=== PATIENT | female | born 1955 | race Caucasian/White ===

== ENCOUNTER → 2017-03-13 | Outpatient (CLI) | payer OTHER ==
[~2017-03-13] MED LIST: ATEN-156 PO; CRUT1EAC7 MC; GLUC750T PO; LEG1EACH88 MC; MECL25TA56 PO
== END ==
LOC: LAB 14:05
PROVIDERS: ATTEND Registered Nurse
DX: E03.9 Hypothyroidism, unspecified (principal)
CPT/HCPCS: 36415; 84443; 84481

== ENCOUNTER → 2018-07-30 | Outpatient (CLI) | payer OTHER ==
--- NOTE | 2018-07-30 09:19 | Diagnostic Imaging Report ---
PROCEDURE: US Gallbladder. TECHNIQUE: Multiple real-time grayscale images were obtained over the right upper quadrant in various projections. INDICATION: Epigastric pain. FINDINGS: Liver has increased echogenicity. There is a 1.4 cm cyst in the liver near the gallbladder. There are several small stones in the gallbladder. The gallbladder wall is not thickened. There is a negative sonographic Jackman sign. The common duct is not appreciably dilated. Pancreas is obscured by bowel gas. Right kidney measures 9.3 cm in length and appears normal. There is no ascites. IMPRESSION: Hepatic steatosis. Cholecystolithiasis. Dictated by: Dictated on workstation # [id number]
== END ==
LOC: RAD 07:49
PROVIDERS: ATTEND Surgery
DX: K76.0 Fatty (change of) liver, not elsewhere classified (principal); K80.20 Calculus of gallbladder without cholecystitis without obstruction
CPT/HCPCS: 76705

== ENCOUNTER 2018-08-05 13:00 | Outpatient (CLI) | payer OTHER ==
[~2018-08-05] VITALS: Ht 165.1 cm; Wt 90.7 kg
[2018-08-05] MEDS ORDERED: PANT40TA3 PO (13:11)
[2018-08-05] MEDS ORDERED: FLUT9.9S NS (13:11)
[2018-08-05] MEDS ORDERED: ONDA4TAB11 PO (13:11)
[2018-08-05] MEDS ORDERED: ATEN50TA PO (13:11)
[2018-08-05] MEDS ORDERED: LOSA100T8 PO (13:11)
[2018-08-05] MEDS ORDERED: METH10TA2 PO (13:11)
[2018-08-05] MEDS ORDERED: LORA10TA7 PO (13:11)
[2018-08-05] MEDS ORDERED: LEVO112T55 PO (13:11)
== END 2018-08-05 13:26 | disposition home or self-care (01) ==
LOC: PREOP 13:00
PROVIDERS: ATTEND Surgery
DX: Z01.818 Encounter for other preprocedural examination (principal)

== ENCOUNTER 2018-08-11 08:19 | Day surgery (SDC) | payer OTHER ==
[~2018-08-11] VITALS: Ht 165.1 cm; Wt 90.7 kg
[~2018-08-11 08:19] MED LIST changes: +ATEN50TA PO; +FLUT9.9S NS; +LEVO112T55 PO; +LORA10TA7 PO; +LOSA100T57 PO; +METH10TA2 PO; +ONDA4TAB11 PO; +PANT40TA3 PO
--- OUTSIDE RECORDS SUMMARY | 2018-08-11 08:24 | XMS REPORT | CCD ---
Author Author Kristie Carter Organization [facility] Address [address] [place] [address] Phone Care Team Providers Care Setter Off Name Role Phone PP Unavailable CCM Unavailable Summary Purpose Interface Exchange Insurance Providers Payer name Policy type / Coverage type Covered republican ID Effective Begin Date Effective End Date Administrative Concepts [id number] Unknown Family history Brother Diagnosis Age At Onset Cancer Unknown Alcoholism Unknown Mother Diagnosis Age At Onset Osteoporosis Unknown Arthritis Unknown Diabetes mellitus Type 2 Unknown Father Diagnosis Age At Onset Arthritis Unknown Skin cancer Unknown Cancer Unknown Hypertension Unknown Social History Social History Element Codes Description Effective Dates Marital status Unknown Single 05/13/2017 Number of children Unknown 1 Daughter - 35 yo, lives in the area 05/13/2017 Employment Unknown 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 Unknown Has never used illegal drugs 05/13/2017 Allergies, Adverse Reactions, Alerts Substance Reaction Codes Entered Date Inactivated Date Status * OTHER REACTION - SEE ANSWER BOX Antibiotics- cause nausea Unknown 05/13/2017 No Inactive Date Active Lyrica nausea RxNorm: 254266 05/13/2017 No Inactive Date Active Savella nausea RxNorm: 723963 05/13/2017 No Inactive Date Active ibuprofen nausea, RxNorm: 5640 05/13/2017 No Inactive Date Active Past Medical History Illness Codes Condition Status Onset Date Resolved Date Atrophy of thyroid (acquired) ICD-9: 244.8 ICD-10: E03.4 Active 05/13/2017 Unknown Chronic pain syndrome ICD-9: 338.4 ICD-10: G89.4 Active 06/09/2017 Unknown Essential (primary) hypertension ICD-9: 401.1 ICD-10: I10 Active 05/13/2017 Unknown Type 2 diabetes mellitus without complications ICD-9: 250.00 ICD-10: E11.9 Active 05/13/2017 Unknown Nausea ICD-9: 787.02 ICD-10: R11.0 Active 06/09/2017 Unknown Diabetes Unknown Active 05/13/2017 Unknown Encounter for general adult medical examination with abnormal findings ICD-9: V70.0 ICD-10: Z00.01 Active 05/13/2017 Unknown Problems Condition Codes Effective Dates Condition Status Atrophy of thyroid (acquired) ICD-9: 244.8 ICD-10: E03.4 05/13/2017 Active Chronic pain syndrome ICD-9: 338.4 ICD-10: G89.4 06/09/2017 Active Essential (primary) hypertension ICD-9: 401.1 ICD-10: I10 05/13/2017 Active Type 2 diabetes mellitus without complications ICD-9: 250.00 ICD-10: E11.9 05/13/2017 Active Nausea ICD-9: 787.02 ICD-10: R11.0 06/09/2017 Active Diabetes Unknown 05/13/2017 Active Encounter for general adult medical examination with abnormal findings ICD-9: V70.0 ICD-10: Z00.01 05/13/2017 Active Medications Medication Codes Instructions Start Date Stop Date Status Fill Instructions losartan 100 mg tablet RxNorm: 115777 TAKE 1 TABLET BY MOUTH ONCE DAILY 07/15/2018 No Stop Date Active loratadine 10 mg tablet RxNorm: 375195 TAKE 1 TABLET BY MOUTH ONCE DAILY 07/03/2018 No Stop Date Active levothyroxine 112 mcg tablet RxNorm: 244484 TAKE 1 TABLET BY MOUTH ONCE DAILY 07/03/2018 No Stop Date Active methadone 10 mg tablet RxNorm: 906442 1.5 Tablet(s) PO TID 04/201808/27/2018 Active ondansetron 4 mg disintegrating tablet RxNorm: 319539 1 Tablet(s) PO daily as needed 06/25/2018 08/23/2018 Active methadone 10 mg tablet RxNorm: 622769 1.5 Tablet(s) PO TID 06/28/2018 Inactive methadone 10 mg tablet RxNorm: 252718 1.5 Tablet(s) PO TID 06/03/2018 Inactive methadone 10 mg tablet RxNorm: 738414 1.5 Tablet(s) PO TID 05/09/2018 Inactive loratadine 10 mg tablet RxNorm: 111980 TAKE 1 TABLET BY MOUTH ONCE DAILY 04/01/2018 07/02/2018 Inactive pantoprazole 40 mg tablet,delayed release RxNorm: 369562 TAKE ONE TABLET BY MOUTH TWICE DAILY FOR 1 WEEK, THEN ONCE DAILY THEREAFTER. 2017 No Stop Date Active ondansetron 4 mg disintegrating tablet RxNorm: 348935 1 Tablet(s) PO daily as needed 03/30/2018 06/24/2018 Inactive hydrocodone 7.5 mg-acetaminophen 325 mg tablet RxNorm: 329949 1 Tablet(s) PO TID as needed 03/18/2018 04/14/2018 Inactive methadone 10 mg tablet RxNorm: 122338 1 Tablet(s) PO TID 201703/24/2018 Inactive levothyroxine 112 mcg tablet RxNorm: 717113 1 Tablet(s) PO daily 03/06/2018 07/02/2018 Inactive promethazine 25 mg tablet RxNorm: 857443 1 Tablet(s) PO BID as needed nausea 03/05/2018 09/30/2018 Active ondansetron 4 mg disintegrating tablet RxNorm: 126374 1 Tablet(s) PO daily as needed 02/24/2018 03/25/2018 Inactive hydrocodone 7.5 mg-acetaminophen 325 mg tablet RxNorm: 212199 1 Tablet(s) PO TID as needed 02/18/2018 03/17/2018 Inactive methadone 10 mg tablet RxNorm: 714309 1 Tablet(s) PO TID 201703/17/2018 Inactive atenolol 50 mg tablet RxNorm: 703588 TAKE ONE TABLET BY MOUTH ONCE DAILY 02/16/2018 No Stop Date Active levothyroxine 112 mcg tablet RxNorm: 465313 1 Tablet(s) PO daily 02/02/2018 03/03/2018 Inactive levothyroxine 112 mcg tablet RxNorm: 663443 1 Tablet(s) PO daily 02/02/2018 02/01/2018 Inactive loratadine 10 mg tablet RxNorm: 783268 TAKE ONE TABLET BY MOUTH ONCE DAILY 01/29/2018 03/31/2018 Inactive hydrocodone 7.5 mg-acetaminophen 325 mg tablet RxNorm: 396035 1 Tablet(s) PO TID as needed 01/19/2018 02/17/2018 Inactive methadone 10 mg tablet RxNorm: 003406 1 Tablet(s) PO TID 201702/17/2018 Inactive doxazosin 2 mg tablet RxNorm: 071618 1 Tablet(s) PO BID 201701/11/2018 Inactive doxazosin 1 mg tablet RxNorm: 178768 1 Tablet(s) PO BID 201712/30/2017 Inactive ondansetron 4 mg disintegrating tablet RxNorm: 200391 1 Tablet(s) PO daily as needed 12/29/2017 02/23/2018 Inactive mupirocin 2 % topical ointment RxNorm: 439609 1 TOP TID 201712/10/2017 Inactive losartan 100 mg tablet RxNorm: 212918 1 Tablet(s) PO daily 06/28/2018 Inactive doxycycline hyclate 100 mg tablet RxNorm: 487051 1 Tablet(s) PO BID for cellulitis of toe 12/01/2017 12/05/2017 Inactive ondansetron 4 mg disintegrating tablet RxNorm: 307749 1 Tablet(s) PO daily as needed 11/28/2017 12/27/2017 Inactive WelChol 625 mg tablet RxNorm: 780898 3 Tablet(s) PO BID 201711/21/2017 Inactive levothyroxine 100 mcg tablet RxNorm: 028597 1 Tablet(s) PO daily 11/11/2017 03/10/2018 Inactive WelChol 625 mg tablet RxNorm: 482280 3 Tablet(s) PO BID 201711/10/2017 Inactive losartan 50 mg tablet RxNorm: 468902 1 Tablet(s) PO daily 201711/30/2017 Inactive ondansetron 4 mg disintegrating tablet RxNorm: 229114 1 Tablet(s) PO daily as needed 10/27/2017 11/25/2017 Inactive hydrocodone 7.5 mg-acetaminophen 325 mg tablet RxNorm: 489162 1 Tablet(s) PO TID as needed 10/02/2017 10/31/2017 Inactive methadone 10 mg tablet RxNorm: 026094 1 Tablet(s) PO TID 201710/31/2017 Inactive ondansetron 4 mg disintegrating tablet RxNorm: 492403 1 Tablet(s) PO daily as needed 09/03/2017 10/26/2017 Inactive Flonase Allergy Relief 50 mcg/actuation nasal spray, suspension RxNorm: 0640309 2 [place] NASAL daily 08/19/2017 No Stop Date Active Carafate 1 gram tablet RxNorm: 616797 1 Tablet(s) PO BID 2017 No Stop Date Active promethazine 25 mg tablet RxNorm: 516560 1 Tablet(s) PO BID as needed nausea 08/11/2017 03/04/2018 Inactive methadone 10 mg tablet RxNorm: 080616 1 Tablet(s) PO TID 201709/09/2017 Inactive hydrocodone 7.5 mg-acetaminophen 325 mg tablet RxNorm: 248142 1 Tablet(s) PO TID as needed 08/11/2017 09/09/2017 Inactive ondansetron 4 mg disintegrating tablet RxNorm: 154587 1 Tablet(s) PO daily as needed 07/10/2017 08/08/2017 Inactive hydrocodone 7.5 mg-acetaminophen 325 mg tablet RxNorm: 276689 1 Tablet(s) PO TID as needed 07/08/2017 08/06/2017 Inactive hydrocodone 7.5 mg-acetaminophen 325 mg tablet RxNorm: 071254 1 Tablet(s) PO TID as needed 07/08/2017 07/07/2017 Inactive methadone 10 mg tablet RxNorm: 278287 1 Tablet(s) PO TID 201608/06/2017 Inactive hydrocodone 10 mg-acetaminophen 325 mg tablet RxNorm: 235098 1 Tablet(s) PO TID as needed for breakthrough pain 06/16/2017 07/07/2017 Inactive ondansetron 4 mg disintegrating tablet RxNorm: 651718 1 Tablet(s) PO daily as needed 06/09/2017 07/08/2017 Inactive hydrocodone 10 mg-acetaminophen 325 mg tablet RxNorm: 677262 1 Tablet(s) PO TID as needed for breakthrough pain 06/09/2017 06/15/2017 Inactive atenolol 50 mg tablet RxNorm: 296852 1 Tablet(s) PO daily 201602/15/2018 Inactive promethazine 25 mg tablet RxNorm: 678359 1 Tablet(s) PO BID as needed nausea 06/09/2017 08/10/2017 Inactive pantoprazole 40 mg tablet,delayed release RxNorm: 690023 1 Tablet(s) PO daily bid x 1 week then daily thereafter 06/09/2017 12/05/2017 Inactive alprazolam 0.25 mg tablet RxNorm: 234494 1 Tablet(s) PO TID as needed 05/30/2017 11/02/2017 Inactive pantoprazole 40 mg tablet,delayed release RxNorm: 565162 1 Tablet(s) PO daily 05/30/2017 06/08/2017 Inactive ondansetron 4 mg disintegrating tablet RxNorm: 427942 1 Tablet(s) PO daily as needed 05/30/2017 06/08/2017 Inactive levothyroxine 75 mcg tablet RxNorm: 604764 1 Tablet(s) PO daily 05/13/2017 11/30/2017 Inactive loratadine 10 mg tablet RxNorm: 702921 1 Tablet(s) PO daily 12/08/2017 Inactive promethazine 25 mg tablet RxNorm: 634555 Tablet(s) PO as needed nausea No Start Date Active cyclobenzaprine 10 mg tablet RxNorm: 644647 Tablet(s) PO as needed No Start Date Active metformin 500 mg tablet RxNorm: 963461 1 Tablet(s) PO daily No Start Date 08/19/2017 Inactive ondansetron 8 mg disintegrating tablet RxNorm: 663927 Tablet(s) PO as needed nausea No Start Date 05/29/2017 Inactive levothyroxine 100 mcg tablet RxNorm: 555334 Tablet(s) PO No Start Date 11/10/2017 Inactive loratadine 10 mg tablet RxNorm: 321544 1 Tablet(s) PO daily No Start Date 05/12/2017 Inactive atenolol 50 mg tablet RxNorm: 313067 1 Tablet(s) PO daily No Start Date 06/08/2017 Inactive Flonase Allergy Relief 50 mcg/actuation nasal spray, suspension RxNorm: 6026963 [place] NASAL daily No Start Date 2017 Inactive alprazolam 0.25 mg tablet RxNorm: 375864 Tablet(s) PO as needed No Start Date 05/29/2017 Inactive levothyroxine oral RxNorm: 57189 oral No Start Date 05/13/2017 Inactive hydrocodone 10 mg-acetaminophen 325 mg tablet RxNorm: 257776 Tablet(s) PO as needed for breakthrough pain No Start Date 06/08/2017 Inactive methadone 10 mg tablet RxNorm: 889077 1 Tablet(s) PO TID No Start Date 07/07/2017 Inactive pantoprazole 40 mg tablet,delayed release RxNorm: 205165 1 Tablet(s) PO daily No Start Date 05/29/2017 Inactive Medication Administered No Medication Administered data Immunizations No Immunization data Assessments Condition Codes Effective Dates Chronic pain syndrome ICD-10: G89.4 ICD-9: 338.4 06/29/2018 Type 2 diabetes mellitus without complications ICD-10: E11.9 ICD-9: 250.00 06/29/2018 Atrophy of thyroid (acquired) ICD-10: E03.4 ICD-9: 244.8 06/29/2018 Essential (primary) hypertension ICD-10: I10 ICD-9: 401.1 06/29/2018 Nausea ICD-10: R11.0 ICD-9: 787.02 03/25/2018 Encounter for general adult medical examination with abnormal findings ICD-10: Z00.01 ICD-9: V70.0 05/13/2017 Reason For Visit Reason For Visit Effective Dates Notes diabetes mellitus 06/29/2018 diabetes mellitus 05/18/2018 nausea 03/25/2018 hypertension 01/12/2018 hypertension 12/29/2017 hypertension 12/01/2017 hypertension 11/03/2017 hypertension 08/11/2017 hypertension 06/09/2017 hypertension 05/13/2017 Results Observation Observation Code Item Item Code Result Date Free T4 Nkk291 FREE T4 0.81 ng/dL 01/22/2018 Tsh Ord6 TSH (3rd IS) 12.54 uIU/mL 01/22/2018 Comp Metabolic Wyz895 NA 139 mEq/L 11/05/2017 Comp Metabolic Dja292 K 3.9 mEq/L 11/05/2017 Comp Metabolic Bjx453 CL 101 mEq/L 11/05/2017 Comp Metabolic Qdl359 CO2 30.0 mEq/L 11/05/2017 Comp Metabolic Pax926 ANION GAP 12 11/05/2017 Comp Metabolic Bpz032 GLUCOSE 98 mg/dL 11/05/2017 Comp Metabolic Fig592 Creat 0.8 mg/dL 11/05/2017 Comp Metabolic Hwd120 eGFR 74 ml/min/1.73m2 11/05/2017 Comp Metabolic Vgt307 BUN 9 mg/dL 11/05/2017 Comp Metabolic Ojs146 B/C Ratio 10.8 Ratio 11/05/2017 Comp Metabolic Pba671 CALCIUM 9.1 mg/dL 11/05/2017 Comp Metabolic Nag115 ALK PHOS 87 U/L 11/05/2017 Comp Metabolic Kdv033 AST(SGOT) 28 U/L 11/05/2017 Comp Metabolic Ink901 ALT(SGPT) 30 U/L 11/05/2017 Comp Metabolic Jom469 BILI T 0.5 mg/dL 11/05/2017 Comp Metabolic Jya670 ALBUMIN 3.9 g/dL 11/05/2017 Comp Metabolic Jtw040 TPRO 7.2 g/dL 11/05/2017 Comp Metabolic Sdb150 GLOB 3.3 g/dL 11/05/2017 Comp Metabolic Hhp315 A/G Ratio 1.2 Ratio 11/05/2017 Comp Metabolic Irx389 Osmo 276 mOsmo 11/05/2017 Cbc With Differential Ord2 WBC 6.04 K/ul 11/05/2017 Cbc With Differential Ord2 RBC 4.96 M/ul 11/05/2017 Cbc With Differential Ord2 HGB 15.5 g/dl 11/05/2017 Cbc With Differential Ord2 Neut% 45.0 % 11/05/2017 Cbc With Differential Ord2 HCT 45.5 % 11/05/2017 Cbc With Differential Ord2 Lymph% 43.0 % 11/05/2017 Cbc With Differential Ord2 MCV 91.7 fl 11/05/2017 Cbc With Differential Ord2 MCH 31.3 pg 11/05/2017 Cbc With Differential Ord2 Wright% 8.8 % 11/05/2017 Cbc With Differential Ord2 Eos% 2.5 % 11/05/2017 Cbc With Differential Ord2 MCHC 34.1 pg 11/05/2017 Cbc With Differential Ord2 Baso% 0.7 % 11/05/2017 Cbc With Differential Ord2 PLT 221 K/ul 11/05/2017 Cbc With Differential Ord2 RDW 13.3 % 11/05/2017 Cbc With Differential Ord2 Neut ABS# 2.72 K/ul 11/05/2017 Cbc With Differential Ord2 Lymph ABS# 2.60 K/ul 11/05/2017 Cbc With Differential Ord2 Wright ABS# 0.5 K/ul 11/05/2017 Cbc With Differential Ord2 Eos ABS# 0.2 K/ul 11/05/2017 Cbc With Differential Ord2 Baso ABS# 0.0 K/ul 11/05/2017 Microalbumin Rcy376 MicroAlb <0.7 mg/dL 11/05/2017 Tsh Ord6 TSH (3rd IS) 27.62 uIU/mL 11/05/2017 Lipid Ord30 CHOL 218 mg/dL 11/05/2017 Lipid Ord30 HDL 34.0 mg/dl 11/05/2017 Lipid Ord30 TRIG 363 mg/dL 11/05/2017 Lipid Ord30 LDL Unable to calculate Due to elevated triglycerides mg/dL 11/05/2017 Lipid Ord30 C/HDL 6.4 Ratio 11/05/2017 %Hba1C Jor218 % HbA1c 80944-9 6.3 % 11/05/2017 %Hba1C Rqp479 Gluc Ave 134 mg/dL 11/05/2017 Free T4 Ild754 FREE T4 0.69 ng/dL 11/05/2017 Review of Systems System Result Effective Dates Constitutional recent illness 06/29/2018 Constitutional No chills 06/29/2018 Constitutional fatigue 06/29/2018 Constitutional No fever 06/29/2018 Constitutional No insomnia 06/29/2018 Constitutional No malaise 06/29/2018 Eyes No vision change 06/29/2018 Ears/Nose/Throat/Neck No dental pain 04/2018 Ears/Nose/Throat/Neck No dizziness 2017 Ears/Nose/Throat/Neck No dysphagia 2017 Ears/Nose/Throat/Neck No headache 2017 Ears/Nose/Throat/Neck No hearing loss 04/2018 Ears/Nose/Throat/Neck No nasal allergies 06/29/2018 Ears/Nose/Throat/Neck No sore throat 04/2018 Ears/Nose/Throat/Neck No postnasal drip 06/29/2018 Ears/Nose/Throat/Neck No sinus congestion 06/29/2018 Cardiovascular No chest pain/pressure 04/2018 Cardiovascular No dyspnea 06/29/2018 Cardiovascular No edema 06/29/2018 Cardiovascular No exercise intolerance Cardiovascular No fatigue 06/29/2018 Cardiovascular No near-syncope/dizziness 06/29/2018 Respiratory No chest tightness 2017 Respiratory No cough 06/29/2018 Respiratory No dyspnea 06/29/2018 Respiratory No pedal edema 06/29/2018 Gastrointestinal abdominal pain 2017 Gastrointestinal No constipation 2017 Gastrointestinal No diarrhea 06/29/2018 Gastrointestinal gastroesophageal reflux 06/29/2018 Gastrointestinal nausea 06/29/2018 Gastrointestinal No vomiting 06/29/2018 Musculoskeletal stiffness 06/29/2018 Musculoskeletal No swelling 06/29/2018 Musculoskeletal arthralgia(s) 06/29/2018 Musculoskeletal muscle weakness 2017 Musculoskeletal No myalgias 06/29/2018 Dermatologic No rash 06/29/2018 Dermatologic sores 06/29/2018 Neurologic No dizziness 06/29/2018 Neurologic No headache 06/29/2018 Neurologic No neck pain 06/29/2018 Neurologic No syncope 06/29/2018 Psychiatric No anxiety 06/29/2018 Psychiatric No depression 06/29/2018 Endocrine diabetes mellitus type 2 2017 Constitutional recent illness 05/18/2018 Constitutional No chills 05/18/2018 Constitutional fatigue 05/18/2018 Constitutional No fever 05/18/2018 Constitutional No insomnia 05/18/2018 Constitutional No malaise 05/18/2018 Eyes No vision change 05/18/2018 Ears/Nose/Throat/Neck No dental pain Ears/Nose/Throat/Neck No dizziness 2017 Ears/Nose/Throat/Neck No dysphagia 2017 Ears/Nose/Throat/Neck No headache 2017 Ears/Nose/Throat/Neck No hearing loss Ears/Nose/Throat/Neck No nasal allergies 05/18/2018 Ears/Nose/Throat/Neck No sore throat Ears/Nose/Throat/Neck No postnasal drip 05/18/2018 Ears/Nose/Throat/Neck No sinus congestion 05/18/2018 Cardiovascular No chest pain/pressure Cardiovascular No dyspnea 05/18/2018 Cardiovascular No edema 05/18/2018 Cardiovascular No exercise intolerance Cardiovascular No fatigue 05/18/2018 Cardiovascular No near-syncope/dizziness 05/18/2018 Respiratory No chest tightness 2017 Respiratory No cough 05/18/2018 Respiratory No dyspnea 05/18/2018 Respiratory No pedal edema 05/18/2018 Gastrointestinal No abdominal pain 2017 Gastrointestinal No constipation 2017 Gastrointestinal No diarrhea 05/18/2018 Gastrointestinal No gastroesophageal reflux 05/18/2018 Gastrointestinal nausea 05/18/2018 Gastrointestinal No vomiting 05/18/2018 Musculoskeletal stiffness 05/18/2018 Musculoskeletal No swelling 05/18/2018 Musculoskeletal arthralgia(s) 05/18/2018 Musculoskeletal muscle weakness 2017 Musculoskeletal No myalgias 05/18/2018 Dermatologic No rash 05/18/2018 Dermatologic sores 05/18/2018 Neurologic No dizziness 05/18/2018 Neurologic No headache 05/18/2018 Neurologic No neck pain 05/18/2018 Neurologic No syncope 05/18/2018 Psychiatric No anxiety 05/18/2018 Psychiatric No depression 05/18/2018 Endocrine diabetes mellitus type 2 2017 Constitutional recent illness 03/25/2018 Constitutional No chills 03/25/2018 Constitutional fatigue 03/25/2018 Constitutional No fever 03/25/2018 Constitutional No insomnia 03/25/2018 Constitutional No malaise 03/25/2018 Eyes No vision change 03/25/2018 Ears/Nose/Throat/Neck No dental pain 11/2017 Ears/Nose/Throat/Neck No dizziness 2017 Ears/Nose/Throat/Neck No dysphagia 2017 Ears/Nose/Throat/Neck No headache 2017 Ears/Nose/Throat/Neck No hearing loss 11/2017 Ears/Nose/Throat/Neck No nasal allergies 03/25/2018 Ears/Nose/Throat/Neck No sore throat 11/2017 Ears/Nose/Throat/Neck No postnasal drip 03/25/2018 Ears/Nose/Throat/Neck No sinus congestion 03/25/2018 Cardiovascular No chest pain/pressure 11/2017 Cardiovascular No dyspnea 03/25/2018 Cardiovascular No edema 03/25/2018 Cardiovascular No exercise intolerance Cardiovascular No fatigue 03/25/2018 Cardiovascular No near-syncope/dizziness 03/25/2018 Respiratory No chest tightness 2017 Respiratory No cough 03/25/2018 Respiratory No dyspnea 03/25/2018 Respiratory No pedal edema 03/25/2018 Gastrointestinal No abdominal pain 2017 Gastrointestinal No constipation 2017 Gastrointestinal No diarrhea 03/25/2018 Gastrointestinal No gastroesophageal reflux 03/25/2018 Gastrointestinal nausea 03/25/2018 Gastrointestinal No vomiting 03/25/2018 Musculoskeletal stiffness 03/25/2018 Musculoskeletal No swelling 03/25/2018 Musculoskeletal arthralgia(s) 03/25/2018 Musculoskeletal muscle weakness 2017 Musculoskeletal No myalgias 03/25/2018 Dermatologic No rash 03/25/2018 Dermatologic sores 03/25/2018 Neurologic No dizziness 03/25/2018 Neurologic No headache 03/25/2018 Neurologic No neck pain 03/25/2018 Neurologic No syncope 03/25/2018 Psychiatric No anxiety 03/25/2018 Psychiatric No depression 03/25/2018 Endocrine diabetes mellitus type 2 2017 Constitutional No recent illness 2017 Constitutional No chills 01/12/2018 Constitutional fatigue 01/12/2018 Constitutional No fever 01/12/2018 Constitutional No insomnia 01/12/2018 Constitutional No malaise 01/12/2018 Eyes No vision change 01/12/2018 Ears/Nose/Throat/Neck No dental pain Ears/Nose/Throat/Neck No dizziness 2017 Ears/Nose/Throat/Neck No dysphagia 2017 Ears/Nose/Throat/Neck No headache 2017 Ears/Nose/Throat/Neck No hearing loss Ears/Nose/Throat/Neck No nasal allergies 01/12/2018 Ears/Nose/Throat/Neck No sore throat Ears/Nose/Throat/Neck No postnasal drip 01/12/2018 Ears/Nose/Throat/Neck No sinus congestion 01/12/2018 Cardiovascular No chest pain/pressure Cardiovascular No dyspnea 01/12/2018 Cardiovascular No edema 01/12/2018 Cardiovascular No exercise intolerance Cardiovascular No fatigue 01/12/2018 Cardiovascular No near-syncope/dizziness 01/12/2018 Respiratory No chest tightness 2017 Respiratory No cough 01/12/2018 Respiratory No dyspnea 01/12/2018 Respiratory No pedal edema 01/12/2018 Gastrointestinal No abdominal pain 2017 Gastrointestinal No constipation 2017 Gastrointestinal No diarrhea 01/12/2018 Gastrointestinal No gastroesophageal reflux 01/12/2018 Gastrointestinal nausea 01/12/2018 Gastrointestinal No vomiting 01/12/2018 Musculoskeletal stiffness 01/12/2018 Musculoskeletal No swelling 01/12/2018 Musculoskeletal arthralgia(s) 01/12/2018 Musculoskeletal muscle weakness 2017 Musculoskeletal No myalgias 01/12/2018 Dermatologic No rash 01/12/2018 Neurologic No dizziness 01/12/2018 Neurologic No headache 01/12/2018 Neurologic No syncope 01/12/2018 Psychiatric alcohol abuse 01/12/2018 Psychiatric No anxiety 01/12/2018 Psychiatric depression 01/12/2018 Endocrine diabetes mellitus type 2 2017 Constitutional No recent illness 2017 Constitutional No chills 12/29/2017 Constitutional fatigue 12/29/2017 Constitutional No fever 12/29/2017 Constitutional No insomnia 12/29/2017 Constitutional No malaise 12/29/2017 Eyes No vision change 12/29/2017 Ears/Nose/Throat/Neck No dental pain 05/2018 Ears/Nose/Throat/Neck No dizziness 2017 Ears/Nose/Throat/Neck No dysphagia 2017 Ears/Nose/Throat/Neck No headache 2017 Ears/Nose/Throat/Neck No hearing loss 05/2018 Ears/Nose/Throat/Neck No nasal allergies 12/29/2017 Ears/Nose/Throat/Neck No sore throat 05/2018 Ears/Nose/Throat/Neck No postnasal drip 12/29/2017 Ears/Nose/Throat/Neck No sinus congestion 12/29/2017 Cardiovascular No chest pain/pressure 05/2018 Cardiovascular No dyspnea 12/29/2017 Cardiovascular No edema 12/29/2017 Cardiovascular No exercise intolerance Cardiovascular No fatigue 12/29/2017 Cardiovascular No near-syncope/dizziness 12/29/2017 Respiratory No chest tightness 2017 Respiratory No cough 12/29/2017 Respiratory No dyspnea 12/29/2017 Respiratory No pedal edema 12/29/2017 Gastrointestinal No abdominal pain 2017 Gastrointestinal No constipation 2017 Gastrointestinal No diarrhea 12/29/2017 Gastrointestinal No gastroesophageal reflux 12/29/2017 Gastrointestinal nausea 12/29/2017 Gastrointestinal No vomiting 12/29/2017 Musculoskeletal stiffness 12/29/2017 Musculoskeletal No swelling 12/29/2017 Musculoskeletal arthralgia(s) 12/29/2017 Musculoskeletal muscle weakness 2017 Musculoskeletal No myalgias 12/29/2017 Dermatologic No rash 12/29/2017 Neurologic No dizziness 12/29/2017 Neurologic No headache 12/29/2017 Neurologic No syncope 12/29/2017 Psychiatric No anxiety 12/29/2017 Psychiatric depression 12/29/2017 Endocrine diabetes mellitus type 2 2017 Psychiatric alcohol abuse 12/29/2017 Constitutional recent illness 12/01/2017 Constitutional No chills 12/01/2017 Constitutional fatigue 12/01/2017 Constitutional No fever 12/01/2017 Constitutional No insomnia 12/01/2017 Constitutional No malaise 12/01/2017 Eyes No vision change 12/01/2017 Ears/Nose/Throat/Neck No dental pain Ears/Nose/Throat/Neck No dizziness 2017 Ears/Nose/Throat/Neck No dysphagia 2017 Ears/Nose/Throat/Neck No headache 2017 Ears/Nose/Throat/Neck No hearing loss Ears/Nose/Throat/Neck No nasal allergies 12/01/2017 Ears/Nose/Throat/Neck No sore throat Ears/Nose/Throat/Neck No postnasal drip 12/01/2017 Ears/Nose/Throat/Neck No sinus congestion 12/01/2017 Cardiovascular No chest pain/pressure Cardiovascular No dyspnea 12/01/2017 Cardiovascular No edema 12/01/2017 Cardiovascular No exercise intolerance Cardiovascular No fatigue 12/01/2017 Cardiovascular No near-syncope/dizziness 12/01/2017 Respiratory No chest tightness 2017 Respiratory No cough 12/01/2017 Respiratory No dyspnea 12/01/2017 Respiratory No pedal edema 12/01/2017 Gastrointestinal No abdominal pain 2017 Gastrointestinal No constipation 2017 Gastrointestinal No diarrhea 12/01/2017 Gastrointestinal No gastroesophageal reflux 12/01/2017 Gastrointestinal nausea 12/01/2017 Gastrointestinal No vomiting 12/01/2017 Musculoskeletal stiffness 12/01/2017 Musculoskeletal No swelling 12/01/2017 Musculoskeletal arthralgia(s) 12/01/2017 Musculoskeletal muscle weakness 2017 Musculoskeletal No myalgias 12/01/2017 Dermatologic No rash 12/01/2017 Dermatologic sores 12/01/2017 Neurologic No dizziness 12/01/2017 Neurologic No headache 12/01/2017 Neurologic No neck pain 12/01/2017 Neurologic No syncope 12/01/2017 Psychiatric No anxiety 12/01/2017 Psychiatric No depression 12/01/2017 Endocrine diabetes mellitus type 2 2017 Constitutional recent illness 11/03/2017 Constitutional No chills 11/03/2017 Constitutional fatigue 11/03/2017 Constitutional No fever 11/03/2017 Constitutional No insomnia 11/03/2017 Constitutional No malaise 11/03/2017 Eyes No vision change 11/03/2017 Ears/Nose/Throat/Neck No dental pain Ears/Nose/Throat/Neck No dizziness 2017 Ears/Nose/Throat/Neck No dysphagia 2017 Ears/Nose/Throat/Neck No headache 2017 Ears/Nose/Throat/Neck No hearing loss Ears/Nose/Throat/Neck No nasal allergies 11/03/2017 Ears/Nose/Throat/Neck No sore throat Ears/Nose/Throat/Neck No postnasal drip 11/03/2017 Ears/Nose/Throat/Neck No sinus congestion 11/03/2017 Cardiovascular No chest pain/pressure Cardiovascular No dyspnea 11/03/2017 Cardiovascular No edema 11/03/2017 Cardiovascular No exercise intolerance Cardiovascular No fatigue 11/03/2017 Cardiovascular No near-syncope/dizziness 11/03/2017 Respiratory No chest tightness 2017 Respiratory No cough 11/03/2017 Respiratory No dyspnea 11/03/2017 Respiratory No pedal edema 11/03/2017 Gastrointestinal No abdominal pain 2017 Gastrointestinal No constipation 2017 Gastrointestinal No diarrhea 11/03/2017 Gastrointestinal No gastroesophageal reflux 11/03/2017 Gastrointestinal nausea 11/03/2017 Gastrointestinal No vomiting 11/03/2017 Musculoskeletal stiffness 11/03/2017 Musculoskeletal No swelling 11/03/2017 Musculoskeletal arthralgia(s) 11/03/2017 Musculoskeletal muscle weakness 2017 Musculoskeletal No myalgias 11/03/2017 Dermatologic No rash 11/03/2017 Dermatologic No sores 11/03/2017 Neurologic No dizziness 11/03/2017 Neurologic No headache 11/03/2017 Neurologic No neck pain 11/03/2017 Neurologic No syncope 11/03/2017 Psychiatric No anxiety 11/03/2017 Psychiatric No depression 11/03/2017 Endocrine diabetes mellitus type 2 2017 Constitutional recent illness 08/11/2017 Constitutional No chills 08/11/2017 Constitutional fatigue 08/11/2017 Constitutional No fever 08/11/2017 Constitutional No insomnia 08/11/2017 Constitutional No malaise 08/11/2017 Eyes No vision change 08/11/2017 Ears/Nose/Throat/Neck No dental pain Ears/Nose/Throat/Neck No dizziness 2017 Ears/Nose/Throat/Neck No dysphagia 2017 Ears/Nose/Throat/Neck No headache 2017 Ears/Nose/Throat/Neck No hearing loss Ears/Nose/Throat/Neck No nasal allergies 08/11/2017 Ears/Nose/Throat/Neck No sore throat Ears/Nose/Throat/Neck No postnasal drip 08/11/2017 Ears/Nose/Throat/Neck No sinus congestion 08/11/2017 Cardiovascular No chest pain/pressure Cardiovascular No dyspnea 08/11/2017 Cardiovascular No edema 08/11/2017 Cardiovascular No exercise intolerance Cardiovascular No fatigue 08/11/2017 Cardiovascular No near-syncope/dizziness 08/11/2017 Respiratory No chest tightness 2017 Respiratory No cough 08/11/2017 Respiratory No dyspnea 08/11/2017 Respiratory No pedal edema 08/11/2017 Gastrointestinal No abdominal pain 2017 Gastrointestinal No constipation 2017 Gastrointestinal No diarrhea 08/11/2017 Gastrointestinal No gastroesophageal reflux 08/11/2017 Gastrointestinal nausea 08/11/2017 Gastrointestinal No vomiting 08/11/2017 Musculoskeletal stiffness 08/11/2017 Musculoskeletal No swelling 08/11/2017 Musculoskeletal arthralgia(s) 08/11/2017 Musculoskeletal muscle weakness 2017 Musculoskeletal No myalgias 08/11/2017 Dermatologic No rash 08/11/2017 Dermatologic No sores 08/11/2017 Neurologic No dizziness 08/11/2017 Neurologic No headache 08/11/2017 Neurologic No neck pain 08/11/2017 Neurologic No syncope 08/11/2017 Psychiatric No anxiety 08/11/2017 Psychiatric No depression 08/11/2017 Constitutional recent illness 06/09/2017 Constitutional No chills 06/09/2017 Constitutional fatigue 06/09/2017 Constitutional No fever 06/09/2017 Constitutional No insomnia 06/09/2017 Constitutional No malaise 06/09/2017 Eyes No vision change 06/09/2017 Ears/Nose/Throat/Neck No dental pain Ears/Nose/Throat/Neck No dizziness 2016 Ears/Nose/Throat/Neck No dysphagia 2016 Ears/Nose/Throat/Neck No headache 2016 Ears/Nose/Throat/Neck No hearing loss Ears/Nose/Throat/Neck No nasal allergies 06/09/2017 Ears/Nose/Throat/Neck No sore throat Ears/Nose/Throat/Neck No postnasal drip 06/09/2017 Ears/Nose/Throat/Neck No sinus congestion 06/09/2017 Cardiovascular No chest pain/pressure Cardiovascular No dyspnea 06/09/2017 Cardiovascular No edema 06/09/2017 Cardiovascular No exercise intolerance Cardiovascular No fatigue 06/09/2017 Cardiovascular No near-syncope/dizziness 06/09/2017 Respiratory No chest tightness 2016 Respiratory No cough 06/09/2017 Respiratory No dyspnea 06/09/2017 Respiratory No pedal edema 06/09/2017 Gastrointestinal No abdominal pain 2016 Gastrointestinal No constipation 2016 Gastrointestinal No diarrhea 06/09/2017 Gastrointestinal No gastroesophageal reflux 06/09/2017 Gastrointestinal nausea 06/09/2017 Gastrointestinal No vomiting 06/09/2017 Musculoskeletal stiffness 06/09/2017 Musculoskeletal No swelling 06/09/2017 Musculoskeletal arthralgia(s) 06/09/2017 Musculoskeletal muscle weakness 2016 Musculoskeletal No myalgias 06/09/2017 Dermatologic No rash 06/09/2017 Dermatologic No sores 06/09/2017 Neurologic No dizziness 06/09/2017 Neurologic No headache 06/09/2017 Neurologic No neck pain 06/09/2017 Neurologic No syncope 06/09/2017 Psychiatric No anxiety 06/09/2017 Psychiatric No depression 06/09/2017 Constitutional No recent illness 2016 Constitutional No chills 05/13/2017 Constitutional fatigue 05/13/2017 Constitutional No fever 05/13/2017 Constitutional No insomnia 05/13/2017 Constitutional No malaise 05/13/2017 Eyes No vision change 05/13/2017 Ears/Nose/Throat/Neck No dental pain Ears/Nose/Throat/Neck No dizziness 2016 Ears/Nose/Throat/Neck No dysphagia 2016 Ears/Nose/Throat/Neck No headache 2016 Ears/Nose/Throat/Neck No hearing loss Ears/Nose/Throat/Neck No nasal allergies 05/13/2017 Ears/Nose/Throat/Neck No sore throat Ears/Nose/Throat/Neck No postnasal drip 05/13/2017 Ears/Nose/Throat/Neck No sinus congestion 05/13/2017 Cardiovascular No chest pain/pressure Cardiovascular No dyspnea 05/13/2017 Cardiovascular No edema 05/13/2017 Cardiovascular No exercise intolerance Cardiovascular No fatigue 05/13/2017 Cardiovascular No near-syncope/dizziness 05/13/2017 Respiratory No chest tightness 2016 Respiratory No cough 05/13/2017 Respiratory No dyspnea 05/13/2017 Respiratory No pedal edema 05/13/2017 Gastrointestinal No abdominal pain 2016 Gastrointestinal No constipation 2016 Gastrointestinal No diarrhea 05/13/2017 Gastrointestinal No gastroesophageal reflux 05/13/2017 Gastrointestinal No nausea 05/13/2017 Gastrointestinal No vomiting 05/13/2017 Genitourinary/Nephrology No dysuria 05/13 Genitourinary/Nephrology No nocturia Genitourinary/Nephrology No urinary incontinence 05/13/2017 Musculoskeletal stiffness 05/13/2017 Musculoskeletal No swelling 05/13/2017 Musculoskeletal muscle weakness 2016 Musculoskeletal No myalgias 05/13/2017 Dermatologic No rash 05/13/2017 Dermatologic No sores 05/13/2017 Neurologic No dizziness 05/13/2017 Neurologic No headache 05/13/2017 Neurologic No neck pain 05/13/2017 Neurologic No syncope 05/13/2017 Psychiatric No anxiety 05/13/2017 Psychiatric No depression 05/13/2017 Endocrine diabetes mellitus type 2 2016 Musculoskeletal arthralgia(s) 05/13/2017 Physical Exam Exam Name System Name Item Name Status Result Effective Dates Notes Full Exam - General 1994 Constitutional general appearance Development: well developed 06/29/2018 None Full Exam - General 1994 Constitutional general appearance Development: appears stated age 1206/29/2018 None Full Exam - General 1994 Constitutional general appearance Evidence of Distress: mild distress 06/29/2018 due to nausea and pain Full Exam - General 1994 Constitutional general appearance Hygiene/Attention to Grooming: good hygiene 06/29/2018 None Full Exam - General 1994 Eyes conjunctiva /eyelids Overall: conjunctiva clear 06/29/2018 None Full Exam - General 1994 Eyes conjunctiva /eyelids Overall: cornea clear 06/29/2018 None Full Exam - General 1994 Eyes conjunctiva /eyelids Overall: eyelids normal 06/29/2018 None Full Exam - General 1994 Eyes pupils and irises Overall: pupils equal, round, reactive to light and accomodation 06/29/2018 None Full Exam - General 1994 Ears/Nose/Throat otoscopic exam Overall: external auditory canals clear 06/29/2018 None Full Exam - General 1994 Ears/Nose/Throat otoscopic exam Overall: tympanic membranes clear 06/29/2018 None Full Exam - General 1994 Ears/Nose/Throat lips/teeth/gingiva Overall: benign lips 06/29/2018 None Full Exam - General 1994 Ears/Nose/Throat lips/teeth/gingiva Overall: normal dentition 06/29/2018 None Full Exam - General 1994 Ears/Nose/Throat oral cavity/pharynx/larynx Overall: oral mucosa clear 06/29/2018 None Full Exam - General 1994 Ears/Nose/Throat oral cavity/pharynx/larynx Overall: oropharyngeal mucosa clear 06/29/2018 None Full Exam - General 1994 Ears/Nose/Throat oral cavity/pharynx/larynx Overall: hypopharynx benign 06/29/2018 None Full Exam - General 1994 Ears/Nose/Throat oral cavity/pharynx/larynx Overall: no masses 06/29/2018 None Full Exam - General 1994 Respiratory auscultation Overall: breath sounds clear bilaterally 06/29/2018 None Full Exam - General 1994 Respiratory respiratory effort/rhythm Overall: no retractions 06/29/2018 None Full Exam - General 1994 Respiratory respiratory effort/rhythm Overall: normal rate 06/29/2018 None Full Exam - General 1994 Cardiovascular extremities Overall: no clubbing 06/29/2018 None Full Exam - General 1994 Cardiovascular auscultation of heart Overall: regular rate 06/29/2018 None Full Exam - General 1994 Cardiovascular auscultation of heart Overall: normal heart sounds 06/29/2018 None Full Exam - General 1994 Abdomen abdominal exam Overall: no tenderness 06/29/2018 None Full Exam - General 1994 Abdomen abdominal exam Overall: normal bowel sounds 06/29/2018 None Full Exam - General 1994 Musculoskeletal head and neck Overall: cervical spine benign 06/29/2018 None Full Exam - General 1994 Integument inspection of skin Location: right foot 06/29/2018 3rd toe - erythema of toe Full Exam - General 1994 Psychiatric orientation/consciousness Overall: oriented to person, place and time 06/29/2018 None Full Exam - General 1994 Psychiatric mood and affect Overall: normal mood and affect 06/29/2018 None Full Exam - General 1994 Constitutional general appearance Development: well developed 05/18/2018 None Full Exam - General 1994 Constitutional general appearance Development: appears stated age 1005/18/2018 None Full Exam - General 1994 Constitutional general appearance Evidence of Distress: mild distress 05/18/2018 due to nausea Full Exam - General 1994 Constitutional general appearance Hygiene/Attention to Grooming: good hygiene 05/18/2018 None Full Exam - General 1994 Eyes conjunctiva /eyelids Overall: conjunctiva clear 05/18/2018 None Full Exam - General 1994 Eyes conjunctiva /eyelids Overall: cornea clear 05/18/2018 None Full Exam - General 1994 Eyes conjunctiva /eyelids Overall: eyelids normal 05/18/2018 None Full Exam - General 1994 Eyes pupils and irises Overall: pupils equal, round, reactive to light and accomodation 05/18/2018 None Full Exam - General 1994 Ears/Nose/Throat otoscopic exam Overall: external auditory canals clear 05/18/2018 None Full Exam - General 1994 Ears/Nose/Throat otoscopic exam Overall: tympanic membranes clear 05/18/2018 None Full Exam - General 1994 Ears/Nose/Throat lips/teeth/gingiva Overall: benign lips 05/18/2018 None Full Exam - General 1994 Ears/Nose/Throat lips/teeth/gingiva Overall: normal dentition 05/18/2018 None Full Exam - General 1994 Ears/Nose/Throat oral cavity/pharynx/larynx Overall: oral mucosa clear 05/18/2018 None Full Exam - General 1994 Ears/Nose/Throat oral cavity/pharynx/larynx Overall: oropharyngeal mucosa clear 05/18/2018 None Full Exam - General 1994 Ears/Nose/Throat oral cavity/pharynx/larynx Overall: hypopharynx benign 05/18/2018 None Full Exam - General 1994 Ears/Nose/Throat oral cavity/pharynx/larynx Overall: no masses 05/18/2018 None Full Exam - General 1994 Respiratory auscultation Overall: breath sounds clear bilaterally 05/18/2018 None Full Exam - General 1994 Respiratory respiratory effort/rhythm Overall: no retractions 05/18/2018 None Full Exam - General 1994 Respiratory respiratory effort/rhythm Overall: normal rate 05/18/2018 None Full Exam - General 1994 Cardiovascular extremities Overall: no clubbing 05/18/2018 None Full Exam - General 1994 Cardiovascular auscultation of heart Overall: regular rate 05/18/2018 None Full Exam - General 1994 Cardiovascular auscultation of heart Overall: normal heart sounds 05/18/2018 None Full Exam - General 1994 Abdomen abdominal exam Overall: no tenderness 05/18/2018 None Full Exam - General 1994 Abdomen abdominal exam Overall: normal bowel sounds 05/18/2018 None Full Exam - General 1994 Musculoskeletal head and neck Overall: cervical spine benign 05/18/2018 None Full Exam - General 1994 Integument inspection of skin Location: right foot 05/18/2018 3rd toe - erythema of toe Full Exam - General 1994 Psychiatric orientation/consciousness Overall: oriented to person, place and time 05/18/2018 None Full Exam - General 1994 Psychiatric mood and affect Overall: normal mood and affect 05/18/2018 None Full Exam - General 1994 Constitutional general appearance Development: well developed 03/25/2018 None Full Exam - General 1994 Constitutional general appearance Development: appears stated age 0903/25/2018 None Full Exam - General 1994 Constitutional general appearance Evidence of Distress: mild distress 03/25/2018 due to nausea Full Exam - General 1994 Constitutional general appearance Hygiene/Attention to Grooming: good hygiene 03/25/2018 None Full Exam - General 1994 Eyes conjunctiva /eyelids Overall: conjunctiva clear 03/25/2018 None Full Exam - General 1994 Eyes conjunctiva /eyelids Overall: cornea clear 03/25/2018 None Full Exam - General 1994 Eyes conjunctiva /eyelids Overall: eyelids normal 03/25/2018 None Full Exam - General 1994 Eyes pupils and irises Overall: pupils equal, round, reactive to light and accomodation 03/25/2018 None Full Exam - General 1994 Ears/Nose/Throat otoscopic exam Overall: external auditory canals clear 03/25/2018 None Full Exam - General 1994 Ears/Nose/Throat otoscopic exam Overall: tympanic membranes clear 03/25/2018 None Full Exam - General 1994 Ears/Nose/Throat lips/teeth/gingiva Overall: benign lips 03/25/2018 None Full Exam - General 1994 Ears/Nose/Throat lips/teeth/gingiva Overall: normal dentition 03/25/2018 None Full Exam - General 1994 Ears/Nose/Throat oral cavity/pharynx/larynx Overall: oral mucosa clear 03/25/2018 None Full Exam - General 1995 Ears/Nose/Throat oral cavity/pharynx/larynx Overall: oropharyngeal mucosa clear 03/25/2018 None Full Exam - General 1994 Ears/Nose/Throat oral cavity/pharynx/larynx Overall: hypopharynx benign 03/25/2018 None Full Exam - General 1994 Ears/Nose/Throat oral cavity/pharynx/larynx Overall: no masses 03/25/2018 None Full Exam - General 1994 Respiratory auscultation Overall: breath sounds clear bilaterally 03/25/2018 None Full Exam - General 1994 Respiratory respiratory effort/rhythm Overall: no retractions 03/25/2018 None Full Exam - General 1994 Respiratory respiratory effort/rhythm Overall: normal rate 03/25/2018 None Full Exam - General 1994 Cardiovascular extremities Overall: no clubbing 03/25/2018 None Full Exam - General 1994 Cardiovascular auscultation of heart Overall: regular rate 03/25/2018 None Full Exam - General 1994 Cardiovascular auscultation of heart Overall: normal heart sounds 03/25/2018 None Full Exam - General 1994 Abdomen abdominal exam Overall: no tenderness 03/25/2018 None Full Exam - General 1994 Abdomen abdominal exam Overall: normal bowel sounds 03/25/2018 None Full Exam - General 1994 Musculoskeletal head and neck Overall: cervical spine benign 03/25/2018 None Full Exam - General 1994 Integument inspection of skin Location: right foot 03/25/2018 3rd toe - erythema of toe Full Exam - General 1994 Psychiatric orientation/consciousness Overall: oriented to person, place and time 03/25/2018 None Full Exam - General 1994 Psychiatric mood and affect Overall: normal mood and affect 03/25/2018 None Full Exam - General 1994 Constitutional general appearance Development: well developed 01/12/2018 None Full Exam - General 1994 Constitutional general appearance Development: appears stated age 0601/12/2018 None Full Exam - General 1994 Constitutional general appearance Evidence of Distress: mild distress 01/12/2018 due to nausea Full Exam - General 1994 Constitutional general appearance Hygiene/Attention to Grooming: good hygiene 01/12/2018 None Full Exam - General 1994 Eyes conjunctiva /eyelids Overall: conjunctiva clear 01/12/2018 None Full Exam - General 1994 Eyes conjunctiva /eyelids Overall: cornea clear 01/12/2018 None Full Exam - General 1994 Eyes conjunctiva /eyelids Overall: eyelids normal 01/12/2018 None Full Exam - General 1994 Eyes pupils and irises Overall: pupils equal, round, reactive to light and accomodation 01/12/2018 None Full Exam - General 1994 Ears/Nose/Throat otoscopic exam Overall: external auditory canals clear 01/12/2018 None Full Exam - General 1994 Ears/Nose/Throat otoscopic exam Overall: tympanic membranes clear 01/12/2018 None Full Exam - General 1994 Ears/Nose/Throat lips/teeth/gingiva Overall: benign lips 01/12/2018 None Full Exam - General 1994 Ears/Nose/Throat lips/teeth/gingiva Overall: normal dentition 01/12/2018 None Full Exam - General 1994 Ears/Nose/Throat oral cavity/pharynx/larynx Overall: oral mucosa clear 01/12/2018 None Full Exam - General 1994 Ears/Nose/Throat oral cavity/pharynx/larynx Overall: oropharyngeal mucosa clear 01/12/2018 None Full Exam - General 1994 Ears/Nose/Throat oral cavity/pharynx/larynx Overall: hypopharynx benign 01/12/2018 None Full Exam - General 1994 Ears/Nose/Throat oral cavity/pharynx/larynx Overall: no masses 01/12/2018 None Full Exam - General 1994 Respiratory auscultation Overall: breath sounds clear bilaterally 01/12/2018 None Full Exam - General 1994 Respiratory respiratory effort/rhythm Overall: no retractions 01/12/2018 None Full Exam - General 1994 Respiratory respiratory effort/rhythm Overall: normal rate 01/12/2018 None Full Exam - General 1994 Cardiovascular extremities Overall: no clubbing 01/12/2018 None Full Exam - General 1994 Cardiovascular auscultation of heart Overall: regular rate 01/12/2018 None Full Exam - General 1994 Cardiovascular auscultation of heart Overall: normal heart sounds 01/12/2018 None Full Exam - General 1994 Abdomen abdominal exam Overall: no tenderness 01/12/2018 None Full Exam - General 1994 Abdomen abdominal exam Overall: normal bowel sounds 01/12/2018 None Full Exam - General 1994 Musculoskeletal head and neck Overall: cervical spine benign 01/12/2018 None Full Exam - General 1994 Psychiatric orientation/consciousness Overall: oriented to person, place and time 01/12/2018 None Full Exam - General 1994 Psychiatric mood and affect Overall: normal mood and affect 01/12/2018 None Full Exam - General 1994 Constitutional general appearance Development: well developed 12/29/2017 None Full Exam - General 1994 Constitutional general appearance Development: appears stated age 0612/29/2017 None Full Exam - General 1994 Constitutional general appearance Evidence of Distress: mild distress 12/29/2017 due to nausea Full Exam - General 1994 Constitutional general appearance Hygiene/Attention to Grooming: good hygiene 12/29/2017 None Full Exam - General 1994 Eyes conjunctiva /eyelids Overall: conjunctiva clear 12/29/2017 None Full Exam - General 1994 Eyes conjunctiva /eyelids Overall: cornea clear 12/29/2017 None Full Exam - General 1994 Eyes conjunctiva /eyelids Overall: eyelids normal 12/29/2017 None Full Exam - General 1994 Eyes pupils and irises Overall: pupils equal, round, reactive to light and accomodation 12/29/2017 None Full Exam - General 1994 Ears/Nose/Throat otoscopic exam Overall: external auditory canals clear 12/29/2017 None Full Exam - General 1994 Ears/Nose/Throat otoscopic exam Overall: tympanic membranes clear 12/29/2017 None Full Exam - General 1994 Ears/Nose/Throat lips/teeth/gingiva Overall: benign lips 12/29/2017 None Full Exam - General 1994 Ears/Nose/Throat lips/teeth/gingiva Overall: normal dentition 12/29/2017 None Full Exam - General 1994 Ears/Nose/Throat oral cavity/pharynx/larynx Overall: oral mucosa clear 12/29/2017 None Full Exam - General 1994 Ears/Nose/Throat oral cavity/pharynx/larynx Overall: oropharyngeal mucosa clear 12/29/2017 None Full Exam - General 1994 Ears/Nose/Throat oral cavity/pharynx/larynx Overall: hypopharynx benign 12/29/2017 None Full Exam - General 1994 Ears/Nose/Throat oral cavity/pharynx/larynx Overall: no masses 12/29/2017 None Full Exam - General 1994 Respiratory auscultation Overall: breath sounds clear bilaterally 12/29/2017 None Full Exam - General 1994 Respiratory respiratory effort/rhythm Overall: no retractions 12/29/2017 None Full Exam - General 1994 Respiratory respiratory effort/rhythm Overall: normal rate 12/29/2017 None Full Exam - General 1994 Cardiovascular extremities Overall: no clubbing 12/29/2017 None Full Exam - General 1994 Cardiovascular auscultation of heart Overall: regular rate 12/29/2017 None Full Exam - General 1994 Cardiovascular auscultation of heart Overall: normal heart sounds 12/29/2017 None Full Exam - General 1994 Abdomen abdominal exam Overall: no tenderness 12/29/2017 None Full Exam - General 1994 Abdomen abdominal exam Overall: normal bowel sounds 12/29/2017 None Full Exam - General 1994 Musculoskeletal head and neck Overall: cervical spine benign 12/29/2017 None Full Exam - General 1994 Psychiatric orientation/consciousness Overall: oriented to person, place and time 12/29/2017 None Full Exam - General 1994 Psychiatric mood and affect Overall: normal mood and affect 12/29/2017 None Full Exam - General 1994 Constitutional general appearance Development: well developed 12/01/2017 None Full Exam - General 1994 Constitutional general appearance Development: appears stated age 0512/01/2017 None Full Exam - General 1994 Constitutional general appearance Evidence of Distress: mild distress 12/01/2017 due to nausea Full Exam - General 1994 Constitutional general appearance Hygiene/Attention to Grooming: good hygiene 12/01/2017 None Full Exam - General 1994 Eyes conjunctiva /eyelids Overall: conjunctiva clear 12/01/2017 None Full Exam - General 1994 Eyes conjunctiva /eyelids Overall: cornea clear 12/01/2017 None Full Exam - General 1994 Eyes conjunctiva /eyelids Overall: eyelids normal 12/01/2017 None Full Exam - General 1994 Eyes pupils and irises Overall: pupils equal, round, reactive to light and accomodation 12/01/2017 None Full Exam - General 1994 Ears/Nose/Throat otoscopic exam Overall: external auditory canals clear 12/01/2017 None Full Exam - General 1994 Ears/Nose/Throat otoscopic exam Overall: tympanic membranes clear 12/01/2017 None Full Exam - General 1994 Ears/Nose/Throat lips/teeth/gingiva Overall: benign lips 12/01/2017 None Full Exam - General 1994 Ears/Nose/Throat lips/teeth/gingiva Overall: normal dentition 12/01/2017 None Full Exam - General 1994 Ears/Nose/Throat oral cavity/pharynx/larynx Overall: oral mucosa clear 12/01/2017 None Full Exam - General 1994 Ears/Nose/Throat oral cavity/pharynx/larynx Overall: oropharyngeal mucosa clear 12/01/2017 None Full Exam - General 1994 Ears/Nose/Throat oral cavity/pharynx/larynx Overall: hypopharynx benign 12/01/2017 None Full Exam - General 1994 Ears/Nose/Throat oral cavity/pharynx/larynx Overall: no masses 12/01/2017 None Full Exam - General 1994 Respiratory auscultation Overall: breath sounds clear bilaterally 12/01/2017 None Full Exam - General 1994 Respiratory respiratory effort/rhythm Overall: no retractions 12/01/2017 None Full Exam - General 1994 Respiratory respiratory effort/rhythm Overall: normal rate 12/01/2017 None Full Exam - General 1994 Cardiovascular extremities Overall: no clubbing 12/01/2017 None Full Exam - General 1994 Cardiovascular auscultation of heart Overall: regular rate 12/01/2017 None Full Exam - General 1994 Cardiovascular auscultation of heart Overall: normal heart sounds 12/01/2017 None Full Exam - General 1994 Abdomen abdominal exam Overall: no tenderness 12/01/2017 None Full Exam - General 1994 Abdomen abdominal exam Overall: normal bowel sounds 12/01/2017 None Full Exam - General 1994 Musculoskeletal head and neck Overall: cervical spine benign 12/01/2017 None Full Exam - General 1994 Psychiatric orientation/consciousness Overall: oriented to person, place and time 12/01/2017 None Full Exam - General 1994 Psychiatric mood and affect Overall: normal mood and affect 12/01/2017 None Full Exam - General 1994 Integument inspection of skin Location: right foot 12/01/2017 3rd toe - erythema of toe Full Exam - General 1994 Constitutional general appearance Development: well developed 11/03/2017 None Full Exam - General 1994 Constitutional general appearance Development: appears stated age 0411/03/2017 None Full Exam - General 1994 Constitutional general appearance Evidence of Distress: mild distress 11/03/2017 due to nausea Full Exam - General 1994 Constitutional general appearance Hygiene/Attention to Grooming: good hygiene 11/03/2017 None Full Exam - General 1994 Eyes conjunctiva /eyelids Overall: conjunctiva clear 11/03/2017 None Full Exam - General 1994 Eyes conjunctiva /eyelids Overall: cornea clear 11/03/2017 None Full Exam - General 1994 Eyes conjunctiva /eyelids Overall: eyelids normal 11/03/2017 None Full Exam - General 1994 Eyes pupils and irises Overall: pupils equal, round, reactive to light and accomodation 11/03/2017 None Full Exam - General 1994 Ears/Nose/Throat otoscopic exam Overall: external auditory canals clear 11/03/2017 None Full Exam - General 1994 Ears/Nose/Throat otoscopic exam Overall: tympanic membranes clear 11/03/2017 None Full Exam - General 1994 Ears/Nose/Throat lips/teeth/gingiva Overall: benign lips 11/03/2017 None Full Exam - General 1994 Ears/Nose/Throat lips/teeth/gingiva Overall: normal dentition 11/03/2017 None Full Exam - General 1994 Ears/Nose/Throat oral cavity/pharynx/larynx Overall: oral mucosa clear 11/03/2017 None Full Exam - General 1994 Ears/Nose/Throat oral cavity/pharynx/larynx Overall: oropharyngeal mucosa clear 11/03/2017 None Full Exam - General 1994 Ears/Nose/Throat oral cavity/pharynx/larynx Overall: hypopharynx benign 11/03/2017 None Full Exam - General 1994 Ears/Nose/Throat oral cavity/pharynx/larynx Overall: no masses 11/03/2017 None Full Exam - General 1994 Respiratory auscultation Overall: breath sounds clear bilaterally 11/03/2017 None Full Exam - General 1994 Respiratory respiratory effort/rhythm Overall: no retractions 11/03/2017 None Full Exam - General 1994 Respiratory respiratory effort/rhythm Overall: normal rate 11/03/2017 None Full Exam - General 1994 Cardiovascular extremities Overall: no clubbing 11/03/2017 None Full Exam - General 1994 Cardiovascular auscultation of heart Overall: regular rate 11/03/2017 None Full Exam - General 1994 Cardiovascular auscultation of heart Overall: normal heart sounds 11/03/2017 None Full Exam - General 1994 Abdomen abdominal exam Overall: no tenderness 11/03/2017 None Full Exam - General 1994 Abdomen abdominal exam Overall: normal bowel sounds 11/03/2017 None Full Exam - General 1994 Musculoskeletal head and neck Overall: cervical spine benign 11/03/2017 None Full Exam - General 1994 Psychiatric orientation/consciousness Overall: oriented to person, place and time 11/03/2017 None Full Exam - General 1994 Psychiatric mood and affect Overall: normal mood and affect 11/03/2017 None Full Exam - General 1994 Constitutional general appearance Development: well developed 08/11/2017 None Full Exam - General 1994 Constitutional general appearance Development: appears stated age 0108/11/2017 None Full Exam - General 1994 Constitutional general appearance Evidence of Distress: mild distress 08/11/2017 due to nausea Full Exam - General 1994 Constitutional general appearance Hygiene/Attention to Grooming: good hygiene 08/11/2017 None Full Exam - General 1994 Eyes conjunctiva /eyelids Overall: conjunctiva clear 08/11/2017 None Full Exam - General 1994 Eyes conjunctiva /eyelids Overall: cornea clear 08/11/2017 None Full Exam - General 1994 Eyes conjunctiva /eyelids Overall: eyelids normal 08/11/2017 None Full Exam - General 1994 Eyes pupils and irises Overall: pupils equal, round, reactive to light and accomodation 08/11/2017 None Full Exam - General 1994 Ears/Nose/Throat otoscopic exam Overall: external auditory canals clear 08/11/2017 None Full Exam - General 1994 Ears/Nose/Throat otoscopic exam Overall: tympanic membranes clear 08/11/2017 None Full Exam - General 1994 Ears/Nose/Throat lips/teeth/gingiva Overall: benign lips 08/11/2017 None Full Exam - General 1994 Ears/Nose/Throat lips/teeth/gingiva Overall: normal dentition 08/11/2017 None Full Exam - General 1994 Ears/Nose/Throat oral cavity/pharynx/larynx Overall: oral mucosa clear 08/11/2017 None Full Exam - General 1994 Ears/Nose/Throat oral cavity/pharynx/larynx Overall: oropharyngeal mucosa clear 08/11/2017 None Full Exam - General 1994 Ears/Nose/Throat oral cavity/pharynx/larynx Overall: hypopharynx benign 08/11/2017 None Full Exam - General 1994 Ears/Nose/Throat oral cavity/pharynx/larynx Overall: no masses 08/11/2017 None Full Exam - General 1994 Respiratory auscultation Overall: breath sounds clear bilaterally 08/11/2017 None Full Exam - General 1994 Respiratory respiratory effort/rhythm Overall: no retractions 08/11/2017 None Full Exam - General 1994 Respiratory respiratory effort/rhythm Overall: normal rate 08/11/2017 None Full Exam - General 1994 Cardiovascular extremities Overall: no clubbing 08/11/2017 None Full Exam - General 1994 Cardiovascular auscultation of heart Overall: regular rate 08/11/2017 None Full Exam - General 1994 Cardiovascular auscultation of heart Overall: normal heart sounds 08/11/2017 None Full Exam - General 1994 Abdomen abdominal exam Overall: no tenderness 08/11/2017 None Full Exam - General 1994 Abdomen abdominal exam Overall: normal bowel sounds 08/11/2017 None Full Exam - General 1994 Musculoskeletal head and neck Overall: cervical spine benign 08/11/2017 None Full Exam - General 1994 Psychiatric orientation/consciousness Overall: oriented to person, place and time 08/11/2017 None Full Exam - General 1994 Psychiatric mood and affect Overall: normal mood and affect 08/11/2017 None Full Exam - General 1994 Constitutional general appearance Development: well developed 06/09/2017 None Full Exam - General 1994 Constitutional general appearance Development: appears stated age 1106/09/2017 None Full Exam - General 1994 Constitutional general appearance Hygiene/Attention to Grooming: good hygiene 06/09/2017 None Full Exam - General 1994 Eyes conjunctiva /eyelids Overall: conjunctiva clear 06/09/2017 None Full Exam - General 1994 Eyes conjunctiva /eyelids Overall: cornea clear 06/09/2017 None Full Exam - General 1994 Eyes conjunctiva /eyelids Overall: eyelids normal 06/09/2017 None Full Exam - General 1994 Eyes pupils and irises Overall: pupils equal, round, reactive to light and accomodation 06/09/2017 None Full Exam - General 1994 Ears/Nose/Throat otoscopic exam Overall: external auditory canals clear 06/09/2017 None Full Exam - General 1994 Ears/Nose/Throat otoscopic exam Overall: tympanic membranes clear 06/09/2017 None Full Exam - General 1994 Ears/Nose/Throat lips/teeth/gingiva Overall: benign lips 06/09/2017 None Full Exam - General 1994 Ears/Nose/Throat lips/teeth/gingiva Overall: normal dentition 06/09/2017 None Full Exam - General 1994 Ears/Nose/Throat oral cavity/pharynx/larynx Overall: oral mucosa clear 06/09/2017 None Full Exam - General 1994 Ears/Nose/Throat oral cavity/pharynx/larynx Overall: oropharyngeal mucosa clear 06/09/2017 None Full Exam - General 1994 Ears/Nose/Throat oral cavity/pharynx/larynx Overall: hypopharynx benign 06/09/2017 None Full Exam - General 1994 Ears/Nose/Throat oral cavity/pharynx/larynx Overall: no masses 06/09/2017 None Full Exam - General 1994 Respiratory auscultation Overall: breath sounds clear bilaterally 06/09/2017 None Full Exam - General 1994 Respiratory respiratory effort/rhythm Overall: no retractions 06/09/2017 None Full Exam - General 1994 Respiratory respiratory effort/rhythm Overall: normal rate 06/09/2017 None Full Exam - General 1994 Cardiovascular extremities Overall: no clubbing 06/09/2017 None Full Exam - General 1994 Cardiovascular auscultation of heart Overall: regular rate 06/09/2017 None Full Exam - General 1994 Cardiovascular auscultation of heart Overall: normal heart sounds 06/09/2017 None Full Exam - General 1994 Abdomen abdominal exam Overall: no tenderness 06/09/2017 None Full Exam - General 1994 Abdomen abdominal exam Overall: normal bowel sounds 06/09/2017 None Full Exam - General 1994 Musculoskeletal head and neck Overall: cervical spine benign 06/09/2017 None Full Exam - General 1994 Psychiatric orientation/consciousness Overall: oriented to person, place and time 06/09/2017 None Full Exam - General 1994 Psychiatric mood and affect Overall: normal mood and affect 06/09/2017 None Full Exam - General 1994 Constitutional general appearance Evidence of Distress: mild distress 06/09/2017 due to nausea Full Exam - General 1994 Constitutional general appearance Development: well developed 05/13/2017 None Full Exam - General 1994 Constitutional general appearance Development: appears stated age 1005/13/2017 None Full Exam - General 1994 Constitutional general appearance Hygiene/Attention to Grooming: good hygiene 05/13/2017 None Full Exam - General 1994 Eyes conjunctiva /eyelids Overall: conjunctiva clear 05/13/2017 None Full Exam - General 1994 Eyes conjunctiva /eyelids Overall: cornea clear 05/13/2017 None Full Exam - General 1994 Eyes conjunctiva /eyelids Overall: eyelids normal 05/13/2017 None Full Exam - General 1994 Eyes pupils and irises Overall: pupils equal, round, reactive to light and accomodation 05/13/2017 None Full Exam - General 1994 Ears/Nose/Throat otoscopic exam Overall: external auditory canals clear 05/13/2017 None Full Exam - General 1994 Ears/Nose/Throat otoscopic exam Overall: tympanic membranes clear 05/13/2017 None Full Exam - General 1994 Ears/Nose/Throat lips/teeth/gingiva Overall: benign lips 05/13/2017 None Full Exam - General 1994 Ears/Nose/Throat lips/teeth/gingiva Overall: normal dentition 05/13/2017 None Full Exam - General 1994 Ears/Nose/Throat oral cavity/pharynx/larynx Overall: oral mucosa clear 05/13/2017 None Full Exam - General 1994 Ears/Nose/Throat oral cavity/pharynx/larynx Overall: oropharyngeal mucosa clear 05/13/2017 None Full Exam - General 1994 Ears/Nose/Throat oral cavity/pharynx/larynx Overall: hypopharynx benign 05/13/2017 None Full Exam - General 1994 Ears/Nose/Throat oral cavity/pharynx/larynx Overall: no masses 05/13/2017 None Full Exam - General 1994 Respiratory auscultation Overall: breath sounds clear bilaterally 05/13/2017 None Full Exam - General 1994 Respiratory respiratory effort/rhythm Overall: no retractions 05/13/2017 None Full Exam - General 1994 Respiratory respiratory effort/rhythm Overall: normal rate 05/13/2017 None Full Exam - General 1994 Cardiovascular extremities Overall: no clubbing 05/13/2017 None Full Exam - General 1994 Cardiovascular auscultation of heart Overall: regular rate 05/13/2017 None Full Exam - General 1994 Cardiovascular auscultation of heart Overall: normal heart sounds 05/13/2017 None Full Exam - General 1994 Abdomen abdominal exam Overall: no tenderness 05/13/2017 None Full Exam - General 1994 Abdomen abdominal exam Overall: normal bowel sounds 05/13/2017 None Full Exam - General 1994 Lymphatic neck nodes Overall: anterior cervical chain benign 05/13/2017 None Full Exam - General 1994 Lymphatic neck nodes Overall: posterior cervical chain benign 05/13/2017 None Full Exam - General 1994 Musculoskeletal spine, ribs and pelvis Overall: spine benign 05/13/2017 None Full Exam - General 1994 Musculoskeletal spine, ribs and pelvis Overall: sacroiliac joint benign 05/13/2017 None Full Exam - General 1994 Musculoskeletal spine, ribs and pelvis Overall: good posture 05/13/2017 None Full Exam - General 1994 Musculoskeletal head and neck Overall: head atraumatic 05/13/2017 None Full Exam - General 1994 Musculoskeletal head and neck Overall: cervical spine benign 05/13/2017 None Full Exam - General 1994 Integument inspection of skin Overall: few scattered moles, no gross abnormalities 05/13/2017 None Full Exam - General 1994 Neurologic deep tendon reflexes Overall: deep tendon reflexes intact 05/13/2017 None Full Exam - General 1994 Neurologic cranial nerves Overall: crainial nerves 2 - 12 grossly intact 05/13/2017 None Full Exam - General 1994 Psychiatric orientation/consciousness Overall: oriented to person, place and time 05/13/2017 None Full Exam - General 1994 Psychiatric mood and affect Overall: normal mood and affect 05/13/2017 None Full Exam - General 1994 Musculoskeletal lower extremity Palpation - knee: crepitus 05/13/2017 None Procedures No Procedures data Vital Signs Date Vital 06/29/2018 Blood Pressure 1: 162/84 Code : 8480-6 BMI: 34.8 Code : 08519-6 Heart Rate 1 : 76 bpm Height: 5'4" SpO2: 93% Weight: 203 lbs 05/18/2018 Blood Pressure 1: 156/78 Code : 8480-6 Blood Pressure 2: 148/82 Code: 8480-6 BMI: 34.8 Code: 27896-3 Heart Rate 1: 73 bpm Height: 5'4" SpO2: 94% Weight: 203 lbs 03/25/2018 Blood Pressure 1: 162/96 Code : 8480-6 BMI: 34.5 Code : 18207-0 Heart Rate 1 : 73 bpm Height: 5'4" SpO2: 98% Temperature: 36.4 (C) / 97.5 (F) Weight: 201 lbs 01/12/2018 Blood Pressure 1: 180/98 Code : 8480-6 Blood Pressure 1: 156 Code: 8480-6 BMI: 34.8 Code: 71078-1 Heart Rate 1: 78 bpm Height: 5'4" SpO2: 94% Weight: 203 lbs 12/29/2017 Blood Pressure 1: 190/98 Code : 8480-6 BMI: 34.8 Code : 65847-3 Heart Rate 1 : 71 bpm Height: 5'4" SpO2: 92% Weight: 203 lbs 12/01/2017 Blood Pressure 1: 180/98 Code : 8480-6 BMI: 34.7 Code : 31212-2 Heart Rate 1 : 73 bpm Height: 5'4" SpO2: 96% Weight: 202 lbs 11/03/2017 Blood Pressure 1: 180/96 Code : 8480-6 BMI: 35.0 Code : 96935-6 Heart Rate 1 : 72 bpm Height: 5'4" SpO2: 94% Weight: 204 lbs 08/11/2017 Blood Pressure 1: 156/84 Code : 8480-6 BMI: 34.0 Code : 87402-4 Heart Rate 1 : 76 bpm Height: 5'4" SpO2: 94% Weight: 198 lbs 06/09/2017 Blood Pressure 1: 170/96 Code : 8480-6 BMI: 34.0 Code : 54391-3 Heart Rate 1 : 94 bpm Height: 5'4" SpO2: 97% Temperature: 36.8 (C) / 98.2 (F) Weight: 198 lbs 05/13/2017 Blood Pressure 1: 130/68 Code : 8480-6 BMI: 35.0 Code : 05856-1 Heart Rate 1 : 74 bpm Height: 5'4" SpO2: 96% Weight: 204 lbs Functional Status No Functional Status data History of Present Illness Symptom Name Status Result Effective Date Notes Quality non-insulin dependent 06/29/2018 None Alleviating Factors diet only 06/29/2018 -cannot tolerate metformin Exacerbating Factors diet 06/29/2018 None Pertinent Findings nausea 06/29/2018 "stable" Quality intermittent 06/29/2018 None Quality primary hypertension 06/29/2018 None Onset and Resolution ongoing 06/29/2018 None Onset of Symptom during adulthood 06/29/2018 None Alleviating Factors medication 06/29/2018 None Exacerbating Factors stress 06/29/2018 None Pertinent Findings anxiety 06/29/2018 None Pertinent Findings Denies dizziness 06/29/2018 None Pertinent Findings dyspnea 06/29/2018 "always" Pertinent Findings Denies edema 06/29/2018 None Location diffusely None Quality chronic 06/29 None Onset and Resolution ongoing 06/29/2018 None Alleviating Factors medication 06/29/2018 None Test results Pt checking blood glucose readings, did not bring results to clinic 06/29/2018 None Glucose monitoring occasional glucose testing 06/29/2018 None Blood Pressure Values patient checking blood pressure at home - did not bring in readings 2017 None Quality worsening 04/2018 None Frequency of Episodes increasing 06/29/2018 None hypertension Quality intermittent 05/18/2018 None hypertension Quality primary hypertension 05/18/2018 None hypertension Onset and Resolution ongoing 05/18/2018 None hypertension Onset of Symptom during adulthood 05/18/2018 None hypertension Alleviating Factors medication 05/18/2018 None hypertension Exacerbating Factors stress 05/18/2018 None hypertension Pertinent Findings anxiety 05/18/2018 None hypertension Pertinent Findings dyspnea 05/18/2018 "always" hypertension Pertinent Findings Denies edema 05/18/2018 None pain, generalized Location diffusely 05/18/2018 None pain, generalized Quality chronic 05/18/2018 None pain, generalized Onset and Resolution ongoing 05/18/2018 None pain, generalized Alleviating Factors medication 05/18/2018 None diabetes mellitus Quality non-insulin dependent 05/18/2018 None diabetes mellitus Alleviating Factors diet only 05/18/2018 -cannot tolerate metformin diabetes mellitus Exacerbating Factors diet 05/18/2018 None diabetes mellitus Test results Pt checking blood glucose readings, did not bring results to clinic 05/18/2018 None diabetes mellitus Glucose monitoring occasional glucose testing 05/18/2018 None diabetes mellitus Pertinent Findings nausea 05/18/2018 "stable" hypertension Blood Pressure Values pt checking blood pressure - see scanned document 05/18/2018 None hypertension Pertinent Findings Denies dizziness 05/18/2018 None pain, generalized Frequency of Episodes unchanged 05/18/2018 None nausea Quality acute 03/25/2018 None nausea Pertinent Findings chills 03/25/2018 None nausea Pertinent Findings Denies fever 03/25/2018 None nausea Pertinent Findings lethargy 03/25/2018 None nausea Onset and Resolution sudden in onset 03/25/2018 None nausea Onset of Symptom 5 days ago 03/25/2018 None nausea Triggers no known associated factors 03/25/2018 None hypertension Quality intermittent 01/12/2018 None hypertension Quality primary hypertension 01/12/2018 None hypertension Onset and Resolution ongoing 01/12/2018 None hypertension Onset of Symptom during adulthood 01/12/2018 None hypertension Blood Pressure Values patient checking blood pressure at home - did not bring in readings 01/12/2018 None hypertension Alleviating Factors medication 01/12/2018 None hypertension Exacerbating Factors stress 01/12/2018 None hypertension Pertinent Findings dyspnea 01/12/2018 "always" hypertension Pertinent Findings edema 01/12/2018 None pain, generalized Location diffusely 01/12/2018 None pain, generalized Quality chronic 01/12/2018 None pain, generalized Quality worsening 01/12/2018 None pain, generalized Onset and Resolution ongoing 01/12/2018 None pain, generalized Frequency of Episodes increasing 01/12/2018 None pain, generalized Alleviating Factors medication 01/12/2018 None hypertension Pertinent Findings anxiety 01/12/2018 None hypertension Quality primary hypertension 12/29/2017 None hypertension Onset and Resolution ongoing 12/29/2017 None hypertension Onset of Symptom during adulthood 12/29/2017 None hypertension Blood Pressure Values patient checking blood pressure at home - did not bring in readings 12/29/2017 None hypertension Alleviating Factors medication 12/29/2017 None hypertension Exacerbating Factors stress 12/29/2017 None hypertension Pertinent Findings dizziness 12/29/2017 "no more than normal " hypertension Pertinent Findings dyspnea 12/29/2017 "always" hypertension Pertinent Findings edema 12/29/2017 None pain, generalized Location diffusely 12/29/2017 None pain, generalized Quality chronic 12/29/2017 None pain, generalized Onset and Resolution ongoing 12/29/2017 None pain, generalized Alleviating Factors medication 12/29/2017 None hypertension Quality intermittent 12/29/2017 None diabetes mellitus Test results Pt checking blood glucose readings, did not bring results to clinic 12/29/2017 None diabetes mellitus Glucose monitoring occasional glucose testing 12/29/2017 None diabetes mellitus Quality non-insulin dependent 12/29/2017 None diabetes mellitus Pertinent Findings nausea 12/29/2017 None diabetes mellitus Exacerbating Factors diet 12/29/2017 None pain, generalized Quality worsening 12/29/2017 None pain, generalized Frequency of Episodes increasing 12/29/2017 None hypertension Quality primary hypertension 12/01/2017 None hypertension Onset and Resolution ongoing 12/01/2017 None hypertension Onset of Symptom during adulthood 12/01/2017 None hypertension Blood Pressure Values patient checking blood pressure at home - did not bring in readings 12/01/2017 140-170/80-90s at home hypertension Alleviating Factors medication 12/01/2017 None hypertension Pertinent Findings Denies dizziness 12/01/2017 None hypertension Pertinent Findings dyspnea 12/01/2017 "always" hypertension Pertinent Findings edema 12/01/2017 None pain, generalized Location diffusely 12/01/2017 None pain, generalized Quality chronic 12/01/2017 None pain, generalized Onset and Resolution ongoing 12/01/2017 None pain, generalized Alleviating Factors medication 12/01/2017 None hypertension Exacerbating Factors stress 12/01/2017 None hyperlipidemia Onset and Resolution gradual in onset 12/01/2017 None hyperlipidemia Onset and Resolution ongoing 12/01/2017 None hyperlipidemia Onset of Symptom during adulthood 12/01/2017 None hyperlipidemia Exacerbating Factors diet 12/01/2017 None hyperlipidemia Quality increased cholesterol 12/01/2017 None hyperlipidemia Quality increased TG 12/01/2017 None hyperlipidemia Quality increased LDL 12/01/2017 None ingrown toenail Quality acute 12/01/2017 None ingrown toenail Onset of Symptom 3 weeks ago 12/01/2017 None ingrown toenail Pertinent Findings pain with movement 12/01/2017 None ingrown toenail Pertinent Findings redness 12/01/2017 None ingrown toenail Pertinent Findings Denies purulent drainage 12/01/2017 None ingrown toenail Location lateral third right toenail 12/01/2017 None hypertension Quality primary hypertension 11/03/2017 None hypertension Onset and Resolution ongoing 11/03/2017 None hypertension Onset of Symptom during adulthood 11/03/2017 None hypertension Blood Pressure Values patient checking blood pressure at home - did not bring in readings 11/03/2017 None hypertension Alleviating Factors medication 11/03/2017 None hypertension Pertinent Findings Denies dizziness 11/03/2017 None hypertension Pertinent Findings dyspnea 11/03/2017 "always" hypertension Pertinent Findings edema 11/03/2017 None hypothyroid Location at the level of the thyroid 11/03/2017 None hypothyroid Quality chronic 11/03/2017 pt reports that she had trouble with her thyroid the last time she had her labs - were "off" and her medication was increased to 100mcg from 50mcg. hypothyroid Onset and Resolution ongoing 11/03/2017 None hypothyroid Alleviating Factors medication 11/03/2017 None nausea Onset and Resolution ongoing 11/03/2017 None nausea Triggers no known associated factors 11/03/2017 None nausea Quality intermittent 11/03/2017 None pain, generalized Location diffusely 11/03/2017 None pain, generalized Quality chronic 11/03/2017 None pain, generalized Onset and Resolution ongoing 11/03/2017 None pain, generalized Alleviating Factors medication 11/03/2017 None hypertension Quality primary hypertension 08/11/2017 None hypertension Onset and Resolution ongoing 08/11/2017 None hypertension Onset of Symptom during adulthood 08/11/2017 None hypertension Blood Pressure Values patient checking blood pressure at home - did not bring in readings 08/11/2017 None hypertension Alleviating Factors medication 08/11/2017 None hypertension Pertinent Findings dizziness 08/11/2017 from her sinuses hypertension Pertinent Findings dyspnea 08/11/2017 None hypertension Pertinent Findings edema 08/11/2017 None hypothyroid Location at the level of the thyroid 08/11/2017 None hypothyroid Quality chronic 08/11/2017 pt reports that she had trouble with her thyroid the last time she had her labs - were "off" and her medication was increased to 100mcg from 50mcg. hypothyroid Onset and Resolution ongoing 08/11/2017 None hypothyroid Alleviating Factors medication 08/11/2017 None nausea Onset and Resolution ongoing 08/11/2017 None sinus congestion Quality intermittent 08/11/2017 None sinus congestion Quality fullness 08/11/2017 None sinus congestion Onset and Resolution ongoing 08/11/2017 None sinus congestion Onset of Symptom several months ago 08/11/2017 None sinus congestion Triggers no known associated factors 08/11/2017 None nausea Quality intermittent 08/11/2017 None nausea Triggers no known associated factors 08/11/2017 None hypertension Onset and Resolution ongoing 06/09/2017 None hypertension Onset of Symptom during adulthood 06/09/2017 None hypertension Alleviating Factors medication 06/09/2017 None hypertension Pertinent Findings dizziness 06/09/2017 None hypertension Pertinent Findings dyspnea 06/09/2017 None hypertension Pertinent Findings edema 06/09/2017 occasionally hypothyroid Location at the level of the thyroid 06/09/2017 None hypothyroid Quality chronic 06/09/2017 pt reports that she had trouble with her thyroid the last time she had her labs - were "off" and her medication was increased to 100mcg from 50mcg. hypothyroid Onset and Resolution ongoing 06/09/2017 None hypothyroid Alleviating Factors medication 06/09/2017 None hypothyroid Pertinent Findings decreased energy 06/09/2017 None hypertension Quality primary hypertension 06/09/2017 None hypertension Blood Pressure Values patient checking blood pressure at home - did not bring in readings 06/09/2017 -Checks occasionally nausea Onset and Resolution sudden in onset 06/09/2017 None nausea Onset and Resolution ongoing 06/09/2017 None nausea Onset of Symptom 1 weeks ago 06/09/2017 None nausea Frequency of Episodes daily 06/09/2017 None nausea Triggers no known associated factors 06/09/2017 None nausea Pertinent Findings Denies fever 06/09/2017 None nausea Pertinent Findings Denies chills 06/09/2017 None nausea Quality intermittent 06/09/2017 --constant since Friday evening nausea Quality acute 06/09/2017 None diabetes mellitus Quality non-insulin dependent 05/13/2017 None diabetes mellitus Alleviating Factors medication 05/13/2017 None diabetes mellitus Exacerbating Factors diet 05/13/2017 None hypothyroid Onset and Resolution ongoing 05/13/2017 None hypothyroid Alleviating Factors medication 05/13/2017 None hypertension Onset and Resolution ongoing 05/13/2017 None hypertension Onset of Symptom during adulthood 05/13/2017 None hypertension Alleviating Factors medication 05/13/2017 None hypertension Pertinent Findings dizziness 05/13/2017 None hypertension Pertinent Findings anxiety 05/13/2017 None hypertension Pertinent Findings dyspnea 05/13/2017 intermittent knee pain Location on the left 05/13/2017 None knee pain Location on the right 05/13/2017 None knee pain Quality sharp pain 05/13/2017 None knee pain Quality tenderness 05/13/2017 None knee pain Quality throbbing 05/13/2017 None knee pain Quality acute 05/13/2017 None knee pain Quality worsening 05/13/2017 None knee pain Mechanism of injury unknown 05/13/2017 None knee pain Alleviating Factors elevation 05/13/2017 None knee pain Alleviating Factors ice compression 05/13/2017 None diabetes mellitus Test results Pt not checking blood glucose readings at home 05/13/2017 she states that she had labs about 2 months ago - she was told that her "sugars were good". diabetes mellitus Glucose monitoring does not test 05/13/2017 would like to start testing again diabetes mellitus Pertinent Findings dyspnea 05/13/2017 None diabetes mellitus Pertinent Findings dizziness 05/13/2017 None diabetes mellitus Pertinent Findings nausea 05/13/2017 None hypothyroid Pertinent Findings decreased energy 05/13/2017 None hypertension Pertinent Findings edema 05/13/2017 None hypothyroid Location at the level of the thyroid 05/13/2017 None hypothyroid Quality chronic 05/13/2017 pt reports that she had trouble with her thyroid the last time she had her labs - were "off" and her medication was increased to 100mcg from 50mcg. Advance Directives No Advance Directive data Encounters Encounter Performer Location Codes Date EST. PATIENT, LEVEL IV Diagnosis: Atrophy of thyroid (acquired)[ICD10: E03.4] Diagnosis: Type 2 diabetes mellitus without complications[ICD10: E11.9] Diagnosis: Essential (primary) hypertension[ICD10: I10] Diagnosis: Chronic pain syndrome[ICD10: G89.4] [facility] CPT-4: 71529 06/29/2018 ([id number]) 98464 EST. PATIENT, LEVEL IV Diagnosis: Type 2 diabetes mellitus without complications[ICD10: E11.9] Diagnosis: Atrophy of thyroid (acquired)[ICD10: E03.4] Diagnosis: Essential (primary) hypertension[ICD10: I10] Diagnosis: Chronic pain syndrome[ICD10: G89.4] [facility] CPT-4: 19870 05/18/2018 ([id number]) 38962 EST. PATIENT, LEVEL IV Diagnosis: Type 2 diabetes mellitus without complications[ICD10: E11.9] Diagnosis: Nausea[ICD10: R11.0] Diagnosis: Chronic pain syndrome[ICD10: G89.4] [facility] CPT-4: 61039 03/25/2018 ([id number]) 64826 EST. PATIENT, LEVEL III Diagnosis: Essential (primary) hypertension[ICD10: I10] Kristie Carter MD [facility] CPT-4: 16496 01/12/2018 ([id number]) 60848 EST. PATIENT, LEVEL IV Diagnosis: Essential (primary) hypertension[ICD10: I10] Diagnosis: Chronic pain syndrome[ICD10: G89.4] Kristie Carter MD [facility] CPT-4: 28279 12/29/2017 ([id number]) 28520 EST. PATIENT, LEVEL IV Diagnosis: Essential (primary) hypertension[ICD10: I10] Diagnosis: Chronic pain syndrome[ICD10: G89.4] Diagnosis: Type 2 diabetes mellitus without complications[ICD10: E11.9] Diagnosis: Atrophy of thyroid (acquired)[ICD10: E03.4] Kristie Carter MD [facility] CPT-4: 46878 12/01/2017 ([id number]) 15166 EST. PATIENT, LEVEL IV Diagnosis: Chronic pain syndrome[ICD10: G89.4] Diagnosis: Type 2 diabetes mellitus without complications[ICD10: E11.9] Diagnosis: Atrophy of thyroid (acquired)[ICD10: E03.4] Diagnosis: Essential (primary) hypertension[ICD10: I10] Kristie Carter MD [facility] CPT-4: 29322 11/03/2017 ([id number]) 79293 EST. PATIENT, LEVEL IV Diagnosis: Chronic pain syndrome[ICD10: G89.4] Diagnosis: Essential (primary) hypertension[ICD10: I10] Diagnosis: Nausea[ICD10: R11.0] Kristie Carter MD [facility] CPT-4: 55802 08/11/2017 ([id number]) 60412 EST. PATIENT, LEVEL III Diagnosis: Essential (primary) hypertension[ICD10: I10] Diagnosis: Nausea[ICD10: R11.0] Diagnosis: Chronic pain syndrome[ICD10: G89.4] Kristie Carter MD [facility] CPT-4: 79420 06/09/2017 ([id number]) PREV VISIT NEW AGE 40-64 Diagnosis: Atrophy of thyroid (acquired)[ICD10: E03.4] Diagnosis: Type 2 diabetes mellitus without complications[ICD10: E11.9] Diagnosis: Encounter for general adult medical examination with abnormal findings[ICD10: Z00.01] Diagnosis: Essential (primary) hypertension[ICD10: I10] Kristie Carter MD, [facility] CPT-4: 28985 05/13/2017 Plan of Care Planned Activity Notes Codes Status Date Referral: Ba Juan WPtel:[phone] Patient informed. Referral info faxed. Completed 07/22/2018 Visit Plan: Diabetes Mellitus - controlled - per recent FSBS reports. I have recommended for the patient to have follow up labs prior to the next office visit. The patient has been instructed to continue with current medications as previously directed, continue with regular FSBS monitoring to assure continued control of diabetes. Pt to call for any acute concerns, complaints, or if the blood glucose readings are starting to become less controlled. GERD - recommended patient to continue with pantoprazole - I have recommended a Referral to Dr. Juan for scope (egd and colonoscopy) in July 2018. Hypertension - well controlled - continue with current medications , continue with no added salt diet. Pt has been encouraged to exercise daily. The pt has been advised to call the office if there are any acute concerns about change in blood pressure readings at home. Chronic Pain Syndrome - pt has chronic pain - has been maintained on current medications, has not sought out other medications, only uses PRN pain medications as directed, and understands the consequences of over-medication. 06/29/2018 Appointment: Kristie Carter WPtel: [address] [place], [place] [phone] (15 min) Moderate 06/29/2018 Patient Education: Patient Medication Summary Completed 06/29/2018 Patient Education: Diabetes Completed 06/29/2018 Care Plan: Referral Order SNOMED-CT : [id number] Pending 06/29/2018 Visit Plan: Diabetes Mellitus - controlled - per recent FSBS reports. I have recommended for the patient to have follow up labs prior to the next office visit. The patient has been instructed to continue with current medications as previously directed, continue with regular FSBS monitoring to assure continued control of diabetes. Pt to call for any acute concerns, complaints, or if the blood glucose readings are starting to become less controlled. Hypertension - well controlled per home blood pressure readings. She is to continue with current medications, continue with no added salt diet. Pt has been encouraged to exercise daily. The pt has been advised to call the office if there are any acute concerns about change in blood pressure readings at home. Chronic pain syndrome - Marisa has been doing well on methadone and off of hydrocodone - she is doing well at this time and we will not change the dose, she needs to continue with increased activity, monitor symptoms, call if symptoms worsen. Hypothyroidism - pt with chronic hypothyroidism, continue with current medication, will monitor pt to signs or symptoms of lack of adequate supplementation. Pt is to continue with current dose of medication unless directed otherwise. Check labs at regular intervals q 3 months or q 6 months based on previous levels of control. 05/18/2018 Appointment: Kristie Carter WPtel: [facility] (15 min) Moderate 05/18/2018 Patient Education: Patient Medication Summary Completed 05/18/2018 Patient Education: Diabetes Completed 05/18/2018 Appointment: Kristie Carter WPtel: [address] [place], [place] [phone] (15 min) Moderate 05/11/2018 Appointment: Kristie Carter WPtel: [address] [place], [place] [id number] (15 min) Moderate 04/27/2018 Visit Plan: DM - per pt report - her FSBS have been "okay" in the 120 range - continue with supportive care at this time - pt cannot tolerate medications - she tried to restart metformin and could not tolerate the medication. Chronic pain - discussed her medications again - we are going to do the following changes: decrease the hydrodcodone to 1/2 tab three times a day x 1 week then 1/2 tab bid x 1 week then stop, she is to also increase the methadone to 1.5 tablets morning and 1 tab afternoon and 1.5 tab at hs x 1 week then increase up to 1.5 tab three times a day thereafter. Nausea - chronic - continue with prn phenergan. 03/25/2018 Appointment: Kristie Carter WPtel: [id number] 30 min appointments only in this slot 03/25/2018 Patient Education: Patient Medication Summary Completed 03/25/2018 Patient Education: Patient Medication Summary Completed 01/19/2018 Visit Plan: Hypertension - well controlled - continue with current medications, continue with no added salt diet. Pt has been encouraged to exercise daily. The pt has been advised to call the office if there are any acute concerns about change in blood pressure readings at home. 01/12/2018 Appointment: Krist[facility] Carter WPtel: [phone] [facility] (15 min) Moderate 01/12/2018 Patient Education: Patient Medication Summary Completed 01/12/2018 Visit Plan: Hypertension - uncontrolled - the patient's medications have been modified as documented in the visit note. The patient has been counseled to cut back on salt in diet for a no added salt diet, low fat diet, start an exercise program with low weight bearing exercises and higher aerobic activity for heart health. The patient is to check blood pressure readings as an outpatient and either fax, call, or email the readings to the office next week for practitioner to review. The pt is to call for acute concerns. continue with atenolol and losartan , add doxazosin 1mg bid Chronic Pain Syndrome - pt has chronic pain - has been maintained on current medications , has not sought out other medications, only uses PRN pain medications as directed, and understands the consequences of over-medication. 12/29/2017 Appointment: [facility] WPtel: [phone] [facility] (15 min) Moderate 12/29/2017 Patient Education: Patient Medication Summary Completed 12/29/2017 Visit Plan: Hypertension - uncontrolled - the patient's medications have been modified as documented in the visit note. The patient has been counseled to cut back on salt in diet for a no added salt diet, low fat diet, start an exercise program with low weight bearing exercises and higher aerobic activity for heart health. The patient is to check blood pressure readings as an outpatient and either fax, call, or email the readings to the office next week for practitioner to review. The pt is to call for acute concerns. continue with atenolol and INCREASE losartan to 100mg daily Chronic Pain Syndrome - pt has chronic pain - has been maintained on current medications , has not sought out other medications, only uses PRN pain medications as directed, and understands the consequences of over-medication. Diabetes - not well controlled - recommended pt to keep on current treatment regimen - she was started on Welcol due to her uncontrolled Triglycerides Cellulitis of 3rd toe on right foot - rx for doxycycline and mupirocin 12/01/2017 Appointment: Kristie Carter WPtel: [phone] [facility] (15 min) Moderate 12/01/2017 Patient Education: Patient Medication Summary Completed 12/01/2017 Care Plan: Comp Metabolic Cancelled 12/01/2017 Care Plan: Cbc With Differential Cancelled 12/01/2017 Care Plan: %Hba1C [facility] : [address]-6 Cancelled 12/01/2017 Care Plan: Tsh Cancelled 12/01/2017 Care Plan: Lipid Cancelled 12/01/2017 Care Plan: Free T4 Cancelled 12/01/2017 Care Plan: Microalbumin Cancelled 12/01/2017 Visit Plan: Hypertension - uncontrolled - the patient's medications have been modified as documented in the visit note. The patient has been counseled to cut back on salt in diet for a no added salt diet, low fat diet, start an exercise program with low weight bearing exercises and higher aerobic activity for heart health. The patient is to check blood pressure readings as an outpatient and either fax, call, or email the readings to the office next week for practitioner to review. The pt is to call for acute concerns. continue with atenolol and start on losartan 50mg daily. Chronic Pain Syndrome - pt has chronic pain - has been maintained on current medications, has not sought out other medications, only uses PRN pain medications as directed , and understands the consequences of over-medication. Pt has not yet scheduled her mammogram - she has been instructed to get the mammogram scheduled when she is able to afford the copay. pt has not been taking her diabetic medications due to nausea with the medication - check hgba1c this week has been recommended. 11/03/2017 Appointment: Kristie Carter WPtel: [phone] [facility] (15 min) Moderate 11/03/2017 Patient Education: Patient Medication Summary Completed 11/03/2017 Visit Plan: Hypertension - well controlled - continue with current medications, continue with no added salt diet. Pt has been encouraged to exercise daily. The pt has been advised to call the office if there are any acute concerns about change in blood pressure readings at home. Nausea - controlled with phenergan use prn Chronic pain syndrome - rx for methadone given to patient today - rx for hydrocodone to be written for pt to citrus picker. Will attempt to wean pt off of hydrocodone as able. 08/11/2017 Appointment: [facility] WPtel: [phone] [facility] (15 min) Moderate 08/11/2017 Patient Education: Patient Medication Summary Completed 08/11/2017 Visit Plan: Hypertension - uncontrolled - pt did not take her medications this morning.- the patient's medications have not been modified as the patient did not take her medication this morning. The patient has been counseled to cut back on salt in diet for a no added salt diet, low fat diet, start an exercise program with low weight bearing exercises and higher aerobic activity for heart health. The patient is to check blood pressure readings as an outpatient and either fax, call, or email the readings to the office next week for practitioner to review. The pt is to call for acute concerns. Nausea - uncontrolled - rx for zofran and phenergan. I have recommended pt to eat bland diet, monitor symptoms. Chronic pain syndrome - rx for methadone given to patient today - rx for hydrocodone to be written for pt to citrus picker. Will attempt to wean pt off of hydrocodone as able. 06/09/2017 Appointment: Kristie Carter WPtel: [phone] [facility] (15 min) Moderate 06/09/2017 Patient Education: Patient Medication Summary Completed 06/09/2017 Visit Plan: Well Adult - pt was counseled about diet, exercise, and encouraged to follow a heart healthy diet and increase activity level. The patient was instructed to RTC yearly for well adult exams and PRN for acute illnesses. The pt was also instructed to have yearly labs for check of cholesterol, thyroid, chem panel, CBC, and renal functioning. Diabetes Mellitus - controlled - per patient report, but she has not been checking her FSBS regularly. I have recommended for the patient to have follow up labs prior to the next office visit. The patient has been instructed to continue with current medications as previously directed, continue with regular FSBS monitoring to assure continued control of diabetes. Pt to call for any acute concerns, complaints, or if the blood glucose readings are starting to become less controlled. Hypertension - well controlled - continue with current medications, continue with no added salt diet. Pt has been encouraged to exercise daily. The pt has been advised to call the office if there are any acute concerns about change in blood pressure readings at home. Hypothyroidism - pt with chronic hypothyroidism, restart at 25mcg synthroid daily x 3 days then increase up to 50mcg of synthroid x 7 days then increase further up to 75mcg daily thereafter - I have instructed pt that we will monitor pt to signs or symptoms of lack of adequate supplementation. Pt is to continue with current dose of medication unless directed otherwise. Check labs at regular intervals wither q 3 months or q 6 months based on previous levels of control. 05/13/2017 Appointment: Kristie Carter WPtel: [address] [place], [place] [id number] New Patient 05/13/2017 Patient Education: Patient Medication Summary Completed 05/13/2017 Referral: Ba Juan WPtel:[phone] Referral Appointment Requested Instructions Comment . Hypertension - uncontrolled - the patient's medications have been modified as documented in the visit note. The patient has been counseled to cut back on salt in diet for a no added salt diet, low fat diet, start an exercise program with low weight bearing exercises and higher aerobic activity for heart health. The patient is to check blood pressure readings as an outpatient and either fax , call, or email the readings to the office next week for practitioner to review. The pt is to call for acute concerns. continue with atenolol and INCREASE losartan to 100mg daily Chronic Pain Syndrome - pt has chronic pain - has been maintained on current medications, has not sought out other medications, only uses PRN pain medications as directed, and understands the consequences of over-medication. Diabetes - not well controlled - recommended pt to keep on current treatment regimen - she was started on Welcol due to her uncontrolled Triglycerides Cellulitis of 3rd toe on right foot - rx for doxycycline and mupirocin . Diabetes Mellitus - controlled - per recent FSBS reports. I have recommended for the patient to have follow up labs prior to the next office visit. The patient has been instructed to continue with current medications as previously directed, continue with regular FSBS monitoring to assure continued control of diabetes. Pt to call for any acute concerns, complaints, or if the blood glucose readings are starting to become less controlled. GERD - recommended patient to continue with pantoprazole - I have recommended a Referral to Dr. Juan for scope (egd and colonoscopy) in July 2018. Hypertension - well controlled - continue with current medications, continue with no added salt diet. Pt has been encouraged to exercise daily. The pt has been advised to call the office if there are any acute concerns about change in blood pressure readings at home. Chronic Pain Syndrome - pt has chronic pain - has been maintained on current medications, has not sought out other medications, only uses PRN pain medications as directed, and understands the consequences of over-medication. . Hypertension - uncontrolled - the patient's medications have been modified as documented in the visit note. The patient has been counseled to cut back on salt in diet for a no added salt diet, low fat diet, start an exercise program with low weight bearing exercises and higher aerobic activity for heart health. The patient is to check blood pressure readings as an outpatient and either fax , call, or email the readings to the office next week for practitioner to review. The pt is to call for acute concerns. continue with atenolol and losartan , add doxazosin 1mg bid Chronic Pain Syndrome - pt has chronic pain - has been maintained on current medications, has not sought out other medications, only uses PRN pain medications as directed, and understands the consequences of over-medication. . Hypertension - uncontrolled - pt did not take her medications this morning.- the patient's medications have not been modified as the patient did not take her medication this morning. The patient has been counseled to cut back on salt in diet for a no added salt diet, low fat diet, start an exercise program with low weight bearing exercises and higher aerobic activity for heart health. The patient is to check blood pressure readings as an outpatient and either fax , call, or email the readings to the office next week for practitioner to review. The pt is to call for acute concerns. Nausea - uncontrolled - rx for zofran and phenergan. I have recommended pt to eat bland diet, monitor symptoms. Chronic pain syndrome - rx for methadone given to patient today - rx for hydrocodone to be written for pt to citrus picker. Will attempt to wean pt off of hydrocodone as able. glucosamine and chondroiton - over the counter medication for your joints - brand names - Move Free and Joint ease Declined Procedure: (G0202) SCREENINGMAMMOGRAPHYDIGITAL; Declined Reason: Patient Declined . Hypertension - well controlled - continue with current medications, continue with no added salt diet. Pt has been encouraged to exercise daily. The pt has been advised to call the office if there are any acute concerns about change in blood pressure readings at home. Nausea - controlled with phenergan use prn Chronic pain syndrome - rx for methadone given to patient today - rx for hydrocodone to be written for pt to citrus picker. Will attempt to wean pt off of hydrocodone as able. . Hypertension - well controlled - continue with current medications, continue with no added salt diet. Pt has been encouraged to exercise daily. The pt has been advised to call the office if there are any acute concerns about change in blood pressure readings at home. . Well Adult - pt was counseled about diet, exercise, and encouraged to follow a heart healthy diet and increase activity level. The patient was instructed to RTC yearly for well adult exams and PRN for acute illnesses. The pt was also instructed to have yearly labs for check of cholesterol, thyroid, chem panel, CBC, and renal functioning. Diabetes Mellitus - controlled - per patient report, but she has not been checking her FSBS regularly. I have recommended for the patient to have follow up labs prior to the next office visit. The patient has been instructed to continue with current medications as previously directed, continue with regular FSBS monitoring to assure continued control of diabetes. Pt to call for any acute concerns, complaints, or if the blood glucose readings are starting to become less controlled. Hypertension - well controlled - continue with current medications, continue with no added salt diet. Pt has been encouraged to exercise daily. The pt has been advised to call the office if there are any acute concerns about change in blood pressure readings at home. Hypothyroidism - pt with chronic hypothyroidism, restart at 25mcg synthroid daily x 3 days then increase up to 50mcg of synthroid x 7 days then increase further up to 75mcg daily thereafter - I have instructed pt that we will monitor pt to signs or symptoms of lack of adequate supplementation. Pt is to continue with current dose of medication unless directed otherwise. Check labs at regular intervals wither q 3 months or q 6 months based on previous levels of control. . Hypertension - uncontrolled - the patient's medications have been modified as documented in the visit note. The patient has been counseled to cut back on salt in diet for a no added salt diet, low fat diet, start an exercise program with low weight bearing exercises and higher aerobic activity for heart health. The patient is to check blood pressure readings as an outpatient and either fax , call, or email the readings to the office next week for practitioner to review. The pt is to call for acute concerns. continue with atenolol and start on losartan 50mg daily. Chronic Pain Syndrome - pt has chronic pain - has been maintained on current medications, has not sought out other medications, only uses PRN pain medications as directed, and understands the consequences of over-medication. Pt has not yet scheduled her mammogram - she has been instructed to get the mammogram scheduled when she is able to afford the copay. pt has not been taking her diabetic medications due to nausea with the medication - check hgba1c this week has been recommended. decrease the hydrodcodone to 1/2 tab three times a day x 1 week then 1/2 tab bid x 1 week then stop increase the methadone to 1.5 tablets morning and 1 tab afternoon and 1.5 tab at hs x 1 week then increase up to 1.5 tab three times a day thereafter . DM - per pt report - her FSBS have been "okay" in the 120 range - continue with supportive care at this time - pt cannot tolerate medications - she tried to restart metformin and could not tolerate the medication. Chronic pain - discussed her medications again - we are going to do the following changes: decrease the hydrodcodone to 1/2 tab three times a day x 1 week then 1/2 tab bid x 1 week then stop, she is to also increase the methadone to 1.5 tablets morning and 1 tab afternoon and 1.5 tab at hs x 1 week then increase up to 1.5 tab three times a day thereafter. Nausea - chronic - continue with prn phenergan. . Diabetes Mellitus - controlled - per recent FSBS reports. I have recommended for the patient to have follow up labs prior to the next office visit. The patient has been instructed to continue with current medications as previously directed, continue with regular FSBS monitoring to assure continued control of diabetes. Pt to call for any acute concerns, complaints, or if the blood glucose readings are starting to become less controlled. Hypertension - well controlled per home blood pressure readings. She is to continue with current medications, continue with no added salt diet. Pt has been encouraged to exercise daily. The pt has been advised to call the office if there are any acute concerns about change in blood pressure readings at home. Chronic pain syndrome - Marisa has been doing well on methadone and off of hydrocodone - she is doing well at this time and we will not change the dose, she needs to continue with increased activity, monitor symptoms, call if symptoms worsen. Hypothyroidism - pt with chronic hypothyroidism, continue with current medication, will monitor pt to signs or symptoms of lack of adequate supplementation. Pt is to continue with current dose of medication unless directed otherwise. Check labs at regular intervals q 3 months or q 6 months based on previous levels of control.
[2018-08-11 08:25] VITALS: BP 144/107
[2018-08-11] MEDS ORDERED: LACTATED RINGERS 1,000 ML IV STA (08:27)
--- OUTSIDE RECORDS SUMMARY | 2018-08-11 08:27 | XMS REPORT | CCD ---
Author Author Kristie [facility] Organization [facility] Address [address] [place] [address] Phone Care Team Providers Care School Supervisor Name Role Phone PP Unavailable CCM Unavailable Summary Purpose Interface Exchange Insurance Providers Payer name Policy type / Coverage type Covered democrat ID Effective Begin Date Effective End Date Administrative Concepts [id number] Unknown Family history Brother Diagnosis Age At [...] the area 05/13/2017 Employment Unknown Currently employed [employer] at [employer] 05/13/[address]: 5685325 Former smoker 05/13/[address]: 573309010 Never drinks alcohol 05/13/2017 Has the patient ever used illegal drugs? Unknown Has never used illegal drugs 05/13/2017 Allergies, Adverse Reactions, Alerts Substance Reaction Codes Entered Date Inactivated Date Status * OTHER REACTION - SEE ANSWER BOX Antibiotics- cause nausea Unknown 05/13/2017 No Inactive Date Active Lyrica nausea RxNorm: 013507 05/13/2017 No Inactive Date Active Savella nausea RxNorm: 855850 05/13/2017 No Inactive Date Active ibuprofen nausea, [...] Start Date Stop Date Status Fill Instructions loratadine 10 mg tablet RxNorm: 963732 TAKE 1 TABLET BY MOUTH ONCE DAILY 07/03/2018 No Stop Date Active levothyroxine 112 mcg tablet RxNorm: 504073 TAKE 1 TABLET BY MOUTH ONCE DAILY 07/03/2018 No Stop Date Active methadone 10 mg tablet RxNorm: 599121 1.5 Tablet(s) PO TID 04/201808/27/2018 Active ondansetron 4 mg disintegrating tablet RxNorm: 200862 1 Tablet(s) PO daily as needed 06/25/2018 08/23/2018 Active methadone 10 mg tablet RxNorm: 161437 1.5 Tablet(s) PO TID 06/28/2018 Inactive methadone 10 mg tablet RxNorm: 547932 1.5 Tablet(s) PO TID 06/03/2018 Inactive methadone 10 mg tablet RxNorm: 873259 1.5 Tablet(s) PO TID 05/09/2018 Inactive loratadine 10 mg tablet RxNorm: 540298 TAKE 1 TABLET BY MOUTH ONCE DAILY 04/01/2018 07/02/2018 Inactive pantoprazole 40 mg tablet,delayed release RxNorm: 621237 TAKE ONE TABLET BY MOUTH TWICE DAILY FOR 1 WEEK, THEN ONCE DAILY THEREAFTER. 2017 No Stop Date Active ondansetron 4 mg disintegrating tablet RxNorm: 653495 1 Tablet(s) PO daily as needed 03/30/2018 06/24/2018 Inactive hydrocodone 7.5 mg-acetaminophen 325 mg tablet RxNorm: 973668 1 Tablet(s) PO TID as needed 03/18/2018 04/14/2018 Inactive methadone 10 mg tablet RxNorm: 680939 1 Tablet(s) PO TID 201703/24/2018 Inactive levothyroxine 112 mcg tablet RxNorm: 321880 1 Tablet(s) PO daily 03/06/2018 07/02/2018 Inactive promethazine 25 mg tablet RxNorm: 258475 1 Tablet(s) PO BID as needed nausea 03/05/2018 09/30/2018 Active ondansetron 4 mg disintegrating tablet RxNorm: 737204 1 Tablet(s) PO daily as needed 02/24/2018 03/25/2018 Inactive hydrocodone 7.5 mg-acetaminophen 325 mg tablet RxNorm: 946841 1 Tablet(s) PO TID as needed 02/18/2018 03/17/2018 Inactive methadone 10 mg tablet RxNorm: 221731 1 Tablet(s) PO TID 201703/17/2018 Inactive atenolol 50 mg tablet RxNorm: 876919 TAKE ONE TABLET BY MOUTH ONCE DAILY 02/16/2018 No Stop Date Active levothyroxine 112 mcg tablet RxNorm: 357196 1 Tablet(s) PO daily 02/02/2018 03/03/2018 Inactive levothyroxine 112 mcg tablet RxNorm: 768079 1 Tablet(s) PO daily 02/02/2018 02/01/2018 Inactive loratadine 10 mg tablet RxNorm: 263295 TAKE ONE TABLET BY MOUTH ONCE DAILY 01/29/2018 03/31/2018 Inactive hydrocodone 7.5 mg-acetaminophen 325 mg tablet RxNorm: 926862 1 Tablet(s) PO TID as needed 01/19/2018 02/17/2018 Inactive methadone 10 mg tablet RxNorm: 676674 1 Tablet(s) PO TID 201702/17/2018 Inactive doxazosin 2 mg tablet RxNorm: 611419 1 Tablet(s) PO BID 201701/11/2018 Inactive doxazosin 1 mg tablet RxNorm: 422883 1 Tablet(s) PO BID 201712/30/2017 Inactive ondansetron 4 mg disintegrating tablet RxNorm: 880356 1 Tablet(s) PO daily as needed 12/29/2017 02/23/2018 Inactive losartan 100 mg tablet RxNorm: 505971 1 Tablet(s) PO daily 06/28/2018 Inactive mupirocin 2 % topical ointment RxNorm: 666348 1 TOP TID 201712/10/2017 Inactive doxycycline hyclate 100 mg tablet RxNorm: 008590 1 Tablet(s) PO BID for cellulitis of toe 12/01/2017 12/05/2017 Inactive ondansetron 4 mg disintegrating tablet RxNorm: 667704 1 Tablet(s) PO daily as needed 11/28/2017 12/27/2017 Inactive WelChol 625 mg tablet RxNorm: 378441 3 Tablet(s) PO BID 201711/21/2017 Inactive levothyroxine 100 mcg tablet RxNorm: 808021 1 Tablet(s) PO daily 11/11/2017 03/10/2018 Inactive WelChol 625 mg tablet RxNorm: 178045 3 Tablet(s) PO BID 201711/10/2017 Inactive losartan 50 mg tablet RxNorm: 345302 1 Tablet(s) PO daily 201711/30/2017 Inactive ondansetron 4 mg disintegrating tablet RxNorm: 192423 1 Tablet(s) PO daily as needed 10/27/2017 11/25/2017 Inactive hydrocodone 7.5 mg-acetaminophen 325 mg tablet RxNorm: 623863 1 Tablet(s) PO TID as needed 10/02/2017 10/31/2017 Inactive methadone 10 mg tablet RxNorm: 827891 1 Tablet(s) PO TID 201710/31/2017 Inactive ondansetron 4 mg disintegrating tablet RxNorm: 397882 1 Tablet(s) PO daily as needed 09/03/2017 10/26/2017 Inactive Flonase Allergy Relief 50 mcg/actuation nasal spray, suspension RxNorm: 0677062 2 [place] NASAL daily 08/19/2017 No Stop Date Active Carafate 1 gram tablet RxNorm: 906925 1 Tablet(s) PO BID 2017 No Stop Date Active promethazine 25 mg tablet RxNorm: 325254 1 Tablet(s) PO BID as needed nausea 08/11/2017 03/04/2018 Inactive methadone 10 mg tablet RxNorm: 836902 1 Tablet(s) PO TID 201709/09/2017 Inactive hydrocodone 7.5 mg-acetaminophen 325 mg tablet RxNorm: 451354 1 Tablet(s) PO TID as needed 08/11/2017 09/09/2017 Inactive ondansetron 4 mg disintegrating tablet RxNorm: 321228 1 Tablet(s) PO daily as needed 07/10/2017 08/08/2017 Inactive hydrocodone 7.5 mg-acetaminophen 325 mg tablet RxNorm: 338450 1 Tablet(s) PO TID as needed 07/08/2017 08/06/2017 Inactive hydrocodone 7.5 mg-acetaminophen 325 mg tablet RxNorm: 109974 1 Tablet(s) PO TID as needed 07/08/2017 07/07/2017 Inactive methadone 10 mg tablet RxNorm: 616881 1 Tablet(s) PO TID 201608/06/2017 Inactive hydrocodone 10 mg-acetaminophen 325 mg tablet RxNorm: 594469 1 Tablet(s) PO TID as needed for breakthrough pain 06/16/2017 07/07/2017 Inactive ondansetron 4 mg disintegrating tablet RxNorm: 209120 1 Tablet(s) PO daily as needed 06/09/2017 07/08/2017 Inactive hydrocodone 10 mg-acetaminophen 325 mg tablet RxNorm: 834820 1 Tablet(s) PO TID as needed for breakthrough pain 06/09/2017 06/15/2017 Inactive atenolol 50 mg tablet RxNorm: 542853 1 Tablet(s) PO daily 201602/15/2018 Inactive promethazine 25 mg tablet RxNorm: 654210 1 Tablet(s) PO BID as needed nausea 06/09/2017 08/10/2017 Inactive pantoprazole 40 mg tablet,delayed release RxNorm: 537001 1 Tablet(s) PO daily bid x 1 week then daily thereafter 06/09/2017 12/05/2017 Inactive alprazolam 0.25 mg tablet RxNorm: 205857 1 Tablet(s) PO TID as needed 05/30/2017 11/02/2017 Inactive pantoprazole 40 mg tablet,delayed release RxNorm: 583809 1 Tablet(s) PO daily 05/30/2017 06/08/2017 Inactive ondansetron 4 mg disintegrating tablet RxNorm: 409626 1 Tablet(s) PO daily as needed 05/30/2017 06/08/2017 Inactive levothyroxine 75 mcg tablet RxNorm: 471645 1 Tablet(s) PO daily 05/13/2017 11/30/2017 Inactive loratadine 10 mg tablet RxNorm: 451980 1 Tablet(s) PO daily 12/08/2017 Inactive promethazine 25 mg tablet RxNorm: 577700 Tablet(s) PO as needed nausea No Start Date Active cyclobenzaprine 10 mg tablet RxNorm: 714365 Tablet(s) PO as needed No Start Date Active metformin 500 mg tablet RxNorm: 963669 1 Tablet(s) PO daily No Start Date 08/19/2017 Inactive ondansetron 8 mg disintegrating tablet RxNorm: 559415 Tablet(s) PO as needed nausea No Start Date 05/29/2017 Inactive levothyroxine 100 mcg tablet RxNorm: 677890 Tablet(s) PO No Start Date 11/10/2017 Inactive loratadine 10 mg tablet RxNorm: 857610 1 Tablet(s) PO daily No Start Date 05/12/2017 Inactive atenolol 50 mg tablet RxNorm: 506617 1 Tablet(s) PO daily No Start Date 06/08/2017 Inactive Flonase Allergy Relief 50 mcg/actuation nasal spray, suspension RxNorm: 7098004 [place] NASAL daily No Start Date 2017 Inactive alprazolam 0.25 mg tablet RxNorm: 226633 Tablet(s) PO as needed No Start Date 05/29/2017 Inactive levothyroxine oral RxNorm: 68887 oral No Start Date 05/13/2017 Inactive hydrocodone 10 mg-acetaminophen 325 mg tablet RxNorm: 388453 Tablet(s) PO as needed for breakthrough pain No Start Date 06/08/2017 Inactive methadone 10 mg tablet RxNorm: 918106 1 Tablet(s) PO TID No Start Date 07/07/2017 Inactive pantoprazole 40 mg tablet,delayed release RxNorm: 819869 1 Tablet(s) PO daily No Start Date [...] Item Item Code Result Date Free T4 Wyg896 FREE T4 0.81 ng/dL 01/22/2018 Tsh Ord6 TSH (3rd IS) 12.54 uIU/mL 01/22/2018 Comp Metabolic Vnr790 NA 139 mEq/L 11/05/2017 Comp Metabolic Qys507 K 3.9 mEq/L 11/05/2017 Comp Metabolic Srl849 CL 101 mEq/L 11/05/2017 Comp Metabolic Qzd849 CO2 30.0 mEq/L 11/05/2017 Comp Metabolic Qxk263 ANION GAP 12 11/05/2017 Comp Metabolic Fyd679 GLUCOSE 98 mg/dL 11/05/2017 Comp Metabolic Hdr552 Creat 0.8 mg/dL 11/05/2017 Comp Metabolic Hmb124 eGFR 74 ml/min/1.73m2 11/05/2017 Comp Metabolic Bik111 BUN 9 mg/dL 11/05/2017 Comp Metabolic Yoa013 B/C Ratio 10.8 Ratio 11/05/2017 Comp Metabolic Vsq042 CALCIUM 9.1 mg/dL 11/05/2017 Comp Metabolic Zzb141 ALK PHOS 87 U/L 11/05/2017 Comp Metabolic Hve827 AST(SGOT) 28 U/L 11/05/2017 Comp Metabolic Shc327 ALT(SGPT) 30 U/L 11/05/2017 Comp Metabolic Yrr916 BILI T 0.5 mg/dL 11/05/2017 Comp Metabolic Lua811 ALBUMIN 3.9 g/dL 11/05/2017 Comp Metabolic Wvs429 TPRO 7.2 g/dL 11/05/2017 Comp Metabolic Hti173 GLOB 3.3 g/dL 11/05/2017 Comp Metabolic Zso181 A/G Ratio 1.2 Ratio 11/05/2017 Comp Metabolic Itt910 Osmo 276 mOsmo 11/05/2017 Cbc With Differential [...] 31.3 pg 11/05/2017 Cbc With Differential Ord2 Teller% 8.8 % 11/05/2017 Cbc With Differential Ord2 [...] 2.60 K/ul 11/05/2017 Cbc With Differential Ord2 Teller ABS# 0.5 K/ul 11/05/2017 Cbc With Differential Ord2 Eos ABS# 0.2 K/ul 11/05/2017 Cbc With Differential Ord2 Baso ABS# 0.0 K/ul 11/05/2017 Microalbumin Khm256 MicroAlb <0.7 mg/dL 11/05/2017 Tsh Ord6 TSH (3rd IS) 27.62 uIU/mL 11/05/2017 Lipid Ord30 CHOL 218 mg/dL 11/05/2017 Lipid Ord30 HDL 34.0 mg/dl 11/05/2017 Lipid Ord30 TRIG 363 mg/dL 11/05/2017 Lipid Ord30 LDL Unable to calculate Due to elevated triglycerides mg/dL 11/05/2017 Lipid Ord30 C/HDL 6.4 Ratio 11/05/2017 %Hba1C Kqt897 % HbA1c 41449-2 6.3 % 11/05/2017 %Hba1C Gub610 Gluc Ave 134 mg/dL 11/05/2017 Free T4 Oui604 FREE T4 0.69 ng/dL 11/05/2017 Review of [...] Code : 8480-6 BMI: 34.8 Code : 52801-4 Heart Rate 1 : 76 bpm Height: 5'4" SpO2: 93% Weight: 203 lbs 05/18/2018 Blood Pressure 1: 156/78 Code : 8480-6 Blood Pressure 2: 148/82 Code: 8480-6 BMI: 34.8 Code: 38859-0 Heart Rate 1: 73 bpm Height: 5'4" SpO2: 94% Weight: 203 lbs 03/25/2018 Blood Pressure 1: 162/96 Code : 8480-6 BMI: 34.5 Code : 73377-7 Heart Rate 1 : 73 bpm Height: 5'4" SpO2: 98% Temperature: 36.4 (C) / 97.5 (F) Weight: 201 lbs 01/12/2018 Blood Pressure 1: 180/98 Code : 8480-6 Blood Pressure 1: 156/96 Code: 8480-6 BMI: 34.8 Code: 78774-9 Heart Rate 1: 78 bpm Height: 5'4" SpO2: 94% Weight: 203 lbs 12/29/2017 Blood Pressure 1: 190/98 Code : 8480-6 BMI: 34.8 Code : 53121-1 Heart Rate 1 : 71 bpm Height: 5'4" SpO2: 92% Weight: 203 lbs 12/01/2017 Blood Pressure 1: 180/98 Code : 8480-6 BMI: 34.7 Code : 12660-2 Heart Rate 1 : 73 bpm Height: 5'4" SpO2: 96% Weight: 202 lbs 11/03/2017 Blood Pressure 1: 180/96 Code : 8480-6 BMI: 35.0 Code : 46150-6 Heart Rate 1 : 72 bpm Height: 5'4" SpO2: 94% Weight: 204 lbs 08/11/2017 Blood Pressure 1: 156/84 Code : 8480-6 BMI: 34.0 Code : 89136-7 Heart Rate 1 : 76 bpm Height: 5'4" SpO2: 94% Weight: 198 lbs 06/09/2017 Blood Pressure 1: 170/96 Code : 8480-6 BMI: 34.0 Code : 18298-1 Heart Rate 1 : 94 bpm Height: 5'4" SpO2: 97% Temperature: 36.8 (C) / 98.2 (F) Weight: 198 lbs 05/13/2017 Blood Pressure 1: 130/68 Code : 8480-6 BMI: 35.0 Code : 48424-6 Heart Rate 1 : 74 bpm Height: [...] data Encounters Encounter Performer Location Codes Date ( EST. PATIENT, LEVEL IV Diagnosis: Atrophy of thyroid (acquired)[ICD10: E03.4] Diagnosis: Type 2 diabetes mellitus without complications[ICD10: E11.9] Diagnosis: Essential (primary) hypertension[ICD10: I10] Diagnosis: Chronic pain syndrome[ICD10: G89.4] Kristie Carter MD, [facility] CPT-4: 38074 06/29/2018 ([id number]) [id number] EST. PATIENT, LEVEL IV Diagnosis: Type 2 diabetes mellitus without complications[ICD10: E11.9] Diagnosis: Atrophy of thyroid (acquired)[ICD10: E03.4] Diagnosis: Essential (primary) hypertension[ICD10: I10] Diagnosis: Chronic pain syndrome[ICD10: G89.4] Kristie Carter MD, [facility] CPT-4: 66679 05/18/2018 ([id number]) 83214 EST. PATIENT, LEVEL IV Diagnosis: Type 2 diabetes mellitus without complications[ICD10: E11.9] Diagnosis: Nausea[ICD10: R11.0] Diagnosis: Chronic pain syndrome[ICD10: G89.4] Kristie Carter MD, [facility] CPT-4: 03074 03/25/2018 ([id number]) [id number] EST. PATIENT, LEVEL III Diagnosis: Essential (primary) hypertension[ICD10: I10] Kristie Carter MD [facility] CPT-4: 23842 01/12/2018 ([id number]) 40489 EST. PATIENT, LEVEL IV Diagnosis: Essential (primary) hypertension[ICD10: I10] Diagnosis: Chronic pain syndrome[ICD10: G89.4] Kristie Carter MD [facility] CPT-4: 11042 12/29/2017 ([id number]) 49087 EST. PATIENT, LEVEL IV Diagnosis: Essential (primary) hypertension[ICD10: I10] Diagnosis: Chronic pain syndrome[ICD10: G89.4] Diagnosis: Type 2 diabetes mellitus without complications[ICD10: E11.9] Diagnosis: Atrophy of thyroid (acquired)[ICD10: E03.4] Kristie Carter MD, [facility] CPT-4: 70130 12/01/2017 ([id number]) 63610 EST. PATIENT, LEVEL IV Diagnosis: Chronic pain syndrome[ICD10: G89.4] Diagnosis: Type 2 diabetes mellitus without complications[ICD10: E11.9] Diagnosis: Atrophy of thyroid (acquired)[ICD10: E03.4] Diagnosis: Essential (primary) hypertension[ICD10: I10] Kristie Carter MD, [facility] CPT-4: 03302 11/03/2017 ([id number]) 09070 EST. PATIENT, LEVEL IV Diagnosis: Chronic pain syndrome[ICD10: G89.4] Diagnosis: Essential (primary) hypertension[ICD10: I10] Diagnosis: Nausea[ICD10: R11.0] Kristie Carter MD [facility] CPT-4: 61568 08/11/2017 ([id number]) 64000 EST. PATIENT, LEVEL III Diagnosis: Essential (primary) hypertension[ICD10: I10] Diagnosis: Nausea[ICD10: R11.0] Diagnosis: Chronic pain syndrome[ICD10: G89.4] Kristie Carter MD, [facility] CPT-4: 94615 06/09/2017 ([id number]) PREV VISIT NEW AGE 40-64 Diagnosis: Atrophy of thyroid (acquired)[ICD10: E03.4] Diagnosis: Type 2 diabetes mellitus without complications[ICD10: E11.9] Diagnosis: Encounter for general adult medical examination with abnormal findings[ICD10: Z00.01] Diagnosis: Essential (primary) hypertension[ICD10: I10] Kristie Carter MD, [facility] CPT-4: 30262 05/13/2017 Plan of Care Planned Activity Notes Codes Status Date Referral: Ba Juan WPtel:[phone] Patient informed. Referral info faxed. Completed 07/22/2018 [...] of over-medication. 06/29/2018 Appointment: Kristie Carter WPtel: [address] [place], [place] [phone] (15 min) Moderate 06/29/2018 Patient Education: Patient Medication Summary Completed 06/29/2018 Patient Education: Diabetes Completed 06/29/2018 Care Plan: Referral Order SNOMED-CT : [id number] Pending 06/29/2018 Visit Plan: Diabetes Mellitus - [...] of control. 05/18/2018 Appointment: Kristie Carter WPtel: [phone] [facility] (15 min) Moderate 05/18/2018 Patient Education: Patient Medication Summary Completed 05/18/2018 Patient Education: Diabetes Completed 05/18/2018 Appointment: Kristie Carter WPtel: [phone] [facility] (15 min) Moderate 05/11/2018 [phone] ([facility]) Moderate 04/27/2018 Visit Plan: DM [...] prn phenergan. 03/25/2018 Appointment: Kristie Carter WPtel: [phone] [facility] 30 min appointments only in this slot [...] home. 01/12/2018 Appointment: Kristie Carter WPtel: [phone] [facility] (15 min) Moderate 01/12/2018 Patient Education: Patient [...] of over-medication. 12/29/2017 Appointment: Kristie Carter WPtel: [phone] [facility] (15 min) Moderate 12/29/2017 Patient Education: Patient [...] and mupirocin 12/01/2017 Appointment: Kristie Carter WPtel: [phone] [facility] (15 min) Moderate 12/01/2017 Patient Education: Patient Medication Summary Completed 12/01/2017 Care Plan: Comp Metabolic Cancelled 12/01/2017 Care Plan: Cbc With Differential Cancelled 12/01/2017 Care Plan: %Hba1C LOINC : 82945-0 Cancelled 12/01/2017 Care Plan: Tsh Cancelled 12/01/2017 [...] been recommended. 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 Will attempt to wean pt off of hydrocodone as able. 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 Will attempt to wean pt off of hydrocodone as able. 06/09/2017 App[facility]ment: [facility] [phone] [facility] (15 min) Moderate 06/09/2017 Patient Education: Patient [...] of control. 05/13/2017 Appointment: [facility]Ptel[facility] [facility] 05/13/2017 Patient Education: Patient Medication Summary Completed 05/13/2017 Referral: Ba Juan WPtel:[phone] Referral Appointment Requested Instructions Comment . 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 Will attempt to wean pt off of [...]
[2018-08-11] MEDS ORDERED: LACTATED RINGERS 1,000 ML IV ONE (08:29)
--- OUTSIDE RECORDS SUMMARY | 2018-08-11 08:29 | XMS REPORT | CCD ---
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 Unknown Has never used illegal drugs 05/13/2017 Allergies, Adverse Reactions, Alerts Substance Reaction Codes Entered Date Inactivated Date Status * OTHER REACTION - SEE ANSWER BOX Antibiotics- cause nausea Unknown 05/13/2017 No Inactive Date Active Lyrica nausea RxNorm: 760440 05/13/2017 No Inactive Date Active Savella nausea RxNorm: 447904 05/13/2017 No Inactive Date Active ibuprofen nausea, [...] Start Date Stop Date Status Fill Instructions levothyroxine 112 mcg tablet RxNorm: 876583 TAKE 1 TABLET BY MOUTH ONCE DAILY 07/03/2018 No Stop Date Active methadone 10 mg tablet RxNorm: 895849 1.5 Tablet(s) PO TID 04/201808/27/2018 Active ondansetron 4 mg disintegrating tablet RxNorm: 366172 1 Tablet(s) PO daily as needed 06/25/2018 08/23/2018 Active methadone 10 mg tablet RxNorm: 334509 1.5 Tablet(s) PO TID 06/28/2018 Inactive methadone 10 mg tablet RxNorm: 998018 1.5 Tablet(s) PO TID 06/03/2018 Inactive methadone 10 mg tablet RxNorm: 199388 1.5 Tablet(s) PO TID 05/09/2018 Inactive loratadine 10 mg tablet RxNorm: 806646 TAKE 1 TABLET BY MOUTH ONCE DAILY 04/01/2018 No Stop Date Active pantoprazole 40 mg tablet,delayed release RxNorm: 493126 TAKE ONE TABLET BY MOUTH TWICE DAILY FOR 1 WEEK, THEN ONCE DAILY THEREAFTER. 2017 No Stop Date Active ondansetron 4 mg disintegrating tablet RxNorm: 779178 1 Tablet(s) PO daily as needed 03/30/2018 06/24/2018 Inactive hydrocodone 7.5 mg-acetaminophen 325 mg tablet RxNorm: 571088 1 Tablet(s) PO TID as needed 03/18/2018 04/14/2018 Inactive methadone 10 mg tablet RxNorm: 374298 1 Tablet(s) PO TID 201703/24/2018 Inactive levothyroxine 112 mcg tablet RxNorm: 273543 1 Tablet(s) PO daily 03/06/2018 07/02/2018 Inactive promethazine 25 mg tablet RxNorm: 449386 1 Tablet(s) PO BID as needed nausea 03/05/2018 09/30/2018 Active ondansetron 4 mg disintegrating tablet RxNorm: 651354 1 Tablet(s) PO daily as needed 02/24/2018 03/25/2018 Inactive hydrocodone 7.5 mg-acetaminophen 325 mg tablet RxNorm: 734701 1 Tablet(s) PO TID as needed 02/18/2018 03/17/2018 Inactive methadone 10 mg tablet RxNorm: 773200 1 Tablet(s) PO TID 201703/17/2018 Inactive atenolol 50 mg tablet RxNorm: 315126 TAKE ONE TABLET BY MOUTH ONCE DAILY 02/16/2018 No Stop Date Active levothyroxine 112 mcg tablet RxNorm: 307023 1 Tablet(s) PO daily 02/02/2018 03/03/2018 Inactive levothyroxine 112 mcg tablet RxNorm: 929969 1 Tablet(s) PO daily 02/02/2018 02/01/2018 Inactive loratadine 10 mg tablet RxNorm: 375355 TAKE ONE TABLET BY MOUTH ONCE DAILY 01/29/2018 03/31/2018 Inactive hydrocodone 7.5 mg-acetaminophen 325 mg tablet RxNorm: 739992 1 Tablet(s) PO TID as needed 01/19/2018 02/17/2018 Inactive methadone 10 mg tablet RxNorm: 780234 1 Tablet(s) PO TID 201702/17/2018 Inactive doxazosin 2 mg tablet RxNorm: 145661 1 Tablet(s) PO BID 201701/11/2018 Inactive doxazosin 1 mg tablet RxNorm: 783302 1 Tablet(s) PO BID 201712/30/2017 Inactive ondansetron 4 mg disintegrating tablet RxNorm: 062469 1 Tablet(s) PO daily as needed 12/29/2017 02/23/2018 Inactive losartan 100 mg tablet RxNorm: 574026 1 Tablet(s) PO daily 06/28/2018 Inactive mupirocin 2 % topical ointment RxNorm: 463577 1 TOP TID 201712/10/2017 Inactive doxycycline hyclate 100 mg tablet RxNorm: 606992 1 Tablet(s) PO BID for cellulitis of toe 12/01/2017 12/05/2017 Inactive ondansetron 4 mg disintegrating tablet RxNorm: 037778 1 Tablet(s) PO daily as needed 11/28/2017 12/27/2017 Inactive WelChol 625 mg tablet RxNorm: 171032 3 Tablet(s) PO BID 201711/21/2017 Inactive levothyroxine 100 mcg tablet RxNorm: 882803 1 Tablet(s) PO daily 11/11/2017 03/10/2018 Inactive WelChol 625 mg tablet RxNorm: 709652 3 Tablet(s) PO BID 201711/10/2017 Inactive losartan 50 mg tablet RxNorm: 909518 1 Tablet(s) PO daily 201711/30/2017 Inactive ondansetron 4 mg disintegrating tablet RxNorm: 461383 1 Tablet(s) PO daily as needed 10/27/2017 11/25/2017 Inactive hydrocodone 7.5 mg-acetaminophen 325 mg tablet RxNorm: 804727 1 Tablet(s) PO TID as needed 10/02/2017 10/31/2017 Inactive methadone 10 mg tablet RxNorm: 611543 1 Tablet(s) PO TID 201710/31/2017 Inactive ondansetron 4 mg disintegrating tablet RxNorm: 933111 1 Tablet(s) PO daily as needed 09/03/2017 10/26/2017 Inactive Flonase Allergy Relief 50 mcg/actuation nasal spray, suspension RxNorm: 1254876 2 [place] NASAL daily 08/19/2017 No Stop Date Active Carafate 1 gram tablet RxNorm: 702138 1 Tablet(s) PO BID 2017 No Stop Date Active promethazine 25 mg tablet RxNorm: 024752 1 Tablet(s) PO BID as needed nausea 08/11/2017 03/04/2018 Inactive methadone 10 mg tablet RxNorm: 330572 1 Tablet(s) PO TID 201709/09/2017 Inactive hydrocodone 7.5 mg-acetaminophen 325 mg tablet RxNorm: 251043 1 Tablet(s) PO TID as needed 08/11/2017 09/09/2017 Inactive ondansetron 4 mg disintegrating tablet RxNorm: 797310 1 Tablet(s) PO daily as needed 07/10/2017 08/08/2017 Inactive hydrocodone 7.5 mg-acetaminophen 325 mg tablet RxNorm: 883550 1 Tablet(s) PO TID as needed 07/08/2017 08/06/2017 Inactive hydrocodone 7.5 mg-acetaminophen 325 mg tablet RxNorm: 799740 1 Tablet(s) PO TID as needed 07/08/2017 07/07/2017 Inactive methadone 10 mg tablet RxNorm: 579014 1 Tablet(s) PO TID 201608/06/2017 Inactive hydrocodone 10 mg-acetaminophen 325 mg tablet RxNorm: 209437 1 Tablet(s) PO TID as needed for breakthrough pain 06/16/2017 07/07/2017 Inactive ondansetron 4 mg disintegrating tablet RxNorm: 253860 1 Tablet(s) PO daily as needed 06/09/2017 07/08/2017 Inactive hydrocodone 10 mg-acetaminophen 325 mg tablet RxNorm: 015160 1 Tablet(s) PO TID as needed for breakthrough pain 06/09/2017 06/15/2017 Inactive atenolol 50 mg tablet RxNorm: 594725 1 Tablet(s) PO daily 201602/15/2018 Inactive promethazine 25 mg tablet RxNorm: 387773 1 Tablet(s) PO BID as needed nausea 06/09/2017 08/10/2017 Inactive pantoprazole 40 mg tablet,delayed release RxNorm: 474392 1 Tablet(s) PO daily bid x 1 week then daily thereafter 06/09/2017 12/05/2017 Inactive alprazolam 0.25 mg tablet RxNorm: 259648 1 Tablet(s) PO TID as needed 05/30/2017 11/02/2017 Inactive pantoprazole 40 mg tablet,delayed release RxNorm: 674127 1 Tablet(s) PO daily 05/30/2017 06/08/2017 Inactive ondansetron 4 mg disintegrating tablet RxNorm: 081469 1 Tablet(s) PO daily as needed 05/30/2017 06/08/2017 Inactive levothyroxine 75 mcg tablet RxNorm: 213790 1 Tablet(s) PO daily 05/13/2017 11/30/2017 Inactive loratadine 10 mg tablet RxNorm: 979977 1 Tablet(s) PO daily 12/08/2017 Inactive promethazine 25 mg tablet RxNorm: 497637 Tablet(s) PO as needed nausea No Start Date Active cyclobenzaprine 10 mg tablet RxNorm: 024394 Tablet(s) PO as needed No Start Date Active metformin 500 mg tablet RxNorm: 225066 1 Tablet(s) PO daily No Start Date 08/19/2017 Inactive ondansetron 8 mg disintegrating tablet RxNorm: 218998 Tablet(s) PO as needed nausea No Start Date 05/29/2017 Inactive levothyroxine 100 mcg tablet RxNorm: 644240 Tablet(s) PO No Start Date 11/10/2017 Inactive loratadine 10 mg tablet RxNorm: 031891 1 Tablet(s) PO daily No Start Date 05/12/2017 Inactive atenolol 50 mg tablet RxNorm: 207794 1 Tablet(s) PO daily No Start Date 06/08/2017 Inactive Flonase Allergy Relief 50 mcg/actuation nasal spray, suspension RxNorm: 3442720 [place] NASAL daily No Start Date 2017 Inactive alprazolam 0.25 mg tablet RxNorm: 529636 Tablet(s) PO as needed No Start Date 05/29/2017 Inactive levothyroxine oral RxNorm: 75688 oral No Start Date 05/13/2017 Inactive hydrocodone 10 mg-acetaminophen 325 mg tablet RxNorm: 544523 Tablet(s) PO as needed for breakthrough pain No Start Date 06/08/2017 Inactive methadone 10 mg tablet RxNorm: 117027 1 Tablet(s) PO TID No Start Date 07/07/2017 Inactive pantoprazole 40 mg tablet,delayed release RxNorm: 507344 1 Tablet(s) PO daily No Start Date [...] Item Item Code Result Date Free T4 Rbu132 FREE T4 0.81 ng/dL 01/22/2018 Tsh Ord6 TSH (3rd IS) 12.54 uIU/mL 01/22/2018 Comp Metabolic Mib318 NA 139 mEq/L 11/05/2017 Comp Metabolic Fjs406 K 3.9 mEq/L 11/05/2017 Comp Metabolic Fsi752 CL 101 mEq/L 11/05/2017 Comp Metabolic Ipf687 CO2 30.0 mEq/L 11/05/2017 Comp Metabolic Lhm280 ANION GAP 12 11/05/2017 Comp Metabolic Wqx489 GLUCOSE 98 mg/dL 11/05/2017 Comp Metabolic Kkm539 Creat 0.8 mg/dL 11/05/2017 Comp Metabolic Lsq747 eGFR 74 ml/min/1.73m2 11/05/2017 Comp Metabolic Gdk562 BUN 9 mg/dL 11/05/2017 Comp Metabolic Upl877 B/C Ratio 10.8 Ratio 11/05/2017 Comp Metabolic Yde432 CALCIUM 9.1 mg/dL 11/05/2017 Comp Metabolic Umm814 ALK PHOS 87 U/L 11/05/2017 Comp Metabolic Xmq708 AST(SGOT) 28 U/L 11/05/2017 Comp Metabolic Ipv604 ALT(SGPT) 30 U/L 11/05/2017 Comp Metabolic Zur466 BILI T 0.5 mg/dL 11/05/2017 Comp Metabolic Yto191 ALBUMIN 3.9 g/dL 11/05/2017 Comp Metabolic Pes675 TPRO 7.2 g/dL 11/05/2017 Comp Metabolic Kdj814 GLOB 3.3 g/dL 11/05/2017 Comp Metabolic Tsl309 A/G Ratio 1.2 Ratio 11/05/2017 Comp Metabolic Dqj484 Osmo 276 mOsmo 11/05/2017 Cbc With Differential [...] 31.3 pg 11/05/2017 Cbc With Differential Ord2 Shannon% 8.8 % 11/05/2017 Cbc With Differential Ord2 [...] 2.60 K/ul 11/05/2017 Cbc With Differential Ord2 Shannon ABS# 0.5 K/ul 11/05/2017 Cbc With Differential Ord2 Eos ABS# 0.2 K/ul 11/05/2017 Cbc With Differential Ord2 Baso ABS# 0.0 K/ul 11/05/2017 Microalbumin Ktq311 MicroAlb <0.7 mg/dL 11/05/2017 Tsh Ord6 TSH (3rd IS) 27.62 uIU/mL 11/05/2017 Lipid Ord30 CHOL 218 mg/dL 11/05/2017 Lipid Ord30 HDL 34.0 mg/dl 11/05/2017 Lipid Ord30 TRIG 363 mg/dL 11/05/2017 Lipid Ord30 LDL Unable to calculate Due to elevated triglycerides mg/dL 11/05/2017 Lipid Ord30 C/HDL 6.4 Ratio 11/05/2017 %Hba1C Qns048 % HbA1c 68295-9 6.3 % 11/05/2017 %Hba1C Apl601 Gluc Ave 134 mg/dL 11/05/2017 Free T4 Tgz265 FREE T4 0.69 ng/dL 11/05/2017 Review of [...] clear 08/11/2017 None Full Exam - General 1995 Ears/Nose/Throat lips/teeth/gingiva Overall: benign lips 08/11/2017 None [...] Code : 8480-6 BMI: 34.8 Code : 73104-9 Heart Rate 1 : 76 bpm Height: 5'4" SpO2: 93% Weight: 203 lbs 05/18/2018 Blood Pressure 1: 156/78 Code : 8480-6 Blood Pressure 2: 148/82 Code: 8480-6 BMI: 34.8 Code: 82667-5 Heart Rate 1: 73 bpm Height: 5'4" SpO2: 94% Weight: 203 lbs 03/25/2018 Blood Pressure 1: 162/96 Code : 8480-6 BMI: 34.5 Code : 67458-7 Heart Rate 1 : 73 bpm Height: 5'4" SpO2: 98% Temperature: 36.4 (C) / 97.5 (F) Weight: 201 lbs 01/12/2018 Blood Pressure 1: 180/98 Code : 8480-6 Blood Pressure 1: 156/96 Code: 8480-6 BMI: 34.8 Code: 08962-4 Heart Rate 1: 78 bpm Height: 5'4" SpO2: 94% Weight: 203 lbs 12/29/2017 Blood Pressure 1: 190/98 Code : 8480-6 BMI: 34.8 Code : 57708-2 Heart Rate 1 : 71 bpm Height: 5'4" SpO2: 92% Weight: 203 lbs 12/01/2017 Blood Pressure 1: 180/98 Code : 8480-6 BMI: 34.7 Code : 98450-3 Heart Rate 1 : 73 bpm Height: 5'4" SpO2: 96% Weight: 202 lbs 11/03/2017 Blood Pressure 1: 180/96 Code : 8480-6 BMI: 35.0 Code : 65324-6 Heart Rate 1 : 72 bpm Height: 5'4" SpO2: 94% Weight: 204 lbs 08/11/2017 Blood Pressure 1: 156/84 Code : 8480-6 BMI: 34.0 Code : 67064-4 Heart Rate 1 : 76 bpm Height: 5'4" SpO2: 94% Weight: 198 lbs 06/09/2017 Blood Pressure 1: 170/96 Code : 8480-6 BMI: 34.0 Code : 56415-6 Heart Rate 1 : 94 bpm Height: 5'4" SpO2: 97% Temperature: 36.8 (C) / 98.2 (F) Weight: 198 lbs 05/13/2017 Blood Pressure 1: 130/68 Code : 8480-6 BMI: 35.0 Code : 15094-6 Heart Rate 1 : 74 bpm Height: [...] data Encounters Encounter Performer Location Codes Date () EST. PATIENT, LEVEL IV Diagnosis: Atrophy of thyroid (acquired)[ICD10: E03.4] Diagnosis: Type 2 diabetes mellitus without complications[ICD10: E11.9] Diagnosis: Essential (primary) hypertension[ICD10: I10] Diagnosis: Chronic pain syndrome[ICD10: G89.4] [facility] MD, [facility] CPT-4: 21333 06/29/2018 ([id number]) 09916 EST. PATIENT, LEVEL IV Diagnosis: Type 2 diabetes mellitus without complications[ICD10: E11.9] Diagnosis: Atrophy of thyroid (acquired)[ICD10: E03.4] Diagnosis: Essential (primary) hypertension[ICD10: I10] Diagnosis: Chronic pain syndrome[ICD10: G89.4] Kristie Carter MD, [facility] CPT-4: 95273 05/18/2018 [id number] [id number] EST. PATIENT, LEVEL IV Diagnosis: Type 2 diabetes mellitus without complications[ICD10: E11.9] Diagnosis: Nausea[ICD10: R11.0] Diagnosis: Chronic pain syndrome[ICD10: G89.4] Kristie Carter MD, [facility] CPT-4: 38162 03/25/2018 [id number]) [id number] EST. PATIENT, LEVEL III Diagnosis: Essential (primary) hypertension[ICD10: I10] Kristie Carter MD, [facility] CPT-4: 55283 01/12/2018 ([id number]) 28379 EST. PATIENT, LEVEL IV Diagnosis: Essential (primary) hypertension[ICD10: I10] Diagnosis: Chronic pain syndrome[ICD10: G89.4] Kristie [facility] MD, [facility] CPT-4: 41541 12/29/2017 ([id number]) 61187 EST. PATIENT, LEVEL IV Diagnosis: Essential (primary) hypertension[ICD10: I10] Diagnosis: Chronic pain syndrome[ICD10: G89.4] Diagnosis: Type 2 diabetes mellitus without complications[ICD10: E11.9] Diagnosis: Atrophy of thyroid (acquired)[ICD10: E03.4] Kristie [facility] MD, [facility] CPT-4: 13194 12/01/2017 ([id number]) 52809 EST. PATIENT, LEVEL IV Diagnosis: Chronic pain syndrome[ICD10: G89.4] Diagnosis: Type 2 diabetes mellitus without complications[ICD10: E11.9] Diagnosis: Atrophy of thyroid (acquired)[ICD10: E03.4] Diagnosis: Essential (primary) hypertension[ICD10: I10] Krist[facility] MD, [facility] CPT-4: 75726 11/03/2017 ([id number]) 60982 EST. PATIENT, LEVEL IV Diagnosis: Chronic pain syndrome[ICD10: G89.4] Diagnosis: Essential (primary) hypertension[ICD10: I10] Diagnosis: Nausea[ICD10: R11.0] Kristie Carter MD, [facility] CPT-4: 70745 08/11/2017 ([id number]) 13874 EST. PATIENT, LEVEL III Diagnosis: Essential (primary) hypertension[ICD10: I10] Diagnosis: Nausea[ICD10: R11.0] Diagnosis: Chronic pain syndrome[ICD10: G89.4] [facility] CPT-4: 38240 06/09/2017 ([id number]) PREV VISIT NEW AGE 40-64 Diagnosis: Atrophy of thyroid (acquired)[ICD10: E03.4] Diagnosis: Type 2 diabetes mellitus without complications[ICD10: E11.9] Diagnosis: Encounter for general adult medical examination with abnormal findings[ICD10: Z00.01] Diagnosis: Essential (primary) hypertension[ICD10: I10] [facility] CPT-4: 47698 05/13/2017 Plan of Care Planned Activity Notes Codes Status Date Referral: Ba Juan WPtel:[phone] Patient informed. Referral info faxed. Completed 07/22/2018 [...] of over-medication. 06/29/2018 Appointment: Kristie Carter WPtel: [address] [place], [place] [id number] (15 min) Moderate 06/29/2018 Patient Education: Patient Medication Summary Completed 06/29/2018 Patient Education: Diabetes Completed 06/29/2018 Care Plan: Referral Order SNOMED-CT : [id number] Pending 06/29/2018 Visit Plan: Diabetes Mellitus - [...] of control. 05/18/2018 Appointment: Kristie Carter WPtel: [facility]5 [facility] (15 min) Moderate 05/18/2018 Patient Education: Patient Medication Summary Completed 05/18/2018 Patient Education: Diabetes Completed 05/18/2018 Appointment: Kristie Carter WPtel: [address] [place], [place] [id number] (15 min) Moderate 05/11/2018 Appointment: Kristie Carter WPtel: [address] [place], [place] [phone] (15 min) Moderate 04/27/2018 Visit Plan: DM [...] prn phenergan. 03/25/2018 Appointment: Kristie Carter WPtel: [facility]7 [facility] 30 min appointments only in this [...] home. 01/12/2018 [phone] ([facility] min) Moderate 01/12/2018 Patient Education: Patient [...] over-medication. 12/29/2017 [phone] [facility] ([facility] min) Moderate 12/29/2017 Patient Education: Patient [...] and mupirocin 12/01/2017 [phone] [facility] ([facility] min) Moderate 12/01/2017 Patient Education: Patient Medication Summary Completed 12/01/2017 Care Plan: Comp Metabolic Cancelled 12/01/2017 Care Plan: Cbc With Differential Cancelled 12/01/2017 Care Plan: %Hba1C [facility] : 90577-9 Cancelled 12/01/2017 Care Plan: Tsh Cancelled 12/01/2017 [...] recommended. 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 Will attempt to wean pt off of hydrocodone as able. 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 Will attempt to wean pt off of hydrocodone as able. 06/09/2017 App[facility]ment: [phone] [facility] [place] (15 min) Moderate 06/09/2017 Patient Education: Patient [...] of control. 05/13/2017 Appointment: [facility]Ptel[facility] [facility] 05/13/2017 Patient Education: Patient Medication Summary Completed 05/13/2017 Referral: Ba Juan WPtel:[phone] Referral Appointment Requested Instructions Comment . 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 Will attempt to wean pt off [...]
[2018-08-11] MEDS ORDERED: HURRICAINE EXT TUBE (BENZOCAINE) XX PRN (08:30)
--- OUTSIDE RECORDS SUMMARY | 2018-08-11 08:31 | XMS REPORT | CCD ---
Author Author Kristie Carter Organization [facility] Address [address] [place] [address] Phone Care Team Providers Care Agronomist Name Role Phone PP Unavailable CCM Unavailable Summary Purpose Interface Exchange Insurance Providers Payer name Policy type / Coverage type Covered green party ID Effective Begin Date Effective End Date Administrative Concepts [id number] Unknown Family history Brother Diagnosis Age At [...] the area 05/13/2017 Employment Unknown Currently employed [employer] at [employer] 05/13/[address]: 0249681 Former smoker 05/13/[address]: 472637194 Never drinks alcohol 05/13/2017 Has the patient ever used illegal drugs? Unknown Has never used illegal drugs 05/13/2017 Allergies, Adverse Reactions, Alerts Substance Reaction Codes Entered Date Inactivated Date Status * OTHER REACTION - SEE ANSWER BOX Antibiotics- cause nausea Unknown 05/13/2017 No Inactive Date Active Lyrica nausea RxNorm: 128292 05/13/2017 No Inactive Date Active Savella nausea RxNorm: 455384 05/13/2017 No Inactive Date Active ibuprofen nausea, [...] Start Date Stop Date Status Fill Instructions methadone 10 mg tablet RxNorm: 595793 1.5 Tablet(s) PO TID 04/201808/27/2018 Active ondansetron 4 mg disintegrating tablet RxNorm: 573746 1 Tablet(s) PO daily as needed 06/25/2018 08/23/2018 Active methadone 10 mg tablet RxNorm: 795491 1.5 Tablet(s) PO TID 06/28/2018 Inactive methadone 10 mg tablet RxNorm: 693749 1.5 Tablet(s) PO TID 06/03/2018 Inactive methadone 10 mg tablet RxNorm: 345147 1.5 Tablet(s) PO TID 05/09/2018 Inactive loratadine 10 mg tablet RxNorm: 601538 TAKE 1 TABLET BY MOUTH ONCE DAILY 04/01/2018 No Stop Date Active pantoprazole 40 mg tablet,delayed release RxNorm: 551725 TAKE ONE TABLET BY MOUTH TWICE DAILY FOR 1 WEEK, THEN ONCE DAILY THEREAFTER. 2017 No Stop Date Active ondansetron 4 mg disintegrating tablet RxNorm: 616944 1 Tablet(s) PO daily as needed 03/30/2018 06/24/2018 Inactive hydrocodone 7.5 mg-acetaminophen 325 mg tablet RxNorm: 022483 1 Tablet(s) PO TID as needed 03/18/2018 04/14/2018 Inactive methadone 10 mg tablet RxNorm: 566948 1 Tablet(s) PO TID 201703/24/2018 Inactive levothyroxine 112 mcg tablet RxNorm: 318210 1 Tablet(s) PO daily 03/06/2018 07/03/2018 Active promethazine 25 mg tablet RxNorm: 898061 1 Tablet(s) PO BID as needed nausea 03/05/2018 09/30/2018 Active ondansetron 4 mg disintegrating tablet RxNorm: 703573 1 Tablet(s) PO daily as needed 02/24/2018 03/25/2018 Inactive hydrocodone 7.5 mg-acetaminophen 325 mg tablet RxNorm: 174319 1 Tablet(s) PO TID as needed 02/18/2018 03/17/2018 Inactive methadone 10 mg tablet RxNorm: 365044 1 Tablet(s) PO TID 201703/17/2018 Inactive atenolol 50 mg tablet RxNorm: 141302 TAKE ONE TABLET BY MOUTH ONCE DAILY 02/16/2018 No Stop Date Active levothyroxine 112 mcg tablet RxNorm: 947481 1 Tablet(s) PO daily 02/02/2018 03/03/2018 Inactive levothyroxine 112 mcg tablet RxNorm: 933461 1 Tablet(s) PO daily 02/02/2018 02/01/2018 Inactive loratadine 10 mg tablet RxNorm: 055702 TAKE ONE TABLET BY MOUTH ONCE DAILY 01/29/2018 03/31/2018 Inactive hydrocodone 7.5 mg-acetaminophen 325 mg tablet RxNorm: 150607 1 Tablet(s) PO TID as needed 01/19/2018 02/17/2018 Inactive methadone 10 mg tablet RxNorm: 027623 1 Tablet(s) PO TID 201702/17/2018 Inactive doxazosin 2 mg tablet RxNorm: 663898 1 Tablet(s) PO BID 201701/11/2018 Inactive doxazosin 1 mg tablet RxNorm: 941555 1 Tablet(s) PO BID 201712/30/2017 Inactive ondansetron 4 mg disintegrating tablet RxNorm: 792541 1 Tablet(s) PO daily as needed 12/29/2017 02/23/2018 Inactive losartan 100 mg tablet RxNorm: 201882 1 Tablet(s) PO daily 06/28/2018 Inactive mupirocin 2 % topical ointment RxNorm: 674253 1 TOP TID 201712/10/2017 Inactive doxycycline hyclate 100 mg tablet RxNorm: 902667 1 Tablet(s) PO BID for cellulitis of toe 12/01/2017 12/05/2017 Inactive ondansetron 4 mg disintegrating tablet RxNorm: 118467 1 Tablet(s) PO daily as needed 11/28/2017 12/27/2017 Inactive WelChol 625 mg tablet RxNorm: 650291 3 Tablet(s) PO BID 201711/21/2017 Inactive levothyroxine 100 mcg tablet RxNorm: 632885 1 Tablet(s) PO daily 11/11/2017 03/10/2018 Inactive WelChol 625 mg tablet RxNorm: 983596 3 Tablet(s) PO BID 201711/10/2017 Inactive losartan 50 mg tablet RxNorm: 863945 1 Tablet(s) PO daily 201711/30/2017 Inactive ondansetron 4 mg disintegrating tablet RxNorm: 306672 1 Tablet(s) PO daily as needed 10/27/2017 11/25/2017 Inactive hydrocodone 7.5 mg-acetaminophen 325 mg tablet RxNorm: 301964 1 Tablet(s) PO TID as needed 10/02/2017 10/31/2017 Inactive methadone 10 mg tablet RxNorm: 500503 1 Tablet(s) PO TID 201710/31/2017 Inactive ondansetron 4 mg disintegrating tablet RxNorm: 615195 1 Tablet(s) PO daily as needed 09/03/2017 10/26/2017 Inactive Flonase Allergy Relief 50 mcg/actuation nasal spray, suspension RxNorm: 8282790 2 Norris NASAL daily 08/19/2017 No Stop Date Active Carafate 1 gram tablet RxNorm: 904579 1 Tablet(s) PO BID 2017 No Stop Date Active promethazine 25 mg tablet RxNorm: 148946 1 Tablet(s) PO BID as needed nausea 08/11/2017 03/04/2018 Inactive methadone 10 mg tablet RxNorm: 746295 1 Tablet(s) PO TID 201709/09/2017 Inactive hydrocodone 7.5 mg-acetaminophen 325 mg tablet RxNorm: 319198 1 Tablet(s) PO TID as needed 08/11/2017 09/09/2017 Inactive ondansetron 4 mg disintegrating tablet RxNorm: 327814 1 Tablet(s) PO daily as needed 07/10/2017 08/08/2017 Inactive hydrocodone 7.5 mg-acetaminophen 325 mg tablet RxNorm: 455721 1 Tablet(s) PO TID as needed 07/08/2017 08/06/2017 Inactive hydrocodone 7.5 mg-acetaminophen 325 mg tablet RxNorm: 950287 1 Tablet(s) PO TID as needed 07/08/2017 07/07/2017 Inactive methadone 10 mg tablet RxNorm: 318379 1 Tablet(s) PO TID 201608/06/2017 Inactive hydrocodone 10 mg-acetaminophen 325 mg tablet RxNorm: 357903 1 Tablet(s) PO TID as needed for breakthrough pain 06/16/2017 07/07/2017 Inactive ondansetron 4 mg disintegrating tablet RxNorm: 086022 1 Tablet(s) PO daily as needed 06/09/2017 07/08/2017 Inactive hydrocodone 10 mg-acetaminophen 325 mg tablet RxNorm: 908221 1 Tablet(s) PO TID as needed for breakthrough pain 06/09/2017 06/15/2017 Inactive atenolol 50 mg tablet RxNorm: 842694 1 Tablet(s) PO daily 201602/15/2018 Inactive promethazine 25 mg tablet RxNorm: 368744 1 Tablet(s) PO BID as needed nausea 06/09/2017 08/10/2017 Inactive pantoprazole 40 mg tablet,delayed release RxNorm: 003763 1 Tablet(s) PO daily bid x 1 week then daily thereafter 06/09/2017 12/05/2017 Inactive alprazolam 0.25 mg tablet RxNorm: 994347 1 Tablet(s) PO TID as needed 05/30/2017 11/02/2017 Inactive pantoprazole 40 mg tablet,delayed release RxNorm: 401473 1 Tablet(s) PO daily 05/30/2017 06/08/2017 Inactive ondansetron 4 mg disintegrating tablet RxNorm: 997308 1 Tablet(s) PO daily as needed 05/30/2017 06/08/2017 Inactive levothyroxine 75 mcg tablet RxNorm: 522643 1 Tablet(s) PO daily 05/13/2017 11/30/2017 Inactive loratadine 10 mg tablet RxNorm: 993035 1 Tablet(s) PO daily 12/08/2017 Inactive promethazine 25 mg tablet RxNorm: 252703 Tablet(s) PO as needed nausea No Start Date Active cyclobenzaprine 10 mg tablet RxNorm: 992940 Tablet(s) PO as needed No Start Date Active metformin 500 mg tablet RxNorm: 406524 1 Tablet(s) PO daily No Start Date 08/19/2017 Inactive ondansetron 8 mg disintegrating tablet RxNorm: 541074 Tablet(s) PO as needed nausea No Start Date 05/29/2017 Inactive levothyroxine 100 mcg tablet RxNorm: 787082 Tablet(s) PO No Start Date 11/10/2017 Inactive loratadine 10 mg tablet RxNorm: 048472 1 Tablet(s) PO daily No Start Date 05/12/2017 Inactive atenolol 50 mg tablet RxNorm: 137392 1 Tablet(s) PO daily No Start Date 06/08/2017 Inactive Flonase Allergy Relief 50 mcg/actuation nasal spray, suspension RxNorm: 3163509 Norris NASAL daily No Start Date 2017 Inactive alprazolam 0.25 mg tablet RxNorm: 895741 Tablet(s) PO as needed No Start Date 05/29/2017 Inactive levothyroxine oral RxNorm: 16523 oral No Start Date 05/13/2017 Inactive hydrocodone 10 mg-acetaminophen 325 mg tablet RxNorm: 007247 Tablet(s) PO as needed for breakthrough pain No Start Date 06/08/2017 Inactive methadone 10 mg tablet RxNorm: 536751 1 Tablet(s) PO TID No Start Date 07/07/2017 Inactive pantoprazole 40 mg tablet,delayed release RxNorm: 628588 1 Tablet(s) PO daily No Start Date [...] Item Item Code Result Date Free T4 Xej961 FREE T4 0.81 ng/dL 01/22/2018 Tsh Ord6 TSH (3rd IS) 12.54 uIU/mL 01/22/2018 Comp Metabolic Oah508 NA 139 mEq/L 11/05/2017 Comp Metabolic Khm457 K 3.9 mEq/L 11/05/2017 Comp Metabolic Ffz309 CL 101 mEq/L 11/05/2017 Comp Metabolic Tzd458 CO2 30.0 mEq/L 11/05/2017 Comp Metabolic Sft931 ANION GAP 12 11/05/2017 Comp Metabolic Shc051 GLUCOSE 98 mg/dL 11/05/2017 Comp Metabolic Lxz275 Creat 0.8 mg/dL 11/05/2017 Comp Metabolic Nrs604 eGFR 74 ml/min/1.73m2 11/05/2017 Comp Metabolic Oaa085 BUN 9 mg/dL 11/05/2017 Comp Metabolic Qlm773 B/C Ratio 10.8 Ratio 11/05/2017 Comp Metabolic Icq856 CALCIUM 9.1 mg/dL 11/05/2017 Comp Metabolic Szp057 ALK PHOS 87 U/L 11/05/2017 Comp Metabolic Ekc876 AST(SGOT) 28 U/L 11/05/2017 Comp Metabolic Qyy318 ALT(SGPT) 30 U/L 11/05/2017 Comp Metabolic Igs795 BILI T 0.5 mg/dL 11/05/2017 Comp Metabolic Nir579 ALBUMIN 3.9 g/dL 11/05/2017 Comp Metabolic Byw915 TPRO 7.2 g/dL 11/05/2017 Comp Metabolic Kcv992 GLOB 3.3 g/dL 11/05/2017 Comp Metabolic Ssj679 A/G Ratio 1.2 Ratio 11/05/2017 Comp Metabolic Uis968 Osmo 276 mOsmo 11/05/2017 Cbc With Differential [...] 31.3 pg 11/05/2017 Cbc With Differential Ord2 [place]% 8.8 % 11/05/2017 Cbc With Differential Ord2 [...] 2.60 K/ul 11/05/2017 Cbc With Differential Ord2 [place] ABS# 0.5 K/ul 11/05/2017 Cbc With Differential Ord2 Eos ABS# 0.2 K/ul 11/05/2017 Cbc With Differential Ord2 Baso ABS# 0.0 K/ul 11/05/2017 Microalbumin Zsc997 MicroAlb <0.7 mg/dL 11/05/2017 Tsh Ord6 TSH (3rd IS) 27.62 uIU/mL 11/05/2017 Lipid Ord30 CHOL 218 mg/dL 11/05/2017 Lipid Ord30 HDL 34.0 mg/dl 11/05/2017 Lipid Ord30 TRIG 363 mg/dL 11/05/2017 Lipid Ord30 LDL Unable to calculate Due to elevated triglycerides mg/dL 11/05/2017 Lipid Ord30 C/HDL 6.4 Ratio 11/05/2017 %Hba1C Tiw154 % HbA1c 52938-3 6.3 % 11/05/2017 %Hba1C Zdg370 Gluc Ave 134 mg/dL 11/05/2017 Free T4 Fei599 FREE T4 0.69 ng/dL 11/05/2017 Review of [...] Code : 8480-6 BMI: 34.8 Code : 54238-1 Heart Rate 1 : 76 bpm Height: 5'4" SpO2: 93% Weight: 203 lbs 05/18/2018 Blood Pressure 1: 156/78 Code : 8480-6 Blood Pressure 2: 148/82 Code: 8480-6 BMI: 34.8 Code: 52641-6 Heart Rate 1: 73 bpm Height: 5'4" SpO2: 94% Weight: 203 lbs 03/25/2018 Blood Pressure 1: 162/96 Code : 8480-6 BMI: 34.5 Code : 94164-2 Heart Rate 1 : 73 bpm Height: 5'4" SpO2: 98% Temperature: 36.4 (C) / 97.5 (F) Weight: 201 lbs 01/12/2018 Blood Pressure 1: 180/98 Code : 8480-6 Blood Pressure 1: 156/96 Code: 8480-6 BMI: 34.8 Code: 49419-5 Heart Rate 1: 78 bpm Height: 5'4" SpO2: 94% Weight: 203 lbs 12/29/2017 Blood Pressure 1: 190/98 Code : 8480-6 BMI: 34.8 Code : 77889-7 Heart Rate 1 : 71 bpm Height: 5'4" SpO2: 92% Weight: 203 lbs 12/01/2017 Blood Pressure 1: 180/98 Code : 8480-6 BMI: 34.7 Code : 79883-4 Heart Rate 1 : 73 bpm Height: 5'4" SpO2: 96% Weight: 202 lbs 11/03/2017 Blood Pressure 1: 180/96 Code : 8480-6 BMI: 35.0 Code : 68263-2 Heart Rate 1 : 72 bpm Height: 5'4" SpO2: 94% Weight: 204 lbs 08/11/2017 Blood Pressure 1: 156/84 Code : 8480-6 BMI: 34.0 Code : 77056-6 Heart Rate 1 : 76 bpm Height: 5'4" SpO2: 94% Weight: 198 lbs 06/09/2017 Blood Pressure 1: 170/96 Code : 8480-6 BMI: 34.0 Code : 29172-6 Heart Rate 1 : 94 bpm Height: 5'4" SpO2: 97% Temperature: 36.8 (C) / 98.2 (F) Weight: 198 lbs 05/13/2017 Blood Pressure 1: 130/68 Code : 8480-6 BMI: 35.0 Code : 31697-4 Heart Rate 1 : 74 bpm Height: [...] Encounters Encounter Performer Location Codes Date ( 31048 EST. PATIENT, LEVEL IV Diagnosis: Atrophy of thyroid (acquired)[ICD10: E03.4] Diagnosis: Type 2 diabetes mellitus without complications[ICD10: E11.9] Diagnosis: Essential (primary) hypertension[ICD10: I10] Diagnosis: Chronic pain syndrome[ICD10: G89.4] [facility] MD, [facility] CPT-4: 79421 06/29/2018 ([id number]) 43557 EST. PATIENT, LEVEL IV Diagnosis: Type 2 diabetes mellitus without complications[ICD10: E11.9] Diagnosis: Atrophy of thyroid (acquired)[ICD10: E03.4] Diagnosis: Essential (primary) hypertension[ICD10: I10] Diagnosis: Chronic pain syndrome[ICD10: G89.4] Krist[facility] MD, [facility] CPT-4: 95519 05/18/2018 ([id number]) 22750 EST. PATIENT, LEVEL IV Diagnosis: Type 2 diabetes mellitus without complications[ICD10: E11.9] Diagnosis: Nausea[ICD10: R11.0] Diagnosis: Chronic pain syndrome[ICD10: G89.4] Kristie Carter MD, [facility] CPT-4: 53791 03/25/2018 ([id number]) 73563 EST. PATIENT, LEVEL III Diagnosis: Essential (primary) hypertension[ICD10: I10] Kristie Carter MD, [facility] CPT-4: 65839 01/12/2018 [id number]) 28891 EST. PATIENT, LEVEL IV Diagnosis: Essential (primary) hypertension[ICD10: I10] Diagnosis: Chronic pain syndrome[ICD10: G89.4] Kristie Carter MD, [facility] CPT-4: 95611 12/29/2017 ([id number]) 71051 EST. PATIENT, LEVEL IV Diagnosis: Essential (primary) hypertension[ICD10: I10] Diagnosis: Chronic pain syndrome[ICD10: G89.4] Diagnosis: Type 2 diabetes mellitus without complications[ICD10: E11.9] Diagnosis: Atrophy of thyroid (acquired)[ICD10: E03.4] [facility] MD, [facility] CPT-4: 60712 12/01/2017 ([id number]) 32548 EST. PATIENT, LEVEL IV Diagnosis: Chronic pain syndrome[ICD10: G89.4] Diagnosis: Type 2 diabetes mellitus without complications[ICD10: E11.9] Diagnosis: Atrophy of thyroid (acquired)[ICD10: E03.4] Diagnosis: Essential (primary) hypertension[ICD10: I10] Kristie [facility] MD [facility] CPT-4: 84424 11/03/2017 ([id number]) 54870 EST. PATIENT, LEVEL IV Diagnosis: Chronic pain syndrome[ICD10: G89.4] Diagnosis: Essential (primary) hypertension[ICD10: I10] Diagnosis: Nausea[ICD10: R11.0] Kristie Carter MD [facility] CPT-4: 23305 08/11/2017 ([id number]) 13198 EST. PATIENT, LEVEL III Diagnosis: Essential (primary) hypertension[ICD10: I10] Diagnosis: Nausea[ICD10: R11.0] Diagnosis: Chronic pain syndrome[ICD10: G89.4] Kristie Carter MD, [facility] CPT-4: 72253 06/09/2017 ([id number]) PREV VISIT NEW AGE 40-64 Diagnosis: Atrophy of thyroid (acquired)[ICD10: E03.4] Diagnosis: Type 2 diabetes mellitus without complications[ICD10: E11.9] Diagnosis: Encounter for general adult medical examination with abnormal findings[ICD10: Z00.01] Diagnosis: Essential (primary) hypertension[ICD10: I10] Kristie Carter MD, [facility] CPT-4: 95730 05/13/2017 Plan of Care Planned Activity Notes Codes Status Date Visit Plan: Diabetes Mellitus - controlled - [...] and understands the consequences of over-medication. 06/29/2018 Patient Education: Patient Medication Summary Completed 06/29/2018 Patient Education: Diabetes Completed 06/29/2018 Care Plan: Referral Order SNOMED-CT : [id number] Pending 06/29/2018 Visit Plan: Diabetes Mellitus - [...] of control. 05/18/2018 Appointment: [facility] WPtel: [phone] [place] (15 min) Moderate 05/18/2018 Patient Education: Patient Medication Summary Completed 05/18/2018 Patient Education: Diabetes Completed 05/18/2018 Appointment: Kristie Carter WPtel: [phone] [place] (15 min) Moderate 05/11/2018 Appointment: Kristie Carter WPtel: [phone] [place] (15 min) Moderate 04/27/2018 Visit Plan: DM [...] prn phenergan. 03/25/2018 Appointment: Kristie Carter WPtel: [facility] [place] 30 min appointments only in this slot [...] at home. 01/12/2018 [phone] [place] ([place] min) Moderate 01/12/2018 Patient Education: Patient [...] App[facility]ment: [phone] ([place] min) Moderate 12/29/2017 Patient Education: Patient [...] and mupirocin 12/01/2017 App[facility]ment: [phone] [place] (15 min) Moderate 12/01/2017 Patient Education: Patient Medication Summary Completed 12/01/2017 Care Plan: Comp Metabolic Cancelled 12/01/2017 Care Plan: Cbc With Differential Cancelled 12/01/2017 Care Plan: %Hba1C LOINC : 54518-9 Cancelled 12/01/2017 Care Plan: Tsh Cancelled 12/01/2017 [...] been recommended. 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 Will attempt to wean pt off of hydrocodone as able. 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 Will attempt to wean pt off of hydrocodone as able. 06/09/2017 Appointment: Kristie Carter WPtel: [address] [place], [place] [id number] (15 min) Moderate 06/09/2017 Patient Education: Patient [...] of control. 05/13/2017 Appointment: [phone] [place] New Patient 05/13/2017 Patient Education: Patient Medication Summary Completed 05/13/2017 Referral: Ba Juan WPtel:[phone] Referral Appointment Requested Instructions Comment . 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 Will attempt to wean pt off [...]
--- NOTE | 2018-08-11 08:33 | Progress Note-Pre Operative ---
Pre-Operative Progress Note H&P Reviewed The H&P was reviewed, patient examined and no changes noted. Date Seen by Provider: Aug 11, 2018 Time Seen by Provider: 08:31 Date H&P Reviewed: Aug 11, 2018 Time H&P Reviewed: 08:32 Pre-Operative Diagnosis: epigastric abdominal pain, dysphagia, change in bowel habits STACEY CASAREZ DO Aug 11, 2018 08:33
--- OUTSIDE RECORDS SUMMARY | 2018-08-11 08:33 | XMS REPORT | CCD ---
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 Unknown Has never used illegal drugs 05/13/2017 Allergies, Adverse Reactions, Alerts Substance Reaction Codes Entered Date Inactivated Date Status * OTHER REACTION - SEE ANSWER BOX Antibiotics- cause nausea Unknown 05/13/2017 No Inactive Date Active Lyrica nausea RxNorm: 023650 05/13/2017 No Inactive Date Active Savella nausea RxNorm: 931284 05/13/2017 No Inactive Date Active ibuprofen nausea, [...] Start Date Stop Date Status Fill Instructions ondansetron 4 mg disintegrating tablet RxNorm: 654925 1 Tablet(s) PO daily as needed 06/25/2018 08/23/2018 Active methadone 10 mg tablet RxNorm: 951640 1.5 Tablet(s) PO TID 07/03/2018 Active methadone 10 mg tablet RxNorm: 396909 1.5 Tablet(s) PO TID 06/03/2018 Inactive methadone 10 mg tablet RxNorm: 234228 1.5 Tablet(s) PO TID 05/09/2018 Inactive loratadine 10 mg tablet RxNorm: 351212 TAKE 1 TABLET BY MOUTH ONCE DAILY 04/01/2018 No Stop Date Active pantoprazole 40 mg tablet,delayed release RxNorm: 740878 TAKE ONE TABLET BY MOUTH TWICE DAILY FOR 1 WEEK, THEN ONCE DAILY THEREAFTER. 2017 No Stop Date Active ondansetron 4 mg disintegrating tablet RxNorm: 678350 1 Tablet(s) PO daily as needed 03/30/2018 06/24/2018 Inactive hydrocodone 7.5 mg-acetaminophen 325 mg tablet RxNorm: 042319 1 Tablet(s) PO TID as needed 03/18/2018 04/14/2018 Inactive methadone 10 mg tablet RxNorm: 827736 1 Tablet(s) PO TID 201703/24/2018 Inactive levothyroxine 112 mcg tablet RxNorm: 343080 1 Tablet(s) PO daily 03/06/2018 07/03/2018 Active promethazine 25 mg tablet RxNorm: 461555 1 Tablet(s) PO BID as needed nausea 03/05/2018 09/30/2018 Active ondansetron 4 mg disintegrating tablet RxNorm: 691726 1 Tablet(s) PO daily as needed 02/24/2018 03/25/2018 Inactive hydrocodone 7.5 mg-acetaminophen 325 mg tablet RxNorm: 083465 1 Tablet(s) PO TID as needed 02/18/2018 03/17/2018 Inactive methadone 10 mg tablet RxNorm: 339766 1 Tablet(s) PO TID 201703/17/2018 Inactive atenolol 50 mg tablet RxNorm: 252834 TAKE ONE TABLET BY MOUTH ONCE DAILY 02/16/2018 No Stop Date Active levothyroxine 112 mcg tablet RxNorm: 980824 1 Tablet(s) PO daily 02/02/2018 03/03/2018 Inactive levothyroxine 112 mcg tablet RxNorm: 084024 1 Tablet(s) PO daily 02/02/2018 02/01/2018 Inactive loratadine 10 mg tablet RxNorm: 223399 TAKE ONE TABLET BY MOUTH ONCE DAILY 01/29/2018 03/31/2018 Inactive hydrocodone 7.5 mg-acetaminophen 325 mg tablet RxNorm: 201851 1 Tablet(s) PO TID as needed 01/19/2018 02/17/2018 Inactive methadone 10 mg tablet RxNorm: 044187 1 Tablet(s) PO TID 201702/17/2018 Inactive doxazosin 2 mg tablet RxNorm: 297045 1 Tablet(s) PO BID 201701/11/2018 Inactive doxazosin 1 mg tablet RxNorm: 674945 1 Tablet(s) PO BID 201712/30/2017 Inactive ondansetron 4 mg disintegrating tablet RxNorm: 637637 1 Tablet(s) PO daily as needed 12/29/2017 02/23/2018 Inactive losartan 100 mg tablet RxNorm: 916883 1 Tablet(s) PO daily 06/28/2018 Active mupirocin 2 % topical ointment RxNorm: 744522 1 TOP TID 201712/10/2017 Inactive doxycycline hyclate 100 mg tablet RxNorm: 566044 1 Tablet(s) PO BID for cellulitis of toe 12/01/2017 12/05/2017 Inactive ondansetron 4 mg disintegrating tablet RxNorm: 028290 1 Tablet(s) PO daily as needed 11/28/2017 12/27/2017 Inactive WelChol 625 mg tablet RxNorm: 555488 3 Tablet(s) PO BID 201711/21/2017 Inactive levothyroxine 100 mcg tablet RxNorm: 963252 1 Tablet(s) PO daily 11/11/2017 03/10/2018 Inactive WelChol 625 mg tablet RxNorm: 479264 3 Tablet(s) PO BID 201711/10/2017 Inactive losartan 50 mg tablet RxNorm: 775046 1 Tablet(s) PO daily 201711/30/2017 Inactive ondansetron 4 mg disintegrating tablet RxNorm: 054558 1 Tablet(s) PO daily as needed 10/27/2017 11/25/2017 Inactive hydrocodone 7.5 mg-acetaminophen 325 mg tablet RxNorm: 394105 1 Tablet(s) PO TID as needed 10/02/2017 10/31/2017 Inactive methadone 10 mg tablet RxNorm: 911974 1 Tablet(s) PO TID 201710/31/2017 Inactive ondansetron 4 mg disintegrating tablet RxNorm: 224594 1 Tablet(s) PO daily as needed 09/03/2017 10/26/2017 Inactive Flonase Allergy Relief 50 mcg/actuation nasal spray, suspension RxNorm: 1318389 2 Ozan NASAL daily 08/19/2017 No Stop Date Active Carafate 1 gram tablet RxNorm: 519869 1 Tablet(s) PO BID 2017 No Stop Date Active promethazine 25 mg tablet RxNorm: 304818 1 Tablet(s) PO BID as needed nausea 08/11/2017 03/04/2018 Inactive methadone 10 mg tablet RxNorm: 064747 1 Tablet(s) PO TID 201709/09/2017 Inactive hydrocodone 7.5 mg-acetaminophen 325 mg tablet RxNorm: 387874 1 Tablet(s) PO TID as needed 08/11/2017 09/09/2017 Inactive ondansetron 4 mg disintegrating tablet RxNorm: 378408 1 Tablet(s) PO daily as needed 07/10/2017 08/08/2017 Inactive hydrocodone 7.5 mg-acetaminophen 325 mg tablet RxNorm: 218341 1 Tablet(s) PO TID as needed 07/08/2017 08/06/2017 Inactive hydrocodone 7.5 mg-acetaminophen 325 mg tablet RxNorm: 032829 1 Tablet(s) PO TID as needed 07/08/2017 07/07/2017 Inactive methadone 10 mg tablet RxNorm: 733031 1 Tablet(s) PO TID 201608/06/2017 Inactive hydrocodone 10 mg-acetaminophen 325 mg tablet RxNorm: 865630 1 Tablet(s) PO TID as needed for breakthrough pain 06/16/2017 07/07/2017 Inactive ondansetron 4 mg disintegrating tablet RxNorm: 017206 1 Tablet(s) PO daily as needed 06/09/2017 07/08/2017 Inactive hydrocodone 10 mg-acetaminophen 325 mg tablet RxNorm: 454352 1 Tablet(s) PO TID as needed for breakthrough pain 06/09/2017 06/15/2017 Inactive atenolol 50 mg tablet RxNorm: 510116 1 Tablet(s) PO daily 201602/15/2018 Inactive promethazine 25 mg tablet RxNorm: 424387 1 Tablet(s) PO BID as needed nausea 06/09/2017 08/10/2017 Inactive pantoprazole 40 mg tablet,delayed release RxNorm: 210423 1 Tablet(s) PO daily bid x 1 week then daily thereafter 06/09/2017 12/05/2017 Inactive alprazolam 0.25 mg tablet RxNorm: 873494 1 Tablet(s) PO TID as needed 05/30/2017 11/02/2017 Inactive pantoprazole 40 mg tablet,delayed release RxNorm: 096049 1 Tablet(s) PO daily 05/30/2017 06/08/2017 Inactive ondansetron 4 mg disintegrating tablet RxNorm: 851174 1 Tablet(s) PO daily as needed 05/30/2017 06/08/2017 Inactive levothyroxine 75 mcg tablet RxNorm: 239000 1 Tablet(s) PO daily 05/13/2017 11/30/2017 Inactive loratadine 10 mg tablet RxNorm: 688124 1 Tablet(s) PO daily 12/08/2017 Inactive promethazine 25 mg tablet RxNorm: 839397 Tablet(s) PO as needed nausea No Start Date Active cyclobenzaprine 10 mg tablet RxNorm: 107912 Tablet(s) PO as needed No Start Date Active metformin 500 mg tablet RxNorm: 563543 1 Tablet(s) PO daily No Start Date 08/19/2017 Inactive ondansetron 8 mg disintegrating tablet RxNorm: 186654 Tablet(s) PO as needed nausea No Start Date 05/29/2017 Inactive levothyroxine 100 mcg tablet RxNorm: 880126 Tablet(s) PO No Start Date 11/10/2017 Inactive loratadine 10 mg tablet RxNorm: 210999 1 Tablet(s) PO daily No Start Date 05/12/2017 Inactive atenolol 50 mg tablet RxNorm: 578172 1 Tablet(s) PO daily No Start Date 06/08/2017 Inactive Flonase Allergy Relief 50 mcg/actuation nasal spray, suspension RxNorm: 0855723 Ozan NASAL daily No Start Date 2017 Inactive alprazolam 0.25 mg tablet RxNorm: 579346 Tablet(s) PO as needed No Start Date 05/29/2017 Inactive levothyroxine oral RxNorm: 17597 oral No Start Date 05/13/2017 Inactive hydrocodone 10 mg-acetaminophen 325 mg tablet RxNorm: 233559 Tablet(s) PO as needed for breakthrough pain No Start Date 06/08/2017 Inactive methadone 10 mg tablet RxNorm: 448735 1 Tablet(s) PO TID No Start Date 07/07/2017 Inactive pantoprazole 40 mg tablet,delayed release RxNorm: 463914 1 Tablet(s) PO daily No Start Date 05/29/2017 Inactive Medication Administered No Medication Administered data Immunizations No Immunization data Assessments Condition Codes Effective Dates Atrophy of thyroid (acquired) ICD-10: E03.4 ICD-9: 244.8 05/18/2018 Chronic pain syndrome ICD-10: G89.4 ICD-9: 338.4 05/18/2018 Essential (primary) hypertension ICD-10: I10 ICD-9: 401.1 05/18/2018 Type 2 diabetes mellitus without complications ICD-10: E11.9 ICD-9: 250.00 05/18/2018 Nausea ICD-10: R11.0 ICD-9: 787.02 03/25/2018 Encounter for general adult medical examination with abnormal findings ICD-10: Z00.01 ICD-9: V70.0 05/13/2017 Reason For Visit Reason For Visit Effective Dates Notes diabetes mellitus 05/18/2018 nausea 03/25/2018 hypertension 01/12/2018 hypertension 12/29/2017 hypertension 12/01/2017 hypertension 11/03/2017 hypertension 08/11/2017 hypertension 06/09/2017 hypertension 05/13/2017 Results Observation Observation Code Item Item Code Result Date Free T4 Dss947 FREE T4 0.81 ng/dL 01/22/2018 Tsh Ord6 TSH (3rd IS) 12.54 uIU/mL 01/22/2018 Comp Metabolic Fpj709 NA 139 mEq/L 11/05/2017 Comp Metabolic Wpe649 K 3.9 mEq/L 11/05/2017 Comp Metabolic Kna057 CL 101 mEq/L 11/05/2017 Comp Metabolic Dgr858 CO2 30.0 mEq/L 11/05/2017 Comp Metabolic Nen462 ANION GAP 12 11/05/2017 Comp Metabolic Jnd262 GLUCOSE 98 mg/dL 11/05/2017 Comp Metabolic Emq103 Creat 0.8 mg/dL 11/05/2017 Comp Metabolic Jct705 eGFR 74 ml/min/1.73m2 11/05/2017 Comp Metabolic Pyz419 BUN 9 mg/dL 11/05/2017 Comp Metabolic Hha027 B/C Ratio 10.8 Ratio 11/05/2017 Comp Metabolic Eji149 CALCIUM 9.1 mg/dL 11/05/2017 Comp Metabolic Cqa393 ALK PHOS 87 U/L 11/05/2017 Comp Metabolic Zqo159 AST(SGOT) 28 U/L 11/05/2017 Comp Metabolic Cgu585 ALT(SGPT) 30 U/L 11/05/2017 Comp Metabolic Osa514 BILI T 0.5 mg/dL 11/05/2017 Comp Metabolic Sip140 ALBUMIN 3.9 g/dL 11/05/2017 Comp Metabolic Ycu647 TPRO 7.2 g/dL 11/05/2017 Comp Metabolic Rsv422 GLOB 3.3 g/dL 11/05/2017 Comp Metabolic Run549 A/G Ratio 1.2 Ratio 11/05/2017 Comp Metabolic Xyz352 Osmo 276 mOsmo 11/05/2017 Cbc With Differential Ord2 WBC 6.04 K/ul 11/05/2017 Cbc With Differential Ord2 RBC 4.96 M/ul 11/05/2017 Cbc With Differential Ord2 HGB 15.5 g/dl 11/05/2017 Cbc With Differential Ord2 HCT 45.5 % 11/05/2017 Cbc With Differential Ord2 Neut% 45.0 % 11/05/2017 Cbc With Differential Ord2 Lymph% 43.0 % 11/05/2017 Cbc With Differential Ord2 MCV 91.7 fl 11/05/2017 Cbc With Differential Ord2 [place]% 8.8 % 11/05/2017 Cbc With Differential Ord2 MCH 31.3 pg 11/05/2017 Cbc With Differential Ord2 MCHC 34.1 pg 11/05/2017 Cbc With Differential Ord2 Eos% 2.5 % 11/05/2017 Cbc With Differential Ord2 PLT 221 K/ul 11/05/2017 Cbc With Differential Ord2 Baso% 0.7 % 11/05/2017 Cbc With Differential Ord2 RDW 13.3 % 11/05/2017 Cbc With Differential Ord2 Neut ABS# 2.72 K/ul 11/05/2017 Cbc With Differential Ord2 Lymph ABS# 2.60 K/ul 11/05/2017 Cbc With Differential Ord2 [place] ABS# 0.5 K/ul 11/05/2017 Cbc With Differential Ord2 Eos ABS# 0.2 K/ul 11/05/2017 Cbc With Differential Ord2 Baso ABS# 0.0 K/ul 11/05/2017 Microalbumin Mal232 MicroAlb <0.7 mg/dL 11/05/2017 Tsh Ord6 TSH (3rd IS) 27.62 uIU/mL 11/05/2017 Lipid Ord30 CHOL 218 mg/dL 11/05/2017 Lipid Ord30 HDL 34.0 mg/dl 11/05/2017 Lipid Ord30 TRIG 363 mg/dL 11/05/2017 Lipid Ord30 LDL Unable to calculate Due to elevated triglycerides mg/dL 11/05/2017 Lipid Ord30 C/HDL 6.4 Ratio 11/05/2017 %Hba1C Vxp546 % HbA1c 67028-6 6.3 % 11/05/2017 %Hba1C Vbg709 Gluc Ave 134 mg/dL 11/05/2017 Free T4 Qnq666 FREE T4 0.69 ng/dL 11/05/2017 Review of Systems System Result Effective Dates Constitutional recent illness 05/18/2018 Constitutional No chills [...] No Procedures data Vital Signs Date Vital 05/18/2018 Blood Pressure 1: 156/78 Code : 8480-6 Blood Pressure 2: 148/82 Code: 8480-6 BMI: 34.8 Code: 30505-1 Heart Rate 1: 73 bpm Height: 5'4" SpO2: 94% Weight: 203 lbs 03/25/2018 Blood Pressure 1: 162/96 Code : 8480-6 BMI: 34.5 Code : 86846-7 Heart Rate 1 : 73 bpm Height: 5'4" SpO2: 98% Temperature: 36.4 (C) / 97.5 (F) Weight: 201 lbs 01/12/2018 Blood Pressure 1: 180/98 Code : 8480-6 Blood Pressure 1: 156/96 Code: 8480-6 BMI: 34.8 Code: 05789-2 Heart Rate 1: 78 bpm Height: 5'4" SpO2: 94% Weight: 203 lbs 12/29/2017 Blood Pressure 1: 190/98 Code : 8480-6 BMI: 34.8 Code : 10396-5 Heart Rate 1 : 71 bpm Height: 5'4" SpO2: 92% Weight: 203 lbs 12/01/2017 Blood Pressure 1: 180/98 Code : 8480-6 BMI: 34.7 Code : 29593-9 Heart Rate 1 : 73 bpm Height: 5'4" SpO2: 96% Weight: 202 lbs 11/03/2017 Blood Pressure 1: 180/96 Code : 8480-6 BMI: 35.0 Code : 80043-6 Heart Rate 1 : 72 bpm Height: 5'4" SpO2: 94% Weight: 204 lbs 08/11/2017 Blood Pressure 1: 156/84 Code : 8480-6 BMI: 34.0 Code : 65836-2 Heart Rate 1 : 76 bpm Height: 5'4" SpO2: 94% Weight: 198 lbs 06/09/2017 Blood Pressure 1: 170/96 Code : 8480-6 BMI: 34.0 Code : 11776-4 Heart Rate 1 : 94 bpm Height: 5'4" SpO2: 97% Temperature: 36.8 (C) / 98.2 (F) Weight: 198 lbs 05/13/2017 Blood Pressure 1: 130/68 Code : 8480-6 BMI: 35.0 Code : 08954-6 Heart Rate 1 : 74 bpm Height: 5'4" SpO2: 96% Weight: 204 lbs Functional Status No Functional Status data History of Present Illness Symptom Name Status Result Effective Date Notes hypertension Quality intermittent 05/18/2018 None hypertension Quality [...] Date ( EST. PATIENT, LEVEL IV Diagnosis: Type 2 diabetes mellitus without complications[ICD10: E11.9] Diagnosis: Atrophy of thyroid (acquired)[ICD10: E03.4] Diagnosis: Essential (primary) hypertension[ICD10: I10] Diagnosis: Chronic pain syndrome[ICD10: G89.4] [facility] MD, [facility] CPT-4: 95095 05/18/2018 ([id number]) 59250 EST. PATIENT, LEVEL IV Diagnosis: Type 2 diabetes mellitus without complications[ICD10: E11.9] Diagnosis: Nausea[ICD10: R11.0] Diagnosis: Chronic pain syndrome[ICD10: G89.4] Kristie Carter MD, [facility] CPT-4: 03263 03/25/2018 ([id number]) 97295 EST. PATIENT, LEVEL III Diagnosis: Essential (primary) hypertension[ICD10: I10] Kristie Carter MD, [facility] CPT-4: 93923 01/12/2018 ([id number]) 40962 EST. PATIENT, LEVEL IV Diagnosis: Essential (primary) hypertension[ICD10: I10] Diagnosis: Chronic pain syndrome[ICD10: G89.4] Kristie Carter MD, [facility] CPT-4: 24556 12/29/2017 ([id number]) 41078 EST. PATIENT, LEVEL IV Diagnosis: Essential (primary) hypertension[ICD10: I10] Diagnosis: Chronic pain syndrome[ICD10: G89.4] Diagnosis: Type 2 diabetes mellitus without complications[ICD10: E11.9] Diagnosis: Atrophy of thyroid (acquired)[ICD10: E03.4] Kristie Carter MD, [facility] CPT-4: 74277 12/01/2017 ([id number]) 87729 EST. PATIENT, LEVEL IV Diagnosis: Chronic pain syndrome[ICD10: G89.4] Diagnosis: Type 2 diabetes mellitus without complications[ICD10: E11.9] Diagnosis: Atrophy of thyroid (acquired)[ICD10: E03.4] Diagnosis: Essential (primary) hypertension[ICD10: I10] Kristie Carter MD, [facility] CPT-4: 46338 11/03/2017 ([id number]) 60228 EST. PATIENT, LEVEL IV Diagnosis: Chronic pain syndrome[ICD10: G89.4] Diagnosis: Essential (primary) hypertension[ICD10: I10] Diagnosis: Nausea[ICD10: R11.0] Kristie Carter MD, [facility] CPT-4: 26934 08/11/2017 ([id number]) 49190 EST. PATIENT, LEVEL III Diagnosis: Essential (primary) hypertension[ICD10: I10] Diagnosis: Nausea[ICD10: R11.0] Diagnosis: Chronic pain syndrome[ICD10: G89.4] Kristie Carter MD, [facility] CPT-4: 63264 06/09/2017 ([id number]) PREV VISIT NEW AGE 40-64 Diagnosis: Atrophy of thyroid (acquired)[ICD10: E03.4] Diagnosis: Type 2 diabetes mellitus without complications[ICD10: E11.9] Diagnosis: Encounter for general adult medical examination with abnormal findings[ICD10: Z00.01] Diagnosis: Essential (primary) hypertension[ICD10: I10] [facility] CPT-4: 51523 05/13/2017 Plan of Care Planned Activity Notes [...] of control. 05/18/2018 Appointment: Kristie Carter WPtel: [facility] (15 min) Moderate 05/18/2018 Patient Education: Patient Medication Summary Completed 05/18/2018 Patient Education: Diabetes Completed 05/18/2018 Appointment: Kristie Carter WPtel: [facility] (15 min) Moderate 05/11/2018 Appointment: Krist[facility] Carter [facility]Pt[facility] (15 min) Moderate 04/27/2018 Visit Plan: DM [...] prn phenergan. 03/25/2018 Appointment: [phone] 30 min appointments only in this slot [...] 01/12/2018 Appointment: Kristie Carter WPtel: [phone] [facility] (15 min) Moderate 01/12/2018 Patient Education: Patient [...] over-medication. 12/29/2017 Appointment: [phone] (15 min) Moderate 12/29/2017 Patient Education: Patient [...] and mupirocin 12/01/2017 Appointment: [phone] [place] (15 min) Moderate 12/01/2017 Patient Education: Patient Medication Summary Completed 12/01/2017 Care Plan: Comp Metabolic Cancelled 12/01/2017 Care Plan: Cbc With Differential Cancelled 12/01/2017 Care Plan: %Hba1C LOINC : 19049-5 Cancelled 12/01/2017 Care Plan: Tsh Cancelled 12/01/2017 [...] recommended. 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 Will attempt to wean pt off of hydrocodone as able. 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 Will attempt to wean pt off of hydrocodone as able. 06/09/2017 Appointment: Kristie Carter WPtel: [phone] [facility] (15 min) Moderate 06/09/2017 Patient Education: Patient [...] of control. 05/13/2017 Appointment: Kristie Carter WPtel: [address] [place], [place] [address] [place] New Patient 05/13/2017 Patient Education: Patient Medication Summary Completed 05/13/2017 Instructions Comment . Hypertension - uncontrolled - [...] - rx for doxycycline and mupirocin . 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 Will attempt to wean pt off of [...]
--- OUTSIDE RECORDS SUMMARY | 2018-08-11 08:35 | XMS REPORT | CCD ---
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 Unknown Has never used illegal drugs 05/13/2017 Allergies, Adverse Reactions, Alerts Substance Reaction Codes Entered Date Inactivated Date Status * OTHER REACTION - SEE ANSWER BOX Antibiotics- cause nausea Unknown 05/13/2017 No Inactive Date Active Lyrica nausea RxNorm: 039046 05/13/2017 No Inactive Date Active Savella nausea RxNorm: 712944 05/13/2017 No Inactive Date Active ibuprofen nausea, [...] Fill Instructions methadone 10 mg tablet RxNorm: 919506 1.5 Tablet(s) PO TID 07/03/2018 Active methadone 10 mg tablet RxNorm: 953746 1.5 Tablet(s) PO TID 06/03/2018 Inactive methadone 10 mg tablet RxNorm: 708821 1.5 Tablet(s) PO TID 05/09/2018 Inactive loratadine 10 mg tablet RxNorm: 170708 TAKE 1 TABLET BY MOUTH ONCE DAILY 04/01/2018 No Stop Date Active pantoprazole 40 mg tablet,delayed release RxNorm: 705765 TAKE ONE TABLET BY MOUTH TWICE DAILY FOR 1 WEEK, THEN ONCE DAILY THEREAFTER. 2017 No Stop Date Active ondansetron 4 mg disintegrating tablet RxNorm: 014195 1 Tablet(s) PO daily as needed 03/30/2018 06/27/2018 Active hydrocodone 7.5 mg-acetaminophen 325 mg tablet RxNorm: 174971 1 Tablet(s) PO TID as needed 03/18/2018 04/14/2018 Inactive methadone 10 mg tablet RxNorm: 738284 1 Tablet(s) PO TID 201703/24/2018 Inactive levothyroxine 112 mcg tablet RxNorm: 275887 1 Tablet(s) PO daily 03/06/2018 07/03/2018 Active promethazine 25 mg tablet RxNorm: 837529 1 Tablet(s) PO BID as needed nausea 03/05/2018 09/30/2018 Active ondansetron 4 mg disintegrating tablet RxNorm: 798366 1 Tablet(s) PO daily as needed 02/24/2018 03/25/2018 Inactive hydrocodone 7.5 mg-acetaminophen 325 mg tablet RxNorm: 974287 1 Tablet(s) PO TID as needed 02/18/2018 03/17/2018 Inactive methadone 10 mg tablet RxNorm: 696097 1 Tablet(s) PO TID 201703/17/2018 Inactive atenolol 50 mg tablet RxNorm: 905437 TAKE ONE TABLET BY MOUTH ONCE DAILY 02/16/2018 No Stop Date Active levothyroxine 112 mcg tablet RxNorm: 498071 1 Tablet(s) PO daily 02/02/2018 03/03/2018 Inactive levothyroxine 112 mcg tablet RxNorm: 801680 1 Tablet(s) PO daily 02/02/2018 02/01/2018 Inactive loratadine 10 mg tablet RxNorm: 714029 TAKE ONE TABLET BY MOUTH ONCE DAILY 01/29/2018 03/31/2018 Inactive hydrocodone 7.5 mg-acetaminophen 325 mg tablet RxNorm: 739830 1 Tablet(s) PO TID as needed 01/19/2018 02/17/2018 Inactive methadone 10 mg tablet RxNorm: 873325 1 Tablet(s) PO TID 201702/17/2018 Inactive doxazosin 2 mg tablet RxNorm: 015436 1 Tablet(s) PO BID 201701/11/2018 Inactive doxazosin 1 mg tablet RxNorm: 528208 1 Tablet(s) PO BID 201712/30/2017 Inactive ondansetron 4 mg disintegrating tablet RxNorm: 346660 1 Tablet(s) PO daily as needed 12/29/2017 02/23/2018 Inactive losartan 100 mg tablet RxNorm: 319912 1 Tablet(s) PO daily 06/28/2018 Active mupirocin 2 % topical ointment RxNorm: 905049 1 TOP TID 201712/10/2017 Inactive doxycycline hyclate 100 mg tablet RxNorm: 587221 1 Tablet(s) PO BID for cellulitis of toe 12/01/2017 12/05/2017 Inactive ondansetron 4 mg disintegrating tablet RxNorm: 045055 1 Tablet(s) PO daily as needed 11/28/2017 12/27/2017 Inactive WelChol 625 mg tablet RxNorm: 792109 3 Tablet(s) PO BID 201711/21/2017 Inactive levothyroxine 100 mcg tablet RxNorm: 588639 1 Tablet(s) PO daily 11/11/2017 03/10/2018 Inactive WelChol 625 mg tablet RxNorm: 413569 3 Tablet(s) PO BID 201711/10/2017 Inactive losartan 50 mg tablet RxNorm: 310940 1 Tablet(s) PO daily 201711/30/2017 Inactive ondansetron 4 mg disintegrating tablet RxNorm: 137690 1 Tablet(s) PO daily as needed 10/27/2017 11/25/2017 Inactive hydrocodone 7.5 mg-acetaminophen 325 mg tablet RxNorm: 933353 1 Tablet(s) PO TID as needed 10/02/2017 10/31/2017 Inactive methadone 10 mg tablet RxNorm: 408182 1 Tablet(s) PO TID 201710/31/2017 Inactive ondansetron 4 mg disintegrating tablet RxNorm: 748714 1 Tablet(s) PO daily as needed 09/03/2017 10/26/2017 Inactive Flonase Allergy Relief 50 mcg/actuation nasal spray, suspension RxNorm: 5972808 2 [place] NASAL daily 08/19/2017 No Stop Date Active Carafate 1 gram tablet RxNorm: 994033 1 Tablet(s) PO BID 2017 No Stop Date Active promethazine 25 mg tablet RxNorm: 443354 1 Tablet(s) PO BID as needed nausea 08/11/2017 03/04/2018 Inactive methadone 10 mg tablet RxNorm: 389772 1 Tablet(s) PO TID 201709/09/2017 Inactive hydrocodone 7.5 mg-acetaminophen 325 mg tablet RxNorm: 489050 1 Tablet(s) PO TID as needed 08/11/2017 09/09/2017 Inactive ondansetron 4 mg disintegrating tablet RxNorm: 457960 1 Tablet(s) PO daily as needed 07/10/2017 08/08/2017 Inactive hydrocodone 7.5 mg-acetaminophen 325 mg tablet RxNorm: 883684 1 Tablet(s) PO TID as needed 07/08/2017 08/06/2017 Inactive hydrocodone 7.5 mg-acetaminophen 325 mg tablet RxNorm: 448230 1 Tablet(s) PO TID as needed 07/08/2017 07/07/2017 Inactive methadone 10 mg tablet RxNorm: 532905 1 Tablet(s) PO TID 201608/06/2017 Inactive hydrocodone 10 mg-acetaminophen 325 mg tablet RxNorm: 487468 1 Tablet(s) PO TID as needed for breakthrough pain 06/16/2017 07/07/2017 Inactive ondansetron 4 mg disintegrating tablet RxNorm: 901108 1 Tablet(s) PO daily as needed 06/09/2017 07/08/2017 Inactive hydrocodone 10 mg-acetaminophen 325 mg tablet RxNorm: 509197 1 Tablet(s) PO TID as needed for breakthrough pain 06/09/2017 06/15/2017 Inactive atenolol 50 mg tablet RxNorm: 275021 1 Tablet(s) PO daily 201602/15/2018 Inactive promethazine 25 mg tablet RxNorm: 562396 1 Tablet(s) PO BID as needed nausea 06/09/2017 08/10/2017 Inactive pantoprazole 40 mg tablet,delayed release RxNorm: 653237 1 Tablet(s) PO daily bid x 1 week then daily thereafter 06/09/2017 12/05/2017 Inactive alprazolam 0.25 mg tablet RxNorm: 181812 1 Tablet(s) PO TID as needed 05/30/2017 11/02/2017 Inactive pantoprazole 40 mg tablet,delayed release RxNorm: 260356 1 Tablet(s) PO daily 05/30/2017 06/08/2017 Inactive ondansetron 4 mg disintegrating tablet RxNorm: 892503 1 Tablet(s) PO daily as needed 05/30/2017 06/08/2017 Inactive levothyroxine 75 mcg tablet RxNorm: 721452 1 Tablet(s) PO daily 05/13/2017 11/30/2017 Inactive loratadine 10 mg tablet RxNorm: 114364 1 Tablet(s) PO daily 12/08/2017 Inactive promethazine 25 mg tablet RxNorm: 758457 Tablet(s) PO as needed nausea No Start Date Active cyclobenzaprine 10 mg tablet RxNorm: 383738 Tablet(s) PO as needed No Start Date Active metformin 500 mg tablet RxNorm: 503586 1 Tablet(s) PO daily No Start Date 08/19/2017 Inactive ondansetron 8 mg disintegrating tablet RxNorm: 776167 Tablet(s) PO as needed nausea No Start Date 05/29/2017 Inactive levothyroxine 100 mcg tablet RxNorm: 453272 Tablet(s) PO No Start Date 11/10/2017 Inactive loratadine 10 mg tablet RxNorm: 543019 1 Tablet(s) PO daily No Start Date 05/12/2017 Inactive atenolol 50 mg tablet RxNorm: 581425 1 Tablet(s) PO daily No Start Date 06/08/2017 Inactive Flonase Allergy Relief 50 mcg/actuation nasal spray, suspension RxNorm: 6291493 [place] NASAL daily No Start Date 2017 Inactive alprazolam 0.25 mg tablet RxNorm: 102340 Tablet(s) PO as needed No Start Date 05/29/2017 Inactive levothyroxine oral RxNorm: 90406 oral No Start Date 05/13/2017 Inactive hydrocodone 10 mg-acetaminophen 325 mg tablet RxNorm: 212081 Tablet(s) PO as needed for breakthrough pain No Start Date 06/08/2017 Inactive methadone 10 mg tablet RxNorm: 970162 1 Tablet(s) PO TID No Start Date 07/07/2017 Inactive pantoprazole 40 mg tablet,delayed release RxNorm: 593945 1 Tablet(s) PO daily No Start Date [...] Item Item Code Result Date Free T4 Cpq747 FREE T4 0.81 ng/dL 01/22/2018 Tsh Ord6 TSH (3rd IS) 12.54 uIU/mL 01/22/2018 Comp Metabolic Jkx271 NA 139 mEq/L 11/05/2017 Comp Metabolic Ycz110 K 3.9 mEq/L 11/05/2017 Comp Metabolic Wmq083 CL 101 mEq/L 11/05/2017 Comp Metabolic Gbz424 CO2 30.0 mEq/L 11/05/2017 Comp Metabolic Sqz467 ANION GAP 12 11/05/2017 Comp Metabolic Bxq961 GLUCOSE 98 mg/dL 11/05/2017 Comp Metabolic Wcu072 Creat 0.8 mg/dL 11/05/2017 Comp Metabolic Eed691 eGFR 74 ml/min/1.73m2 11/05/2017 Comp Metabolic Lgr553 BUN 9 mg/dL 11/05/2017 Comp Metabolic Nkp222 B/C Ratio 10.8 Ratio 11/05/2017 Comp Metabolic Egu815 CALCIUM 9.1 mg/dL 11/05/2017 Comp Metabolic Uax907 ALK PHOS 87 U/L 11/05/2017 Comp Metabolic Rgl319 AST(SGOT) 28 U/L 11/05/2017 Comp Metabolic Nph237 ALT(SGPT) 30 U/L 11/05/2017 Comp Metabolic Kzi672 BILI T 0.5 mg/dL 11/05/2017 Comp Metabolic Tjp947 ALBUMIN 3.9 g/dL 11/05/2017 Comp Metabolic Qth512 TPRO 7.2 g/dL 11/05/2017 Comp Metabolic Aao616 GLOB 3.3 g/dL 11/05/2017 Comp Metabolic Jxj460 A/G Ratio 1.2 Ratio 11/05/2017 Comp Metabolic Smk245 Osmo 276 mOsmo 11/05/2017 Cbc With Differential Ord2 WBC 6.04 K/ul 11/05/2017 Cbc With Differential Ord2 RBC 4.96 M/ul 11/05/2017 Cbc With Differential Ord2 HGB 15.5 g/dl 11/05/2017 Cbc With Differential Ord2 Neut% 45.0 % 11/05/2017 Cbc With Differential Ord2 HCT 45.5 % 11/05/2017 Cbc With Differential Ord2 MCV 91.7 fl 11/05/2017 Cbc With Differential Ord2 Lymph% 43.0 % 11/05/2017 Cbc With Differential Ord2 MCH 31.3 pg 11/05/2017 Cbc With Differential Ord2 [place]% 8.8 % 11/05/2017 Cbc With Differential Ord2 Eos% 2.5 % 11/05/2017 Cbc With Differential Ord2 MCHC 34.1 pg 11/05/2017 Cbc With Differential Ord2 PLT 221 K/ul 11/05/2017 Cbc With Differential Ord2 Baso% 0.7 % 11/05/2017 Cbc With Differential Ord2 RDW 13.3 % 11/05/2017 Cbc With Differential Ord2 Neut ABS# 2.72 K/ul 11/05/2017 Cbc With Differential Ord2 Lymph ABS# 2.60 K/ul 11/05/2017 Cbc With Differential Ord2 [place] ABS# 0.5 K/ul 11/05/2017 Cbc With Differential Ord2 Eos ABS# 0.2 K/ul 11/05/2017 Cbc With Differential Ord2 Baso ABS# 0.0 K/ul 11/05/2017 Microalbumin Oxv899 MicroAlb <0.7 mg/dL 11/05/2017 Tsh Ord6 TSH (3rd IS) 27.62 uIU/mL 11/05/2017 Lipid Ord30 CHOL 218 mg/dL 11/05/2017 Lipid Ord30 HDL 34.0 mg/dl 11/05/2017 Lipid Ord30 TRIG 363 mg/dL 11/05/2017 Lipid Ord30 LDL Unable to calculate Due to elevated triglycerides mg/dL 11/05/2017 Lipid Ord30 C/HDL 6.4 Ratio 11/05/2017 %Hba1C Qvm029 % HbA1c 73132-1 6.3 % 11/05/2017 %Hba1C Huc519 Gluc [address] 134 mg/dL 11/05/2017 Free T4 Ezu105 FREE T4 0.69 ng/dL 11/05/2017 Review of [...] 2: 148/82 Code: 8480-6 BMI: 34.8 Code: 56604-8 Heart Rate 1: 73 bpm Height: 5'4" SpO2: 94% Weight: 203 lbs 03/25/2018 Blood Pressure 1: 162/96 Code : 8480-6 BMI: 34.5 Code : 45465-6 Heart Rate 1 : 73 bpm Height: 5'4" SpO2: 98% Temperature: 36.4 (C) / 97.5 (F) Weight: 201 lbs 01/12/2018 Blood Pressure 1: 180/98 Code : 8480-6 Blood Pressure 1: 156/96 Code: 8480-6 BMI: 34.8 Code: 28139-1 Heart Rate 1: 78 bpm Height: 5'4" SpO2: 94% Weight: 203 lbs 12/29/2017 Blood Pressure 1: 190/98 Code : 8480-6 BMI: 34.8 Code : 62653-2 Heart Rate 1 : 71 bpm Height: 5'4" SpO2: 92% Weight: 203 lbs 12/01/2017 Blood Pressure 1: 180/98 Code : 8480-6 BMI: 34.7 Code : 82098-1 Heart Rate 1 : 73 bpm Height: 5'4" SpO2: 96% Weight: 202 lbs 11/03/2017 Blood Pressure 1: 180/96 Code : 8480-6 BMI: 35.0 Code : 12971-0 Heart Rate 1 : 72 bpm Height: 5'4" SpO2: 94% Weight: 204 lbs 08/11/2017 Blood Pressure 1: 156/84 Code : 8480-6 BMI: 34.0 Code : 05220-4 Heart Rate 1 : 76 bpm Height: 5'4" SpO2: 94% Weight: 198 lbs 06/09/2017 Blood Pressure 1: 170/96 Code : 8480-6 BMI: 34.0 Code : 52085-9 Heart Rate 1 : 94 bpm Height: 5'4" SpO2: 97% Temperature: 36.8 (C) / 98.2 (F) Weight: 198 lbs 05/13/2017 Blood Pressure 1: 130/68 Code : 8480-6 BMI: 35.0 Code : 40123-8 Heart Rate 1 : 74 bpm Height: [...] data Encounters Encounter Performer Location Codes Date ([id number]) 38200 EST. PATIENT, LEVEL IV Diagnosis: Type 2 diabetes mellitus without complications[ICD10: E11.9] Diagnosis: Atrophy of thyroid (acquired)[ICD10: E03.4] Diagnosis: Essential (primary) hypertension[ICD10: I10] Diagnosis: Chronic pain syndrome[ICD10: G89.4] Kristie Carter MD, [facility] CPT-4: 38853 05/18/2018 ([id number]) 30345 EST. PATIENT, LEVEL IV Diagnosis: Type 2 diabetes mellitus without complications[ICD10: E11.9] Diagnosis: Nausea[ICD10: R11.0] Diagnosis: Chronic pain syndrome[ICD10: G89.4] Kristie Carter MD, [facility] CPT-4: 54433 03/25/2018 ([id number]) 95786 EST. PATIENT, LEVEL III Diagnosis: Essential (primary) hypertension[ICD10: I10] Kristie Carter MD, [facility] CPT-4: 77490 01/12/2018 ([id number]) 73050 EST. PATIENT, LEVEL IV Diagnosis: Essential (primary) hypertension[ICD10: I10] Diagnosis: Chronic pain syndrome[ICD10: G89.4] Kristie Carter MD, [facility] CPT-4: 44499 12/29/2017 ([id number]) 86631 EST. PATIENT, LEVEL IV Diagnosis: Essential (primary) hypertension[ICD10: I10] Diagnosis: Chronic pain syndrome[ICD10: G89.4] Diagnosis: Type 2 diabetes mellitus without complications[ICD10: E11.9] Diagnosis: Atrophy of thyroid (acquired)[ICD10: E03.4] Kristie Carter MD, [facility] CPT-4: 55128 12/01/2017 ([id number]) 06440 EST. PATIENT, LEVEL IV Diagnosis: Chronic pain syndrome[ICD10: G89.4] Diagnosis: Type 2 diabetes mellitus without complications[ICD10: E11.9] Diagnosis: Atrophy of thyroid (acquired)[ICD10: E03.4] Diagnosis: Essential (primary) hypertension[ICD10: I10] Kristie Carter MD, [facility] CPT-4: 13599 11/03/2017 ([id number]) 31588 EST. PATIENT, LEVEL IV Diagnosis: Chronic pain syndrome[ICD10: G89.4] Diagnosis: Essential (primary) hypertension[ICD10: I10] Diagnosis: Nausea[ICD10: R11.0] KELLEY Lackey MD CPT-4: 54428 08/11/2017 ([id number]) 01923 EST. 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 05/18/2018 Appointment: Kristie Carter WPtel: [facility] (15 min) Moderate 05/18/2018 Patient Education: Patient Medication Summary Completed 05/18/2018 Patient Education: Diabetes Completed 05/18/2018 Appointment: Kristie Carter WPtel: [address] [place], [place] [phone] (15 min) Moderate 05/11/2018 Appointment: Kristie Carter WPtel: [address] [place], [place] [phone] (15 min) Moderate 04/27/2018 Visit Plan: DM [...] - continue with prn phenergan. 03/25/2018 Appointment: rKistie Carter WPtel: [address] [place], [place] [phone] 30 min appointments only in this slot [...] home. 01/12/2018 Appointment: Kristie Carter WPtel: [phone] [facility] (15 min) Moderate 01/12/2018 Patient Education: Patient [...] over-medication. 12/29/2017 [phone] ([facility]) Moderate 12/29/2017 Patient Education: [...] mupirocin 12/01/2017 [phone] ([facility] min) Moderate 12/01/2017 Patient Education: Patient Medication Summary Completed 12/01/2017 Care Plan: Comp Metabolic Cancelled 12/01/2017 Care Plan: Cbc With Differential Cancelled 12/01/2017 Care Plan: %Hba1C LOINC : 28273-6 Cancelled 12/01/2017 Care Plan: Tsh Cancelled 12/01/2017 [...] recommended. 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 Will attempt to wean pt off of hydrocodone as able. 08/11/2017 App[facility]ment: [phone] [facility] [place] (15 min) Moderate 08/11/2017 Patient [...] hydrocodone to be written for pt to tack picker. Will attempt to wean pt off of hydrocodone as able. 06/09/2017 App[facility]ment: [phone] [facility] [place] (15 min) Moderate 06/09/2017 Patient [...] of control. 05/13/2017 Appointment: Kristie Carter WPtel: [address] [place], [place] [address] New Patient 05/13/2017 Patient Education: Patient Medication [...] hydrocodone to be written for pt to tack picker. Will attempt to wean pt off [...] hydrocodone to be written for pt to tack picker. Will attempt to wean pt off [...]
--- OUTSIDE RECORDS SUMMARY | 2018-08-11 08:37 | XMS REPORT | CCD ---
Author Author Kristie Carter Organization [facility] Address [address] [place] [address] Phone Care Team Providers Care Inpatient Pharmacist Name Role Phone PP Unavailable CCM Unavailable Summary Purpose Interface Exchange Insurance Providers Payer name Policy type / Coverage type Covered alliance party ID Effective Begin Date Effective End Date Administrative Concepts [id number] Unknown Family history Brother Diagnosis Age At [...] the area 05/13/2017 Employment Unknown Currently employed [employer] at [employer] 05/13/[address]: 8242518 Former smoker 05/13/[address]: 225111846 Never drinks alcohol 05/13/2017 Has the patient ever used illegal drugs? Unknown Has never used illegal drugs 05/13/2017 Allergies, Adverse Reactions, Alerts Substance Reaction Codes Entered Date Inactivated Date Status * OTHER REACTION - SEE ANSWER BOX Antibiotics- cause nausea Unknown 05/13/2017 No Inactive Date Active Lyrica nausea RxNorm: 191719 05/13/2017 No Inactive Date Active Savella nausea RxNorm: 975862 05/13/2017 No Inactive Date Active ibuprofen nausea, [...] Fill Instructions methadone 10 mg tablet RxNorm: 235926 1.5 Tablet(s) PO TID 06/09/2018 Active methadone 10 mg tablet RxNorm: 983028 1.5 Tablet(s) PO TID 05/09/2018 Inactive loratadine 10 mg tablet RxNorm: 267871 TAKE 1 TABLET BY MOUTH ONCE DAILY 04/01/2018 No Stop Date Active pantoprazole 40 mg tablet,delayed release RxNorm: 888162 TAKE ONE TABLET BY MOUTH TWICE DAILY FOR 1 WEEK, THEN ONCE DAILY THEREAFTER. 2017 No Stop Date Active ondansetron 4 mg disintegrating tablet RxNorm: 573735 1 Tablet(s) PO daily as needed 03/30/2018 06/27/2018 Active hydrocodone 7.5 mg-acetaminophen 325 mg tablet RxNorm: 996012 1 Tablet(s) PO TID as needed 03/18/2018 04/14/2018 Inactive methadone 10 mg tablet RxNorm: 997719 1 Tablet(s) PO TID 201703/24/2018 Inactive levothyroxine 112 mcg tablet RxNorm: 151593 1 Tablet(s) PO daily 03/06/2018 07/03/2018 Active promethazine 25 mg tablet RxNorm: 285054 1 Tablet(s) PO BID as needed nausea 03/05/2018 09/30/2018 Active ondansetron 4 mg disintegrating tablet RxNorm: 100214 1 Tablet(s) PO daily as needed 02/24/2018 03/25/2018 Inactive hydrocodone 7.5 mg-acetaminophen 325 mg tablet RxNorm: 723804 1 Tablet(s) PO TID as needed 02/18/2018 03/17/2018 Inactive methadone 10 mg tablet RxNorm: 719100 1 Tablet(s) PO TID 201703/17/2018 Inactive atenolol 50 mg tablet RxNorm: 129426 TAKE ONE TABLET BY MOUTH ONCE DAILY 02/16/2018 No Stop Date Active levothyroxine 112 mcg tablet RxNorm: 498993 1 Tablet(s) PO daily 02/02/2018 03/03/2018 Inactive levothyroxine 112 mcg tablet RxNorm: 920088 1 Tablet(s) PO daily 02/02/2018 02/01/2018 Inactive loratadine 10 mg tablet RxNorm: 996303 TAKE ONE TABLET BY MOUTH ONCE DAILY 01/29/2018 03/31/2018 Inactive hydrocodone 7.5 mg-acetaminophen 325 mg tablet RxNorm: 242207 1 Tablet(s) PO TID as needed 01/19/2018 02/17/2018 Inactive methadone 10 mg tablet RxNorm: 494150 1 Tablet(s) PO TID 201702/17/2018 Inactive doxazosin 2 mg tablet RxNorm: 762924 1 Tablet(s) PO BID 201701/11/2018 Inactive doxazosin 1 mg tablet RxNorm: 986495 1 Tablet(s) PO BID 201712/30/2017 Inactive ondansetron 4 mg disintegrating tablet RxNorm: 395603 1 Tablet(s) PO daily as needed 12/29/2017 02/23/2018 Inactive losartan 100 mg tablet RxNorm: 844327 1 Tablet(s) PO daily 06/28/2018 Active mupirocin 2 % topical ointment RxNorm: 678796 1 TOP TID 201712/10/2017 Inactive doxycycline hyclate 100 mg tablet RxNorm: 915933 1 Tablet(s) PO BID for cellulitis of toe 12/01/2017 12/05/2017 Inactive ondansetron 4 mg disintegrating tablet RxNorm: 786087 1 Tablet(s) PO daily as needed 11/28/2017 12/27/2017 Inactive WelChol 625 mg tablet RxNorm: 388543 3 Tablet(s) PO BID 201711/21/2017 Inactive levothyroxine 100 mcg tablet RxNorm: 460712 1 Tablet(s) PO daily 11/11/2017 03/10/2018 Inactive WelChol 625 mg tablet RxNorm: 612795 3 Tablet(s) PO BID 201711/10/2017 Inactive losartan 50 mg tablet RxNorm: 588952 1 Tablet(s) PO daily 201711/30/2017 Inactive ondansetron 4 mg disintegrating tablet RxNorm: 863944 1 Tablet(s) PO daily as needed 10/27/2017 11/25/2017 Inactive hydrocodone 7.5 mg-acetaminophen 325 mg tablet RxNorm: 833267 1 Tablet(s) PO TID as needed 10/02/2017 10/31/2017 Inactive methadone 10 mg tablet RxNorm: 783155 1 Tablet(s) PO TID 201710/31/2017 Inactive ondansetron 4 mg disintegrating tablet RxNorm: 102211 1 Tablet(s) PO daily as needed 09/03/2017 10/26/2017 Inactive Flonase Allergy Relief 50 mcg/actuation nasal spray, suspension RxNorm: 3245388 2 [place] NASAL daily 08/19/2017 No Stop Date Active Carafate 1 gram tablet RxNorm: 867352 1 Tablet(s) PO BID 2017 No Stop Date Active promethazine 25 mg tablet RxNorm: 061391 1 Tablet(s) PO BID as needed nausea 08/11/2017 03/04/2018 Inactive methadone 10 mg tablet RxNorm: 986179 1 Tablet(s) PO TID 201709/09/2017 Inactive hydrocodone 7.5 mg-acetaminophen 325 mg tablet RxNorm: 325247 1 Tablet(s) PO TID as needed 08/11/2017 09/09/2017 Inactive ondansetron 4 mg disintegrating tablet RxNorm: 824408 1 Tablet(s) PO daily as needed 07/10/2017 08/08/2017 Inactive hydrocodone 7.5 mg-acetaminophen 325 mg tablet RxNorm: 438497 1 Tablet(s) PO TID as needed 07/08/2017 08/06/2017 Inactive hydrocodone 7.5 mg-acetaminophen 325 mg tablet RxNorm: 907947 1 Tablet(s) PO TID as needed 07/08/2017 07/07/2017 Inactive methadone 10 mg tablet RxNorm: 007834 1 Tablet(s) PO TID 201608/06/2017 Inactive hydrocodone 10 mg-acetaminophen 325 mg tablet RxNorm: 554591 1 Tablet(s) PO TID as needed for breakthrough pain 06/16/2017 07/07/2017 Inactive ondansetron 4 mg disintegrating tablet RxNorm: 541866 1 Tablet(s) PO daily as needed 06/09/2017 07/08/2017 Inactive hydrocodone 10 mg-acetaminophen 325 mg tablet RxNorm: 123003 1 Tablet(s) PO TID as needed for breakthrough pain 06/09/2017 06/15/2017 Inactive atenolol 50 mg tablet RxNorm: 819768 1 Tablet(s) PO daily 201602/15/2018 Inactive promethazine 25 mg tablet RxNorm: 357875 1 Tablet(s) PO BID as needed nausea 06/09/2017 08/10/2017 Inactive pantoprazole 40 mg tablet,delayed release RxNorm: 054761 1 Tablet(s) PO daily bid x 1 week then daily thereafter 06/09/2017 12/05/2017 Inactive alprazolam 0.25 mg tablet RxNorm: 372946 1 Tablet(s) PO TID as needed 05/30/2017 11/02/2017 Inactive pantoprazole 40 mg tablet,delayed release RxNorm: 769827 1 Tablet(s) PO daily 05/30/2017 06/08/2017 Inactive ondansetron 4 mg disintegrating tablet RxNorm: 167986 1 Tablet(s) PO daily as needed 05/30/2017 06/08/2017 Inactive levothyroxine 75 mcg tablet RxNorm: 723787 1 Tablet(s) PO daily 05/13/2017 11/30/2017 Inactive loratadine 10 mg tablet RxNorm: 104691 1 Tablet(s) PO daily 12/08/2017 Inactive promethazine 25 mg tablet RxNorm: 404777 Tablet(s) PO as needed nausea No Start Date Active cyclobenzaprine 10 mg tablet RxNorm: 866736 Tablet(s) PO as needed No Start Date Active metformin 500 mg tablet RxNorm: 469274 1 Tablet(s) PO daily No Start Date 08/19/2017 Inactive ondansetron 8 mg disintegrating tablet RxNorm: 784012 Tablet(s) PO as needed nausea No Start Date 05/29/2017 Inactive levothyroxine 100 mcg tablet RxNorm: 711351 Tablet(s) PO No Start Date 11/10/2017 Inactive loratadine 10 mg tablet RxNorm: 687302 1 Tablet(s) PO daily No Start Date 05/12/2017 Inactive atenolol 50 mg tablet RxNorm: 251698 1 Tablet(s) PO daily No Start Date 06/08/2017 Inactive Flonase Allergy Relief 50 mcg/actuation nasal spray, suspension RxNorm: 9143606 [place] NASAL daily No Start Date 2017 Inactive alprazolam 0.25 mg tablet RxNorm: 578408 Tablet(s) PO as needed No Start Date 05/29/2017 Inactive levothyroxine oral RxNorm: 14848 oral No Start Date 05/13/2017 Inactive hydrocodone 10 mg-acetaminophen 325 mg tablet RxNorm: 143842 Tablet(s) PO as needed for breakthrough pain No Start Date 06/08/2017 Inactive methadone 10 mg tablet RxNorm: 258535 1 Tablet(s) PO TID No Start Date 07/07/2017 Inactive pantoprazole 40 mg tablet,delayed release RxNorm: 974418 1 Tablet(s) PO daily No Start Date [...] Item Item Code Result Date Free T4 Oxx336 FREE T4 0.81 ng/dL 01/22/2018 Tsh Ord6 TSH (3rd IS) 12.54 uIU/mL 01/22/2018 Comp Metabolic Mkq069 NA 139 mEq/L 11/05/2017 Comp Metabolic Nce281 K 3.9 mEq/L 11/05/2017 Comp Metabolic Mmc089 CL 101 mEq/L 11/05/2017 Comp Metabolic Dhv256 CO2 30.0 mEq/L 11/05/2017 Comp Metabolic Lff276 ANION GAP 12 11/05/2017 Comp Metabolic Ink153 GLUCOSE 98 mg/dL 11/05/2017 Comp Metabolic Mxi066 Creat 0.8 mg/dL 11/05/2017 Comp Metabolic Tnt375 eGFR 74 ml/min/1.73m2 11/05/2017 Comp Metabolic Uiy115 BUN 9 mg/dL 11/05/2017 Comp Metabolic Aqn732 B/C Ratio 10.8 Ratio 11/05/2017 Comp Metabolic Ypw137 CALCIUM 9.1 mg/dL 11/05/2017 Comp Metabolic Lrt753 ALK PHOS 87 U/L 11/05/2017 Comp Metabolic Xkr099 AST(SGOT) 28 U/L 11/05/2017 Comp Metabolic Jql192 ALT(SGPT) 30 U/L 11/05/2017 Comp Metabolic Ofy676 BILI T 0.5 mg/dL 11/05/2017 Comp Metabolic Fix447 ALBUMIN 3.9 g/dL 11/05/2017 Comp Metabolic Cak048 TPRO 7.2 g/dL 11/05/2017 Comp Metabolic Vdk525 GLOB 3.3 g/dL 11/05/2017 Comp Metabolic Odr941 A/G Ratio 1.2 Ratio 11/05/2017 Comp Metabolic Vse372 Osmo 276 mOsmo 11/05/2017 Cbc With Differential [...] 31.3 pg 11/05/2017 Cbc With Differential Ord2 [place]% 8.8 % 11/05/2017 Cbc With Differential Ord2 [...] 2.60 K/ul 11/05/2017 Cbc With Differential Ord2 [place] ABS# 0.5 K/ul 11/05/2017 Cbc With Differential Ord2 Eos ABS# 0.2 K/ul 11/05/2017 Cbc With Differential Ord2 Baso ABS# 0.0 K/ul 11/05/2017 Microalbumin Qek212 MicroAlb <0.7 mg/dL 11/05/2017 Tsh Ord6 TSH (3rd IS) 27.62 uIU/mL 11/05/2017 Lipid Ord30 CHOL 218 mg/dL 11/05/2017 Lipid Ord30 HDL 34.0 mg/dl 11/05/2017 Lipid Ord30 TRIG 363 mg/dL 11/05/2017 Lipid Ord30 LDL Unable to calculate Due to elevated triglycerides mg/dL 11/05/2017 Lipid Ord30 C/HDL 6.4 Ratio 11/05/2017 %Hba1C Oxp481 % HbA1c 36837-2 6.3 % 11/05/2017 %Hba1C Xoy072 Gluc Ave 134 mg/dL 11/05/2017 Free T4 Rkq868 FREE T4 0.69 ng/dL 11/05/2017 Review of [...] 2: 148/82 Code: 8480-6 BMI: 34.8 Code: 80052-2 Heart Rate 1: 73 bpm Height: 5'4" SpO2: 94% Weight: 203 lbs 03/25/2018 Blood Pressure 1: 162/96 Code : 8480-6 BMI: 34.5 Code : 40834-5 Heart Rate 1 : 73 bpm Height: 5'4" SpO2: 98% Temperature: 36.4 (C) / 97.5 (F) Weight: 201 lbs 01/12/2018 Blood Pressure 1: 180/98 Code : 8480-6 Blood Pressure 1: 156/96 Code: 8480-6 BMI: 34.8 Code: 40613-2 Heart Rate 1: 78 bpm Height: 5'4" SpO2: 94% Weight: 203 lbs 12/29/2017 Blood Pressure 1: 190/98 Code : 8480-6 BMI: 34.8 Code : 46754-0 Heart Rate 1 : 71 bpm Height: 5'4" SpO2: 92% Weight: 203 lbs 12/01/2017 Blood Pressure 1: 180/98 Code : 8480-6 BMI: 34.7 Code : 58524-4 Heart Rate 1 : 73 bpm Height: 5'4" SpO2: 96% Weight: 202 lbs 11/03/2017 Blood Pressure 1: 180/96 Code : 8480-6 BMI: 35.0 Code : 60615-0 Heart Rate 1 : 72 bpm Height: 5'4" SpO2: 94% Weight: 204 lbs 08/11/2017 Blood Pressure 1: 156/84 Code : 8480-6 BMI: 34.0 Code : 09164-0 Heart Rate 1 : 76 bpm Height: 5'4" SpO2: 94% Weight: 198 lbs 06/09/2017 Blood Pressure 1: 170/96 Code : 8480-6 BMI: 34.0 Code : 09301-6 Heart Rate 1 : 94 bpm Height: 5'4" SpO2: 97% Temperature: 36.8 (C) / 98.2 (F) Weight: 198 lbs 05/13/2017 Blood Pressure 1: 130/68 Code : 8480-6 BMI: 35.0 Code : 74770-3 Heart Rate 1 : 74 bpm Height: [...] data Encounters Encounter Performer Location Codes Date 60183 EST. PATIENT, LEVEL IV Diagnosis: Type 2 diabetes mellitus without complications[ICD10: E11.9] Diagnosis: Atrophy of thyroid (acquired)[ICD10: E03.4] Diagnosis: Essential (primary) hypertension[ICD10: I10] Diagnosis: Chronic pain syndrome[ICD10: G89.4] [facility] CPT-4: 15884 05/18/2018 ([id number]) 69262 EST. PATIENT, LEVEL IV Diagnosis: Type 2 diabetes mellitus without complications[ICD10: E11.9] Diagnosis: Nausea[ICD10: R11.0] Diagnosis: Chronic pain syndrome[ICD10: G89.4] [facility] MD, [facility] CPT-4: 91379 03/25/2018 ([id number]) 33345 EST. PATIENT, LEVEL III Diagnosis: Essential (primary) hypertension[ICD10: I10] Kristie [facility] MD, [facility] CPT-4: 28921 01/12/2018 ([id number]) 29136 EST. PATIENT, LEVEL IV Diagnosis: Essential (primary) hypertension[ICD10: I10] Diagnosis: Chronic pain syndrome[ICD10: G89.4] Kristie Carter MD, [facility] CPT-4: 48041 12/29/2017 ([id number]) 85944 EST. PATIENT, LEVEL IV Diagnosis: Essential (primary) hypertension[ICD10: I10] Diagnosis: Chronic pain syndrome[ICD10: G89.4] Diagnosis: Type 2 diabetes mellitus without complications[ICD10: E11.9] Diagnosis: Atrophy of thyroid (acquired)[ICD10: E03.4] Krist[facility] MD, [facility] CPT-4: 20587 12/01/2017 ([id number] EST. PATIENT, LEVEL IV Diagnosis: Chronic pain syndrome[ICD10: G89.4] Diagnosis: Type 2 diabetes mellitus without complications[ICD10: E11.9] Diagnosis: Atrophy of thyroid (acquired)[ICD10: E03.4] Diagnosis: Essential (primary) hypertension[ICD10: I10] Kristie Carter MD [facility] CPT-4: 17172 11/03/2017 ([id number]) 68249 EST. PATIENT, LEVEL IV Diagnosis: Chronic pain syndrome[ICD10: G89.4] Diagnosis: Essential (primary) hypertension[ICD10: I10] Diagnosis: Nausea[ICD10: R11.0] Kristie Carter MD [facility] CPT-4: 17896 08/11/2017 ([id number]) 79128 EST. PATIENT, LEVEL III Diagnosis: Essential (primary) hypertension[ICD10: I10] Diagnosis: Nausea[ICD10: R11.0] Diagnosis: Chronic pain syndrome[ICD10: G89.4] [facility] MD, [facility] CPT-4: 23814 06/09/2017 ([id number]) PREV VISIT NEW AGE 40-64 Diagnosis: Atrophy of thyroid (acquired)[ICD10: E03.4] Diagnosis: Type 2 diabetes mellitus without complications[ICD10: E11.9] Diagnosis: Encounter for general adult medical examination with abnormal findings[ICD10: Z00.01] Diagnosis: Essential (primary) hypertension[ICD10: I10] Krist[facility] MD, [facility] CPT-4: 04239 05/13/2017 Plan of Care Planned Activity Notes [...] based on previous levels of control. 05/18/2018 Patient Education: Patient Medication Summary Completed 05/18/2018 Patient Education: Diabetes Completed 05/18/2018 [phone] [facility] ([facility]) Moderate 05/11/2018 [phone] ([facility] min) Moderate 04/27/2018 Visit Plan: [...] phenergan. 03/25/2018 [phone] [facility] [place] 30 min appointments only in this [...] home. 01/12/2018 Appointment: [facility] WPtel: [phone] [facility] (15 min) Moderate 01/12/2018 Patient Education: Patient [...] over-medication. 12/29/2017 [phone] [facility] ([facility] min) Moderate 12/29/2017 Patient Education: [...] for doxycycline and mupirocin 12/01/2017 [phone] [facility] (15 min) Moderate 12/01/2017 Patient Education: Patient Medication Summary Completed 12/01/2017 Care Plan: Comp Metabolic Cancelled 12/01/2017 Care Plan: Cbc With Differential Cancelled 12/01/2017 Care Plan: %Hba1C LOINC : 52865-1 Cancelled 12/01/2017 Care Plan: Tsh Cancelled 12/01/2017 [...] been recommended. 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 Will attempt to wean pt off of hydrocodone as able. 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 Will attempt to wean pt off of hydrocodone as able. 06/09/2017 [phone] [facility] (15 min) Moderate 06/09/2017 Patient Education: [...] of control. 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 Will attempt to wean pt off of [...]
--- OUTSIDE RECORDS SUMMARY | 2018-08-11 08:39 | XMS REPORT | CCD ---
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 Unknown Has never used illegal drugs 05/13/2017 Allergies, Adverse Reactions, Alerts Substance Reaction Codes Entered Date Inactivated Date Status * OTHER REACTION - SEE ANSWER BOX Antibiotics- cause nausea Unknown 05/13/2017 No Inactive Date Active Lyrica nausea RxNorm: 742270 05/13/2017 No Inactive Date Active Savella nausea RxNorm: 703213 05/13/2017 No Inactive Date Active ibuprofen nausea, RxNorm: 5640 05/13/2017 No Inactive Date Active Past Medical History Illness Codes Condition Status Onset Date Resolved Date Chronic pain syndrome ICD-9: 338.4 ICD-10: G89.4 Active 06/09/2017 Unknown Nausea ICD-9: 787.02 ICD-10: R11.0 Active 06/09/2017 Unknown Type 2 diabetes mellitus without complications ICD-9: 250.00 ICD-10: E11.9 Active 05/13/2017 Unknown Atrophy of thyroid (acquired) ICD-9: 244.8 ICD-10: E03.4 Active 05/13/2017 Unknown Essential (primary) hypertension ICD-9: 401.1 ICD-10: I10 Active 05/13/2017 Unknown Diabetes Unknown Active 05/13/2017 Unknown Encounter for general adult medical examination with abnormal findings ICD-9: V70.0 ICD-10: Z00.01 Active 05/13/2017 Unknown Problems Condition Codes Effective Dates Condition Status Chronic pain syndrome ICD-9: 338.4 ICD-10: G89.4 06/09/2017 Active Nausea ICD-9: 787.02 ICD-10: R11.0 06/09/2017 Active Type 2 diabetes mellitus without complications ICD-9: 250.00 ICD-10: E11.9 05/13/2017 Active Atrophy of thyroid (acquired) ICD-9: 244.8 ICD-10: E03.4 05/13/2017 Active Essential (primary) hypertension ICD-9: 401.1 ICD-10: I10 05/13/2017 Active Diabetes Unknown 05/13/2017 Active Encounter for general adult medical examination with abnormal findings ICD-9: V70.0 ICD-10: Z00.01 05/13/2017 Active Medications Medication Codes Instructions Start Date Stop Date Status Fill Instructions methadone 10 mg tablet RxNorm: 033156 1.5 Tablet(s) PO TID 06/09/2018 Active methadone 10 mg tablet RxNorm: 776890 1.5 Tablet(s) PO TID 05/09/2018 Inactive loratadine 10 mg tablet RxNorm: 551093 TAKE 1 TABLET BY MOUTH ONCE DAILY 04/01/2018 No Stop Date Active pantoprazole 40 mg tablet,delayed release RxNorm: 160047 TAKE ONE TABLET BY MOUTH TWICE DAILY FOR 1 WEEK, THEN ONCE DAILY THEREAFTER. 2017 No Stop Date Active ondansetron 4 mg disintegrating tablet RxNorm: 521993 1 Tablet(s) PO daily as needed 03/30/2018 06/27/2018 Active hydrocodone 7.5 mg-acetaminophen 325 mg tablet RxNorm: 318864 1 Tablet(s) PO TID as needed 03/18/2018 04/14/2018 Inactive methadone 10 mg tablet RxNorm: 543353 1 Tablet(s) PO TID 201703/24/2018 Inactive levothyroxine 112 mcg tablet RxNorm: 429407 1 Tablet(s) PO daily 03/06/2018 07/03/2018 Active promethazine 25 mg tablet RxNorm: 132237 1 Tablet(s) PO BID as needed nausea 03/05/2018 09/30/2018 Active ondansetron 4 mg disintegrating tablet RxNorm: 514544 1 Tablet(s) PO daily as needed 02/24/2018 03/25/2018 Inactive hydrocodone 7.5 mg-acetaminophen 325 mg tablet RxNorm: 396790 1 Tablet(s) PO TID as needed 02/18/2018 03/17/2018 Inactive methadone 10 mg tablet RxNorm: 563509 1 Tablet(s) PO TID 201703/17/2018 Inactive atenolol 50 mg tablet RxNorm: 936390 TAKE ONE TABLET BY MOUTH ONCE DAILY 02/16/2018 No Stop Date Active levothyroxine 112 mcg tablet RxNorm: 414904 1 Tablet(s) PO daily 02/02/2018 03/03/2018 Inactive levothyroxine 112 mcg tablet RxNorm: 132170 1 Tablet(s) PO daily 02/02/2018 02/01/2018 Inactive loratadine 10 mg tablet RxNorm: 023930 TAKE ONE TABLET BY MOUTH ONCE DAILY 01/29/2018 03/31/2018 Inactive hydrocodone 7.5 mg-acetaminophen 325 mg tablet RxNorm: 523226 1 Tablet(s) PO TID as needed 01/19/2018 02/17/2018 Inactive methadone 10 mg tablet RxNorm: 126222 1 Tablet(s) PO TID 201702/17/2018 Inactive doxazosin 2 mg tablet RxNorm: 740839 1 Tablet(s) PO BID 201701/11/2018 Inactive doxazosin 1 mg tablet RxNorm: 819230 1 Tablet(s) PO BID 201712/30/2017 Inactive ondansetron 4 mg disintegrating tablet RxNorm: 606050 1 Tablet(s) PO daily as needed 12/29/2017 02/23/2018 Inactive losartan 100 mg tablet RxNorm: 377882 1 Tablet(s) PO daily 06/28/2018 Active mupirocin 2 % topical ointment RxNorm: 142013 1 TOP TID 201712/10/2017 Inactive doxycycline hyclate 100 mg tablet RxNorm: 836673 1 Tablet(s) PO BID for cellulitis of toe 12/01/2017 12/05/2017 Inactive ondansetron 4 mg disintegrating tablet RxNorm: 991805 1 Tablet(s) PO daily as needed 11/28/2017 12/27/2017 Inactive WelChol 625 mg tablet RxNorm: 525481 3 Tablet(s) PO BID 201711/21/2017 Inactive levothyroxine 100 mcg tablet RxNorm: 598481 1 Tablet(s) PO daily 11/11/2017 03/10/2018 Inactive WelChol 625 mg tablet RxNorm: 451115 3 Tablet(s) PO BID 201711/10/2017 Inactive losartan 50 mg tablet RxNorm: 715023 1 Tablet(s) PO daily 201711/30/2017 Inactive ondansetron 4 mg disintegrating tablet RxNorm: 505120 1 Tablet(s) PO daily as needed 10/27/2017 11/25/2017 Inactive hydrocodone 7.5 mg-acetaminophen 325 mg tablet RxNorm: 139097 1 Tablet(s) PO TID as needed 10/02/2017 10/31/2017 Inactive methadone 10 mg tablet RxNorm: 201009 1 Tablet(s) PO TID 201710/31/2017 Inactive ondansetron 4 mg disintegrating tablet RxNorm: 292326 1 Tablet(s) PO daily as needed 09/03/2017 10/26/2017 Inactive Flonase Allergy Relief 50 mcg/actuation nasal spray, suspension RxNorm: 2534172 2 [place] NASAL daily 08/19/2017 No Stop Date Active Carafate 1 gram tablet RxNorm: 325783 1 Tablet(s) PO BID 2017 No Stop Date Active promethazine 25 mg tablet RxNorm: 988858 1 Tablet(s) PO BID as needed nausea 08/11/2017 03/04/2018 Inactive methadone 10 mg tablet RxNorm: 342223 1 Tablet(s) PO TID 201709/09/2017 Inactive hydrocodone 7.5 mg-acetaminophen 325 mg tablet RxNorm: 219647 1 Tablet(s) PO TID as needed 08/11/2017 09/09/2017 Inactive ondansetron 4 mg disintegrating tablet RxNorm: 494167 1 Tablet(s) PO daily as needed 07/10/2017 08/08/2017 Inactive hydrocodone 7.5 mg-acetaminophen 325 mg tablet RxNorm: 240386 1 Tablet(s) PO TID as needed 07/08/2017 08/06/2017 Inactive hydrocodone 7.5 mg-acetaminophen 325 mg tablet RxNorm: 366616 1 Tablet(s) PO TID as needed 07/08/2017 07/07/2017 Inactive methadone 10 mg tablet RxNorm: 644035 1 Tablet(s) PO TID 201608/06/2017 Inactive hydrocodone 10 mg-acetaminophen 325 mg tablet RxNorm: 265787 1 Tablet(s) PO TID as needed for breakthrough pain 06/16/2017 07/07/2017 Inactive ondansetron 4 mg disintegrating tablet RxNorm: 584112 1 Tablet(s) PO daily as needed 06/09/2017 07/08/2017 Inactive hydrocodone 10 mg-acetaminophen 325 mg tablet RxNorm: 944371 1 Tablet(s) PO TID as needed for breakthrough pain 06/09/2017 06/15/2017 Inactive atenolol 50 mg tablet RxNorm: 500694 1 Tablet(s) PO daily 201602/15/2018 Inactive promethazine 25 mg tablet RxNorm: 857820 1 Tablet(s) PO BID as needed nausea 06/09/2017 08/10/2017 Inactive pantoprazole 40 mg tablet,delayed release RxNorm: 982044 1 Tablet(s) PO daily bid x 1 week then daily thereafter 06/09/2017 12/05/2017 Inactive alprazolam 0.25 mg tablet RxNorm: 334763 1 Tablet(s) PO TID as needed 05/30/2017 11/02/2017 Inactive pantoprazole 40 mg tablet,delayed release RxNorm: 823187 1 Tablet(s) PO daily 05/30/2017 06/08/2017 Inactive ondansetron 4 mg disintegrating tablet RxNorm: 043375 1 Tablet(s) PO daily as needed 05/30/2017 06/08/2017 Inactive levothyroxine 75 mcg tablet RxNorm: 692705 1 Tablet(s) PO daily 05/13/2017 11/30/2017 Inactive loratadine 10 mg tablet RxNorm: 255833 1 Tablet(s) PO daily 12/08/2017 Inactive promethazine 25 mg tablet RxNorm: 241495 Tablet(s) PO as needed nausea No Start Date Active cyclobenzaprine 10 mg tablet RxNorm: 127759 Tablet(s) PO as needed No Start Date Active metformin 500 mg tablet RxNorm: 641372 1 Tablet(s) PO daily No Start Date 08/19/2017 Inactive ondansetron 8 mg disintegrating tablet RxNorm: 800050 Tablet(s) PO as needed nausea No Start Date 05/29/2017 Inactive levothyroxine 100 mcg tablet RxNorm: 962398 Tablet(s) PO No Start Date 11/10/2017 Inactive loratadine 10 mg tablet RxNorm: 238570 1 Tablet(s) PO daily No Start Date 05/12/2017 Inactive atenolol 50 mg tablet RxNorm: 178813 1 Tablet(s) PO daily No Start Date 06/08/2017 Inactive Flonase Allergy Relief 50 mcg/actuation nasal spray, suspension RxNorm: 2466459 [place] NASAL daily No Start Date 2017 Inactive alprazolam 0.25 mg tablet RxNorm: 706373 Tablet(s) PO as needed No Start Date 05/29/2017 Inactive levothyroxine oral RxNorm: 65141 oral No Start Date 05/13/2017 Inactive hydrocodone 10 mg-acetaminophen 325 mg tablet RxNorm: 317707 Tablet(s) PO as needed for breakthrough pain No Start Date 06/08/2017 Inactive methadone 10 mg tablet RxNorm: 767370 1 Tablet(s) PO TID No Start Date 07/07/2017 Inactive pantoprazole 40 mg tablet,delayed release RxNorm: 334676 1 Tablet(s) PO daily No Start Date 05/29/2017 Inactive Medication Administered No Medication Administered data Immunizations No Immunization data Assessments Condition Codes Effective Dates Nausea ICD-10: R11.0 ICD-9: 787.02 03/25/2018 Chronic pain syndrome ICD-10: G89.4 ICD-9: 338.4 03/25/2018 Type 2 diabetes mellitus without complications ICD-10: E11.9 ICD-9: 250.00 03/25/2018 Atrophy of thyroid (acquired) ICD-10: E03.4 ICD-9: 244.8 01/19/2018 Essential (primary) hypertension ICD-10: I10 ICD-9: 401.1 01/12/2018 Encounter for general adult medical examination with abnormal findings ICD-10: Z00.01 ICD-9: V70.0 05/13/2017 Reason For Visit Reason For Visit Effective Dates Notes nausea 03/25/2018 hypertension 01/12/2018 hypertension 12/29/2017 hypertension 12/01/2017 hypertension 11/03/2017 hypertension 08/11/2017 hypertension 06/09/2017 hypertension 05/13/2017 Results Observation Observation Code Item Item Code Result Date Free T4 Vof703 FREE T4 0.81 ng/dL 01/22/2018 Tsh Ord6 TSH (3rd IS) 12.54 uIU/mL 01/22/2018 Comp Metabolic Edf964 NA 139 mEq/L 11/05/2017 Comp Metabolic Kfj122 K 3.9 mEq/L 11/05/2017 Comp Metabolic Fpk502 CL 101 mEq/L 11/05/2017 Comp Metabolic Fuh973 CO2 30.0 mEq/L 11/05/2017 Comp Metabolic Rzy195 ANION GAP 12 11/05/2017 Comp Metabolic Xaa839 GLUCOSE 98 mg/dL 11/05/2017 Comp Metabolic Zpv626 Creat 0.8 mg/dL 11/05/2017 Comp Metabolic Mlc619 eGFR 74 ml/min/1.73m2 11/05/2017 Comp Metabolic Xkt978 BUN 9 mg/dL 11/05/2017 Comp Metabolic Zrk017 B/C Ratio 10.8 Ratio 11/05/2017 Comp Metabolic Yjw783 CALCIUM 9.1 mg/dL 11/05/2017 Comp Metabolic Fws089 ALK PHOS 87 U/L 11/05/2017 Comp Metabolic Nsu613 AST(SGOT) 28 U/L 11/05/2017 Comp Metabolic Pzq382 ALT(SGPT) 30 U/L 11/05/2017 Comp Metabolic Oqh853 BILI T 0.5 mg/dL 11/05/2017 Comp Metabolic Jvh948 ALBUMIN 3.9 g/dL 11/05/2017 Comp Metabolic Fca587 TPRO 7.2 g/dL 11/05/2017 Comp Metabolic Jmq161 GLOB 3.3 g/dL 11/05/2017 Comp Metabolic Ncr048 A/G Ratio 1.2 Ratio 11/05/2017 Comp Metabolic Dvb012 Osmo 276 mOsmo 11/05/2017 Cbc With Differential [...] 31.3 pg 11/05/2017 Cbc With Differential Ord2 [place]% 8.8 % 11/05/2017 Cbc With Differential Ord2 [...] 2.60 K/ul 11/05/2017 Cbc With Differential Ord2 [place] ABS# 0.5 K/ul 11/05/2017 Cbc With Differential Ord2 Eos ABS# 0.2 K/ul 11/05/2017 Cbc With Differential Ord2 Baso ABS# 0.0 K/ul 11/05/2017 Microalbumin Jmf200 MicroAlb <0.7 mg/dL 11/05/2017 Tsh Ord6 TSH (3rd IS) 27.62 uIU/mL 11/05/2017 Lipid Ord30 CHOL 218 mg/dL 11/05/2017 Lipid Ord30 HDL 34.0 mg/dl 11/05/2017 Lipid Ord30 TRIG 363 mg/dL 11/05/2017 Lipid Ord30 LDL Unable to calculate Due to elevated triglycerides mg/dL 11/05/2017 Lipid Ord30 C/HDL 6.4 Ratio 11/05/2017 %Hba1C Vht259 % HbA1c 77920-1 6.3 % 11/05/2017 %Hba1C Wie801 Gluc Ave 134 mg/dL 11/05/2017 Free T4 Rzt628 FREE T4 0.69 ng/dL 11/05/2017 Review of Systems System Result Effective Dates Constitutional recent illness 03/25/2018 Constitutional No chills [...] dentition 03/25/2018 None Full Exam - General 1995 Ears/Nose/Throat oral cavity/pharynx/larynx Overall: oral mucosa clear [...] No Procedures data Vital Signs Date Vital 03/25/2018 Blood Pressure 1: 162/96 Code : 8480-6 BMI: 34.5 Code : 86718-4 Heart Rate 1 : 73 bpm Height: 5'4" SpO2: 98% Temperature: 36.4 (C) / 97.5 (F) Weight: 201 lbs 01/12/2018 Blood Pressure 1: 180/98 Code : 8480-6 Blood Pressure 1: 156/96 Code: 8480-6 BMI: 34.8 Code: 15763-9 Heart Rate 1: 78 bpm Height: 5'4" SpO2: 94% Weight: 203 lbs 12/29/2017 Blood Pressure 1: 190/98 Code : 8480-6 BMI: 34.8 Code : 36926-2 Heart Rate 1 : 71 bpm Height: 5'4" SpO2: 92% Weight: 203 lbs 12/01/2017 Blood Pressure 1: 180/98 Code : 8480-6 BMI: 34.7 Code : 68948-4 Heart Rate 1 : 73 bpm Height: 5'4" SpO2: 96% Weight: 202 lbs 11/03/2017 Blood Pressure 1: 180/96 Code : 8480-6 BMI: 35.0 Code : 55095-8 Heart Rate 1 : 72 bpm Height: 5'4" SpO2: 94% Weight: 204 lbs 08/11/2017 Blood Pressure 1: 156/84 Code : 8480-6 BMI: 34.0 Code : 26492-8 Heart Rate 1 : 76 bpm Height: 5'4" SpO2: 94% Weight: 198 lbs 06/09/2017 Blood Pressure 1: 170/96 Code : 8480-6 BMI: 34.0 Code : 12521-2 Heart Rate 1 : 94 bpm Height: 5'4" SpO2: 97% Temperature: 36.8 (C) / 98.2 (F) Weight: 198 lbs 05/13/2017 Blood Pressure 1: 130/68 Code : 8480-6 BMI: 35.0 Code : 94495-4 Heart Rate 1 : 74 bpm Height: 5'4" SpO2: 96% Weight: 204 lbs Functional Status No Functional Status data History of Present Illness Symptom Name Status Result Effective Date Notes nausea Quality acute 03/25/2018 None nausea Pertinent [...] data Encounters Encounter Performer Location Codes Date ([id number]) 18784 EST. PATIENT, LEVEL IV Diagnosis: Type 2 diabetes mellitus without complications[ICD10: E11.9] Diagnosis: Nausea[ICD10: R11.0] Diagnosis: Chronic pain syndrome[ICD10: G89.4] [facility] MD, [facility] CPT-4: 36311 03/25/2018 ([id number]) 10454 EST. PATIENT, LEVEL III Diagnosis: Essential (primary) hypertension[ICD10: I10] Krist[facility] MD, [facility] CPT-4: 66378 01/12/2018 ([id number]) 75431 EST. PATIENT, LEVEL IV Diagnosis: Essential (primary) hypertension[ICD10: I10] Diagnosis: Chronic pain syndrome[ICD10: G89.4] Kristie Carter MD, [facility] CPT-4: 23472 12/29/2017 ([id number]) 31136 EST. PATIENT, LEVEL IV Diagnosis: Essential (primary) hypertension[ICD10: I10] Diagnosis: Chronic pain syndrome[ICD10: G89.4] Diagnosis: Type 2 diabetes mellitus without complications[ICD10: E11.9] Diagnosis: Atrophy of thyroid (acquired)[ICD10: E03.4] Kristie Carter MD, [facility] CPT-4: 79537 12/01/2017 ([id number]) 69577 EST. PATIENT, LEVEL IV Diagnosis: Chronic pain syndrome[ICD10: G89.4] Diagnosis: Type 2 diabetes mellitus without complications[ICD10: E11.9] Diagnosis: Atrophy of thyroid (acquired)[ICD10: E03.4] Diagnosis: Essential (primary) hypertension[ICD10: I10] [facility] CPT-4: 17516 11/03/2017 ([id number]) 78608 EST. PATIENT, LEVEL IV Diagnosis: Chronic pain syndrome[ICD10: G89.4] Diagnosis: Essential (primary) hypertension[ICD10: I10] Diagnosis: Nausea[ICD10: R11.0] [facility] CPT-4: 69229 08/11/2017 ([id number]) 79177 EST. PATIENT, LEVEL III Diagnosis: Essential (primary) hypertension[ICD10: I10] Diagnosis: Nausea[ICD10: R11.0] Diagnosis: Chronic pain syndrome[ICD10: G89.4] [facility] CPT-4: 91185 06/09/2017 ([id number]) PREV VISIT NEW AGE 40-64 Diagnosis: Atrophy of thyroid (acquired)[ICD10: E03.4] Diagnosis: Type 2 diabetes mellitus without complications[ICD10: E11.9] Diagnosis: Encounter for general adult medical examination with abnormal findings[ICD10: Z00.01] Diagnosis: Essential (primary) hypertension[ICD10: I10] Kristie Carter MD, [facility] CPT-4: 09737 05/13/2017 Plan of Care Planned Activity Notes Codes Status Date Appointment: Kristie Carter WPtel: [address] [place], [place] [phone] (15 min) Moderate 04/27/2018 Visit Plan: DM [...] phenergan. 03/25/2018 [facility]ment: [phone] [phone] [facility] appointments only in this slot [...] home. 01/12/2018 App[facility]ment: [phone] [facility] (15 min) Moderate 01/12/2018 Patient Education: Patient [...] over-medication. 12/29/2017 Appointment: [phone] [facility] [place] (15 min) Moderate 12/29/2017 Patient Education: Patient [...] mupirocin 12/01/2017 [facility]ment: [phone] [facility] (15 min) Moderate 12/01/2017 Patient Education: Patient Medication Summary Completed 12/01/2017 Care Plan: Comp Metabolic Cancelled 12/01/2017 Care Plan: Cbc With Differential Cancelled 12/01/2017 Care Plan: %Hba1C LOINC : 34492-4 Cancelled 12/01/2017 Care Plan: Tsh Cancelled 12/01/2017 [...] been recommended. 11/03/2017 [facility]ment: [phone] [facility] ([facility] min) Moderate 11/03/2017 Patient Education: Patient [...] hydrocodone to be written for pt to package pick up. Will attempt to wean pt off of hydrocodone as able. 08/11/2017 Appointment: Kristie Carter WPtel: [phone] [phone] (15 min) Moderate 08/11/2017 Patient Education: Patient [...] hydrocodone to be written for pt to package pick up. Will attempt to wean pt off of hydrocodone as able. 06/09/2017 Appointment: [facility] [phone] [phone] (15 min) Moderate 06/09/2017 Patient Education: Patient [...] of control. 05/13/2017 Appointment: [facility]: [facility] [place] New Patient 05/13/2017 Patient Education: Patient [...] hydrocodone to be written for pt to package pick up. Will attempt to wean pt off of [...] hydrocodone to be written for pt to package pick up. Will attempt to wean pt off of [...]
--- OUTSIDE RECORDS SUMMARY | 2018-08-11 08:40 | XMS REPORT | CCD ---
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 Unknown Has never used illegal drugs 05/13/2017 Allergies, Adverse Reactions, Alerts Substance Reaction Codes Entered Date Inactivated Date Status * OTHER REACTION - SEE ANSWER BOX Antibiotics- cause nausea Unknown 05/13/2017 No Inactive Date Active Lyrica nausea RxNorm: 394806 05/13/2017 No Inactive Date Active Savella nausea RxNorm: 581046 05/13/2017 No Inactive Date Active ibuprofen nausea, RxNorm: 5640 05/13/2017 No Inactive Date Active Past Medical History Illness Codes Condition Status Onset Date Resolved Date Atrophy of thyroid (acquired) ICD-9: 244.8 ICD-10: E03.4 Active 05/13/2017 Unknown Essential (primary) hypertension ICD-9: 401.1 ICD-10: I10 Active 05/13/2017 Unknown Chronic pain syndrome ICD-9: 338.4 ICD-10: G89.4 Active 06/09/2017 Unknown Type 2 diabetes mellitus [...] hypertension ICD-9: 401.1 ICD-10: I10 05/13/2017 Active Chronic pain syndrome ICD-9: 338.4 ICD-10: G89.4 06/09/2017 Active Type 2 diabetes mellitus without complications ICD-9: 250.00 ICD-10: E11.9 05/13/2017 Active Nausea ICD-9: 787.02 ICD-10: R11.0 06/09/2017 Active Diabetes Unknown 05/13/2017 Active Encounter for general adult medical examination with abnormal findings ICD-9: V70.0 ICD-10: Z00.01 05/13/2017 Active Medications Medication Codes Instructions Start Date Stop Date Status Fill Instructions levothyroxine 112 mcg tablet RxNorm: 253874 1 Tablet(s) PO daily 03/06/2018 07/03/2018 Active promethazine 25 mg tablet RxNorm: 973679 1 Tablet(s) PO BID as needed nausea 03/05/2018 09/30/2018 Active ondansetron 4 mg disintegrating tablet RxNorm: 039190 1 Tablet(s) PO daily as needed 02/24/2018 03/25/2018 Active hydrocodone 7.5 mg-acetaminophen 325 mg tablet RxNorm: 780603 1 Tablet(s) PO TID as needed 02/18/2018 03/19/2018 Active methadone 10 mg tablet RxNorm: 932890 1 Tablet(s) PO TID 201703/19/2018 Active atenolol 50 mg tablet RxNorm: 702220 TAKE ONE TABLET BY MOUTH ONCE DAILY 02/16/2018 No Stop Date Active levothyroxine 112 mcg tablet RxNorm: 848415 1 Tablet(s) PO daily 02/02/2018 03/03/2018 Inactive levothyroxine 112 mcg tablet RxNorm: 045455 1 Tablet(s) PO daily 02/02/2018 02/01/2018 Inactive loratadine 10 mg tablet RxNorm: 670748 TAKE ONE TABLET BY MOUTH ONCE DAILY 01/29/2018 No Stop Date Active hydrocodone 7.5 mg-acetaminophen 325 mg tablet RxNorm: 007267 1 Tablet(s) PO TID as needed 01/19/2018 02/17/2018 Inactive methadone 10 mg tablet RxNorm: 792640 1 Tablet(s) PO TID 201702/17/2018 Inactive doxazosin 2 mg tablet RxNorm: 863607 1 Tablet(s) PO BID 201701/11/2018 Inactive doxazosin 1 mg tablet RxNorm: 503066 1 Tablet(s) PO BID 201712/30/2017 Inactive ondansetron 4 mg disintegrating tablet RxNorm: 253665 1 Tablet(s) PO daily as needed 12/29/2017 02/23/2018 Inactive losartan 100 mg tablet RxNorm: 355738 1 Tablet(s) PO daily 06/28/2018 Active mupirocin 2 % topical ointment RxNorm: 786005 1 TOP TID 201712/10/2017 Inactive doxycycline hyclate 100 mg tablet RxNorm: 120111 1 Tablet(s) PO BID for cellulitis of toe 12/01/2017 12/05/2017 Inactive ondansetron 4 mg disintegrating tablet RxNorm: 826737 1 Tablet(s) PO daily as needed 11/28/2017 12/27/2017 Inactive WelChol 625 mg tablet RxNorm: 998793 3 Tablet(s) PO BID 201704/09/2018 Active levothyroxine 100 mcg tablet RxNorm: 564464 1 Tablet(s) PO daily 11/11/2017 03/10/2018 Active WelChol 625 mg tablet RxNorm: 099875 3 Tablet(s) PO BID 201711/10/2017 Inactive losartan 50 mg tablet RxNorm: 567707 1 Tablet(s) PO daily 201711/30/2017 Inactive ondansetron 4 mg disintegrating tablet RxNorm: 471587 1 Tablet(s) PO daily as needed 10/27/2017 11/25/2017 Inactive hydrocodone 7.5 mg-acetaminophen 325 mg tablet RxNorm: 471109 1 Tablet(s) PO TID as needed 10/02/2017 10/31/2017 Inactive methadone 10 mg tablet RxNorm: 412173 1 Tablet(s) PO TID 201710/31/2017 Inactive ondansetron 4 mg disintegrating tablet RxNorm: 283661 1 Tablet(s) PO daily as needed 09/03/2017 10/26/2017 Inactive Flonase Allergy Relief 50 mcg/actuation nasal spray, suspension RxNorm: 0709021 2 [place] NASAL daily 08/19/2017 No Stop Date Active Carafate 1 gram tablet RxNorm: 272725 1 Tablet(s) PO BID 2017 No Stop Date Active promethazine 25 mg tablet RxNorm: 134769 1 Tablet(s) PO BID as needed nausea 08/11/2017 03/04/2018 Inactive methadone 10 mg tablet RxNorm: 140477 1 Tablet(s) PO TID 201709/09/2017 Inactive hydrocodone 7.5 mg-acetaminophen 325 mg tablet RxNorm: 715524 1 Tablet(s) PO TID as needed 08/11/2017 09/09/2017 Inactive ondansetron 4 mg disintegrating tablet RxNorm: 994845 1 Tablet(s) PO daily as needed 07/10/2017 08/08/2017 Inactive hydrocodone 7.5 mg-acetaminophen 325 mg tablet RxNorm: 320141 1 Tablet(s) PO TID as needed 07/08/2017 08/06/2017 Inactive hydrocodone 7.5 mg-acetaminophen 325 mg tablet RxNorm: 928629 1 Tablet(s) PO TID as needed 07/08/2017 07/07/2017 Inactive methadone 10 mg tablet RxNorm: 638839 1 Tablet(s) PO TID 201608/06/2017 Inactive hydrocodone 10 mg-acetaminophen 325 mg tablet RxNorm: 009920 1 Tablet(s) PO TID as needed for breakthrough pain 06/16/2017 07/07/2017 Inactive pantoprazole 40 mg tablet,delayed release RxNorm: 668595 1 Tablet(s) PO daily bid x 1 week then daily thereafter 06/09/2017 12/05/2017 Inactive ondansetron 4 mg disintegrating tablet RxNorm: 729983 1 Tablet(s) PO daily as needed 06/09/2017 07/08/2017 Inactive hydrocodone 10 mg-acetaminophen 325 mg tablet RxNorm: 140052 1 Tablet(s) PO TID as needed for breakthrough pain 06/09/2017 06/15/2017 Inactive atenolol 50 mg tablet RxNorm: 191471 1 Tablet(s) PO daily 201602/15/2018 Inactive promethazine 25 mg tablet RxNorm: 692724 1 Tablet(s) PO BID as needed nausea 06/09/2017 08/10/2017 Inactive alprazolam 0.25 mg tablet RxNorm: 846757 1 Tablet(s) PO TID as needed 05/30/2017 11/02/2017 Inactive pantoprazole 40 mg tablet,delayed release RxNorm: 602981 1 Tablet(s) PO daily 05/30/2017 06/08/2017 Inactive ondansetron 4 mg disintegrating tablet RxNorm: 104217 1 Tablet(s) PO daily as needed 05/30/2017 06/08/2017 Inactive levothyroxine 75 mcg tablet RxNorm: 063762 1 Tablet(s) PO daily 05/13/2017 11/30/2017 Inactive loratadine 10 mg tablet RxNorm: 360727 1 Tablet(s) PO daily 12/08/2017 Inactive promethazine 25 mg tablet RxNorm: 628766 Tablet(s) PO as needed nausea No Start Date Active cyclobenzaprine 10 mg tablet RxNorm: 506045 Tablet(s) PO as needed No Start Date Active metformin 500 mg tablet RxNorm: 808156 1 Tablet(s) PO daily No Start Date 08/19/2017 Inactive ondansetron 8 mg disintegrating tablet RxNorm: 388243 Tablet(s) PO as needed nausea No Start Date 05/29/2017 Inactive levothyroxine 100 mcg tablet RxNorm: 697926 Tablet(s) PO No Start Date 11/10/2017 Inactive loratadine 10 mg tablet RxNorm: 403601 1 Tablet(s) PO daily No Start Date 05/12/2017 Inactive atenolol 50 mg tablet RxNorm: 574468 1 Tablet(s) PO daily No Start Date 06/08/2017 Inactive Flonase Allergy Relief 50 mcg/actuation nasal spray, suspension RxNorm: 5327794 [place] NASAL daily No Start Date 2017 Inactive alprazolam 0.25 mg tablet RxNorm: 938221 Tablet(s) PO as needed No Start Date 05/29/2017 Inactive levothyroxine oral RxNorm: 80140 oral No Start Date 05/13/2017 Inactive hydrocodone 10 mg-acetaminophen 325 mg tablet RxNorm: 730173 Tablet(s) PO as needed for breakthrough pain No Start Date 06/08/2017 Inactive methadone 10 mg tablet RxNorm: 608589 1 Tablet(s) PO TID No Start Date 07/07/2017 Inactive pantoprazole 40 mg tablet,delayed release RxNorm: 453014 1 Tablet(s) PO daily No Start Date 05/29/2017 Inactive Medication Administered No Medication Administered data Immunizations No Immunization data Assessments Condition Codes Effective Dates Atrophy of thyroid (acquired) ICD-10: E03.4 ICD-9: 244.8 01/19/2018 Essential (primary) hypertension ICD-10: I10 ICD-9: 401.1 01/12/2018 Chronic pain syndrome ICD-10: G89.4 ICD-9: 338.4 12/29/2017 Type 2 diabetes mellitus without complications ICD-10: E11.9 ICD-9: 250.00 12/01/2017 Nausea ICD-10: R11.0 ICD-9: 787.02 08/11/2017 Encounter for general adult medical examination with abnormal findings ICD-10: Z00.01 ICD-9: V70.0 05/13/2017 Reason For Visit Reason For Visit Effective Dates Notes hypertension 01/12/2018 hypertension 12/29/2017 hypertension 12/01/2017 hypertension 11/03/2017 hypertension 08/11/2017 hypertension 06/09/2017 hypertension 05/13/2017 Results Observation Observation Code Item Item Code Result Date Free T4 Opr485 FREE T4 0.81 ng/dL 01/22/2018 Tsh Ord6 TSH (3rd IS) 12.54 uIU/mL 01/22/2018 Free T4 Beo328 FREE T4 0.69 ng/dL 11/05/2017 %Hba1C Mjg905 % HbA1c 74500-0 6.3 % 11/05/2017 %Hba1C Zud061 Gluc Ave 134 mg/dL 11/05/2017 Cbc With Differential Ord2 WBC 6.04 [...] 31.3 pg 11/05/2017 Cbc With Differential Ord2 [place]% 8.8 % 11/05/2017 Cbc With Differential Ord2 MCHC [...] 2.60 K/ul 11/05/2017 Cbc With Differential Ord2 [place] ABS# 0.5 K/ul 11/05/2017 Cbc With Differential Ord2 Eos ABS# 0.2 K/ul 11/05/2017 Cbc With Differential Ord2 Baso ABS# 0.0 K/ul 11/05/2017 Comp Metabolic Sys748 NA 139 mEq/L 11/05/2017 Comp Metabolic Zbn885 K 3.9 mEq/L 11/05/2017 Comp Metabolic Pwn462 CL 101 mEq/L 11/05/2017 Comp Metabolic Ssy712 CO2 30.0 mEq/L 11/05/2017 Comp Metabolic Kzm465 ANION GAP 12 11/05/2017 Comp Metabolic Xza633 GLUCOSE 98 mg/dL 11/05/2017 Comp Metabolic Afo843 Creat 0.8 mg/dL 11/05/2017 Comp Metabolic Dvl873 eGFR 74 ml/min/1.73m2 11/05/2017 Comp Metabolic Gup691 BUN 9 mg/dL 11/05/2017 Comp Metabolic Bre894 B/C Ratio 10.8 Ratio 11/05/2017 Comp Metabolic Fzp401 CALCIUM 9.1 mg/dL 11/05/2017 Comp Metabolic Bpd262 ALK PHOS 87 U/L 11/05/2017 Comp Metabolic Teo746 AST(SGOT) 28 U/L 11/05/2017 Comp Metabolic Ima591 ALT(SGPT) 30 U/L 11/05/2017 Comp Metabolic Jyt565 BILI T 0.5 mg/dL 11/05/2017 Comp Metabolic Jko220 ALBUMIN 3.9 g/dL 11/05/2017 Comp Metabolic Ufc973 TPRO 7.2 g/dL 11/05/2017 Comp Metabolic Ver077 GLOB 3.3 g/dL 11/05/2017 Comp Metabolic Frv812 A/G Ratio 1.2 Ratio 11/05/2017 Comp Metabolic Akk062 Osmo 276 mOsmo 11/05/2017 Lipid Ord30 CHOL 218 mg/dL 11/05/2017 Lipid Ord30 HDL 34.0 mg/dl 11/05/2017 Lipid Ord30 TRIG 363 mg/dL 11/05/2017 Lipid Ord30 LDL Unable to calculate Due to elevated triglycerides mg/dL 11/05/2017 Lipid Ord30 C/HDL 6.4 Ratio 11/05/2017 Microalbumin Vbu816 MicroAlb <0.7 mg/dL 11/05/2017 Tsh Ord6 TSH (3rd IS) 27.62 uIU/mL 11/05/2017 Review of Systems System Result Effective Dates Constitutional No recent illness 2017 Constitutional No [...] No Procedures data Vital Signs Date Vital 01/12/2018 Blood Pressure 1: 180/98 Code : 8480-6 Blood Pressure 1: 156/96 Code: 8480-6 BMI: 34.8 Code: 21593-2 Heart Rate 1: 78 bpm Height: 5'4" SpO2: 94% Weight: 203 lbs 12/29/2017 Blood Pressure 1: 190/98 Code : 8480-6 BMI: 34.8 Code : 86599-1 Heart Rate 1 : 71 bpm Height: 5'4" SpO2: 92% Weight: 203 lbs 12/01/2017 Blood Pressure 1: 180/98 Code : 8480-6 BMI: 34.7 Code : 24294-9 Heart Rate 1 : 73 bpm Height: 5'4" SpO2: 96% Weight: 202 lbs 11/03/2017 Blood Pressure 1: 180/96 Code : 8480-6 BMI: 35.0 Code : 52500-8 Heart Rate 1 : 72 bpm Height: 5'4" SpO2: 94% Weight: 204 lbs 08/11/2017 Blood Pressure 1: 156/84 Code : 8480-6 BMI: 34.0 Code : 75362-5 Heart Rate 1 : 76 bpm Height: 5'4" SpO2: 94% Weight: 198 lbs 06/09/2017 Blood Pressure 1: 170/96 Code : 8480-6 BMI: 34.0 Code : 34321-4 Heart Rate 1 : 94 bpm Height: 5'4" SpO2: 97% Temperature: 36.8 (C) / 98.2 (F) Weight: 198 lbs 05/13/2017 Blood Pressure 1: 130/68 Code : 8480-6 BMI: 35.0 Code : 80807-1 Heart Rate 1 : 74 bpm Height: 5'4" SpO2: 96% Weight: 204 lbs Functional Status No Functional Status data History of Present Illness Symptom Name Status Result Effective Date Notes hypertension Quality intermittent 01/12/2018 None hypertension Quality [...] data Encounters Encounter Performer Location Codes Date ) 44045 EST. PATIENT, LEVEL III Diagnosis: Essential (primary) hypertension[ICD10: I10] [facility] MD, [facility] CPT-4: 63604 01/12/2018 ([id number]) 83045 EST. PATIENT, LEVEL IV Diagnosis: Essential (primary) hypertension[ICD10: I10] Diagnosis: Chronic pain syndrome[ICD10: G89.4] [facility] MD, [facility] CPT-4: 17119 12/29/2017 ([id number]) 68289 EST. PATIENT, LEVEL IV Diagnosis: Essential (primary) hypertension[ICD10: I10] Diagnosis: Chronic pain syndrome[ICD10: G89.4] Diagnosis: Type 2 diabetes mellitus without complications[ICD10: E11.9] Diagnosis: Atrophy of thyroid (acquired)[ICD10: E03.4] Kristie Carter MD, [facility] CPT-4: 62375 12/01/2017 ([id number]) 77430 EST. PATIENT, LEVEL IV Diagnosis: Chronic pain syndrome[ICD10: G89.4] Diagnosis: Type 2 diabetes mellitus without complications[ICD10: E11.9] Diagnosis: Atrophy of thyroid (acquired)[ICD10: E03.4] Diagnosis: Essential (primary) hypertension[ICD10: I10] Kristie Carter MD, [facility] CPT-4: 54991 11/03/2017 ([id number]) 02307 EST. PATIENT, LEVEL IV Diagnosis: Chronic pain syndrome[ICD10: G89.4] Diagnosis: Essential (primary) hypertension[ICD10: I10] Diagnosis: Nausea[ICD10: R11.0] [facility] CPT-4: 96517 08/11/2017 ([id number]) 44965 EST. PATIENT, LEVEL III Diagnosis: Essential (primary) hypertension[ICD10: I10] Diagnosis: Nausea[ICD10: R11.0] Diagnosis: Chronic pain syndrome[ICD10: G89.4] [facility] CPT-4: 21025 06/09/2017 ([id number]) PREV VISIT NEW AGE 40-64 Diagnosis: Atrophy of thyroid (acquired)[ICD10: E03.4] Diagnosis: Type 2 diabetes mellitus without complications[ICD10: E11.9] Diagnosis: Encounter for general adult medical examination with abnormal findings[ICD10: Z00.01] Diagnosis: Essential (primary) hypertension[ICD10: I10] [facility] CPT-4: 43720 05/13/2017 Plan of Care Planned Activity Notes Codes Status Date Patient Education: Patient Medication Summary Completed 01/19/2018 Visit Plan: Hypertension - well controlled - continue with current medications, continue with no added salt diet. Pt has been encouraged to exercise daily. The pt has been advised to call the office if there are any acute concerns about change in blood pressure readings at home. 01/12/2018 Appointment: [facility]ie Carter WPtel: [address] [place], [place] [phone] (15 min) Moderate 01/12/2018 Patient Education: Patient [...] over-medication. 12/29/2017 [facility]ment: [facility] [phone] [phone] (15 min) Moderate 12/29/2017 Patient Education: Patient [...] mupirocin 12/01/2017 [facility]ment: [phone] [facility] (15 min) Moderate 12/01/2017 Patient Education: Patient Medication Summary Completed 12/01/2017 Care Plan: Comp Metabolic Cancelled 12/01/2017 Care Plan: Cbc With Differential Cancelled 12/01/2017 Care Plan: %Hba1C LOINC : 17431-4 Cancelled 12/01/2017 Care Plan: Tsh Cancelled 12/01/2017 [...] been recommended. 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 Will attempt to wean pt off of hydrocodone as able. 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 Will attempt to wean pt off of hydrocodone as able. 06/09/2017 Appointment: Kristie Carter WPtel: [phone] [facility] (15 min) Moderate 06/09/2017 Patient Education: Patient [...] control. 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 Will attempt to wean pt off [...]
--- OUTSIDE RECORDS SUMMARY | 2018-08-11 08:41 | XMS REPORT | CCD ---
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 Unknown Has never used illegal drugs 05/13/2017 Allergies, Adverse Reactions, Alerts Substance Reaction Codes Entered Date Inactivated Date Status * OTHER REACTION - SEE ANSWER BOX Antibiotics- cause nausea Unknown 05/13/2017 No Inactive Date Active Lyrica nausea RxNorm: 475873 05/13/2017 No Inactive Date Active Savella nausea RxNorm: 705580 05/13/2017 No Inactive Date Active ibuprofen nausea, [...] Start Date Stop Date Status Fill Instructions promethazine 25 mg tablet RxNorm: 227398 1 Tablet(s) PO BID as needed nausea 03/05/2018 09/30/2018 Active ondansetron 4 mg disintegrating tablet RxNorm: 271225 1 Tablet(s) PO daily as needed 02/24/2018 03/25/2018 Active hydrocodone 7.5 mg-acetaminophen 325 mg tablet RxNorm: 599968 1 Tablet(s) PO TID as needed 02/18/2018 03/19/2018 Active methadone 10 mg tablet RxNorm: 397438 1 Tablet(s) PO TID 201703/19/2018 Active atenolol 50 mg tablet RxNorm: 019563 TAKE ONE TABLET BY MOUTH ONCE DAILY 02/16/2018 No Stop Date Active levothyroxine 112 mcg tablet RxNorm: 887511 1 Tablet(s) PO daily 02/02/2018 03/03/2018 Inactive levothyroxine 112 mcg tablet RxNorm: 965558 1 Tablet(s) PO daily 02/02/2018 02/01/2018 Inactive loratadine 10 mg tablet RxNorm: 427632 TAKE ONE TABLET BY MOUTH ONCE DAILY 01/29/2018 No Stop Date Active hydrocodone 7.5 mg-acetaminophen 325 mg tablet RxNorm: 145092 1 Tablet(s) PO TID as needed 01/19/2018 02/17/2018 Inactive methadone 10 mg tablet RxNorm: 062300 1 Tablet(s) PO TID 201702/17/2018 Inactive doxazosin 2 mg tablet RxNorm: 849002 1 Tablet(s) PO BID 201701/11/2018 Inactive doxazosin 1 mg tablet RxNorm: 072363 1 Tablet(s) PO BID 201712/30/2017 Inactive ondansetron 4 mg disintegrating tablet RxNorm: 729227 1 Tablet(s) PO daily as needed 12/29/2017 02/23/2018 Inactive losartan 100 mg tablet RxNorm: 443035 1 Tablet(s) PO daily 06/28/2018 Active mupirocin 2 % topical ointment RxNorm: 622073 1 TOP TID 201712/10/2017 Inactive doxycycline hyclate 100 mg tablet RxNorm: 550643 1 Tablet(s) PO BID for cellulitis of toe 12/01/2017 12/05/2017 Inactive ondansetron 4 mg disintegrating tablet RxNorm: 204507 1 Tablet(s) PO daily as needed 11/28/2017 12/27/2017 Inactive WelChol 625 mg tablet RxNorm: 163214 3 Tablet(s) PO BID 201704/09/2018 Active levothyroxine 100 mcg tablet RxNorm: 542584 1 Tablet(s) PO daily 11/11/2017 03/10/2018 Active WelChol 625 mg tablet RxNorm: 137543 3 Tablet(s) PO BID 201711/10/2017 Inactive losartan 50 mg tablet RxNorm: 115237 1 Tablet(s) PO daily 201711/30/2017 Inactive ondansetron 4 mg disintegrating tablet RxNorm: 164304 1 Tablet(s) PO daily as needed 10/27/2017 11/25/2017 Inactive hydrocodone 7.5 mg-acetaminophen 325 mg tablet RxNorm: 191258 1 Tablet(s) PO TID as needed 10/02/2017 10/31/2017 Inactive methadone 10 mg tablet RxNorm: 901148 1 Tablet(s) PO TID 201710/31/2017 Inactive ondansetron 4 mg disintegrating tablet RxNorm: 924273 1 Tablet(s) PO daily as needed 09/03/2017 10/26/2017 Inactive Flonase Allergy Relief 50 mcg/actuation nasal spray, suspension RxNorm: 3587077 2 [place] NASAL daily 08/19/2017 No Stop Date Active Carafate 1 gram tablet RxNorm: 695794 1 Tablet(s) PO BID 2017 No Stop Date Active promethazine 25 mg tablet RxNorm: 066665 1 Tablet(s) PO BID as needed nausea 08/11/2017 03/04/2018 Inactive methadone 10 mg tablet RxNorm: 863903 1 Tablet(s) PO TID 201709/09/2017 Inactive hydrocodone 7.5 mg-acetaminophen 325 mg tablet RxNorm: 816494 1 Tablet(s) PO TID as needed 08/11/2017 09/09/2017 Inactive ondansetron 4 mg disintegrating tablet RxNorm: 132186 1 Tablet(s) PO daily as needed 07/10/2017 08/08/2017 Inactive hydrocodone 7.5 mg-acetaminophen 325 mg tablet RxNorm: 903769 1 Tablet(s) PO TID as needed 07/08/2017 08/06/2017 Inactive hydrocodone 7.5 mg-acetaminophen 325 mg tablet RxNorm: 921858 1 Tablet(s) PO TID as needed 07/08/2017 07/07/2017 Inactive methadone 10 mg tablet RxNorm: 199509 1 Tablet(s) PO TID 201608/06/2017 Inactive hydrocodone 10 mg-acetaminophen 325 mg tablet RxNorm: 992905 1 Tablet(s) PO TID as needed for breakthrough pain 06/16/2017 07/07/2017 Inactive pantoprazole 40 mg tablet,delayed release RxNorm: 403465 1 Tablet(s) PO daily bid x 1 week then daily thereafter 06/09/2017 12/05/2017 Inactive ondansetron 4 mg disintegrating tablet RxNorm: 918305 1 Tablet(s) PO daily as needed 06/09/2017 07/08/2017 Inactive hydrocodone 10 mg-acetaminophen 325 mg tablet RxNorm: 006266 1 Tablet(s) PO TID as needed for breakthrough pain 06/09/2017 06/15/2017 Inactive atenolol 50 mg tablet RxNorm: 551915 1 Tablet(s) PO daily 201602/15/2018 Inactive promethazine 25 mg tablet RxNorm: 900106 1 Tablet(s) PO BID as needed nausea 06/09/2017 08/10/2017 Inactive alprazolam 0.25 mg tablet RxNorm: 170918 1 Tablet(s) PO TID as needed 05/30/2017 11/02/2017 Inactive pantoprazole 40 mg tablet,delayed release RxNorm: 340113 1 Tablet(s) PO daily 05/30/2017 06/08/2017 Inactive ondansetron 4 mg disintegrating tablet RxNorm: 342590 1 Tablet(s) PO daily as needed 05/30/2017 06/08/2017 Inactive levothyroxine 75 mcg tablet RxNorm: 070333 1 Tablet(s) PO daily 05/13/2017 11/30/2017 Inactive loratadine 10 mg tablet RxNorm: 196540 1 Tablet(s) PO daily 12/08/2017 Inactive promethazine 25 mg tablet RxNorm: 482395 Tablet(s) PO as needed nausea No Start Date Active cyclobenzaprine 10 mg tablet RxNorm: 812857 Tablet(s) PO as needed No Start Date Active metformin 500 mg tablet RxNorm: 273375 1 Tablet(s) PO daily No Start Date 08/19/2017 Inactive ondansetron 8 mg disintegrating tablet RxNorm: 189869 Tablet(s) PO as needed nausea No Start Date 05/29/2017 Inactive levothyroxine 100 mcg tablet RxNorm: 867434 Tablet(s) PO No Start Date 11/10/2017 Inactive loratadine 10 mg tablet RxNorm: 957315 1 Tablet(s) PO daily No Start Date 05/12/2017 Inactive atenolol 50 mg tablet RxNorm: 657527 1 Tablet(s) PO daily No Start Date 06/08/2017 Inactive Flonase Allergy Relief 50 mcg/actuation nasal spray, suspension RxNorm: 1163114 Wirtz NASAL daily No Start Date 2017 Inactive alprazolam 0.25 mg tablet RxNorm: 346387 Tablet(s) PO as needed No Start Date 05/29/2017 Inactive levothyroxine oral RxNorm: 74948 oral No Start Date 05/13/2017 Inactive hydrocodone 10 mg-acetaminophen 325 mg tablet RxNorm: 764766 Tablet(s) PO as needed for breakthrough pain No Start Date 06/08/2017 Inactive methadone 10 mg tablet RxNorm: 548034 1 Tablet(s) PO TID No Start Date 07/07/2017 Inactive pantoprazole 40 mg tablet,delayed release RxNorm: 080290 1 Tablet(s) PO daily No Start Date [...] Item Item Code Result Date Free T4 Lmd598 FREE T4 0.81 ng/dL 01/22/2018 Tsh Ord6 TSH (3rd IS) 12.54 uIU/mL 01/22/2018 Comp Metabolic Qgl312 NA 139 mEq/L 11/05/2017 Comp Metabolic Jgy784 K 3.9 mEq/L 11/05/2017 Comp Metabolic Izf254 CL 101 mEq/L 11/05/2017 Comp Metabolic Gdu997 CO2 30.0 mEq/L 11/05/2017 Comp Metabolic Nsj383 ANION GAP 12 11/05/2017 Comp Metabolic Dnw334 GLUCOSE 98 mg/dL 11/05/2017 Comp Metabolic Hpv613 Creat 0.8 mg/dL 11/05/2017 Comp Metabolic Rfx856 eGFR 74 ml/min/1.73m2 11/05/2017 Comp Metabolic Ztt365 BUN 9 mg/dL 11/05/2017 Comp Metabolic Yqe532 B/C Ratio 10.8 Ratio 11/05/2017 Comp Metabolic Oyb666 CALCIUM 9.1 mg/dL 11/05/2017 Comp Metabolic Oek511 ALK PHOS 87 U/L 11/05/2017 Comp Metabolic Rco924 AST(SGOT) 28 U/L 11/05/2017 Comp Metabolic Gtz523 ALT(SGPT) 30 U/L 11/05/2017 Comp Metabolic Glb595 BILI T 0.5 mg/dL 11/05/2017 Comp Metabolic Mjj107 ALBUMIN 3.9 g/dL 11/05/2017 Comp Metabolic Cla501 TPRO 7.2 g/dL 11/05/2017 Comp Metabolic Tpg740 GLOB 3.3 g/dL 11/05/2017 Comp Metabolic Jfh125 A/G Ratio 1.2 Ratio 11/05/2017 Comp Metabolic Gaj770 Osmo 276 mOsmo 11/05/2017 Cbc With Differential [...] 31.3 pg 11/05/2017 Cbc With Differential Ord2 [place]% 8.8 % 11/05/2017 Cbc With Differential Ord2 MCHC 34.1 pg 11/05/2017 Cbc With Differential Ord2 Eos% 2.5 % 11/05/2017 Cbc With Differential Ord2 PLT 221 K/ul 11/05/2017 Cbc With Differential Ord2 Baso% 0.7 % 11/05/2017 Cbc With Differential Ord2 Neut ABS# 2.72 K/ul 11/05/2017 Cbc With Differential Ord2 RDW 13.3 % 11/05/2017 Cbc With Differential Ord2 Lymph ABS# 2.60 K/ul 11/05/2017 Cbc With Differential Ord2 [place] ABS# 0.5 K/ul 11/05/2017 Cbc With Differential Ord2 Eos ABS# 0.2 K/ul 11/05/2017 Cbc With Differential Ord2 Baso ABS# 0.0 K/ul 11/05/2017 Microalbumin Zuy263 MicroAlb <0.7 mg/dL 11/05/2017 Tsh Ord6 TSH (3rd IS) 27.62 uIU/mL 11/05/2017 Lipid Ord30 CHOL 218 mg/dL 11/05/2017 Lipid Ord30 HDL 34.0 mg/dl 11/05/2017 Lipid Ord30 TRIG 363 mg/dL 11/05/2017 Lipid Ord30 LDL Unable to calculate Due to elevated triglycerides mg/dL 11/05/2017 Lipid Ord30 C/HDL 6.4 Ratio 11/05/2017 %Hba1C Dsj713 % HbA1c 01290-6 6.3 % 11/05/2017 %Hba1C Lnl155 Gluc Ave 134 mg/dL 11/05/2017 Free T4 Uds036 FREE T4 0.69 ng/dL 11/05/2017 Review of [...] 1: 156/96 Code: 8480-6 BMI: 34.8 Code: 45718-3 Heart Rate 1: 78 bpm Height: 5'4" SpO2: 94% Weight: 203 lbs 12/29/2017 Blood Pressure 1: 190/98 Code : 8480-6 BMI: 34.8 Code : 06937-2 Heart Rate 1 : 71 bpm Height: 5'4" SpO2: 92% Weight: 203 lbs 12/01/2017 Blood Pressure 1: 180/98 Code : 8480-6 BMI: 34.7 Code : 89106-1 Heart Rate 1 : 73 bpm Height: 5'4" SpO2: 96% Weight: 202 lbs 11/03/2017 Blood Pressure 1: 180/96 Code : 8480-6 BMI: 35.0 Code : 99084-8 Heart Rate 1 : 72 bpm Height: 5'4" SpO2: 94% Weight: 204 lbs 08/11/2017 Blood Pressure 1: 156/84 Code : 8480-6 BMI: 34.0 Code : 45641-3 Heart Rate 1 : 76 bpm Height: 5'4" SpO2: 94% Weight: 198 lbs 06/09/2017 Blood Pressure 1: 170/96 Code : 8480-6 BMI: 34.0 Code : 83999-4 Heart Rate 1 : 94 bpm Height: 5'4" SpO2: 97% Temperature: 36.8 (C) / 98.2 (F) Weight: 198 lbs 05/13/2017 Blood Pressure 1: 130/68 Code : 8480-6 BMI: 35.0 Code : 08620-3 Heart Rate 1 : 74 bpm Height: [...] Performer Location Codes Date EST. PATIENT, LEVEL III Diagnosis: Essential (primary) hypertension[ICD10: I10] Kristie Carter MD, [facility] CPT-4: 04532 01/12/2018 ([id number]) 95959 EST. PATIENT, LEVEL IV Diagnosis: Essential (primary) hypertension[ICD10: I10] Diagnosis: Chronic pain syndrome[ICD10: G89.4] Kristie Carter MD, [facility] CPT-4: 76313 12/29/2017 ([id number]) 40797 EST. PATIENT, LEVEL IV Diagnosis: Essential (primary) hypertension[ICD10: I10] Diagnosis: Chronic pain syndrome[ICD10: G89.4] Diagnosis: Type 2 diabetes mellitus without complications[ICD10: E11.9] Diagnosis: Atrophy of thyroid (acquired)[ICD10: E03.4] Kristie Carter MD, [facility] CPT-4: 94403 12/01/2017 ([id number]) 87458 EST. PATIENT, LEVEL IV Diagnosis: Chronic pain syndrome[ICD10: G89.4] Diagnosis: Type 2 diabetes mellitus without complications[ICD10: E11.9] Diagnosis: Atrophy of thyroid (acquired)[ICD10: E03.4] Diagnosis: Essential (primary) hypertension[ICD10: I10] Kristie Carter MD, [facility] CPT-4: 65424 11/03/2017 ([id number]) 08147 EST. PATIENT, LEVEL IV Diagnosis: Chronic pain syndrome[ICD10: G89.4] Diagnosis: Essential (primary) hypertension[ICD10: I10] Diagnosis: Nausea[ICD10: R11.0] Kristie Carter MD, [facility] CPT-4: 25003 08/11/2017 ([id number]) 23672 EST. PATIENT, LEVEL III Diagnosis: Essential (primary) hypertension[ICD10: I10] Diagnosis: Nausea[ICD10: R11.0] Diagnosis: Chronic pain syndrome[ICD10: G89.4] [facility] CPT-4: 93942 06/09/2017 ([id number]) PREV VISIT NEW AGE 40-64 Diagnosis: Atrophy of thyroid (acquired)[ICD10: E03.4] Diagnosis: Type 2 diabetes mellitus without complications[ICD10: E11.9] Diagnosis: Encounter for general adult medical examination with abnormal findings[ICD10: Z00.01] Diagnosis: Essential (primary) hypertension[ICD10: I10] [facility] CPT-4: 15810 05/13/2017 Plan of Care Planned Activity Notes [...] at home. 01/12/2018 Appointment: Kristie Carter WPtel: [facility]7 [facility] (15 min) Moderate 01/12/2018 Patient Education: Patient [...] of over-medication. 12/29/2017 Appointment: Kristie Carter WPtel: [facility] (15 min) Moderate 12/29/2017 Patient Education: Patient [...] mupirocin 12/01/2017 Appointment: Kristie Carter WPtel: [phone] [facility] (15 min) Moderate 12/01/2017 Patient Education: Patient Medication Summary Completed 12/01/2017 Care Plan: Comp Metabolic Cancelled 12/01/2017 Care Plan: Cbc With Differential Cancelled 12/01/2017 Care Plan: %Hba1C LOINC : 46928-1 Cancelled 12/01/2017 Care Plan: Tsh Cancelled 12/01/2017 [...] recommended. 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 Will attempt to wean pt off of hydrocodone as able. 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 Will attempt to wean pt off of hydrocodone as able. 06/09/2017 Appointment: Kristie Carter WPtel: [phone] [facility] (15 min) Moderate 06/09/2017 Patient Education: Patient [...] on previous levels of control. 05/13/2017 Appointment: EmmaKristie WPtel: [phone] [id number] New Patient 05/13/2017 Patient Education: Patient Medication [...] to be written for pt to picker operator. Will attempt to wean pt off [...] to be written for pt to picker operator. Will attempt to wean pt off [...]
--- OUTSIDE RECORDS SUMMARY | 2018-08-11 08:42 | XMS REPORT | CCD ---
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 Unknown Has never used illegal drugs 05/13/2017 Allergies, Adverse Reactions, Alerts Substance Reaction Codes Entered Date Inactivated Date Status Lyrica nausea RxNorm: 861166 05/13/2017 No Inactive Date Active Savella nausea RxNorm: 269547 05/13/2017 No Inactive Date Active ibuprofen nausea RxNorm: 5640 05/13/2017 No Inactive Date Active Past Medical History Illness Codes Condition Status Onset Date Resolved Date Chronic pain syndrome ICD-9: 338.4 ICD-10: G89.4 Active 06/09/2017 Unknown Essential (primary) hypertension ICD-9: 401.1 ICD-10: I10 Active 05/13/2017 Unknown Nausea ICD-9: 787.02 ICD-10: R11.0 Active 06/09/2017 Unknown Diabetes Unknown Active 05/13/2017 Unknown Atrophy of thyroid (acquired) ICD-9: 244.8 ICD-10: E03.4 Active 05/13/2017 Unknown Encounter for general adult medical examination with abnormal findings ICD-9: V70.0 ICD-10: Z00.01 Active 05/13/2017 Unknown Type 2 diabetes mellitus without complications ICD-9: 250.00 ICD-10: E11.9 Active 05/13/2017 Unknown Problems Condition Codes Effective Dates Condition Status Chronic pain syndrome ICD-9: 338.4 ICD-10: G89.4 06/09/2017 Active Essential (primary) hypertension ICD-9: 401.1 ICD-10: I10 05/13/2017 Active Nausea ICD-9: 787.02 ICD-10: R11.0 06/09/2017 Active Diabetes Unknown 05/13/2017 Active Atrophy of thyroid (acquired) ICD-9: 244.8 ICD-10: E03.4 05/13/2017 Active Encounter for general adult medical examination with abnormal findings ICD-9: V70.0 ICD-10: Z00.01 05/13/2017 Active Type 2 diabetes mellitus without complications ICD-9: 250.00 ICD-10: E11.9 05/13/2017 Active Medications Medication Codes Instructions Start Date Stop Date Status Fill Instructions promethazine 25 mg tablet RxNorm: 009403 1 Tablet(s) PO BID as needed nausea 08/11/2017 03/08/2018 Active methadone 10 mg tablet RxNorm: 841249 1 Tablet(s) PO TID 201709/09/2017 Active Carafate 1 gram tablet RxNorm: 572159 1 Tablet(s) PO BID 2017 No Stop Date Active hydrocodone 7.5 mg-acetaminophen 325 mg tablet RxNorm: 793525 1 Tablet(s) PO TID as needed 08/11/2017 09/09/2017 Active ondansetron 4 mg disintegrating tablet RxNorm: 545986 1 Tablet(s) PO daily as needed 07/10/2017 08/08/2017 Inactive hydrocodone 7.5 mg-acetaminophen 325 mg tablet RxNorm: 171960 1 Tablet(s) PO TID as needed 07/08/2017 08/06/2017 Inactive hydrocodone 7.5 mg-acetaminophen 325 mg tablet RxNorm: 927053 1 Tablet(s) PO TID as needed 07/08/2017 07/07/2017 Inactive methadone 10 mg tablet RxNorm: 126733 1 Tablet(s) PO TID 201608/06/2017 Inactive hydrocodone 10 mg-acetaminophen 325 mg tablet RxNorm: 921627 1 Tablet(s) PO TID as needed for breakthrough pain 06/16/2017 07/07/2017 Inactive atenolol 50 mg tablet RxNorm: 026377 1 Tablet(s) PO daily 201603/05/2018 Active pantoprazole 40 mg tablet,delayed release RxNorm: 480479 1 Tablet(s) PO daily bid x 1 week then daily thereafter 06/09/2017 12/05/2017 Active ondansetron 4 mg disintegrating tablet RxNorm: 491360 1 Tablet(s) PO daily as needed 06/09/2017 07/08/2017 Inactive hydrocodone 10 mg-acetaminophen 325 mg tablet RxNorm: 889592 1 Tablet(s) PO TID as needed for breakthrough pain 06/09/2017 06/15/2017 Inactive promethazine 25 mg tablet RxNorm: 625105 1 Tablet(s) PO BID as needed nausea 06/09/2017 08/10/2017 Inactive alprazolam 0.25 mg tablet RxNorm: 602043 1 Tablet(s) PO TID as needed 05/30/2017 08/27/2017 Active pantoprazole 40 mg tablet,delayed release RxNorm: 478342 1 Tablet(s) PO daily 05/30/2017 06/08/2017 Inactive ondansetron 4 mg disintegrating tablet RxNorm: 232782 1 Tablet(s) PO daily as needed 05/30/2017 06/08/2017 Inactive levothyroxine 75 mcg tablet RxNorm: 145589 1 Tablet(s) PO daily 05/13/2017 12/08/2017 Active loratadine 10 mg tablet RxNorm: 353669 1 Tablet(s) PO daily 12/08/2017 Active metformin 500 mg tablet RxNorm: 572968 1 Tablet(s) PO daily No Start Date Active promethazine 25 mg tablet RxNorm: 245811 Tablet(s) PO as needed nausea No Start Date Active cyclobenzaprine 10 mg tablet RxNorm: 280662 Tablet(s) PO as needed No Start Date Active Flonase Allergy Relief 50 mcg/actuation nasal spray, suspension RxNorm: 5077702 [place] NASAL daily No Start Date Active ondansetron 8 mg disintegrating tablet RxNorm: 693327 Tablet(s) PO as needed nausea No Start Date 05/29/2017 Inactive loratadine 10 mg tablet RxNorm: 552785 1 Tablet(s) PO daily No Start Date 05/12/2017 Inactive atenolol 50 mg tablet RxNorm: 440570 1 Tablet(s) PO daily No Start Date 06/08/2017 Inactive alprazolam 0.25 mg tablet RxNorm: 348029 Tablet(s) PO as needed No Start Date 05/29/2017 Inactive levothyroxine oral RxNorm: 68168 oral No Start Date 05/13/2017 Inactive hydrocodone 10 mg-acetaminophen 325 mg tablet RxNorm: 600480 Tablet(s) PO as needed for breakthrough pain No Start Date 06/08/2017 Inactive methadone 10 mg tablet RxNorm: 672135 1 Tablet(s) PO TID No Start Date 07/07/2017 Inactive pantoprazole 40 mg tablet,delayed release RxNorm: 038873 1 Tablet(s) PO daily No Start Date 05/29/2017 Inactive Medication Administered No Medication Administered data Immunizations No Immunization data Assessments Condition Codes Effective Dates Nausea ICD-10: R11.0 ICD-9: 787.02 08/11/2017 Chronic pain syndrome ICD-10: G89.4 ICD-9: 338.4 08/11/2017 Essential (primary) hypertension ICD-10: I10 ICD-9: 401.1 08/11/2017 Encounter for general adult medical examination with abnormal findings ICD-10: Z00.01 ICD-9: V70.0 05/13/2017 Type 2 diabetes mellitus without complications ICD-10: E11.9 ICD-9: 250.00 05/13/2017 Atrophy of thyroid (acquired) ICD-10: E03.4 ICD-9: 244.8 05/13/2017 Reason For Visit Reason For Visit Effective Dates Notes hypertension 08/11/2017 hypertension 06/09/2017 hypertension 05/13/2017 Results No Results data Review of Systems System Result Effective Dates Constitutional recent illness 08/11/2017 Constitutional No chills [...] No Procedures data Vital Signs Date Vital 08/11/2017 Blood Pressure 1: 156/84 Code : 8480-6 BMI: 34.0 Code : 05200-3 Heart Rate 1 : 76 bpm Height: 5'4" SpO2: 94% Weight: 198 lbs 06/09/2017 Blood Pressure 1: 170/96 Code : 8480-6 BMI: 34.0 Code : 04147-9 Heart Rate 1 : 94 bpm Height: 5'4" SpO2: 97% Temperature: 36.8 (C) / 98.2 (F) Weight: 198 lbs 05/13/2017 Blood Pressure 1: 130/68 Code : 8480-6 BMI: 35.0 Code : 93850-4 Heart Rate 1 : 74 bpm Height: 5'4" SpO2: 96% Weight: 204 lbs Functional Status No Functional Status data History of Present Illness Symptom Name Status Result Effective Date Notes hypertension Quality primary hypertension 08/11/2017 None hypertension [...] Encounters Encounter Performer Location Codes Date () 21457 EST. PATIENT, LEVEL IV Diagnosis: Chronic pain syndrome[ICD10: G89.4] Diagnosis: Essential (primary) hypertension[ICD10: I10] Diagnosis: Nausea[ICD10: R11.0] [facility] CPT-4: 26887 08/11/2017 ([id number]) 30318 EST. PATIENT, LEVEL III Diagnosis: Essential (primary) hypertension[ICD10: I10] Diagnosis: Nausea[ICD10: R11.0] Diagnosis: Chronic pain syndrome[ICD10: G89.4] [facility] CPT-4: 71116 06/09/2017 ([id number]) PREV VISIT NEW AGE 40-64 Diagnosis: Atrophy of thyroid (acquired)[ICD10: E03.4] Diagnosis: Type 2 diabetes mellitus without complications[ICD10: E11.9] Diagnosis: Encounter for general adult medical examination with abnormal findings[ICD10: Z00.01] Diagnosis: Essential (primary) hypertension[ICD10: I10] [facility] CPT-4: 87509 05/13/2017 Plan of Care Planned Activity Notes Codes Status Date Visit Plan: Hypertension - well controlled - [...] hydrocodone to be written for pt to knot picker cloth. Will attempt to wean pt off of hydrocodone as able. 08/11/2017 Patient Education: Patient Medication Summary Completed [...] hydrocodone to be written for pt to knot picker cloth. Will attempt to wean pt off of hydrocodone as able. 06/09/2017 Appointment: Kristie Carter WPtel: [address] [place], [place] [id number] (15 min) Moderate 06/09/2017 Patient Education: Patient [...] of control. 05/13/2017 Appointment: Kristie Carter [facility]Ptel[facility] [place] New Patient 05/13/2017 Patient Education: Patient Medication Summary Completed 05/13/2017 Instructions Comment . Hypertension - uncontrolled - pt did [...] hydrocodone to be written for pt to knot picker cloth. Will attempt to wean pt off of [...] hydrocodone to be written for pt to knot picker cloth. Will attempt to wean pt off of hydrocodone as able. . Well Adult - pt was counseled [...]
--- OUTSIDE RECORDS SUMMARY | 2018-08-11 08:43 | XMS REPORT | CCD ---
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 Unknown Has never used illegal drugs 05/13/2017 Allergies, Adverse Reactions, Alerts Substance Reaction Codes Entered Date Inactivated Date Status Lyrica nausea RxNorm: 836489 05/13/2017 No Inactive Date Active Savella nausea RxNorm: 563568 05/13/2017 No Inactive Date Active ibuprofen nausea [...] Instructions ondansetron 4 mg disintegrating tablet RxNorm: 795567 1 Tablet(s) PO daily as needed 09/03/2017 11/01/2017 Active Flonase Allergy Relief 50 mcg/actuation nasal spray, suspension RxNorm: 8890517 2 [place] NASAL daily 08/19/2017 No Stop Date Active promethazine 25 mg tablet RxNorm: 276269 1 Tablet(s) PO BID as needed nausea 08/11/2017 03/08/2018 Active methadone 10 mg tablet RxNorm: 729387 1 Tablet(s) PO TID 201709/09/2017 Active Carafate 1 gram tablet RxNorm: 304964 1 Tablet(s) PO BID 2017 No Stop Date Active hydrocodone 7.5 mg-acetaminophen 325 mg tablet RxNorm: 405827 1 Tablet(s) PO TID as needed 08/11/2017 09/09/2017 Active ondansetron 4 mg disintegrating tablet RxNorm: 075828 1 Tablet(s) PO daily as needed 07/10/2017 08/08/2017 Inactive hydrocodone 7.5 mg-acetaminophen 325 mg tablet RxNorm: 224158 1 Tablet(s) PO TID as needed 07/08/2017 08/06/2017 Inactive hydrocodone 7.5 mg-acetaminophen 325 mg tablet RxNorm: 198393 1 Tablet(s) PO TID as needed 07/08/2017 07/07/2017 Inactive methadone 10 mg tablet RxNorm: 149439 1 Tablet(s) PO TID 201608/06/2017 Inactive hydrocodone 10 mg-acetaminophen 325 mg tablet RxNorm: 706155 1 Tablet(s) PO TID as needed for breakthrough pain 06/16/2017 07/07/2017 Inactive atenolol 50 mg tablet RxNorm: 942554 1 Tablet(s) PO daily 201603/05/2018 Active pantoprazole 40 mg tablet,delayed release RxNorm: 033277 1 Tablet(s) PO daily bid x 1 week then daily thereafter 06/09/2017 12/05/2017 Active ondansetron 4 mg disintegrating tablet RxNorm: 970636 1 Tablet(s) PO daily as needed 06/09/2017 07/08/2017 Inactive hydrocodone 10 mg-acetaminophen 325 mg tablet RxNorm: 430539 1 Tablet(s) PO TID as needed for breakthrough pain 06/09/2017 06/15/2017 Inactive promethazine 25 mg tablet RxNorm: 217328 1 Tablet(s) PO BID as needed nausea 06/09/2017 08/10/2017 Inactive alprazolam 0.25 mg tablet RxNorm: 478609 1 Tablet(s) PO TID as needed 05/30/2017 08/27/2017 Inactive pantoprazole 40 mg tablet,delayed release RxNorm: 837944 1 Tablet(s) PO daily 05/30/2017 06/08/2017 Inactive ondansetron 4 mg disintegrating tablet RxNorm: 244220 1 Tablet(s) PO daily as needed 05/30/2017 06/08/2017 Inactive levothyroxine 75 mcg tablet RxNorm: 416854 1 Tablet(s) PO daily 05/13/2017 12/08/2017 Active loratadine 10 mg tablet RxNorm: 321306 1 Tablet(s) PO daily 12/08/2017 Active metformin 500 mg tablet RxNorm: 776123 1 Tablet(s) PO daily No Start Date Active promethazine 25 mg tablet RxNorm: 255622 Tablet(s) PO as needed nausea No Start Date Active cyclobenzaprine 10 mg tablet RxNorm: 254402 Tablet(s) PO as needed No Start Date Active ondansetron 8 mg disintegrating tablet RxNorm: 372397 Tablet(s) PO as needed nausea No Start Date 05/29/2017 Inactive loratadine 10 mg tablet RxNorm: 561823 1 Tablet(s) PO daily No Start Date 05/12/2017 Inactive atenolol 50 mg tablet RxNorm: 478576 1 Tablet(s) PO daily No Start Date 06/08/2017 Inactive Flonase Allergy Relief 50 mcg/actuation nasal spray, suspension RxNorm: 2639889 [place] NASAL daily No Start Date 2017 Inactive alprazolam 0.25 mg tablet RxNorm: 147747 Tablet(s) PO as needed No Start Date 05/29/2017 Inactive levothyroxine oral RxNorm: 95089 oral No Start Date 05/13/2017 Inactive hydrocodone 10 mg-acetaminophen 325 mg tablet RxNorm: 783035 Tablet(s) PO as needed for breakthrough pain No Start Date 06/08/2017 Inactive methadone 10 mg tablet RxNorm: 664687 1 Tablet(s) PO TID No Start Date 07/07/2017 Inactive pantoprazole 40 mg tablet,delayed release RxNorm: 596903 1 Tablet(s) PO daily No Start Date [...] Code : 8480-6 BMI: 34.0 Code : 14758-8 Heart Rate 1 : 76 bpm Height: 5'4" SpO2: 94% Weight: 198 lbs 06/09/2017 Blood Pressure 1: 170/96 Code : 8480-6 BMI: 34.0 Code : 19931-9 Heart Rate 1 : 94 bpm Height: 5'4" SpO2: 97% Temperature: 36.8 (C) / 98.2 (F) Weight: 198 lbs 05/13/2017 Blood Pressure 1: 130/68 Code : 8480-6 BMI: 35.0 Code : 55795-7 Heart Rate 1 : 74 bpm Height: [...] Encounters Encounter Performer Location Codes Date ) 89145 EST. PATIENT, LEVEL IV Diagnosis: Chronic pain syndrome[ICD10: G89.4] Diagnosis: Essential (primary) hypertension[ICD10: I10] Diagnosis: Nausea[ICD10: R11.0] [facility] CPT-4: 68876 08/11/2017 [id number]) [id number] EST. PATIENT, LEVEL III Diagnosis: Essential (primary) hypertension[ICD10: I10] Diagnosis: Nausea[ICD10: R11.0] Diagnosis: Chronic pain syndrome[ICD10: G89.4] [facility] CPT-4: 53734 06/09/2017 ([id number]) PREV VISIT NEW AGE 40-64 Diagnosis: Atrophy of thyroid (acquired)[ICD10: E03.4] Diagnosis: Type 2 diabetes mellitus without complications[ICD10: E11.9] Diagnosis: Encounter for general adult medical examination with abnormal findings[ICD10: Z00.01] Diagnosis: Essential (primary) hypertension[ICD10: I10] [facility] CPT-4: 97151 05/13/2017 Plan of Care Planned Activity Notes [...] hydrocodone to be written for pt to orange picking supervisor. Will attempt to wean pt off of hydrocodone as able. 08/11/2017 [facility] [phone] [id number] ([facility] min) Moderate 08/11/2017 Patient Education: [...] hydrocodone to be written for pt to orange picking supervisor. Will attempt to wean pt off of hydrocodone as able. 06/09/2017 [facility]ment: [facility] [phone] [id number] [place] (15 min) Moderate 06/09/2017 Patient [...] of control. 05/13/2017 Appointment: Kristie Carter WPtel: [address] [place], [place] [id number] New Patient 05/13/2017 Patient Education: Patient Medication [...] hydrocodone to be written for pt to orange picking supervisor. Will attempt to wean pt off of [...] hydrocodone to be written for pt to orange picking supervisor. Will attempt to wean pt off of [...]
--- OUTSIDE RECORDS SUMMARY | 2018-08-11 08:44 | XMS REPORT | Continuity of Care Document ---
Author Author [facility] Organization [facility] Address Unknown Phone Unavailable Allergies Active Description Code Type Severity Reaction Onset Reported/Identified Relationship to Patient Clinical Status Yes cephalexin [id number] Drug Allergy Unknown N/A 03/03/2006 Yes No Known Drug Allergies [id number] Drug Allergy Unknown N/A 08/05/2018 Medications There is no data. Problems Date Dx Coded Attending Type Code Diagnosis Diagnosed By 11/15/2015 Ot 729.1 MYALGIA AND MYOSITIS NOS 11/15/2015 JORY GONZALEZ Ot M17.11 UNILATERAL PRIMARY OSTEOARTHRITIS, RIGHT 11/15/2015 JORY GONZALEZ Ot M25.461 EFFUSION, RIGHT KNEE 11/15/2015 Ot 729.1 MYALGIA AND MYOSITIS NOS 11/17/2015 JORY GONZALEZ Ot M17.11 UNILATERAL PRIMARY OSTEOARTHRITIS, RIGHT 11/17/2015 JORY GONZALEZ Ot M25.461 EFFUSION, RIGHT KNEE 03/14/2017 SANG FRANCOIS Ot E03.9 HYPOTHYROIDISM, UNSPECIFIED 07/29/2018 SANG FRANCOIS Ot E03.9 HYPOTHYROIDISM, UNSPECIFIED 07/31/2018 STACEY CASAREZ DO Ot K76.0 FATTY (CHANGE OF) LIVER, NOT ELSEWHERE C 07/31/2018 STACEY CASAREZ DO Ot K80.20 CALCULUS OF GALLBLADDER W/O CHOLECYSTITI 08/05/2018 STACEY CASAREZ DO Ot Z01.818 ENCOUNTER FOR OTHER PREPROCEDURAL EXAMIN 08/05/2018 STACEY CASAREZ DO Ot Z01.818 ENCOUNTER FOR OTHER PREPROCEDURAL EXAMIN 08/05/2018 STACEY CASAREZ DO Ot Z01.818 ENCOUNTER FOR OTHER PREPROCEDURAL EXAMIN 08/06/2018 STACEY CASAREZ DO Ot Z01.818 ENCOUNTER FOR OTHER PREPROCEDURAL EXAMIN Procedures There is no data. Results Test Result Range Thyroid Stimulating Hormone - 10/28/16 15:32 TSH 10.32 mIU/mL 0.32-5.00 THYROID STIMULATING HORMONE - 03/13/17 14:17 THYROID STIMULATING HORMONE 18.49 u[iU]/mL 0.35-4.94 TRIIODOTHRYONINE T3 FREE - 03/13/17 14:17 TRIIODOTHYRONINE T3 FREE 2.6 pg/mL 2.4-4.5 Encounters ACCT No. Visit Date/Time Discharge Status Pt. Type Provider Facility Loc./Unit Complaint [id number] 08/05/2018 13:00:00 08/05/2018 13:26:00 DIS Outpatient STACEY CASAREZ DO [facility] PREOP COLONOSCOPY/EGD [id number] 07/30/2018 07:49:00 07/30/2018 23:59:59 CLS Outpatient STACEY CASAREZ DO [facility] RAD EPIGASTRIC ABDOMINAL PAIN [id number] 03/13/2017 14:05:00 03/13/2017 23:59:59 CLS Outpatient SANG FRANCOIS [facility] LAB HYPOTHYROIDISM [id number] 11/15/2015 17:29:00 11/15/2015 19:30:00 DIS Emergency JORY GONZALEZ [facility] ER R KNEE PAIN [id number] 08/20/2018 10:00:00 PEN Preadmit STACEY CASAREZ DO [facility] SDC SYMPTOMATIC CHOLECYSTITIS [id number] 08/11/2018 10:20:00 PEN Preadmit STACEY CASAREZ DO [facility] ENDO DYSPHAGIA/EPIGASTRIC ABD PAIN/NAUS/CHANGE IN BOWEL [id number] 10/19/2010 14:29:00 Document Registration [id number] 05/13/2017 17:02:18 05/13/2017 23:59:59 CLS Outpatient [id number] 10/28/2016 20:02:00 10/28/2016 23:59:00 DIS Outpatient Erasto Mayer
--- OUTSIDE RECORDS SUMMARY | 2018-08-11 08:44 | XMS REPORT | CCD ---
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 05/13/[address]: 6876760 Former smoker 05/13/[address]: 223127029 Never drinks alcohol 05/13/2017 Has the patient ever used illegal drugs? Unknown Has never used illegal drugs 05/13/2017 Allergies, Adverse Reactions, Alerts Substance Reaction Codes Entered Date Inactivated Date Status Lyrica nausea RxNorm: 184408 05/13/2017 No Inactive Date Active Savella nausea RxNorm: 867884 05/13/2017 No Inactive Date Active ibuprofen nausea [...] Start Date Stop Date Status Fill Instructions Flonase Allergy Relief 50 mcg/actuation nasal spray, suspension RxNorm: 6922296 2 [place] NASAL daily 08/19/2017 No Stop Date Active promethazine 25 mg tablet RxNorm: 312502 1 Tablet(s) PO BID as needed nausea 08/11/2017 03/08/2018 Active methadone 10 mg tablet RxNorm: 235425 1 Tablet(s) PO TID 201709/09/2017 Active Carafate 1 gram tablet RxNorm: 118376 1 Tablet(s) PO BID 2017 No Stop Date Active hydrocodone 7.5 mg-acetaminophen 325 mg tablet RxNorm: 677563 1 Tablet(s) PO TID as needed 08/11/2017 09/09/2017 Active ondansetron 4 mg disintegrating tablet RxNorm: 965140 1 Tablet(s) PO daily as needed 07/10/2017 08/08/2017 Inactive hydrocodone 7.5 mg-acetaminophen 325 mg tablet RxNorm: 841791 1 Tablet(s) PO TID as needed 07/08/2017 08/06/2017 Inactive hydrocodone 7.5 mg-acetaminophen 325 mg tablet RxNorm: 304443 1 Tablet(s) PO TID as needed 07/08/2017 07/07/2017 Inactive methadone 10 mg tablet RxNorm: 492458 1 Tablet(s) PO TID 201608/06/2017 Inactive hydrocodone 10 mg-acetaminophen 325 mg tablet RxNorm: 172675 1 Tablet(s) PO TID as needed for breakthrough pain 06/16/2017 07/07/2017 Inactive atenolol 50 mg tablet RxNorm: 324333 1 Tablet(s) PO daily 201603/05/2018 Active pantoprazole 40 mg tablet,delayed release RxNorm: 140889 1 Tablet(s) PO daily bid x 1 week then daily thereafter 06/09/2017 12/05/2017 Active ondansetron 4 mg disintegrating tablet RxNorm: 340864 1 Tablet(s) PO daily as needed 06/09/2017 07/08/2017 Inactive hydrocodone 10 mg-acetaminophen 325 mg tablet RxNorm: 861626 1 Tablet(s) PO TID as needed for breakthrough pain 06/09/2017 06/15/2017 Inactive promethazine 25 mg tablet RxNorm: 662716 1 Tablet(s) PO BID as needed nausea 06/09/2017 08/10/2017 Inactive alprazolam 0.25 mg tablet RxNorm: 942667 1 Tablet(s) PO TID as needed 05/30/2017 08/27/2017 Active pantoprazole 40 mg tablet,delayed release RxNorm: 920025 1 Tablet(s) PO daily 05/30/2017 06/08/2017 Inactive ondansetron 4 mg disintegrating tablet RxNorm: 838505 1 Tablet(s) PO daily as needed 05/30/2017 06/08/2017 Inactive levothyroxine 75 mcg tablet RxNorm: 476140 1 Tablet(s) PO daily 05/13/2017 12/08/2017 Active loratadine 10 mg tablet RxNorm: 908201 1 Tablet(s) PO daily 12/08/2017 Active metformin 500 mg tablet RxNorm: 647462 1 Tablet(s) PO daily No Start Date Active promethazine 25 mg tablet RxNorm: 200852 Tablet(s) PO as needed nausea No Start Date Active cyclobenzaprine 10 mg tablet RxNorm: 635795 Tablet(s) PO as needed No Start Date Active ondansetron 8 mg disintegrating tablet RxNorm: 106486 Tablet(s) PO as needed nausea No Start Date 05/29/2017 Inactive loratadine 10 mg tablet RxNorm: 503397 1 Tablet(s) PO daily No Start Date 05/12/2017 Inactive atenolol 50 mg tablet RxNorm: 217693 1 Tablet(s) PO daily No Start Date 06/08/2017 Inactive Flonase Allergy Relief 50 mcg/actuation nasal spray, suspension RxNorm: 8669189 [place] NASAL daily No Start Date 2017 Inactive alprazolam 0.25 mg tablet RxNorm: 425577 Tablet(s) PO as needed No Start Date 05/29/2017 Inactive levothyroxine oral RxNorm: 69999 oral No Start Date 05/13/2017 Inactive hydrocodone 10 mg-acetaminophen 325 mg tablet RxNorm: 412071 Tablet(s) PO as needed for breakthrough pain No Start Date 06/08/2017 Inactive methadone 10 mg tablet RxNorm: 708664 1 Tablet(s) PO TID No Start Date 07/07/2017 Inactive pantoprazole 40 mg tablet,delayed release RxNorm: 964481 1 Tablet(s) PO daily No Start Date [...] Code : 8480-6 BMI: 34.0 Code : 01023-7 Heart Rate 1 : 76 bpm Height: 5'4" SpO2: 94% Weight: 198 lbs 06/09/2017 Blood Pressure 1: 170/96 Code : 8480-6 BMI: 34.0 Code : 44297-9 Heart Rate 1 : 94 bpm Height: 5'4" SpO2: 97% Temperature: 36.8 (C) / 98.2 (F) Weight: 198 lbs 05/13/2017 Blood Pressure 1: 130/68 Code : 8480-6 BMI: 35.0 Code : 42737-6 Heart Rate 1 : 74 bpm Height: [...] Encounters Encounter Performer Location Codes Date () 79090 EST. PATIENT, LEVEL IV Diagnosis: Chronic pain syndrome[ICD10: G89.4] Diagnosis: Essential (primary) hypertension[ICD10: I10] Diagnosis: Nausea[ICD10: R11.0] [facility] MD, [facility] CPT-4: 65637 08/11/2017 ([id number]) 81453 EST. PATIENT, LEVEL III Diagnosis: Essential (primary) hypertension[ICD10: I10] Diagnosis: Nausea[ICD10: R11.0] Diagnosis: Chronic pain syndrome[ICD10: G89.4] [facility] MD, [facility] CPT-4: 72009 06/09/2017 ([id number]) PREV VISIT NEW AGE 40-64 Diagnosis: Atrophy of thyroid (acquired)[ICD10: E03.4] Diagnosis: Type 2 diabetes mellitus without complications[ICD10: E11.9] Diagnosis: Encounter for general adult medical examination with abnormal findings[ICD10: Z00.01] Diagnosis: Essential (primary) hypertension[ICD10: I10] [facility] CPT-4: 02970 05/13/2017 Plan of Care Planned Activity Notes [...] to be written for pt to picker tender. Will attempt to wean pt off of hydrocodone as able. 08/11/2017 Appointment: [facility] [phone] [id number] [place] ([facility] min) Moderate 08/11/2017 Patient [...] to be written for pt to picker tender. Will attempt to wean pt off of hydrocodone as able. 06/09/2017 App[facility]ment[facility] [phone] [id number] [place] (15 min) Moderate [...] of control. 05/13/2017 Appointment: Kristie Carter WPtel: [address] [place], [place] [id number] [place] New Patient 05/13/2017 Patient Education: Patient [...] to be written for pt to picker tender. Will attempt to wean pt off of [...] to be written for pt to picker tender. Will attempt to wean pt off of [...]
[2018-08-11] MEDS ORDERED: MIDAZOLAM 2 MG/2 ML (VERSED) VIAL ONE (08:47)
[2018-08-11] MEDS ORDERED: PROPOFOL INJECTION 50 ML IV ONE (08:47)
[2018-08-11 10:30] VITALS: BP 130/72
--- NOTE | 2018-08-11 10:34 | Discharge Inst-Simple/Standard ---
Discharge Inst-Standard Discharge Medications New, Converted or Re-Newed RX: RX on Chart Patient Instructions/Follow Up Plan of Care/Instructions/FU: 1 week Activity as Tolerated: Yes Discharge Diet: Regular Diet STACEY CASAREZ DO Aug 11, 2018 10:33
--- NOTE | 2018-08-11 10:35 | Progress Note-Post Operative ---
Post-Operative Progess Note Surgeon (s)/Tracer Powder Blender (s) Surgeon STACEY CASAREZ DO Tracer Powder Blender: na Pre-Operative Diagnosis epigastric abdominal pain, dysphagia, change in bowel habits Post-Operative Diagnosis slight gastritis, colon polyps x 4 Procedure & Operative Findings Date of Procedure 08/11/18 Procedure Performed/Findings egd c biopsies, colonoscopy c hot bx polypectomy x 4 Anesthesia Type per ruffler Estimated Blood Loss Estimated blood loss (mL): none Specimens/Packing Specimens Removed antrum, body, colon polyps STACEY CASAREZ DO Aug 11, 2018 10:35
[2018-08-11 11:00] VITALS: BP 143/81
--- NOTE | 2018-08-11 12:07 | Anesthesia-General Post-Op ---
MAC Patient Condition Mental Status/LOC: Same as Preop Cardiovascular: Satisfactory Nausea/Vomiting: Absent Respiratory: Satisfactory Pain: Controlled Complications: Absent Post Op Complications Complications None Follow Up Care/Instructions Patient Instructions None needed. Anesthesiology Discharge Order Discharge Order Patient is doing well, no complaints, stable vital signs, no apparent adverse anesthesia problems. No complications reported per nursing. MARCO A CAMP CRNA Aug 11, 2018 12:07
--- NOTE | 2018-08-11 13:23 | OPERATIVE REPORT ---
DATE OF SERVICE: 08/11/2018 PREOPERATIVE DIAGNOSES: Epigastric abdominal pain, dysphagia and change in bowel habits. POSTOPERATIVE DIAGNOSES: Slight gastritis and colon polyps x 4. PROCEDURES: EGD with biopsies, colonoscopy with hot biopsy polypectomy x 4. SURGEON: Stacey Juan DO. ANESTHESIA: Per ALGEBRAIST. ESTIMATED BLOOD LOSS: None. COMPLICATIONS: None. SPECIMENS: Antrum, body and ascending colon x 1, sigmoid colon x 2 and rectal x 1. INDICATIONS: The patient is a 63-year-old female with epigastric abdominal pain, dysphagia and she has had some change in bowel habits. She understands the risks and benefits of procedure and wished to proceed with procedure. Consent was signed in the chart. PROCEDURE: The patient was taken to the endoscopy suite, placed in the left lateral recumbent position. Timeout was performed. Scope was inserted in mouth, down the esophagus, stomach and into the duodenum without difficulty. There were no polyps, masses or ulcerations within the duodenum. Scope was slowly retracted back into the stomach where it was further insufflated. Some slight erythematous changes, may be some slight gastritis present. Biopsy of the antrum and the body were obtained. The scope was then retroflexed noting no other pathology. Scope was returned to its normal position, slowly withdrawn to the distal esophagus, which had normal appearance. No polyps, masses or ulcerations. Scope was then slowly retracted back until completely removed. Digital rectal exam was performed. There were no palpable polyps, masses or ulcerations. Scope was inserted into the rectum and advanced all the way to the cecum with minimal difficulty. Prep was adequate. Scope was then slowly retracted back. There were no polyps, masses or ulcerations within the cecum. Within the ascending colon, a small polyp was present, which hot biopsy polypectomy was performed. Scope was continued slowly retracted back. No other polyps in the ascending colon, transverse colon or descending colon. In the sigmoid colon, there were 2 small polyps, which hot biopsy polypectomy was performed. Once in the rectum, there was another small polyp, which hot biopsy polypectomy was performed. Scope was also retroflexed noting no other pathology. Scope was returned to its normal position, slowly withdrawn until completely removed. The patient tolerated the procedure well without any complications. She was taken to the recovery room in stable condition. RECOMMENDATIONS: The patient will follow up in one week to discuss pathology results. We will see how her symptoms are doing. She is to continue on her Protonix. The patient will need repeat colonoscopy in 3 years. Job ID: [id number] DocumentID: [id number] Dictated Date: 08/11/2018 10:38:28 Allergist/Md Date: 08/11/2018 13:22:44 Dictated By: STACEY JUAN DO
== END 2018-08-11 11:24 | disposition home or self-care (01) ==
LOC: ENDO 08:19
PROVIDERS: ATTEND Surgery
DX: R19.4 Change in bowel habit (principal); K63.5 Polyp of colon; K62.1 Rectal polyp; K21.9 Gastro-esophageal reflux disease without esophagitis; K29.50 Unspecified chronic gastritis without bleeding; I10 Essential (primary) hypertension; E03.9 Hypothyroidism, unspecified; M79.7 Fibromyalgia; Z79.899 Other long term (current) drug therapy; Z79.891 Long term (current) use of opiate analgesic
CPT/HCPCS: 88305

== ENCOUNTER 2018-08-11 09:02 | Outpatient (CLI) | payer OTHER ==
[~2018-08-11] VITALS: Ht 165.1 cm; Wt 90.7 kg
[2018-08-11 09:52] LABS: BASOPHILS % (AUTO) 0 % (0-10); EOSINOPHILS % (AUTO) 1 % (0-10); HEMATOCRIT 44 % (35-52); HEMOGLOBIN 14.7 G/DL (11.5-16.0); LYMPHOCYTES # (AUTO) 1.3 X 10^3 (1.0-4.0); LYMPHOCYTES % (AUTO) 20 % (12-44); MEAN CORPUSCULAR HEMOGLOBIN 30 PG (25-34); MEAN CORPUSCULAR HGB CONC 34 G/DL (32-36); MEAN CORPUSCULAR VOLUME 90 FL (80-99); MEAN PLATELET VOLUME 10.2 FL (7.4-10.4); MONOCYTES # (AUTO) 0.3 X 10^3 (0.0-1.0); MONOCYTES % (AUTO) 5 % (0-12); NEUTROPHILS # (AUTO) 4.9 X 10^3 (1.8-7.8); NEUTROPHILS % (AUTO) 74 % (42-75); PLATELET COUNT 232 10^3/uL (130-400); RED BLOOD COUNT 4.87 10^6/uL (4.35-5.85); RED CELL DISTRIBUTION WIDTH 13.2 % (10.0-14.5); WHITE BLOOD COUNT 6.6 10^3/uL (4.3-11.0)
== END 2018-08-11 09:46 | disposition home or self-care (01) ==
LOC: PREOP 09:02
PROVIDERS: ATTEND Surgery
DX: Z01.812 Encounter for preprocedural laboratory examination (principal); Z11.2 Encounter for screening for other bacterial diseases; K80.20 Calculus of gallbladder without cholecystitis without obstruction
CPT/HCPCS: 36415; 85025; 87081

== ENCOUNTER 2018-08-20 09:45 | Day surgery (SDC) | payer OTHER ==
[~2018-08-20] VITALS: Ht 165.1 cm; Wt 90.7 kg
[2018-08-20 09:45] VITALS: BP 163/84
[2018-08-20] MEDS: LACTATED RINGERS 1,000 ML IV PRN ×2 (10:00→12:30)
[2018-08-20] MEDS ORDERED: ceFAZolin 2 GM IV Premixed 50 ML ONE (10:00)
[2018-08-20] MEDS ORDERED: FAMOTIDINE 20MG/2ML IV (PEPCID) IV ONE (10:30)
[2018-08-20] MEDS ORDERED: MIDAZOLAM 2 MG/2 ML (VERSED) VIAL ONE (10:30)
[2018-08-20] MEDS ORDERED: MIDAZOLAM 2 MG/2 ML (VERSED) VIAL IV ONE (10:30)
[2018-08-20] MEDS ORDERED: FAMOTIDINE 20MG/2ML IV (PEPCID) ONE (10:30)
[2018-08-20] MEDS ORDERED: ceFAZolin 2 GM IV Premixed 50 ML IV ONE (11:00)
--- NOTE | 2018-08-20 11:13 | Progress Note-Pre Operative ---
Pre-Operative Progress Note H&P Reviewed The H&P was reviewed, patient examined and no changes noted. Date Seen by Provider: Aug 20, 2018 Time Seen by Provider: 11:12 Date H&P Reviewed: Aug 20, 2018 Time H&P Reviewed: 11:12 Pre-Operative Diagnosis: symptomatic cholelithiasis STACEY CASAREZ DO Aug 20, 2018 11:13
[2018-08-20] MEDS ORDERED: IOPAMIDOL 61% 30 ML (ISOVUE 300) VIAL IV ONE (11:37)
[2018-08-20] MEDS ORDERED: LIDOCAINE 1% INJ 20 ML 20 ML VIAL ONE (11:37)
[2018-08-20] MEDS ORDERED: BUPIVACAINE 0.5% 30 ML (SENSORCAINE) VIAL ONE (11:37)
[2018-08-20] MEDS ORDERED: ONDANSETRON 4 MG/2 ML (SDV) Z0FRAN ONE (12:00)
[2018-08-20] MEDS ORDERED: proPOfol 200 MG/20 ML (DIPRIVAN) VIAL IV ONE (12:00)
[2018-08-20] MEDS ORDERED: ROCURONIUM 10 MG/ML 5 ML SYRINGE IV ONE (12:00)
[2018-08-20] MEDS ORDERED: DEXAMETHASONE 10 MG/ML (DECADRON) 1 ML VIAL ONE (12:01)
[2018-08-20] MEDS ORDERED: fentaNYL INJECTION 100 MCG/2 ML AMP ONE (12:01)
[2018-08-20] MEDS ORDERED: DESFLURANE (SUPRANE) 15 ML INHAL SOLN ONE (12:01)
--- OUTSIDE RECORDS SUMMARY | 2018-08-20 12:13 | XMS REPORT | CCD ---
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 Unknown Has never used illegal drugs 05/13/2017 Allergies, Adverse Reactions, Alerts Substance Reaction Codes Entered Date Inactivated Date Status * OTHER REACTION - SEE ANSWER BOX Antibiotics- cause nausea Unknown 05/13/2017 No Inactive Date Active Lyrica nausea RxNorm: 103792 05/13/2017 No Inactive Date Active Savella nausea RxNorm: 051142 05/13/2017 No Inactive Date Active ibuprofen nausea, [...] Start Date Stop Date Status Fill Instructions pantoprazole 40 mg tablet,delayed release RxNorm: 636096 1 Tablet(s) PO daily 08/17/2018 03/14/2019 Active ondansetron 4 mg disintegrating tablet RxNorm: 676114 1 Tablet(s) PO daily as needed 08/14/2018 09/12/2018 Active losartan 100 mg tablet RxNorm: 652250 TAKE 1 TABLET BY MOUTH ONCE DAILY 08/11/2018 No Stop Date Active losartan 100 mg tablet RxNorm: 643988 TAKE 1 TABLET BY MOUTH ONCE DAILY 07/15/2018 08/10/2018 Inactive loratadine 10 mg tablet RxNorm: 711660 TAKE 1 TABLET BY MOUTH ONCE DAILY 07/03/2018 No Stop Date Active levothyroxine 112 mcg tablet RxNorm: 086118 TAKE 1 TABLET BY MOUTH ONCE DAILY 07/03/2018 No Stop Date Active methadone 10 mg tablet RxNorm: 833594 1.5 Tablet(s) PO TID 04/201808/27/2018 Active ondansetron 4 mg disintegrating tablet RxNorm: 632224 1 Tablet(s) PO daily as needed 06/25/2018 08/13/2018 Inactive methadone 10 mg tablet RxNorm: 112494 1.5 Tablet(s) PO TID 06/28/2018 Inactive methadone 10 mg tablet RxNorm: 998017 1.5 Tablet(s) PO TID 06/03/2018 Inactive methadone 10 mg tablet RxNorm: 691260 1.5 Tablet(s) PO TID 05/09/2018 Inactive loratadine 10 mg tablet RxNorm: 600282 TAKE 1 TABLET BY MOUTH ONCE DAILY 04/01/2018 07/02/2018 Inactive pantoprazole 40 mg tablet,delayed release RxNorm: 856663 TAKE ONE TABLET BY MOUTH TWICE DAILY FOR 1 WEEK, THEN ONCE DAILY THEREAFTER. 201708/16/2018 Inactive ondansetron 4 mg disintegrating tablet RxNorm: 796410 1 Tablet(s) PO daily as needed 03/30/2018 06/24/2018 Inactive hydrocodone 7.5 mg-acetaminophen 325 mg tablet RxNorm: 439392 1 Tablet(s) PO TID as needed 03/18/2018 04/14/2018 Inactive methadone 10 mg tablet RxNorm: 857128 1 Tablet(s) PO TID 201703/24/2018 Inactive levothyroxine 112 mcg tablet RxNorm: 779230 1 Tablet(s) PO daily 03/06/2018 07/02/2018 Inactive promethazine 25 mg tablet RxNorm: 156699 1 Tablet(s) PO BID as needed nausea 03/05/2018 09/30/2018 Active ondansetron 4 mg disintegrating tablet RxNorm: 544593 1 Tablet(s) PO daily as needed 02/24/2018 03/25/2018 Inactive hydrocodone 7.5 mg-acetaminophen 325 mg tablet RxNorm: 304782 1 Tablet(s) PO TID as needed 02/18/2018 03/17/2018 Inactive methadone 10 mg tablet RxNorm: 935672 1 Tablet(s) PO TID 201703/17/2018 Inactive atenolol 50 mg tablet RxNorm: 631979 TAKE ONE TABLET BY MOUTH ONCE DAILY 02/16/2018 No Stop Date Active levothyroxine 112 mcg tablet RxNorm: 996451 1 Tablet(s) PO daily 02/02/2018 03/03/2018 Inactive levothyroxine 112 mcg tablet RxNorm: 051954 1 Tablet(s) PO daily 02/02/2018 02/01/2018 Inactive loratadine 10 mg tablet RxNorm: 569411 TAKE ONE TABLET BY MOUTH ONCE DAILY 01/29/2018 03/31/2018 Inactive hydrocodone 7.5 mg-acetaminophen 325 mg tablet RxNorm: 110823 1 Tablet(s) PO TID as needed 01/19/2018 02/17/2018 Inactive methadone 10 mg tablet RxNorm: 715377 1 Tablet(s) PO TID 201702/17/2018 Inactive doxazosin 2 mg tablet RxNorm: 799869 1 Tablet(s) PO BID 201701/11/2018 Inactive doxazosin 1 mg tablet RxNorm: 290525 1 Tablet(s) PO BID 201712/30/2017 Inactive ondansetron 4 mg disintegrating tablet RxNorm: 943344 1 Tablet(s) PO daily as needed 12/29/2017 02/23/2018 Inactive mupirocin 2 % topical ointment RxNorm: 987408 1 TOP TID 201712/10/2017 Inactive losartan 100 mg tablet RxNorm: 890609 1 Tablet(s) PO daily 06/28/2018 Inactive doxycycline hyclate 100 mg tablet RxNorm: 534160 1 Tablet(s) PO BID for cellulitis of toe 12/01/2017 12/05/2017 Inactive ondansetron 4 mg disintegrating tablet RxNorm: 749224 1 Tablet(s) PO daily as needed 11/28/2017 12/27/2017 Inactive WelChol 625 mg tablet RxNorm: 516134 3 Tablet(s) PO BID 201711/21/2017 Inactive levothyroxine 100 mcg tablet RxNorm: 223919 1 Tablet(s) PO daily 11/11/2017 03/10/2018 Inactive WelChol 625 mg tablet RxNorm: 874179 3 Tablet(s) PO BID 201711/10/2017 Inactive losartan 50 mg tablet RxNorm: 216222 1 Tablet(s) PO daily 201711/30/2017 Inactive ondansetron 4 mg disintegrating tablet RxNorm: 132008 1 Tablet(s) PO daily as needed 10/27/2017 11/25/2017 Inactive hydrocodone 7.5 mg-acetaminophen 325 mg tablet RxNorm: 934688 1 Tablet(s) PO TID as needed 10/02/2017 10/31/2017 Inactive methadone 10 mg tablet RxNorm: 197109 1 Tablet(s) PO TID 201710/31/2017 Inactive ondansetron 4 mg disintegrating tablet RxNorm: 636414 1 Tablet(s) PO daily as needed 09/03/2017 10/26/2017 Inactive Flonase Allergy Relief 50 mcg/actuation nasal spray, suspension RxNorm: 7388107 2 [place] NASAL daily 08/19/2017 No Stop Date Active Carafate 1 gram tablet RxNorm: 545245 1 Tablet(s) PO BID 2017 No Stop Date Active promethazine 25 mg tablet RxNorm: 555374 1 Tablet(s) PO BID as needed nausea 08/11/2017 03/04/2018 Inactive methadone 10 mg tablet RxNorm: 574449 1 Tablet(s) PO TID 201709/09/2017 Inactive hydrocodone 7.5 mg-acetaminophen 325 mg tablet RxNorm: 463399 1 Tablet(s) PO TID as needed 08/11/2017 09/09/2017 Inactive ondansetron 4 mg disintegrating tablet RxNorm: 588483 1 Tablet(s) PO daily as needed 07/10/2017 08/08/2017 Inactive hydrocodone 7.5 mg-acetaminophen 325 mg tablet RxNorm: 676896 1 Tablet(s) PO TID as needed 07/08/2017 08/06/2017 Inactive hydrocodone 7.5 mg-acetaminophen 325 mg tablet RxNorm: 186948 1 Tablet(s) PO TID as needed 07/08/2017 07/07/2017 Inactive methadone 10 mg tablet RxNorm: 146751 1 Tablet(s) PO TID 201608/06/2017 Inactive hydrocodone 10 mg-acetaminophen 325 mg tablet RxNorm: 420678 1 Tablet(s) PO TID as needed for breakthrough pain 06/16/2017 07/07/2017 Inactive ondansetron 4 mg disintegrating tablet RxNorm: 499782 1 Tablet(s) PO daily as needed 06/09/2017 07/08/2017 Inactive hydrocodone 10 mg-acetaminophen 325 mg tablet RxNorm: 107318 1 Tablet(s) PO TID as needed for breakthrough pain 06/09/2017 06/15/2017 Inactive atenolol 50 mg tablet RxNorm: 309995 1 Tablet(s) PO daily 201602/15/2018 Inactive promethazine 25 mg tablet RxNorm: 108071 1 Tablet(s) PO BID as needed nausea 06/09/2017 08/10/2017 Inactive pantoprazole 40 mg tablet,delayed release RxNorm: 954423 1 Tablet(s) PO daily bid x 1 week then daily thereafter 06/09/2017 12/05/2017 Inactive alprazolam 0.25 mg tablet RxNorm: 404239 1 Tablet(s) PO TID as needed 05/30/2017 11/02/2017 Inactive pantoprazole 40 mg tablet,delayed release RxNorm: 313855 1 Tablet(s) PO daily 05/30/2017 06/08/2017 Inactive ondansetron 4 mg disintegrating tablet RxNorm: 711083 1 Tablet(s) PO daily as needed 05/30/2017 06/08/2017 Inactive levothyroxine 75 mcg tablet RxNorm: 048425 1 Tablet(s) PO daily 05/13/2017 11/30/2017 Inactive loratadine 10 mg tablet RxNorm: 197058 1 Tablet(s) PO daily 12/08/2017 Inactive promethazine 25 mg tablet RxNorm: 574297 Tablet(s) PO as needed nausea No Start Date Active cyclobenzaprine 10 mg tablet RxNorm: 182255 Tablet(s) PO as needed No Start Date Active metformin 500 mg tablet RxNorm: 197220 1 Tablet(s) PO daily No Start Date 08/19/2017 Inactive ondansetron 8 mg disintegrating tablet RxNorm: 398186 Tablet(s) PO as needed nausea No Start Date 05/29/2017 Inactive levothyroxine 100 mcg tablet RxNorm: 721280 Tablet(s) PO No Start Date 11/10/2017 Inactive loratadine 10 mg tablet RxNorm: 686962 1 Tablet(s) PO daily No Start Date 05/12/2017 Inactive atenolol 50 mg tablet RxNorm: 228933 1 Tablet(s) PO daily No Start Date 06/08/2017 Inactive Flonase Allergy Relief 50 mcg/actuation nasal spray, suspension RxNorm: 6793293 [place] NASAL daily No Start Date 2017 Inactive alprazolam 0.25 mg tablet RxNorm: 084593 Tablet(s) PO as needed No Start Date 05/29/2017 Inactive levothyroxine oral RxNorm: 92976 oral No Start Date 05/13/2017 Inactive hydrocodone 10 mg-acetaminophen 325 mg tablet RxNorm: 766784 Tablet(s) PO as needed for breakthrough pain No Start Date 06/08/2017 Inactive methadone 10 mg tablet RxNorm: 332300 1 Tablet(s) PO TID No Start Date 07/07/2017 Inactive pantoprazole 40 mg tablet,delayed release RxNorm: 164722 1 Tablet(s) PO daily No Start Date 05/29/2017 Inactive Medication Administered No Medication Administered data Immunizations No Immunization data Assessments Condition Codes Effective Dates Essential (primary) hypertension ICD-10: I10 ICD-9: 401.1 08/17/2018 Atrophy of thyroid (acquired) ICD-10: E03.4 ICD-9: 244.8 08/17/2018 Chronic pain syndrome ICD-10: G89.4 ICD-9: 338.4 06/29/2018 Type 2 diabetes mellitus without complications ICD-10: E11.9 ICD-9: 250.00 06/29/2018 Nausea ICD-10: R11.0 ICD-9: 787.02 03/25/2018 Encounter for general adult medical examination with abnormal findings ICD-10: Z00.01 ICD-9: V70.0 05/13/2017 Reason For Visit Reason For Visit Effective Dates Notes diabetes mellitus 08/17/2018 diabetes mellitus 06/29/2018 diabetes mellitus 05/18/2018 nausea 03/25/2018 hypertension 01/12/2018 hypertension 12/29/2017 hypertension 12/01/2017 hypertension 11/03/2017 hypertension 08/11/2017 hypertension 06/09/2017 hypertension 05/13/2017 Results Observation Observation Code Item Item Code Result Date Free T4 Ydk448 FREE T4 0.81 ng/dL 01/22/2018 Tsh Ord6 TSH (3rd IS) 12.54 uIU/mL 01/22/2018 Comp Metabolic Psy085 NA 139 mEq/L 11/05/2017 Comp Metabolic Goc621 K 3.9 mEq/L 11/05/2017 Comp Metabolic Voh701 CL 101 mEq/L 11/05/2017 Comp Metabolic Mek054 CO2 30.0 mEq/L 11/05/2017 Comp Metabolic Rvq296 ANION GAP 12 11/05/2017 Comp Metabolic Ycy595 GLUCOSE 98 mg/dL 11/05/2017 Comp Metabolic Kmr541 Creat 0.8 mg/dL 11/05/2017 Comp Metabolic Ffu610 eGFR 74 ml/min/1.73m2 11/05/2017 Comp Metabolic Ioq341 BUN 9 mg/dL 11/05/2017 Comp Metabolic Ssu599 B/C Ratio 10.8 Ratio 11/05/2017 Comp Metabolic Pxb068 CALCIUM 9.1 mg/dL 11/05/2017 Comp Metabolic Zgy662 ALK PHOS 87 U/L 11/05/2017 Comp Metabolic Kgn635 AST(SGOT) 28 U/L 11/05/2017 Comp Metabolic Too169 ALT(SGPT) 30 U/L 11/05/2017 Comp Metabolic Atz665 BILI T 0.5 mg/dL 11/05/2017 Comp Metabolic Jsx359 ALBUMIN 3.9 g/dL 11/05/2017 Comp Metabolic Stc671 TPRO 7.2 g/dL 11/05/2017 Comp Metabolic Ica367 GLOB 3.3 g/dL 11/05/2017 Comp Metabolic Eoi960 A/G Ratio 1.2 Ratio 11/05/2017 Comp Metabolic Lpz917 Osmo 276 mOsmo 11/05/2017 Cbc With Differential [...] 31.3 pg 11/05/2017 Cbc With Differential Ord2 [place]% 8.8 % 11/05/2017 Cbc With Differential Ord2 [...] 2.60 K/ul 11/05/2017 Cbc With Differential Ord2 [place] ABS# 0.5 K/ul 11/05/2017 Cbc With Differential Ord2 Eos ABS# 0.2 K/ul 11/05/2017 Cbc With Differential Ord2 Baso ABS# 0.0 K/ul 11/05/2017 Microalbumin Onk950 MicroAlb <0.7 mg/dL 11/05/2017 Tsh Ord6 TSH (3rd IS) 27.62 uIU/mL 11/05/2017 Lipid Ord30 CHOL 218 mg/dL 11/05/2017 Lipid Ord30 HDL 34.0 mg/dl 11/05/2017 Lipid Ord30 TRIG 363 mg/dL 11/05/2017 Lipid Ord30 LDL Unable to calculate Due to elevated triglycerides mg/dL 11/05/2017 Lipid Ord30 C/HDL 6.4 Ratio 11/05/2017 %Hba1C Onw109 % HbA1c 04773-2 6.3 % 11/05/2017 %Hba1C Wcl363 Gluc Ave 134 mg/dL 11/05/2017 Free T4 Hti227 FREE T4 0.69 ng/dL 11/05/2017 Review of Systems System Result Effective Dates Constitutional recent illness 08/17/2018 Constitutional No chills 08/17/2018 Constitutional fatigue 08/17/2018 Constitutional No fever 08/17/2018 Constitutional No insomnia 08/17/2018 Constitutional No malaise 08/17/2018 Eyes No vision change 08/17/2018 Ears/Nose/Throat/Neck No dental pain Ears/Nose/Throat/Neck No dizziness 2018 Ears/Nose/Throat/Neck No dysphagia 2018 Ears/Nose/Throat/Neck No headache 2018 Ears/Nose/Throat/Neck No hearing loss Ears/Nose/Throat/Neck No nasal allergies 08/17/2018 Ears/Nose/Throat/Neck No sore throat Ears/Nose/Throat/Neck No postnasal drip 08/17/2018 Ears/Nose/Throat/Neck No sinus congestion 08/17/2018 Cardiovascular No chest pain/pressure Cardiovascular No dyspnea 08/17/2018 Cardiovascular No edema 08/17/2018 Cardiovascular No exercise intolerance Cardiovascular No fatigue 08/17/2018 Cardiovascular No near-syncope/dizziness 08/17/2018 Respiratory No chest tightness 2018 Respiratory No cough 08/17/2018 Respiratory No dyspnea 08/17/2018 Respiratory No pedal edema 08/17/2018 Gastrointestinal abdominal pain 2018 Gastrointestinal No constipation 2018 Gastrointestinal No diarrhea 08/17/2018 Gastrointestinal gastroesophageal reflux 08/17/2018 Gastrointestinal nausea 08/17/2018 Gastrointestinal No vomiting 08/17/2018 Musculoskeletal stiffness 08/17/2018 Musculoskeletal No swelling 08/17/2018 Musculoskeletal arthralgia(s) 08/17/2018 Musculoskeletal muscle weakness 2018 Musculoskeletal No myalgias 08/17/2018 Dermatologic No rash 08/17/2018 Dermatologic sores 08/17/2018 Neurologic No dizziness 08/17/2018 Neurologic No headache 08/17/2018 Neurologic No neck pain 08/17/2018 Neurologic No syncope 08/17/2018 Psychiatric No anxiety 08/17/2018 Psychiatric No depression 08/17/2018 Endocrine diabetes mellitus type 2 2018 Constitutional recent illness 06/29/2018 Constitutional No chills [...] 1994 Constitutional general appearance Development: well developed 08/17/2018 None Full Exam - General 1994 Constitutional general appearance Development: appears stated age 0108/17/2018 None Full Exam - General 1994 Constitutional general appearance Evidence of Distress: mild distress 08/17/2018 due to nausea and pain Full Exam - General 1994 Constitutional general appearance Hygiene/Attention to Grooming: good hygiene 08/17/2018 None Full Exam - General 1994 Eyes conjunctiva /eyelids Overall: conjunctiva clear 08/17/2018 None Full Exam - General 1995 Eyes conjunctiva /eyelids Overall: cornea clear 08/17/2018 None Full Exam - General 1994 Eyes conjunctiva /eyelids Overall: eyelids normal 08/17/2018 None Full Exam - General 1994 Eyes pupils and irises Overall: pupils equal, round, reactive to light and accomodation 08/17/2018 None Full Exam - General 1995 Ears/Nose/Throat otoscopic exam Overall: external auditory canals clear 08/17/2018 None Full Exam - General 1995 Ears/Nose/Throat otoscopic exam Overall: tympanic membranes clear 08/17/2018 None Full Exam - General 1994 Ears/Nose/Throat lips/teeth/gingiva Overall: benign lips 08/17/2018 None Full Exam - General 1995 Ears/Nose/Throat lips/teeth/gingiva Overall: normal dentition 08/17/2018 None Full Exam - General 1995 Ears/Nose/Throat oral cavity/pharynx/larynx Overall: oral mucosa clear 08/17/2018 None Full Exam - General 1995 Ears/Nose/Throat oral cavity/pharynx/larynx Overall: oropharyngeal mucosa clear 08/17/2018 None Full Exam - General 1995 Ears/Nose/Throat oral cavity/pharynx/larynx Overall: hypopharynx benign 08/17/2018 None Full Exam - General 1994 Ears/Nose/Throat oral cavity/pharynx/larynx Overall: no masses 08/17/2018 None Full Exam - General 1994 Respiratory auscultation Overall: breath sounds clear bilaterally 08/17/2018 None Full Exam - General 1994 Respiratory respiratory effort/rhythm Overall: no retractions 08/17/2018 None Full Exam - General 1994 Respiratory respiratory effort/rhythm Overall: normal rate 08/17/2018 None Full Exam - General 1994 Cardiovascular extremities Overall: no clubbing 08/17/2018 None Full Exam - General 1994 Cardiovascular auscultation of heart Overall: regular rate 08/17/2018 None Full Exam - General 1994 Cardiovascular auscultation of heart Overall: normal heart sounds 08/17/2018 None Full Exam - General 1994 Abdomen abdominal exam Overall: no tenderness 08/17/2018 None Full Exam - General 1994 Abdomen abdominal exam Overall: normal bowel sounds 08/17/2018 None Full Exam - General 1994 Musculoskeletal head and neck Overall: cervical spine benign 08/17/2018 None Full Exam - General 1994 Integument inspection of skin Location: right foot 08/17/2018 3rd toe - erythema of toe Full Exam - General 1994 Psychiatric orientation/consciousness Overall: oriented to person, place and time 08/17/2018 None Full Exam - General 1994 Psychiatric mood and affect Overall: normal mood and affect 08/17/2018 None Full Exam - General 1994 Constitutional [...] None Full Exam - General 1995 Ears/Nose/Throat otoscopic exam Overall: tympanic membranes clear [...] No Procedures data Vital Signs Date Vital 08/17/2018 Blood Pressure 1: 164/80 Code : 8480-6 BMI: 35.4 Code : 09509-3 Heart Rate 1 : 64 bpm Height: 5'4" SpO2: 97% Weight: 206 lbs 06/29/2018 Blood Pressure 1: 162/84 Code : 8480-6 BMI: 34.8 Code : 49839-9 Heart Rate 1 : 76 bpm Height: 5'4" SpO2: 93% Weight: 203 lbs 05/18/2018 Blood Pressure 1: 156/78 Code : 8480-6 Blood Pressure 2: 148/82 Code: 8480-6 BMI: 34.8 Code: 47563-3 Heart Rate 1: 73 bpm Height: 5'4" SpO2: 94% Weight: 203 lbs 03/25/2018 Blood Pressure 1: 162/96 Code : 8480-6 BMI: 34.5 Code : 33272-4 Heart Rate 1 : 73 bpm Height: 5'4" SpO2: 98% Temperature: 36.4 (C) / 97.5 (F) Weight: 201 lbs 01/12/2018 Blood Pressure 1: 180/98 Code : 8480-6 Blood Pressure 1: 156/96 Code: 8480-6 BMI: 34.8 Code: 86429-6 Heart Rate 1: 78 bpm Height: 5'4" SpO2: 94% Weight: 203 lbs 12/29/2017 Blood Pressure 1: 190/98 Code : 8480-6 BMI: 34.8 Code : 70620-3 Heart Rate 1 : 71 bpm Height: 5'4" SpO2: 92% Weight: 203 lbs 12/01/2017 Blood Pressure 1: 180/98 Code : 8480-6 BMI: 34.7 Code : 54541-0 Heart Rate 1 : 73 bpm Height: 5'4" SpO2: 96% Weight: 202 lbs 11/03/2017 Blood Pressure 1: 180/96 Code : 8480-6 BMI: 35.0 Code : 25446-4 Heart Rate 1 : 72 bpm Height: 5'4" SpO2: 94% Weight: 204 lbs 08/11/2017 Blood Pressure 1: 156/84 Code : 8480-6 BMI: 34.0 Code : 03833-8 Heart Rate 1 : 76 bpm Height: 5'4" SpO2: 94% Weight: 198 lbs 06/09/2017 Blood Pressure 1: 170/96 Code : 8480-6 BMI: 34.0 Code : 33637-4 Heart Rate 1 : 94 bpm Height: 5'4" SpO2: 97% Temperature: 36.8 (C) / 98.2 (F) Weight: 198 lbs 05/13/2017 Blood Pressure 1: 130/68 Code : 8480-6 BMI: 35.0 Code : 62076-9 Heart Rate 1 : 74 bpm Height: 5'4" SpO2: 96% Weight: 204 lbs Functional Status No Functional Status data History of Present Illness Symptom Name Status Result Effective Date Notes Quality non-insulin dependent 08/17/2018 None Alleviating Factors diet only 08/17/2018 -cannot tolerate metformin Exacerbating Factors diet 08/17/2018 None Pertinent Findings nausea 08/17/2018 -worse Quality intermittent 08/17/2018 None Quality primary hypertension 08/17/2018 None Onset and Resolution ongoing 08/17/2018 None Onset of Symptom during adulthood 08/17/2018 None Blood Pressure Values patient checking blood pressure at home - did not bring in readings 2018 None Alleviating Factors medication 08/17/2018 None Exacerbating Factors stress 08/17/2018 None Pertinent Findings anxiety 08/17/2018 None Pertinent Findings Denies dizziness 08/17/2018 None Pertinent Findings dyspnea 08/17/2018 "always" Pertinent Findings Denies edema 08/17/2018 None Location diffusely None Quality chronic 08/17 None Quality worsening None Onset and Resolution ongoing 08/17/2018 None Frequency of Episodes increasing 08/17/2018 None Alleviating Factors medication 08/17/2018 None Test results Pt checking blood glucose readings, did not bring results to clinic 08/17/2018 None Glucose monitoring occasional glucose testing 08/17/2018 None Quality chronic 08/17 None Quality non-insulin dependent 06/29/2018 None Alleviating Factors [...] data Encounters Encounter Performer Location Codes Date ([id number]) [id number] EST. PATIENT, LEVEL IV Diagnosis: Essential (primary) hypertension[ICD10: I10] Diagnosis: Atrophy of thyroid (acquired)[ICD10: E03.4] Kristie Carter MD, [facility] CPT-4: 30637 08/17/2018 ([id number]) 90214 EST. PATIENT, LEVEL IV Diagnosis: Atrophy of thyroid (acquired)[ICD10: E03.4] Diagnosis: Type 2 diabetes mellitus without complications[ICD10: E11.9] Diagnosis: Essential (primary) hypertension[ICD10: I10] Diagnosis: Chronic pain syndrome[ICD10: G89.4] Kristie Carter MD, [facility] CPT-4: 26467 06/29/2018 ([id number]) 90511 EST. PATIENT, LEVEL IV Diagnosis: Type 2 diabetes mellitus without complications[ICD10: E11.9] Diagnosis: Atrophy of thyroid (acquired)[ICD10: E03.4] Diagnosis: Essential (primary) hypertension[ICD10: I10] Diagnosis: Chronic pain syndrome[ICD10: G89.4] Kristie Carter MD [facility] CPT-4: 50161 05/18/2018 ([id number]) 36561 EST. PATIENT, LEVEL IV Diagnosis: Type 2 diabetes mellitus without complications[ICD10: E11.9] Diagnosis: Nausea[ICD10: R11.0] Diagnosis: Chronic pain syndrome[ICD10: G89.4] Kristie Carter MD [facility] CPT-4: 93547 03/25/2018 ([id number]) 54289 EST. PATIENT, LEVEL III Diagnosis: Essential (primary) hypertension[ICD10: I10] Kristie Carter MD [facility] CPT-4: 65546 01/12/2018 ([id number]) 84397 EST. PATIENT, LEVEL IV Diagnosis: Essential (primary) hypertension[ICD10: I10] Diagnosis: Chronic pain syndrome[ICD10: G89.4] Kristie Carter MD [facility] CPT-4: 77074 12/29/2017 ([id number]) 05265 EST. PATIENT, LEVEL IV Diagnosis: Essential (primary) hypertension[ICD10: I10] Diagnosis: Chronic pain syndrome[ICD10: G89.4] Diagnosis: Type 2 diabetes mellitus without complications[ICD10: E11.9] Diagnosis: Atrophy of thyroid (acquired)[ICD10: E03.4] Kristie Carter MD [facility] CPT-4: 84380 12/01/2017 ([id number]) 47136 EST. PATIENT, LEVEL IV Diagnosis: Chronic pain syndrome[ICD10: G89.4] Diagnosis: Type 2 diabetes mellitus without complications[ICD10: E11.9] Diagnosis: Atrophy of thyroid (acquired)[ICD10: E03.4] Diagnosis: Essential (primary) hypertension[ICD10: I10] Kristie Carter MD [facility] CPT-4: 00505 11/03/2017 ([id number]) 73539 EST. PATIENT, LEVEL IV Diagnosis: Chronic pain syndrome[ICD10: G89.4] Diagnosis: Essential (primary) hypertension[ICD10: I10] Diagnosis: Nausea[ICD10: R11.0] Kristie Carter MD [facility] CPT-4: 70468 08/11/2017 ([id number]) 46378 EST. PATIENT, LEVEL III Diagnosis: Essential (primary) hypertension[ICD10: I10] Diagnosis: Nausea[ICD10: R11.0] Diagnosis: Chronic pain syndrome[ICD10: G89.4] [facility] CPT-4: 74895 06/09/2017 ([id number]) PREV VISIT NEW AGE 40-64 Diagnosis: Atrophy of thyroid (acquired)[ICD10: E03.4] Diagnosis: Type 2 diabetes mellitus without complications[ICD10: E11.9] Diagnosis: Encounter for general adult medical examination with abnormal findings[ICD10: Z00.01] Diagnosis: Essential (primary) hypertension[ICD10: I10] [facility] CPT-4: 73825 05/13/2017 Plan of Care Planned Activity Notes Codes Status Date Visit Plan: Hypertension - uncontrolled - the [...] pt is to call for acute concerns. Diabetes Mellitus - controlled - per recent [...] readings are starting to become less controlled. 08/17/2018 Patient Education: Patient Medication Summary Completed 08/17/2018 Referral: Ba Juan WPtel:[phone] Patient informed. Referral info faxed. Completed 07/22/2018 [...] of over-medication. 06/29/2018 [facility] [phone] [id number] [place] (15 min) Moderate 06/29/2018 Patient Education: Patient Medication Summary Completed 06/29/2018 Patient Education: Diabetes Completed 06/29/2018 Care Plan: Referral Order SNOMED-CT : [id number] Pending 06/29/2018 Visit Plan: Diabetes Mellitus - [...] of control. 05/18/2018 App[facility]ment: [phone] [id number] [place] (15 min) Moderate 05/18/2018 Patient Education: Patient Medication Summary Completed 05/18/2018 Patient Education: Diabetes Completed 05/18/2018 Appointment: Kristie Carter WPtel: [facility] [place] [facility] (15 min) Moderate 05/11/2018 Appointment: Kristie Carter WPtel: [facility]8 [facility] (15 min) Moderate 04/27/2018 Visit Plan: DM [...] prn phenergan. 03/25/2018 Appointment: Kristie Carter WPtel: [address] [place], [place] [id number] 30 min appointments only in this slot [...] at home. 01/12/2018 Appointment: Kristie Carter WPtel: [facility]8 [facility] [place] (15 min) Moderate 01/12/2018 Patient Education: [...] of over-medication. 12/29/2017 App[facility]ment: [phone] (15 min) Moderate 12/29/2017 Patient Education: [...] mupirocin 12/01/2017 App[facility]ment: [phone] [place] (15 min) Moderate 12/01/2017 Patient Education: Patient Medication Summary Completed 12/01/2017 Care Plan: Comp Metabolic Cancelled 12/01/2017 Care Plan: Cbc With Differential Cancelled 12/01/2017 Care Plan: %Hba1C LOINC : 58302-2 Cancelled 12/01/2017 Care Plan: Tsh Cancelled 12/01/2017 [...] been recommended. 11/03/2017 Appointment: Kristie Carter WPtel: [facility]1 [facility] (15 min) Moderate 11/03/2017 Patient Education: Patient [...] hydrocodone to be written for pt to last picker. Will attempt to wean pt off of hydrocodone as able. 08/11/2017 Appointment: Kristie Carter WPtel: [phone] [facility] (15 min) Moderate 08/11/2017 Patient Education: [...] hydrocodone to be written for pt to last picker. Will attempt to wean pt off of hydrocodone as able. 06/09/2017 Appointment: Kristie Carter WPtel: [address] [place], [place] [address] (15 min) Moderate 06/09/2017 Patient Education: Patient [...] of control. 05/13/2017 Appointment: Kristie Carter WPtel: [address] [place], [place] [address] New Patient 05/13/2017 Patient Education: Patient Medication Summary Completed 05/13/2017 Referral: Ba Juan WPtel:[phone] Referral Appointment Requested Instructions Comment . Hypertension [...] hydrocodone to be written for pt to last picker. Will attempt to wean pt off [...] hydrocodone to be written for pt to last picker. Will attempt to wean pt off [...] months based on previous levels of control. low sodium diet - 3 grams or less sodium in a day . Hypertension - uncontrolled - the patient's [...] pt is to call for acute concerns. Diabetes Mellitus - controlled - per recent [...] readings are starting to become less controlled. . Hypertension - uncontrolled - the patient's [...]
--- OUTSIDE RECORDS SUMMARY | 2018-08-20 12:15 | XMS REPORT | CCD ---
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 Unknown Has never used illegal drugs 05/13/2017 Allergies, Adverse Reactions, Alerts Substance Reaction Codes Entered Date Inactivated Date Status * OTHER REACTION - SEE ANSWER BOX Antibiotics- cause nausea Unknown 05/13/2017 No Inactive Date Active Lyrica nausea RxNorm: 680703 05/13/2017 No Inactive Date Active Savella nausea RxNorm: 494955 05/13/2017 No Inactive Date Active ibuprofen nausea, [...] Instructions ondansetron 4 mg disintegrating tablet RxNorm: 669914 1 Tablet(s) PO daily as needed 08/14/2018 09/12/2018 Active losartan 100 mg tablet RxNorm: 453287 TAKE 1 TABLET BY MOUTH ONCE DAILY 08/11/2018 No Stop Date Active losartan 100 mg tablet RxNorm: 887538 TAKE 1 TABLET BY MOUTH ONCE DAILY 07/15/2018 08/10/2018 Inactive loratadine 10 mg tablet RxNorm: 137569 TAKE 1 TABLET BY MOUTH ONCE DAILY 07/03/2018 No Stop Date Active levothyroxine 112 mcg tablet RxNorm: 546224 TAKE 1 TABLET BY MOUTH ONCE DAILY 07/03/2018 No Stop Date Active methadone 10 mg tablet RxNorm: 258187 1.5 Tablet(s) PO TID 04/201808/27/2018 Active ondansetron 4 mg disintegrating tablet RxNorm: 738244 1 Tablet(s) PO daily as needed 06/25/2018 08/13/2018 Inactive methadone 10 mg tablet RxNorm: 551726 1.5 Tablet(s) PO TID 06/28/2018 Inactive methadone 10 mg tablet RxNorm: 058908 1.5 Tablet(s) PO TID 06/03/2018 Inactive methadone 10 mg tablet RxNorm: 449449 1.5 Tablet(s) PO TID 05/09/2018 Inactive loratadine 10 mg tablet RxNorm: 338930 TAKE 1 TABLET BY MOUTH ONCE DAILY 04/01/2018 07/02/2018 Inactive pantoprazole 40 mg tablet,delayed release RxNorm: 812124 TAKE ONE TABLET BY MOUTH TWICE DAILY FOR 1 WEEK, THEN ONCE DAILY THEREAFTER. 2017 No Stop Date Active ondansetron 4 mg disintegrating tablet RxNorm: 162353 1 Tablet(s) PO daily as needed 03/30/2018 06/24/2018 Inactive hydrocodone 7.5 mg-acetaminophen 325 mg tablet RxNorm: 849038 1 Tablet(s) PO TID as needed 03/18/2018 04/14/2018 Inactive methadone 10 mg tablet RxNorm: 943804 1 Tablet(s) PO TID 201703/24/2018 Inactive levothyroxine 112 mcg tablet RxNorm: 593464 1 Tablet(s) PO daily 03/06/2018 07/02/2018 Inactive promethazine 25 mg tablet RxNorm: 154640 1 Tablet(s) PO BID as needed nausea 03/05/2018 09/30/2018 Active ondansetron 4 mg disintegrating tablet RxNorm: 117536 1 Tablet(s) PO daily as needed 02/24/2018 03/25/2018 Inactive hydrocodone 7.5 mg-acetaminophen 325 mg tablet RxNorm: 704195 1 Tablet(s) PO TID as needed 02/18/2018 03/17/2018 Inactive methadone 10 mg tablet RxNorm: 341435 1 Tablet(s) PO TID 201703/17/2018 Inactive atenolol 50 mg tablet RxNorm: 989737 TAKE ONE TABLET BY MOUTH ONCE DAILY 02/16/2018 No Stop Date Active levothyroxine 112 mcg tablet RxNorm: 908890 1 Tablet(s) PO daily 02/02/2018 03/03/2018 Inactive levothyroxine 112 mcg tablet RxNorm: 080283 1 Tablet(s) PO daily 02/02/2018 02/01/2018 Inactive loratadine 10 mg tablet RxNorm: 759861 TAKE ONE TABLET BY MOUTH ONCE DAILY 01/29/2018 03/31/2018 Inactive hydrocodone 7.5 mg-acetaminophen 325 mg tablet RxNorm: 299778 1 Tablet(s) PO TID as needed 01/19/2018 02/17/2018 Inactive methadone 10 mg tablet RxNorm: 621062 1 Tablet(s) PO TID 201702/17/2018 Inactive doxazosin 2 mg tablet RxNorm: 517528 1 Tablet(s) PO BID 201701/11/2018 Inactive doxazosin 1 mg tablet RxNorm: 944890 1 Tablet(s) PO BID 201712/30/2017 Inactive ondansetron 4 mg disintegrating tablet RxNorm: 487729 1 Tablet(s) PO daily as needed 12/29/2017 02/23/2018 Inactive mupirocin 2 % topical ointment RxNorm: 245707 1 TOP TID 201712/10/2017 Inactive losartan 100 mg tablet RxNorm: 632276 1 Tablet(s) PO daily 06/28/2018 Inactive doxycycline hyclate 100 mg tablet RxNorm: 740086 1 Tablet(s) PO BID for cellulitis of toe 12/01/2017 12/05/2017 Inactive ondansetron 4 mg disintegrating tablet RxNorm: 421551 1 Tablet(s) PO daily as needed 11/28/2017 12/27/2017 Inactive WelChol 625 mg tablet RxNorm: 658351 3 Tablet(s) PO BID 201711/21/2017 Inactive levothyroxine 100 mcg tablet RxNorm: 206914 1 Tablet(s) PO daily 11/11/2017 03/10/2018 Inactive WelChol 625 mg tablet RxNorm: 314118 3 Tablet(s) PO BID 201711/10/2017 Inactive losartan 50 mg tablet RxNorm: 245446 1 Tablet(s) PO daily 201711/30/2017 Inactive ondansetron 4 mg disintegrating tablet RxNorm: 424377 1 Tablet(s) PO daily as needed 10/27/2017 11/25/2017 Inactive hydrocodone 7.5 mg-acetaminophen 325 mg tablet RxNorm: 437723 1 Tablet(s) PO TID as needed 10/02/2017 10/31/2017 Inactive methadone 10 mg tablet RxNorm: 031700 1 Tablet(s) PO TID 201710/31/2017 Inactive ondansetron 4 mg disintegrating tablet RxNorm: 725840 1 Tablet(s) PO daily as needed 09/03/2017 10/26/2017 Inactive Flonase Allergy Relief 50 mcg/actuation nasal spray, suspension RxNorm: 7757875 2 [place] NASAL daily 08/19/2017 No Stop Date Active Carafate 1 gram tablet RxNorm: 093798 1 Tablet(s) PO BID 2017 No Stop Date Active promethazine 25 mg tablet RxNorm: 035311 1 Tablet(s) PO BID as needed nausea 08/11/2017 03/04/2018 Inactive methadone 10 mg tablet RxNorm: 894573 1 Tablet(s) PO TID 201709/09/2017 Inactive hydrocodone 7.5 mg-acetaminophen 325 mg tablet RxNorm: 013652 1 Tablet(s) PO TID as needed 08/11/2017 09/09/2017 Inactive ondansetron 4 mg disintegrating tablet RxNorm: 960550 1 Tablet(s) PO daily as needed 07/10/2017 08/08/2017 Inactive hydrocodone 7.5 mg-acetaminophen 325 mg tablet RxNorm: 869259 1 Tablet(s) PO TID as needed 07/08/2017 08/06/2017 Inactive hydrocodone 7.5 mg-acetaminophen 325 mg tablet RxNorm: 411501 1 Tablet(s) PO TID as needed 07/08/2017 07/07/2017 Inactive methadone 10 mg tablet RxNorm: 056884 1 Tablet(s) PO TID 201608/06/2017 Inactive hydrocodone 10 mg-acetaminophen 325 mg tablet RxNorm: 143768 1 Tablet(s) PO TID as needed for breakthrough pain 06/16/2017 07/07/2017 Inactive ondansetron 4 mg disintegrating tablet RxNorm: 524863 1 Tablet(s) PO daily as needed 06/09/2017 07/08/2017 Inactive hydrocodone 10 mg-acetaminophen 325 mg tablet RxNorm: 345574 1 Tablet(s) PO TID as needed for breakthrough pain 06/09/2017 06/15/2017 Inactive atenolol 50 mg tablet RxNorm: 495807 1 Tablet(s) PO daily 201602/15/2018 Inactive promethazine 25 mg tablet RxNorm: 948480 1 Tablet(s) PO BID as needed nausea 06/09/2017 08/10/2017 Inactive pantoprazole 40 mg tablet,delayed release RxNorm: 754638 1 Tablet(s) PO daily bid x 1 week then daily thereafter 06/09/2017 12/05/2017 Inactive alprazolam 0.25 mg tablet RxNorm: 102735 1 Tablet(s) PO TID as needed 05/30/2017 11/02/2017 Inactive pantoprazole 40 mg tablet,delayed release RxNorm: 855672 1 Tablet(s) PO daily 05/30/2017 06/08/2017 Inactive ondansetron 4 mg disintegrating tablet RxNorm: 524150 1 Tablet(s) PO daily as needed 05/30/2017 06/08/2017 Inactive levothyroxine 75 mcg tablet RxNorm: 414934 1 Tablet(s) PO daily 05/13/2017 11/30/2017 Inactive loratadine 10 mg tablet RxNorm: 622644 1 Tablet(s) PO daily 12/08/2017 Inactive promethazine 25 mg tablet RxNorm: 376725 Tablet(s) PO as needed nausea No Start Date Active cyclobenzaprine 10 mg tablet RxNorm: 588770 Tablet(s) PO as needed No Start Date Active metformin 500 mg tablet RxNorm: 513039 1 Tablet(s) PO daily No Start Date 08/19/2017 Inactive ondansetron 8 mg disintegrating tablet RxNorm: 463404 Tablet(s) PO as needed nausea No Start Date 05/29/2017 Inactive levothyroxine 100 mcg tablet RxNorm: 769540 Tablet(s) PO No Start Date 11/10/2017 Inactive loratadine 10 mg tablet RxNorm: 612071 1 Tablet(s) PO daily No Start Date 05/12/2017 Inactive atenolol 50 mg tablet RxNorm: 555481 1 Tablet(s) PO daily No Start Date 06/08/2017 Inactive Flonase Allergy Relief 50 mcg/actuation nasal spray, suspension RxNorm: 6952876 [place] NASAL daily No Start Date 2017 Inactive alprazolam 0.25 mg tablet RxNorm: 047640 Tablet(s) PO as needed No Start Date 05/29/2017 Inactive levothyroxine oral RxNorm: 36573 oral No Start Date 05/13/2017 Inactive hydrocodone 10 mg-acetaminophen 325 mg tablet RxNorm: 335419 Tablet(s) PO as needed for breakthrough pain No Start Date 06/08/2017 Inactive methadone 10 mg tablet RxNorm: 769820 1 Tablet(s) PO TID No Start Date 07/07/2017 Inactive pantoprazole 40 mg tablet,delayed release RxNorm: 142801 1 Tablet(s) PO daily No Start Date [...] Observation Code Item Item Code Result Date Tsh Ord6 TSH (3rd IS) 12.54 uIU/mL 01/22/2018 Free T4 Rzs146 FREE T4 0.81 ng/dL 01/22/2018 Free T4 Eil259 FREE T4 0.69 ng/dL 11/05/2017 %Hba1C Ypc305 % HbA1c 71947-8 6.3 % 11/05/2017 %Hba1C Dzb394 Gluc Ave 134 mg/dL 11/05/2017 Lipid Ord30 CHOL 218 mg/dL 11/05/2017 Lipid Ord30 HDL 34.0 mg/dl 11/05/2017 Lipid Ord30 TRIG 363 mg/dL 11/05/2017 Lipid Ord30 LDL Unable to calculate Due to elevated triglycerides mg/dL 11/05/2017 Lipid Ord30 C/HDL 6.4 Ratio 11/05/2017 Tsh Ord6 TSH (3rd IS) 27.62 uIU/mL 11/05/2017 Microalbumin Zya131 MicroAlb <0.7 mg/dL 11/05/2017 Cbc With Differential Ord2 WBC 6.04 K/ul 11/05/2017 Cbc With Differential Ord2 RBC 4.96 M/ul 11/05/2017 Cbc With Differential Ord2 HGB 15.5 g/dl 11/05/2017 Cbc With Differential Ord2 HCT 45.5 % 11/05/2017 Cbc With Differential Ord2 Neut% 45.0 % 11/05/2017 Cbc With Differential Ord2 MCV 91.7 fl 11/05/2017 Cbc With Differential Ord2 Lymph% 43.0 % 11/05/2017 Cbc With Differential Ord2 MCH 31.3 pg 11/05/2017 Cbc With Differential Ord2 [place]% 8.8 % 11/05/2017 Cbc With Differential Ord2 [...] 2.60 K/ul 11/05/2017 Cbc With Differential Ord2 [place] ABS# 0.5 K/ul 11/05/2017 Cbc With Differential Ord2 Eos ABS# 0.2 K/ul 11/05/2017 Cbc With Differential Ord2 Baso ABS# 0.0 K/ul 11/05/2017 Comp Metabolic Foo970 NA 139 mEq/L 11/05/2017 Comp Metabolic Ege384 K 3.9 mEq/L 11/05/2017 Comp Metabolic Zbd793 CL 101 mEq/L 11/05/2017 Comp Metabolic Cfa896 CO2 30.0 mEq/L 11/05/2017 Comp Metabolic Wio931 ANION GAP 12 11/05/2017 Comp Metabolic Kqi173 GLUCOSE 98 mg/dL 11/05/2017 Comp Metabolic Mps041 Creat 0.8 mg/dL 11/05/2017 Comp Metabolic App297 eGFR 74 ml/min/1.73m2 11/05/2017 Comp Metabolic Xof663 BUN 9 mg/dL 11/05/2017 Comp Metabolic Rrk009 B/C Ratio 10.8 Ratio 11/05/2017 Comp Metabolic Kav547 CALCIUM 9.1 mg/dL 11/05/2017 Comp Metabolic Vee475 ALK PHOS 87 U/L 11/05/2017 Comp Metabolic Ibf359 AST(SGOT) 28 U/L 11/05/2017 Comp Metabolic Rbw092 ALT(SGPT) 30 U/L 11/05/2017 Comp Metabolic Oqg362 BILI T 0.5 mg/dL 11/05/2017 Comp Metabolic Ztb642 ALBUMIN 3.9 g/dL 11/05/2017 Comp Metabolic Mwr424 TPRO 7.2 g/dL 11/05/2017 Comp Metabolic Zom204 GLOB 3.3 g/dL 11/05/2017 Comp Metabolic Mzi424 A/G Ratio 1.2 Ratio 11/05/2017 Comp Metabolic Lxf019 Osmo 276 mOsmo 11/05/2017 Review of Systems System Result Effective [...] 1995 Ears/Nose/Throat oral cavity/pharynx/larynx Overall: hypopharynx benign 03/25/2018 [...] affect 05/13/2017 None Full Exam - General 1995 Musculoskeletal lower extremity Palpation - knee: crepitus 05/13/2017 None Procedures No Procedures data Vital Signs Date Vital 06/29/2018 Blood Pressure 1: 162/84 Code : 8480-6 BMI: 34.8 Code : 15598-5 Heart Rate 1 : 76 bpm Height: 5'4" SpO2: 93% Weight: 203 lbs 05/18/2018 Blood Pressure 1: 156/78 Code : 8480-6 Blood Pressure 2: 148/82 Code: 8480-6 BMI: 34.8 Code: 21805-1 Heart Rate 1: 73 bpm Height: 5'4" SpO2: 94% Weight: 203 lbs 03/25/2018 Blood Pressure 1: 162/96 Code : 8480-6 BMI: 34.5 Code : 46158-4 Heart Rate 1 : 73 bpm Height: 5'4" SpO2: 98% Temperature: 36.4 (C) / 97.5 (F) Weight: 201 lbs 01/12/2018 Blood Pressure 1: 180/98 Code : 8480-6 Blood Pressure 1: 15696 Code: 8480-6 BMI: 34.8 Code: 71858-3 Heart Rate 1: 78 bpm Height: 5'4" SpO2: 94% Weight: 203 lbs 12/29/2017 Blood Pressure 1: 190/98 Code : 8480-6 BMI: 34.8 Code : 77683-1 Heart Rate 1 : 71 bpm Height: 5'4" SpO2: 92% Weight: 203 lbs 12/01/2017 Blood Pressure 1: 180/98 Code : 8480-6 BMI: 34.7 Code : 84466-4 Heart Rate 1 : 73 bpm Height: 5'4" SpO2: 96% Weight: 202 lbs 11/03/2017 Blood Pressure 1: 180/96 Code : 8480-6 BMI: 35.0 Code : 04601-8 Heart Rate 1 : 72 bpm Height: 5'4" SpO2: 94% Weight: 204 lbs 08/11/2017 Blood Pressure 1: 156/84 Code : 8480-6 BMI: 34.0 Code : 37809-6 Heart Rate 1 : 76 bpm Height: 5'4" SpO2: 94% Weight: 198 lbs 06/09/2017 Blood Pressure 1: 170/96 Code : 8480-6 BMI: 34.0 Code : 16305-6 Heart Rate 1 : 94 bpm Height: 5'4" SpO2: 97% Temperature: 36.8 (C) / 98.2 (F) Weight: 198 lbs 05/13/2017 Blood Pressure 1: 130/68 Code : 8480-6 BMI: 35.0 Code : 80366-4 Heart Rate 1 : 74 bpm Height: [...] syndrome[ICD10: G89.4] [facility] CPT-4: 22803 06/29/2018 ([id number]) 34709 EST. PATIENT, LEVEL IV Diagnosis: Type 2 diabetes mellitus without complications[ICD10: E11.9] Diagnosis: Atrophy of thyroid (acquired)[ICD10: E03.4] Diagnosis: Essential (primary) hypertension[ICD10: I10] Diagnosis: Chronic pain syndrome[ICD10: G89.4] [facility] CPT-4: 34577 05/18/2018 ([id number]) 56896 EST. PATIENT, LEVEL IV Diagnosis: Type 2 diabetes mellitus without complications[ICD10: E11.9] Diagnosis: Nausea[ICD10: R11.0] Diagnosis: Chronic pain syndrome[ICD10: G89.4] [facility], [facility] CPT-4: 59732 03/25/2018 ([id number]) 25776 EST. PATIENT, LEVEL III Diagnosis: Essential (primary) hypertension[ICD10: I10] Kristie Carter MD [facility] CPT-4: 31863 01/12/2018 ([id number]) 29067 EST. PATIENT, LEVEL IV Diagnosis: Essential (primary) hypertension[ICD10: I10] Diagnosis: Chronic pain syndrome[ICD10: G89.4] Kristie [facility] MD [facility] CPT-4: 12929 12/29/2017 ([id number]) 41716 EST. PATIENT, LEVEL IV Diagnosis: Essential (primary) hypertension[ICD10: I10] Diagnosis: Chronic pain syndrome[ICD10: G89.4] Diagnosis: Type 2 diabetes mellitus without complications[ICD10: E11.9] Diagnosis: Atrophy of thyroid (acquired)[ICD10: E03.4] [facility] MD [facility] CPT-4: 88191 12/01/2017 ([id number]) 52602 EST. PATIENT, LEVEL IV Diagnosis: Chronic pain syndrome[ICD10: G89.4] Diagnosis: Type 2 diabetes mellitus without complications[ICD10: E11.9] Diagnosis: Atrophy of thyroid (acquired)[ICD10: E03.4] Diagnosis: Essential (primary) hypertension[ICD10: I10] [facility], [facility] CPT-4: 94434 11/03/2017 ([id number]) 32754 EST. PATIENT, LEVEL IV Diagnosis: Chronic pain syndrome[ICD10: G89.4] Diagnosis: Essential (primary) hypertension[ICD10: I10] Diagnosis: Nausea[ICD10: R11.0] [facility] MD [facility] CPT-4: 87883 08/11/2017 ([id number]) 18167 EST. PATIENT, LEVEL III Diagnosis: Essential (primary) hypertension[ICD10: I10] Diagnosis: Nausea[ICD10: R11.0] Diagnosis: Chronic pain syndrome[ICD10: G89.4] [facility] CPT-4: 81409 06/09/2017 ([id number]) PREV VISIT NEW AGE 40-64 Diagnosis: Atrophy of thyroid (acquired)[ICD10: E03.4] Diagnosis: Type 2 diabetes mellitus without complications[ICD10: E11.9] Diagnosis: Encounter for general adult medical examination with abnormal findings[ICD10: Z00.01] Diagnosis: Essential (primary) hypertension[ICD10: I10] [facility] CPT-4: 97162 05/13/2017 Plan of Care Planned Activity Notes Codes Status Date Referral: Ba Juan WPtel:[phone] Patient informed. Referral info faxed. Completed 07/22/2018 [...] of over-medication. 06/29/2018 Appointment: Kristie Carter WPtel: [address] [place], [place] [phone] (15 min) Moderate 06/29/2018 Patient Education: Patient Medication Summary Completed 06/29/2018 Patient Education: Diabetes Completed 06/29/2018 Care Plan: Referral Order SNOMED-CT : [id number] Pending 06/29/2018 Visit Plan: Diabetes Mellitus - [...] control. 05/18/2018 Appointment: Kristie Carter WPtel: [facility] ([facility] min) Moderate 05/18/2018 Patient Education: Patient Medication Summary Completed 05/18/2018 Patient Education: Diabetes Completed 05/18/2018 Appointment: Kristie Carter WPtel: [address] [place], [place] [address] (15 min) Moderate 05/11/2018 Appointment: Kristie Carter WPtel: [address] [place], [place] [address] (15 min) Moderate 04/27/2018 Visit Plan: DM [...] phenergan. 03/25/2018 Appointment: [facility]el[phone] 30 min appointments only in this slot [...] home. 01/12/2018 Appointment: Kristie Carter WPtel: [phone] [facility] (15 min) Moderate 01/12/2018 Patient Education: Patient [...] over-medication. 12/29/2017 Appointment: [facility]el[phone] (15 min) Moderate 12/29/2017 Patient Education: Patient [...] and mupirocin 12/01/2017 Appointment: Kristie Carter WPtel: [facility] (15 min) Moderate 12/01/2017 Patient Education: Patient Medication Summary Completed 12/01/2017 Care Plan: Comp Metabolic Cancelled 12/01/2017 Care Plan: Cbc With Differential Cancelled 12/01/2017 Care Plan: %Hba1C LOINC : 67433-8 Cancelled 12/01/2017 Care Plan: Tsh Cancelled 12/01/2017 [...] been recommended. 11/03/2017 Appointment: [facility]el[phone] (15 min) Moderate 11/03/2017 Patient Education: Patient [...] to be written for pt to picker feeder. Will attempt to wean pt off of hydrocodone as able. 08/11/2017 Appointment: Kristie Carter WPtel: [phone] [facility] (15 min) Moderate 08/11/2017 Patient Education: Patient [...] to be written for pt to picker feeder. Will attempt to wean pt off of hydrocodone as able. 06/09/2017 Appointment: [phone] (15 min) Moderate 06/09/2017 Patient Education: Patient [...] of control. 05/13/2017 Appointment: Kristie Carter WPtel: [address] [place], [place] [address] New Patient 05/13/2017 Patient Education: Patient Medication Summary Completed 05/13/2017 Referral: Ba Juan WPtel:[phone] Referral Appointment Requested Instructions Comment . Hypertension [...] to be written for pt to picker feeder. Will attempt to wean pt off of [...] to be written for pt to picker feeder. Will attempt to wean pt off of [...]
--- OUTSIDE RECORDS SUMMARY | 2018-08-20 12:16 | XMS REPORT | CCD ---
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 Unknown Has never used illegal drugs 05/13/2017 Allergies, Adverse Reactions, Alerts Substance Reaction Codes Entered Date Inactivated Date Status * OTHER REACTION - SEE ANSWER BOX Antibiotics- cause nausea Unknown 05/13/2017 No Inactive Date Active Lyrica nausea RxNorm: 783045 05/13/2017 No Inactive Date Active Savella nausea RxNorm: 504838 05/13/2017 No Inactive Date Active ibuprofen nausea, [...] Fill Instructions losartan 100 mg tablet RxNorm: 980224 TAKE 1 TABLET BY MOUTH ONCE DAILY 08/11/2018 No Stop Date Active losartan 100 mg tablet RxNorm: 305613 TAKE 1 TABLET BY MOUTH ONCE DAILY 07/15/2018 08/10/2018 Inactive loratadine 10 mg tablet RxNorm: 291945 TAKE 1 TABLET BY MOUTH ONCE DAILY 07/03/2018 No Stop Date Active levothyroxine 112 mcg tablet RxNorm: 271757 TAKE 1 TABLET BY MOUTH ONCE DAILY 07/03/2018 No Stop Date Active methadone 10 mg tablet RxNorm: 144607 1.5 Tablet(s) PO TID 04/201808/27/2018 Active ondansetron 4 mg disintegrating tablet RxNorm: 836203 1 Tablet(s) PO daily as needed 06/25/2018 08/23/2018 Active methadone 10 mg tablet RxNorm: 779232 1.5 Tablet(s) PO TID 06/28/2018 Inactive methadone 10 mg tablet RxNorm: 110542 1.5 Tablet(s) PO TID 06/03/2018 Inactive methadone 10 mg tablet RxNorm: 919057 1.5 Tablet(s) PO TID 05/09/2018 Inactive loratadine 10 mg tablet RxNorm: 603546 TAKE 1 TABLET BY MOUTH ONCE DAILY 04/01/2018 07/02/2018 Inactive pantoprazole 40 mg tablet,delayed release RxNorm: 493670 TAKE ONE TABLET BY MOUTH TWICE DAILY FOR 1 WEEK, THEN ONCE DAILY THEREAFTER. 2017 No Stop Date Active ondansetron 4 mg disintegrating tablet RxNorm: 860849 1 Tablet(s) PO daily as needed 03/30/2018 06/24/2018 Inactive hydrocodone 7.5 mg-acetaminophen 325 mg tablet RxNorm: 330261 1 Tablet(s) PO TID as needed 03/18/2018 04/14/2018 Inactive methadone 10 mg tablet RxNorm: 619023 1 Tablet(s) PO TID 201703/24/2018 Inactive levothyroxine 112 mcg tablet RxNorm: 000961 1 Tablet(s) PO daily 03/06/2018 07/02/2018 Inactive promethazine 25 mg tablet RxNorm: 443258 1 Tablet(s) PO BID as needed nausea 03/05/2018 09/30/2018 Active ondansetron 4 mg disintegrating tablet RxNorm: 139246 1 Tablet(s) PO daily as needed 02/24/2018 03/25/2018 Inactive hydrocodone 7.5 mg-acetaminophen 325 mg tablet RxNorm: 735393 1 Tablet(s) PO TID as needed 02/18/2018 03/17/2018 Inactive methadone 10 mg tablet RxNorm: 756548 1 Tablet(s) PO TID 201703/17/2018 Inactive atenolol 50 mg tablet RxNorm: 021110 TAKE ONE TABLET BY MOUTH ONCE DAILY 02/16/2018 No Stop Date Active levothyroxine 112 mcg tablet RxNorm: 266199 1 Tablet(s) PO daily 02/02/2018 03/03/2018 Inactive levothyroxine 112 mcg tablet RxNorm: 371028 1 Tablet(s) PO daily 02/02/2018 02/01/2018 Inactive loratadine 10 mg tablet RxNorm: 662071 TAKE ONE TABLET BY MOUTH ONCE DAILY 01/29/2018 03/31/2018 Inactive hydrocodone 7.5 mg-acetaminophen 325 mg tablet RxNorm: 234799 1 Tablet(s) PO TID as needed 01/19/2018 02/17/2018 Inactive methadone 10 mg tablet RxNorm: 733484 1 Tablet(s) PO TID 201702/17/2018 Inactive doxazosin 2 mg tablet RxNorm: 600605 1 Tablet(s) PO BID 201701/11/2018 Inactive doxazosin 1 mg tablet RxNorm: 723350 1 Tablet(s) PO BID 201712/30/2017 Inactive ondansetron 4 mg disintegrating tablet RxNorm: 736633 1 Tablet(s) PO daily as needed 12/29/2017 02/23/2018 Inactive mupirocin 2 % topical ointment RxNorm: 294085 1 TOP TID 201712/10/2017 Inactive losartan 100 mg tablet RxNorm: 595173 1 Tablet(s) PO daily 06/28/2018 Inactive doxycycline hyclate 100 mg tablet RxNorm: 375308 1 Tablet(s) PO BID for cellulitis of toe 12/01/2017 12/05/2017 Inactive ondansetron 4 mg disintegrating tablet RxNorm: 295583 1 Tablet(s) PO daily as needed 11/28/2017 12/27/2017 Inactive WelChol 625 mg tablet RxNorm: 689087 3 Tablet(s) PO BID 201711/21/2017 Inactive levothyroxine 100 mcg tablet RxNorm: 586036 1 Tablet(s) PO daily 11/11/2017 03/10/2018 Inactive WelChol 625 mg tablet RxNorm: 477050 3 Tablet(s) PO BID 201711/10/2017 Inactive losartan 50 mg tablet RxNorm: 860432 1 Tablet(s) PO daily 201711/30/2017 Inactive ondansetron 4 mg disintegrating tablet RxNorm: 168445 1 Tablet(s) PO daily as needed 10/27/2017 11/25/2017 Inactive hydrocodone 7.5 mg-acetaminophen 325 mg tablet RxNorm: 220553 1 Tablet(s) PO TID as needed 10/02/2017 10/31/2017 Inactive methadone 10 mg tablet RxNorm: 527219 1 Tablet(s) PO TID 201710/31/2017 Inactive ondansetron 4 mg disintegrating tablet RxNorm: 386005 1 Tablet(s) PO daily as needed 09/03/2017 10/26/2017 Inactive Flonase Allergy Relief 50 mcg/actuation nasal spray, suspension RxNorm: 5123234 2 [place] NASAL daily 08/19/2017 No Stop Date Active Carafate 1 gram tablet RxNorm: 555536 1 Tablet(s) PO BID 2017 No Stop Date Active promethazine 25 mg tablet RxNorm: 710528 1 Tablet(s) PO BID as needed nausea 08/11/2017 03/04/2018 Inactive methadone 10 mg tablet RxNorm: 516882 1 Tablet(s) PO TID 201709/09/2017 Inactive hydrocodone 7.5 mg-acetaminophen 325 mg tablet RxNorm: 881671 1 Tablet(s) PO TID as needed 08/11/2017 09/09/2017 Inactive ondansetron 4 mg disintegrating tablet RxNorm: 021685 1 Tablet(s) PO daily as needed 07/10/2017 08/08/2017 Inactive hydrocodone 7.5 mg-acetaminophen 325 mg tablet RxNorm: 710844 1 Tablet(s) PO TID as needed 07/08/2017 08/06/2017 Inactive hydrocodone 7.5 mg-acetaminophen 325 mg tablet RxNorm: 061660 1 Tablet(s) PO TID as needed 07/08/2017 07/07/2017 Inactive methadone 10 mg tablet RxNorm: 956894 1 Tablet(s) PO TID 201608/06/2017 Inactive hydrocodone 10 mg-acetaminophen 325 mg tablet RxNorm: 505694 1 Tablet(s) PO TID as needed for breakthrough pain 06/16/2017 07/07/2017 Inactive ondansetron 4 mg disintegrating tablet RxNorm: 810953 1 Tablet(s) PO daily as needed 06/09/2017 07/08/2017 Inactive hydrocodone 10 mg-acetaminophen 325 mg tablet RxNorm: 867014 1 Tablet(s) PO TID as needed for breakthrough pain 06/09/2017 06/15/2017 Inactive atenolol 50 mg tablet RxNorm: 049824 1 Tablet(s) PO daily 201602/15/2018 Inactive promethazine 25 mg tablet RxNorm: 183906 1 Tablet(s) PO BID as needed nausea 06/09/2017 08/10/2017 Inactive pantoprazole 40 mg tablet,delayed release RxNorm: 426422 1 Tablet(s) PO daily bid x 1 week then daily thereafter 06/09/2017 12/05/2017 Inactive alprazolam 0.25 mg tablet RxNorm: 911870 1 Tablet(s) PO TID as needed 05/30/2017 11/02/2017 Inactive pantoprazole 40 mg tablet,delayed release RxNorm: 071132 1 Tablet(s) PO daily 05/30/2017 06/08/2017 Inactive ondansetron 4 mg disintegrating tablet RxNorm: 503187 1 Tablet(s) PO daily as needed 05/30/2017 06/08/2017 Inactive levothyroxine 75 mcg tablet RxNorm: 534403 1 Tablet(s) PO daily 05/13/2017 11/30/2017 Inactive loratadine 10 mg tablet RxNorm: 401165 1 Tablet(s) PO daily 12/08/2017 Inactive promethazine 25 mg tablet RxNorm: 894374 Tablet(s) PO as needed nausea No Start Date Active cyclobenzaprine 10 mg tablet RxNorm: 405051 Tablet(s) PO as needed No Start Date Active metformin 500 mg tablet RxNorm: 336384 1 Tablet(s) PO daily No Start Date 08/19/2017 Inactive ondansetron 8 mg disintegrating tablet RxNorm: 495159 Tablet(s) PO as needed nausea No Start Date 05/29/2017 Inactive levothyroxine 100 mcg tablet RxNorm: 042231 Tablet(s) PO No Start Date 11/10/2017 Inactive loratadine 10 mg tablet RxNorm: 614152 1 Tablet(s) PO daily No Start Date 05/12/2017 Inactive atenolol 50 mg tablet RxNorm: 531859 1 Tablet(s) PO daily No Start Date 06/08/2017 Inactive Flonase Allergy Relief 50 mcg/actuation nasal spray, suspension RxNorm: 3380040 [place] NASAL daily No Start Date 2017 Inactive alprazolam 0.25 mg tablet RxNorm: 547573 Tablet(s) PO as needed No Start Date 05/29/2017 Inactive levothyroxine oral RxNorm: 45903 oral No Start Date 05/13/2017 Inactive hydrocodone 10 mg-acetaminophen 325 mg tablet RxNorm: 515403 Tablet(s) PO as needed for breakthrough pain No Start Date 06/08/2017 Inactive methadone 10 mg tablet RxNorm: 641110 1 Tablet(s) PO TID No Start Date 07/07/2017 Inactive pantoprazole 40 mg tablet,delayed release RxNorm: 186957 1 Tablet(s) PO daily No Start Date 05/29/2017 Inactive Medication Administered No Medication Administered data Immunizations No Immunization data Assessments Condition Codes Effective Dates Chronic pain syndrome ICD-10: G89.4 ICD-9: 338.4 06/29/2018 Atrophy of thyroid (acquired) ICD-10: E03.4 ICD-9: 244.8 06/29/2018 Essential (primary) hypertension ICD-10: I10 ICD-9: 401.1 06/29/2018 Type 2 diabetes mellitus without complications [...] Item Item Code Result Date Free T4 [id number] FREE T4 0.81 ng/dL 01/22/2018 Tsh Ord6 TSH (3rd IS) 12.54 uIU/mL 01/22/2018 Comp Metabolic Wrz520 NA 139 mEq/L 11/05/2017 Comp Metabolic Zef967 K 3.9 mEq/L 11/05/2017 Comp Metabolic Ima459 CL 101 mEq/L 11/05/2017 Comp Metabolic Mjw590 CO2 30.0 mEq/L 11/05/2017 Comp Metabolic Yfm149 ANION GAP 12 11/05/2017 Comp Metabolic Rij048 GLUCOSE 98 mg/dL 11/05/2017 Comp Metabolic Xxc649 Creat 0.8 mg/dL 11/05/2017 Comp Metabolic Ejl248 eGFR 74 ml/min/1.73m2 11/05/2017 Comp Metabolic Iqq182 BUN 9 mg/dL 11/05/2017 Comp Metabolic Lss865 B/C Ratio 10.8 Ratio 11/05/2017 Comp Metabolic Brh288 CALCIUM 9.1 mg/dL 11/05/2017 Comp Metabolic Ygc723 ALK PHOS 87 U/L 11/05/2017 Comp Metabolic Kqw459 AST(SGOT) 28 U/L 11/05/2017 Comp Metabolic Rqk551 ALT(SGPT) 30 U/L 11/05/2017 Comp Metabolic Xgw724 BILI T 0.5 mg/dL 11/05/2017 Comp Metabolic Ahc347 ALBUMIN 3.9 g/dL 11/05/2017 Comp Metabolic Hhp644 TPRO 7.2 g/dL 11/05/2017 Comp Metabolic Gdv001 GLOB 3.3 g/dL 11/05/2017 Comp Metabolic Ant680 A/G Ratio 1.2 Ratio 11/05/2017 Comp Metabolic Vhn678 Osmo 276 mOsmo 11/05/2017 Cbc With Differential [...] 31.3 pg 11/05/2017 Cbc With Differential Ord2 [place]% 8.8 % 11/05/2017 Cbc With Differential Ord2 [...] 2.60 K/ul 11/05/2017 Cbc With Differential Ord2 [place] ABS# 0.5 K/ul 11/05/2017 Cbc With Differential Ord2 Eos ABS# 0.2 K/ul 11/05/2017 Cbc With Differential Ord2 Baso ABS# 0.0 K/ul 11/05/2017 Microalbumin Pzy070 MicroAlb <0.7 mg/dL 11/05/2017 Tsh Ord6 TSH (3rd IS) 27.62 uIU/mL 11/05/2017 Lipid Ord30 CHOL 218 mg/dL 11/05/2017 Lipid Ord30 HDL 34.0 mg/dl 11/05/2017 Lipid Ord30 TRIG 363 mg/dL 11/05/2017 Lipid Ord30 LDL Unable to calculate Due to elevated triglycerides mg/dL 11/05/2017 Lipid Ord30 C/HDL 6.4 Ratio 11/05/2017 %Hba1C Njv670 % HbA1c 61125-3 6.3 % 11/05/2017 %Hba1C Wyi163 Gluc Ave 134 mg/dL 11/05/2017 Free T4 Ogc382 FREE T4 0.69 ng/dL 11/05/2017 Review of [...] Code : 8480-6 BMI: 34.8 Code : 43117-8 Heart Rate 1 : 76 bpm Height: 5'4" SpO2: 93% Weight: 203 lbs 05/18/2018 Blood Pressure 1: 156/78 Code : 8480-6 Blood Pressure 2: 148/82 Code: 8480-6 BMI: 34.8 Code: 49081-5 Heart Rate 1: 73 bpm Height: 5'4" SpO2: 94% Weight: 203 lbs 03/25/2018 Blood Pressure 1: 162/96 Code : 8480-6 BMI: 34.5 Code : 02391-7 Heart Rate 1 : 73 bpm Height: 5'4" SpO2: 98% Temperature: 36.4 (C) / 97.5 (F) Weight: 201 lbs 01/12/2018 Blood Pressure 1: 180/98 Code : 8480-6 Blood Pressure 1: 15696 Code: 8480-6 BMI: 34.8 Code: 91910-2 Heart Rate 1: 78 bpm Height: 5'4" SpO2: 94% Weight: 203 lbs 12/29/2017 Blood Pressure 1: 190/98 Code : 8480-6 BMI: 34.8 Code : 71701-7 Heart Rate 1 : 71 bpm Height: 5'4" SpO2: 92% Weight: 203 lbs 12/01/2017 Blood Pressure 1: 180/98 Code : 8480-6 BMI: 34.7 Code : 50844-5 Heart Rate 1 : 73 bpm Height: 5'4" SpO2: 96% Weight: 202 lbs 11/03/2017 Blood Pressure 1: 180/96 Code : 8480-6 BMI: 35.0 Code : 46384-0 Heart Rate 1 : 72 bpm Height: 5'4" SpO2: 94% Weight: 204 lbs 08/11/2017 Blood Pressure 1: 156/84 Code : 8480-6 BMI: 34.0 Code : 80593-7 Heart Rate 1 : 76 bpm Height: 5'4" SpO2: 94% Weight: 198 lbs 06/09/2017 Blood Pressure 1: 170/96 Code : 8480-6 BMI: 34.0 Code : 94293-5 Heart Rate 1 : 94 bpm Height: 5'4" SpO2: 97% Temperature: 36.8 (C) / 98.2 (F) Weight: 198 lbs 05/13/2017 Blood Pressure 1: 130/68 Code : 8480-6 BMI: 35.0 Code : 34961-2 Heart Rate 1 : 74 bpm Height: [...] Encounters Encounter Performer Location Codes Date () 38269 EST. PATIENT, LEVEL IV Diagnosis: Atrophy of thyroid (acquired)[ICD10: E03.4] Diagnosis: Type 2 diabetes mellitus without complications[ICD10: E11.9] Diagnosis: Essential (primary) hypertension[ICD10: I10] Diagnosis: Chronic pain syndrome[ICD10: G89.4] Kristie Carter MD, [facility] CPT-4: 96550 06/29/2018 ([id number]) 35676 EST. PATIENT, LEVEL IV Diagnosis: Type 2 diabetes mellitus without complications[ICD10: E11.9] Diagnosis: Atrophy of thyroid (acquired)[ICD10: E03.4] Diagnosis: Essential (primary) hypertension[ICD10: I10] Diagnosis: Chronic pain syndrome[ICD10: G89.4] Kristie Carter MD, [facility] CPT-4: 45132 05/18/2018 ([id number]) 94573 EST. PATIENT, LEVEL IV Diagnosis: Type 2 diabetes mellitus without complications[ICD10: E11.9] Diagnosis: Nausea[ICD10: R11.0] Diagnosis: Chronic pain syndrome[ICD10: G89.4] Kristie Carter MD [facility] CPT-4: 88223 03/25/2018 ([id number]) 39680 EST. PATIENT, LEVEL III Diagnosis: Essential (primary) hypertension[ICD10: I10] KELLEY Lackey MD CPT-4: 30779 01/12/2018 ([id number]) 89400 EST. PATIENT, LEVEL IV Diagnosis: Essential (primary) hypertension[ICD10: I10] Diagnosis: Chronic pain syndrome[ICD10: G89.4] Kristie Carter MD [facility] CPT-4: 62678 12/29/2017 ([id number]) 18584 EST. PATIENT, LEVEL IV Diagnosis: Essential (primary) hypertension[ICD10: I10] Diagnosis: Chronic pain syndrome[ICD10: G89.4] Diagnosis: Type 2 diabetes mellitus without complications[ICD10: E11.9] Diagnosis: Atrophy of thyroid (acquired)[ICD10: E03.4] Kristie Carter MD [facility] CPT-4: 51123 12/01/2017 ([id number]) 19976 EST. PATIENT, LEVEL IV Diagnosis: Chronic pain syndrome[ICD10: G89.4] Diagnosis: Type 2 diabetes mellitus without complications[ICD10: E11.9] Diagnosis: Atrophy of thyroid (acquired)[ICD10: E03.4] Diagnosis: Essential (primary) hypertension[ICD10: I10] Kristie Carter MD [facility] CPT-4: 45628 11/03/2017 ([id number]) 41912 EST. PATIENT, LEVEL IV Diagnosis: Chronic pain syndrome[ICD10: G89.4] Diagnosis: Essential (primary) hypertension[ICD10: I10] Diagnosis: Nausea[ICD10: R11.0] Kristie Carter MD [facility] CPT-4: 99947 08/11/2017 ([id number]) 96594 EST. PATIENT, LEVEL III Diagnosis: Essential (primary) hypertension[ICD10: I10] Diagnosis: Nausea[ICD10: R11.0] Diagnosis: Chronic pain syndrome[ICD10: G89.4] Kristie Carter MD [facility] CPT-4: 64897 06/09/2017 ([id number]) PREV VISIT NEW AGE 40-64 Diagnosis: Atrophy of thyroid (acquired)[ICD10: E03.4] Diagnosis: Type 2 diabetes mellitus without complications[ICD10: E11.9] Diagnosis: Encounter for general adult medical examination with abnormal findings[ICD10: Z00.01] Diagnosis: Essential (primary) hypertension[ICD10: I10] Kristie Carter MD, [facility] CPT-4: 19767 05/13/2017 Plan of Care Planned Activity Notes Codes Status Date Referral: Ba Juan WPtel:[phone] Patient informed. Referral info faxed. Completed 07/22/2018 [...] of over-medication. 06/29/2018 [phone] ([facility] min) Moderate 06/29/2018 Patient Education: Patient Medication Summary Completed 06/29/2018 Patient Education: Diabetes Completed 06/29/2018 Care Plan: Referral Order SNOMED-CT : [id number] Pending 06/29/2018 Visit Plan: Diabetes Mellitus - [...] control. 05/18/2018 Appointment: Kristie Carter WPtel: [facility] (15 min) Moderate 05/18/2018 Patient Education: Patient Medication Summary Completed 05/18/2018 Patient Education: Diabetes Completed 05/18/2018 Appointment: Kristie Carter WPtel: [facility] (15 min) Moderate 05/11/2018 Appointment: Kristie Carter WPtel: [facility] (15 min) Moderate 04/27/2018 Visit Plan: DM [...] phenergan. 03/25/2018 Appointment: [phone] 30 min appointments only in this [...] home. 01/12/2018 Appointment: Kristie Carter WPtel: [phone] [facility] (15 min) Moderate 01/12/2018 Patient Education: Patient [...] over-medication. 12/29/2017 App[facility]ment: [phone] (15 min) Moderate 12/29/2017 Patient Education: Patient [...] mupirocin 12/01/2017 Appointment: [phone] [place] (15 min) Moderate 12/01/2017 Patient Education: Patient Medication Summary Completed 12/01/2017 Care Plan: Comp Metabolic Cancelled 12/01/2017 Care Plan: Cbc With Differential Cancelled 12/01/2017 Care Plan: %Hba1C LOINC : 56374-1 Cancelled 12/01/2017 Care Plan: Tsh Cancelled 12/01/2017 [...] recommended. 11/03/2017 Appointment: [phone] [place] (15 min) Moderate 11/03/2017 Patient Education: [...] able. 08/11/2017 Appointment: Kristie Carter WPtel: [phone] [facility] (15 min) Moderate 08/11/2017 Patient Education: [...] able. 06/09/2017 Appointment: Kristie Carter WPtel: [phone] [facility] (15 min) Moderate 06/09/2017 Patient Education: Patient [...] of control. 05/13/2017 Appointment: Kristie Carter WPtel: [address] [place], [place] [address] New Patient 05/13/2017 Patient Education: Patient Medication Summary Completed 05/13/2017 Referral: Ba Juan WPtel:[phone] Referral Appointment Requested Instructions Comment . Hypertension [...] I have recommended a Referral to Dr. uJan for scope (egd and colonoscopy) in July [...]
--- OUTSIDE RECORDS SUMMARY | 2018-08-20 12:26 | XMS REPORT | Continuity of Care Document ---
Author Author [facility] Organization [facility] Address Unknown Phone Unavailable Allergies Active Description Code Type Severity Reaction Onset Reported/Identified Relationship to Patient Clinical Status Yes cephalexin [id number] Drug Allergy Unknown N/A 03/03/2006 Yes No Known Drug Allergies [id number] Drug Allergy Unknown N/A 08/05/2018 Medications There [...] Ot Z01.818 ENCOUNTER FOR OTHER PREPROCEDURAL EXAMIN 08/12/2018 STACEY CASAREZ DO Ot K80.20 CALCULUS OF GALLBLADDER W/O CHOLECYSTITI 08/12/2018 STACEY CASAREZ DO Ot Z01.812 ENCOUNTER FOR PREPROCEDURAL LABORATORY E 08/12/2018 STACEY CASAREZ DO Ot Z11.2 ENCOUNTER FOR SCREENING FOR OTHER BACTER 08/12/2018 STACEY CASAREZ DO Ot K80.20 CALCULUS OF GALLBLADDER W/O CHOLECYSTITI 08/12/2018 STACEY CASAREZ DO Ot Z01.812 ENCOUNTER FOR PREPROCEDURAL LABORATORY E 08/12/2018 STACEY CASAREZ DO Ot Z11.2 ENCOUNTER FOR SCREENING FOR OTHER BACTER 08/14/2018 STACEY CASAREZ DO Ot E03.9 HYPOTHYROIDISM, UNSPECIFIED 08/14/2018 STACEY CASAREZ DO Ot I10 ESSENTIAL (PRIMARY) HYPERTENSION 08/14/2018 STACEY CASAREZ DO Ot K21.9 GASTRO-ESOPHAGEAL REFLUX DISEASE WITHOUT 08/14/2018 STACEY CASAREZ DO Ot K29.50 UNSPECIFIED CHRONIC GASTRITIS WITHOUT BL 08/14/2018 STACEY CASAREZ DO Ot K62.1 RECTAL POLYP 08/14/2018 STACEY CASAREZ DO Ot K63.5 POLYP OF COLON 08/14/2018 STACEY CASAREZ DO Ot M79.7 FIBROMYALGIA 08/14/2018 STACEY CASAREZ DO Ot R19.4 CHANGE IN BOWEL HABIT 08/14/2018 STACEY CASAREZ DO Ot Z79.891 [employer]PER[employer]OR (CURRENT) USE OF OPIATE ANALGE 08/14/2018 STACEY CASAREZ DO Ot Z79.899 OTHER LONG-TERM (CURRENT) DRUG THERAPY Procedures There is no data. Results Test Result Range Thyroid Stimulating Hormone - 10/28/16 15:32 TSH 10.32 mIU/mL 0.32-5.00 THYROID STIMULATING HORMONE - 03/13/17 14:17 THYROID STIMULATING HORMONE 18.49 u[iU]/mL 0.35-4.94 TRIIODOTHRYONINE T3 FREE - 03/13/17 14:17 TRIIODOTHYRONINE T3 FREE 2.6 pg/mL 2.4-4.5 Methicillin resistant Staphylococcus aureus (MRSA) screening culture - 09:35 Methicillin resistant Staphylococcus aureus (MRSA) screening culture NEG NRG Complete blood count (CBC) with automated white blood cell (WBC) differential - 08/11/18 09:40 Blood leukocytes automated count (number/volume) 6.6 10*3/uL 4.3-11.0 Blood erythrocytes automated count (number/volume) 4.87 10*6/uL 4.35-5.85 Venous blood hemoglobin measurement (mass/volume) 14.7 g/dL 11.5-16.0 Blood hematocrit (volume fraction) 44 % 35-52 Automated erythrocyte mean corpuscular volume 90 [foz_us] 80-99 Automated erythrocyte mean corpuscular hemoglobin (mass per erythrocyte) 30 pg 25-34 Automated erythrocyte mean corpuscular hemoglobin concentration measurement ( mass/volume) 34 g/dL 32-36 Automated erythrocyte distribution width ratio 13.2 % 10.0-14.5 Automated blood platelet count (count/volume) 232 10*3/uL 130-400 Automated blood platelet mean volume measurement 10.2 [foz_us] 7.4-10.4 Automated blood neutrophils/100 leukocytes 74 % 42-75 Automated blood lymphocytes/100 leukocytes 20 % 12-44 Blood monocytes/100 leukocytes 5 % 0-12 Automated blood eosinophils/100 leukocytes 1 % 0-10 Automated blood basophils/100 leukocytes 0 % 0-10 Blood neutrophils automated count (number/volume) 4.9 10*3 1.8-7.8 Blood lymphocytes automated count (number/volume) 1.3 10*3 1.0-4.0 Blood monocytes automated count (number/volume) 0.3 10*3 0.0-1.0 Automated eosinophil count 0.0 10*3/uL 0.0-0.3 Automated blood basophil count (count/volume) 0.0 10*3/uL 0.0-0.1 Encounters ACCT No. Visit Date/Time Discharge Status Pt. Type Provider Facility Loc./Unit Complaint [id number] 08/11/2018 08:19:00 08/11/2018 11:24:00 DIS Outpatient STACEY CASAREZ DO [facility] ENDO DYSPHAGIA/EPIGASTRIC ABD PAIN/NAUS/CHANGE IN BOWEL [id number] 08/11/2018 09:02:00 08/11/2018 09:46:00 DIS Outpatient STACEY CASAREZ DO [facility] PREOP LAPAROSCOPIC CHOLECYSTECTOMY [id number] 08/05/2018 13:00:00 08/05/2018 13:26:00 DIS Outpatient STACEY CASAREZ DO [facility] PREOP COLONOSCOPY/EGD [id number] 07/30/2018 07:49:00 07/30/2018 23:59:59 CLS Outpatient STACEY CASAREZ DO [facility] RAD EPIGASTRIC ABDOMINAL PAIN [id number] 03/13/2017 14:05:00 03/13/2017 23:59:59 CLS Outpatient SANG FRANCOIS [facility] LAB HYPOTHYROIDISM [id number] 11/15/2015 17:29:00 11/15/2015 19:30:00 DIS Emergency JORY GONZALEZ [facility] ER R KNEE PAIN [id number] 08/20/2018 09:45:00 ACT Outpatient STACEY CASAREZ DO [facility] SDC SYMPTOMATIC CHOLECYSTITIS [id number] 10/19/2010 14:29:00 Document Registration [id number] 05/13/2017 17:02:18 05/13/2017 23:59:59 CLS Outpatient [id number] 10/28/2016 20:02:00 10/28/2016 23:59:00 DIS Outpatient Erasto Mayer
[2018-08-20] MEDS ORDERED: ISOFLURANE (FORANE) 15 ML/15 MIN INHALATION ONE (12:48)
[2018-08-20] MEDS ORDERED: NEOSTIGMINE 1 MG/ML 5 ML SYRINGE ONE (12:53)
[2018-08-20] MEDS ORDERED: GLYCOPYRROLATE 0.2 MG/ML (ROBINUL) 2 ML VIAL ONE (12:53)
--- NOTE | 2018-08-20 12:56 | Progress Note-Post Operative ---
Post-Operative Progess Note Surgeon (s)/Roper Operator (s) Surgeon STACEY CASAREZ DO Roper Operator: Dr. Saunders Pre-Operative Diagnosis symptomatic cholelithiasis Post-Operative Diagnosis same Procedure & Operative Findings Date of Procedure 08/20/18 Procedure Performed/Findings lap trudy c ioc Anesthesia Type gen Estimated Blood Loss Estimated blood loss (mL): min Specimens/Packing Specimens Removed gallbladder STACEY CASAREZ DO Aug 20, 2018 12:56
[2018-08-20] MEDS ORDERED: DOCU-143 PO (12:57)
[2018-08-20] MEDS ORDERED: ACHD5005 PO (12:57)
--- NOTE | 2018-08-20 12:59 | Discharge Inst-Simple/Standard ---
Discharge Inst-Standard Discharge Medications New, Converted or Re-Newed RX: RX on Chart Patient Instructions/Follow Up Plan of Care/Instructions/FU: 2 weeks Yessica Activity as Tolerated: No Discharge Diet: Regular Diet Other Inst to Patient Follow up Appt: Make appointment for 2 weeks. Instructions: No lifting greater than 10 pounds. No strenuous activity. May shower in 24 hours, no tub bath or soaking. Use incentive spirometer at home as directed. No Smoking Skin/Wound Care: You have special glue over incisions it will fall off on its own. Symptoms to Report: Appetite Changes, Extremity Discoloration, Numbness/Tingling, Swelling Increased , Bleeding Excessive, Eyesight Changes, Pain Increased, Urine Color Change, Constipation(Persistent), Fever over 101 degree F, Pain/Pressure in chest, Urinating Difficulty, Cough Up/Vomit Blood, Heart Beat Irreg/Pounding, Pain/ Pressure in jaw, Vaginal Bleeding Increase, Cramps in feet or legs, Lightheadedness, Pain/Pressure in shoulder, Diarrhea(Persistent), Memory Changes Suddenly, Questions/Concerns, Weight gain consecutive days, Dizziness/ Fainting, Nausea/Vomiting, Shortness of Breath, Weight gain over 2 pounds. If eyes or skin turn yellow notify physician. If questions or concerns contact your physician Or seek help at emergency department. STACEY CASAREZ DO Aug 20, 2018 12:59
[2018-08-20] MEDS ORDERED: HYDROcodone/APAP 5 MG/325 MG (LORTAB) TAB PO PRN (13:00)
[2018-08-20] MEDS ORDERED: fentaNYL INJECTION 100 MCG/2 ML AMP IVP ONE (13:30)
[2018-08-20] MEDS ORDERED: PROMETHAZINE INJ 25 MG/ML (PHENERGAN) AMP IVP ONE (13:30)
[2018-08-20] MEDS ORDERED: MEPERIDINE (DEMEROL) INJ 50 MG/ML IVP ONE (13:30)
[2018-08-20] MEDS ORDERED: ONDANSETRON 4 MG/2 ML (SDV) Z0FRAN IVP PRN (13:30)
[2018-08-20 14:25] VITALS: BP 155/88
--- NOTE | 2018-08-20 14:51 | Anesthesia-General Post-Op ---
General Patient Condition Mental Status/LOC: Same as Preop Cardiovascular: Satisfactory Nausea/Vomiting: Absent Respiratory: Satisfactory Pain: Controlled Complications: Absent Post Op Complications Complications None Follow Up Care/Instructions Patient Instructions None needed. Anesthesia/Patient Condition Patient Condition Patient is doing well, no complaints, stable vital signs, no apparent adverse anesthesia problems. No complications reported per nursing. MARCO A CAMP CRNA Aug 20, 2018 14:51
[2018-08-20 14:55] VITALS: BP 166/81
[2018-08-20 15:25] VITALS: BP 163/82
--- NOTE | 2018-08-20 19:28 | Diagnostic Imaging Report ---
INDICATION: Cholecystectomy. COMPARISON: None. TOTAL FLUOROSCOPY TIME: 16 seconds. EXAMINATION: Two intraoperative image intensifier views of the right upper abdominal quadrant were obtained during intraoperative cholangiogram. Images provided show contrast filling the internal and external hepatic biliary ductal systems. No distinct intraluminal filling defects are seen. Contrast empties into the small bowel as expected. Please note, interpreting radiologist was not present during the procedure. IMPRESSION: Fluoroscopic guidance provided during intraoperative cholangiogram. Dictated by: Dictated on workstation # [id number]
--- NOTE | 2018-08-20 21:03 | OPERATIVE REPORT ---
DATE OF SERVICE: 08/20/2018 PREOPERATIVE DIAGNOSIS: Symptomatic cholelithiasis. POSTOPERATIVE DIAGNOSIS: Symptomatic cholelithiasis. PROCEDURE: Laparoscopic cholecystectomy with intraoperative cholangiogram. SURGEON: Stacey Juan DO OPENSTACK DEVELOPER: Dr. Saunders, assisted in retraction, dissection and closure. ANESTHESIA: General. ESTIMATED BLOOD LOSS: Minimal. COMPLICATIONS: None. INDICATIONS: The patient is a 63-year-old female was having nausea and vomiting, symptoms consistent with gallbladder disease. She understands risks and benefits of procedure and wished to proceed with procedure. Consent was signed in the chart. DESCRIPTION OF PROCEDURE: The patient was taken to the operating suite. She was prepped and draped in sterile fashion. Surgical pause was performed. Incision was made just above the umbilicus, dissected down to the fascia, which was then scored and elevated. The abdomen was then entered. A 0 Vicryl was placed in a [id number] fashion for closure at the end of the case. A balloon trocar was inserted in the abdomen and pneumoperitoneum was achieved. Under direct visualization of the laparoscope, a 5 mm trocar was placed in the subxiphoid region and two 5 mm trocars were placed in the right upper quadrant. Gallbladder was grasped with some adhesions up to the gallbladder. This was elevated above the liver edge. The cystic duct and cystic artery were then dissected out. Clips were placed on the proximal and distal portion of the cystic artery and had to be cut in order to get to the cystic duct. This was then dissected around. A clip was placed on the distal portion of the cystic duct and the duct was then partially transected. Arrow catheter was inserted into the duct and then cholangiogram was performed. There were no filling defects. Contrast made its way into the duodenum without difficulty. The catheter was then removed. Clips were placed on the proximal portion of the cystic duct and the duct was then completely transected. Hook cautery used to dissect the gallbladder from gallbladder fossa achieving hemostasis. Once removed, it was placed in an Endobag and removed through 12 mm trocar site. Abdomen was then irrigated and suctioned. Hemostasis had been achieved. The abdomen was then desufflated, the trocars were removed. The 0 Vicryl was placed at the beginning of the case and 12 mm fascial defect was then tied and the skin was then closed using 4-0 Monocryl in a subcuticular fashion. The abdomen was then washed and dried and Skin Affix was placed over the incisions. The patient tolerated procedure well without any complications. She was taken to recovery room in stable condition. Job ID: [id number] DocumentID: [id number] Dictated Date: 08/20/2018 13:34:23 Hand [employer] Date: 08/20/2018 21:03:12 Dictated By: STACEY JUAN DO
== END 2018-08-20 15:45 | disposition home or self-care (01) ==
LOC: SDC 09:45
PROVIDERS: ATTEND Surgery
DX: K80.10 Calculus of gallbladder with chronic cholecystitis without obstruction (principal); I10 Essential (primary) hypertension; K21.9 Gastro-esophageal reflux disease without esophagitis; E03.9 Hypothyroidism, unspecified; E66.9 Obesity, unspecified; Z68.33 Body mass index [BMI] 33.0-33.9, adult; Z87.891 Personal history of nicotine dependence; Z79.899 Other long term (current) drug therapy; Z79.891 Long term (current) use of opiate analgesic
CPT/HCPCS: 88304; 94664

== ENCOUNTER → 2020-04-18 | Outpatient (CLI) | payer OTHER ==
[~2020-04-18] MED LIST changes: +ACHD5005 PO; +DOCU-143 PO; -PANT40TA3 PO; +PANT40TA52 PO
--- NOTE | 2020-04-18 09:17 | Diagnostic Imaging Report ---
INDICATION: Postmenopausal COMPARISON: None FINDINGS: The bone mineral density of the hips and spine was measured. The T score for the spine is -1.9. The total T score for the left hip is -1.6 and for the right hip -1.7. The T score for the left femoral neck is -1.9 and for the right femoral neck -1.6. All of these values indicate osteopenia. AP Spine L1-L4: [BMD (g/cm2): 0.966] [T-Score: -1.9] [Z-Score: -1.2] [BMD Previous: 1.095] [BMD % Change: -11.8] LT Hip Neck: [BMD (g/cm2): 0.774] [T-Score: -1.9] [Z-Score: -1.0] LT Hip Total: [BMD (g/cm2):0.801] [T-Score:-1.6] [Z-Score: -1.0] [BMD Previous: 0.864] [BMD % Change: -7.3] RT Hip Neck: [BMD (g/cm2):0.810] [T-Score:-1.6] [Z-Score:-0.7] RT Hip Total: [BMD (g/cm2):0.788] [T-score:-1.7] [Z-Score:-1.1] [BMD Previous:0.848] [BMD % Change:-7.1] *Indicates significant change from prior examination based on 95% confidence level. World Health Organization criteria for BMD interpretation classify patients as Normal (T-score at or above -1.0), Osteopenic (T-score between -1.0 and -2.5) or Osteoporotic (T-score at or below -2.5). LIMITATIONS AND MODIFICATION: None. FRACTURE RISK (FRAX SCORE): The ten year probability of (%): Major Osteoporotic Fracture: [16.1] Hip Fracture: [2.2] IMPRESSION: 1. The bone mineral density of the spine, hips and the femoral necks falls within the range of osteopenia. 2. 3. See below National Osteoporosis Foundation guidelines on when to potentially initiate pharmacologic therapy. Based on the National Osteoporosis Foundation Guidelines, pharmacologic treatment should be initiated in any of the following, unless clinical conditions suggest otherwise: * Any patient with prior fragility fracture of the hip or vertebrae. A spine fracture indicates 5X risk for subsequent spine fracture and 2X risk for subsequent hip fracture. * Osteoporosis (T-score <-2.5). * Postmenopausal women and men age 50 and older with low bone mass/osteopenia (T-score between -1.0 and -2.5) by DXA and 10-year major osteoporotic fracture greater than 20% or a 10-year probability of hip fracture greater than 3%. These fracture risks are supplied above in the FRAX score, if applicable. * Clinician judgement and/or patient preferences may indicate treatment for people with 10-year fracture probabilities above or below these levels. Dictated by: Dictated on workstation # [id number]
--- NOTE | 2020-04-18 09:23 | Diagnostic Imaging Report ---
PROCEDURE: US carotid duplex, bilateral. TECHNIQUE: Multiple real-time grayscale images were obtained over the carotid arteries in various projections, bilaterally. Additional spectral analysis and color Doppler duplex images were also obtained. INDICATION: Right-sided bruit There are no prior studies available for comparison. There is mild hard and soft plaque formation in both carotid bifurcations. The flow velocities failed to show any sign of a hemodynamically significant stenosis of the common or internal carotid arteries. Both vertebral arteries were noted and there was antegrade flow bilaterally. IMPRESSION: There is mild atherosclerotic disease involving both carotid systems. There is no evidence for hemodynamically significant stenosis of the common or internal carotid arteries. Parameters based on the consensus panel Madden-Scale and Doppler ultrasound criteria published May 2003, Radiology, Volume 229. DOPPLER (peak systolic velocity M/S Right Left CCA 0.82 0.79 ICA Proximal 0.74 0.97 ICA Mid 0.81 0.99 ICA Distal 0.62 0.90 RATIO 0.99 1.26 ECA 1.47 1.80 VERT 0.27 0.54 Dictated by: Dictated on workstation # [id number]
--- NOTE | 2020-04-18 16:02 | Diagnostic Imaging Report ---
EXAMINATION: Digital mammogram bilateral screening with CAD. INDICATION: Screening. COMPARISON: There are no prior studies available for comparison. PERSONAL HISTORY: At this time, there are no current complaints. FINDINGS: The fibroglandular tissue in both breasts is dense. This does limit the sensitivity of this exam. There is no primary or secondary sign of malignancy noted. IMPRESSION: 1. There is no evidence for malignancy. 2. The patient should have her annual bilateral screening mammogram on schedule in March 2021. ACR BI-RADS Category 1: Negative. Result letter will be mailed to the patient. Note: At least 10% of breast cancer is not imaged by mammography. Dictated by: Dictated on workstation # [id number]
== END ==
LOC: RAD 07:46
PROVIDERS: ATTEND Family Medicine
DX: Z12.31 Encounter for screening mammogram for malignant neoplasm of breast (principal); I65.23 Occlusion and stenosis of bilateral carotid arteries; M85.89 Other specified disorders of bone density and structure, multiple sites; Z78.0 Asymptomatic menopausal state
CPT/HCPCS: 77063; 77067; 77080; 93880

== ENCOUNTER → 2020-04-27 | Outpatient (CLI) | payer OTHER | LOC: CARD 14:00 | PROVIDERS: ATTEND Internal Medicine Cardiovascular Disease | DX: I10 Essential (primary) hypertension (principal); I65.29 Occlusion and stenosis of unspecified carotid artery; R07.89 Other chest pain; R06.02 Shortness of breath | CPT/HCPCS: 93306 ==

== ENCOUNTER → 2020-05-16 | Outpatient (CLI) | payer OTHER ==
[~2020-05-16] VITALS: Ht 165 cm; Wt 90.0 kg
[~2020-05-16] MED LIST changes: +REGADENOSON 0.4 MG/5 ML SYR (LEXISCAN) IV ONE
[2020-05-16] MEDS: CATHETER FLUSH 10 ML SYR IV PRN ×2 (07:29→08:50)
[2020-05-16 08:49] VITALS: BP 149/65
--- NOTE | 2020-05-16 13:49 | STRESS TEST ---
DATE OF SERVICE: 05/16/2020 RESTING AND POST REGADENOSON TECHNETIUM-99M TETROFOSMIN SPECT CT IMAGING ORDERING PHYSICIAN: Lianna Brantley APRN PRIMARY PHYSICIAN: Dr. Carter. OTHER PHYSICIAN: Dr. Aguirre. CLINICAL DIAGNOSIS: Chest discomfort. Baseline images were carried out after injection of 10.3 mCi of technetium-99m Tetrofosmin. This was followed by 0.4 mg regadenoson and 31.1 mCi of technetium-99m Tetrofosmin for stress imaging. The electrocardiogram showed sinus rhythm with right bundle branch block at baseline. The electrocardiogram did not change significantly with regadenoson infusion. The patient tolerated the procedure well. Review of images at rest and following stress indicates a small basal inferior perfusion defect that is transient. Gated images show normal global left ventricular systolic function with normal regional wall motion. Left ventricular ejection fraction is calculated to be 77%. Left ventricular end diastolic volume is 49 mL. TID is absent (1.02). CONCLUSIONS: 1. This study is suggestive of a small amount of basal inferior ischemia. 2. Normal regional wall motion. 3. Normal global left ventricular systolic function with a calculated ejection fraction of 77%. Job ID: [id number] DocumentID: [id number] Dictated Date: 05/16/2020 11:25:43 Cafeteria Clerk Date: 05/16/2020 13:48:50 Dictated By: ANA M AGUIRRE MD, MA, FACP, FACC,
== END ==
LOC: CARD 07:03
PROVIDERS: ATTEND Nurse Practitioner Family
DX: R07.89 Other chest pain (principal); I77.89 Other specified disorders of arteries and arterioles; I10 Essential (primary) hypertension; R06.02 Shortness of breath
CPT/HCPCS: 78452; 93017; A9502

== ENCOUNTER 2020-06-27 06:55 | Day surgery (SDC) | payer OTHER ==
[~2020-06-27] VITALS: Ht 165 cm; Wt 90.0 kg
[2020-06-27] VITALS (13 sets, daily range): BP systolic 125–181; BP diastolic 65–95
[~2020-06-27 06:55] MED LIST changes: -REGADENOSON 0.4 MG/5 ML SYR (LEXISCAN) IV ONE
[2020-06-27] MEDS ORDERED: LIDOCAINE 1% INJ 20 ML 20 ML VIAL ONE (07:14)
[2020-06-27] MEDS ORDERED: HEParin (CATH LAB) 2,000 ML IV ONE (07:14)
[2020-06-27] MEDS ORDERED: NS IV 1000 ML 1,000 ML IV SCH (07:15)
[2020-06-27] MEDS ORDERED: NS IV 1000 ML 1,000 ML ONE (07:15)
[2020-06-27 07:44] LABS: HEMOGLOBIN 14.8 g/dL (11.5-16.0); MEAN PLATELET VOLUME 10.4 fL (9.0-12.2); WHITE BLOOD COUNT 6.5 10^3/uL (4.3-11.0)
[2020-06-27] MEDS: NS IV 1000 ML 1,000 ML IV SCH ×3 (07:44→15:38)
[2020-06-27 07:55] LABS: ALBUMIN 3.7 GM/DL (3.2-4.5); CHLORIDE 106 MMOL/L (98-107); POTASSIUM 3.7 MMOL/L (3.6-5.0); SODIUM 141 MMOL/L (135-145)
[2020-06-27 07:56] LABS: CALCIUM 8.2 MG/DL (8.5-10.1)
[2020-06-27] MEDS ORDERED: CLOP75TA28 PO (07:56)
[2020-06-27] MEDS ORDERED: AMLO-250 PO (07:56)
[2020-06-27] MEDS ORDERED: PROM25TA14 PO (07:56)
[2020-06-27] MEDS ORDERED: VIT-10 PO (07:56)
[2020-06-27 07:57] LABS: GLUCOSE 110 MG/DL (70-105); INR 1.1 (0.8-1.4); PROTHROMBIN TIME PATIENT 14.1 SEC (12.2-14.7); TOTAL PROTEIN 7.7 GM/DL (6.4-8.2); TRIGLYCERIDES 199 MG/DL (<150); VLDL CHOLESTEROL 40 MG/DL (5-40)
[2020-06-27 07:58] LABS: CARBON DIOXIDE 25 MMOL/L (21-32)
[2020-06-27 07:59] LABS: BILIRUBIN,TOTAL 0.5 MG/DL (0.1-1.0)
[2020-06-27 08:01] LABS: ALKALINE PHOSPHATASE 135 U/L (40-136); CREATININE SERUM 0.85 MG/DL (0.60-1.30); GFR ESTIMATED > 60
[2020-06-27 08:02] LABS: BUN/CREATININE RATIO 15; CHOLESTEROL 162 MG/DL (< 200)
[2020-06-27] MEDS ORDERED: MIDAZOLAM 5 MG/5 ML (VERSED) VIAL ONE (08:02)
[2020-06-27] MEDS ORDERED: fentaNYL INJECTION 100 MCG/2 ML AMP ONE ×2 (08:02→09:39)
[2020-06-27 08:03] LABS: HDL CHOLESTEROL 30 MG/DL (40-60)
[2020-06-27 08:04] LABS: ALANINE AMINOTRANSFERASE 17 U/L (0-55)
[2020-06-27] MEDS ORDERED: NITRO DRIP 25000 MCG/D5W 250 ML IV ONE (08:56)
[2020-06-27] MEDS ORDERED: HEParin 1000 UNIT/ML (10ML VIAL) FOR BOLUS ONE (08:56)
[2020-06-27] MEDS ORDERED: ADENOSINE 90 MG/30 ML (ADENOSCAN) VIAL IV ONE ×2 (08:57→09:08)
[2020-06-27] MEDS ORDERED: HEParin (CATH LAB) 1,000 ML IV ONE (08:59)
[2020-06-27] MEDS ORDERED: HYDROmorphone 2 MG/ML VIAL (DILAUDID) ONE (09:16)
[2020-06-27] MEDS ORDERED: EPTIFIBATIDE BOLUS 20 ML IV ONE (09:20)
[2020-06-27] MEDS ORDERED: MIDAZOLAM 2 MG/2 ML (VERSED) VIAL ONE (09:29)
[2020-06-27] MEDS ORDERED: ASPIRIN 81 MG CHEW (CHILDREN'S ASA) ONE (10:04)
[2020-06-27] MEDS ORDERED: CLOPIDOGREL 300 MG (PLAVIX) TABLET PO ONE (10:04)
[2020-06-27] MEDS ORDERED: PROMETHAZINE 25 MG (PHENERGAN) TAB PO PRN (10:15)
[2020-06-27] MEDS ORDERED: PATIENT MAY USE OWN MEDS, ALL PO SCH (10:15)
[2020-06-27] MEDS ORDERED: ONDANSETRON 4 MG (ZOFRAN) ORAL DISSOLVE TAB PO PRN (10:15)
[2020-06-27] MEDS ORDERED: METHADONE 10 MG (DOLOPHINE) TAB PO PRN (10:15)
--- NOTE | 2020-06-27 10:42 | NUR ---
patient states she is having pain 10 out of 10. dozes off in between complaints of pain.
--- NOTE | 2020-06-27 10:45 | Cardiac Procedure Note-CS/ASA ---
Pre-Procedure Note Pre-Op Procedure Note H&P Reviewed The H&P was reviewed, patient examined and no changes noted. Date H&P Reviewed: Jun 27, 2020 Time H&P Reviewed: 08:45 Conscious Sedation Pre-Proced Time 08:45 ASA Score 3 For ASA 3 and 4: Consider anesthesia and medical clearance. Also, for patients with a history of failed moderate sedation consider anesthesia. Airway Lungs Heart ASA score ASA 1: a normal healthy patient ASA 2: a patient with a mild systemic disease (mid diabetes, controlled hypertension, obesity ASA 3: a patient with a severe systemic disease that limits activity (angina, COPD, prior Myocardial infarction) ASA 4: a patient with an incapacitating disease that is a constant threat to life (CHF, renal failure) ASA 5: a moribund patient not expected to survive 24 hrs. (ruptured aneurysm) ASA 6: a declared brain- patient whose organs are being harvested. For emergent operations, add the letter E after the classification Mallampati Classification Grade 2 Sedation Plan Analgesia, Amnesia, Plan communicated to team members, Discussed options with patient/fam, Discussed risks with patient/fam The patient is an appropriate candidate to undergo the planned procedure, sedation, and anesthesia. The patient immediately re-assessed prior to indication. ANA M AGUIRRE MD FACP FAC CCDS Jun 27, 2020 10:45
[2020-06-27] MEDS ORDERED: ONDANSETRON 4 MG/2 ML (SDV) Z0FRAN ONE (10:47)
[2020-06-27] MEDS ORDERED: ONDANSETRON 4 MG/2 ML (SDV) Z0FRAN IVP ONE (11:00)
--- NOTE | 2020-06-27 16:15 | OPERATIVE REPORT ---
DATE OF SERVICE: 06/27/2020 CARDIAC CATHETERIZATION AND CORONARY INTERVENTION REPORT INDICATIONS: The patient is a 65-year-old lady with multiple risk factors and symptoms of increasing shortness of breath. She recently had an abnormal myocardial perfusion study, which indicated apical ischemia. Cardiac catheterization was carried out after having obtained an informed consent for cardiac catheterization and possible ad hoc coronary intervention. DESCRIPTION OF PROCEDURE: She was brought to the cardiac catheterization laboratory in a fasting state. Right groin was prepared and draped in the usual sterile fashion. Lidocaine 1% was used for local anesthesia. Modified Seldinger technique was used to advance a 5-Panamanian sheath into the right femoral artery. We carried out left and right coronary angiography with JL4 and JR4 catheters. We carried out left heart catheterization with a 5-Panamanian pigtail catheter. Left ventricular angiography was performed. The pigtail catheter was then removed. Subsequently, we carried out fractional flow reserve measurement in the left anterior descending and the left circumflex artery and percutaneous intervention to the right coronary artery that is described below. FRACTIONAL FLOW RESERVE MEASUREMENT IN THE LEFT ANTERIOR DESCENDING: The left anterior descending artery was exhibiting approximately 50% proximal stenosis with some haziness and calcification. We carried out fractional flow reserve measurement. We exchanged the sheath over a wire for a 6-Panamanian sheath. We gave 6000 units of intravenous heparin. We used a 6-Panamanian JL4 guide catheter. We advanced the pressure wire across the lesion and a fractional flow reserve measurement was carried out while infusing 140 mcg per kilogram of adenosine for 2-1/2 minutes. Fractional flow reserve was measured at 0.88. Thus, the lesion in the proximal left anterior descending artery was not considered to be hemodynamically significant. FRACTIONAL FLOW RESERVE MEASUREMENT OF THE LEFT CIRCUMFLEX: The left circumflex artery was exhibiting approximately 50% to 60% stenosis in its mid portion prior to a bifurcation. We carried out fractional flow reserve measurement across this lesion. The same equipment was used. The pressure wire was advanced across the lesion. A 140 mcg per kilogram per minute of adenosine was infused over 2-1/2 minutes. Fractional flow reserve was 0.89, indicating that the lesion was not hemodynamically significant. PERCUTANEOUS INTERVENTION TO THE RIGHT CORONARY: Following completion of the fractional flow reserve within the left coronary, we proceeded with percutaneous intervention of the right coronary, which was exhibiting up to 99% stenosis in its proximal and mid portions. We used a 6-Panamanian JR4 guide catheter with side holes. We advanced a BMW wire across the lesions and the tip was placed in the distal vessel. We gave a double bolus of Integrilin during this procedure. We first carried out balloon angioplasty of the lesions with Emerge 2.0 x 30 mm balloon. We then carried out stenting of the distal lesions in the right coronary with Resolute 2.0 x 18 mm stent and the proximal lesions with Resolute 2.25 x 26 mm stent. The stent slightly overlaps. Final result was good. No significant residual stenosis was seen at the previous sites of up to 99% stenosis. Flow throughout the vessel was normal. Distally, there are 50% lesions, which were not intervened on. The patient tolerated the procedure well. Angioplasty equipment was removed. Angiography of the right femoral artery had been carried out through the sheath at the beginning of the procedure. At the end of the procedure, Mynx was used to achieve hemostasis. She tolerated the procedure well. HEMODYNAMICS: Left ventricular end-diastolic pressure following coronary angiography was 14 mmHg. There was no significant pressure gradient on pullback across the aortic valve. Ascending aortic pressure was 114/60 with a mean of 67 mmHg. CORONARY ANGIOGRAPHY: Left main coronary artery does not exhibit significant disease. Left anterior descending artery has 50% proximal stenosis and fractional flow reserve across that of 0.88, indicating hemodynamic insignificance. The left circumflex artery has 50% to 60% mid vessel stenosis and fractional flow reserve across stenosis is 0.9, indicating hemodynamic insignificance. The distal AV groove left circumflex artery has up to approximately 90% stenosis, but the vessel here is of a small caliber and does not appear amenable to intervention. The right coronary artery is dominant and had severe proximal and mid vessel stenoses that were intervened on, as detailed above. Following deployment of overlapping Resolute 2.25 x 26 and 2.0 x 18 (from proximal to distal) stent, there is no significant residual stenosis. The distal right coronary artery has up to approximately 50% stenoses. LEFT VENTRICULAR ANGIOGRAPHY: Left ventricular angiography did not indicate any significant wall motion abnormality in the right anterior oblique projection. Left ventricular ejection fraction estimated approximately 60%. CONCLUSIONS: 1. Multivessel coronary artery disease that includes 50% proximal stenosis of the left anterior descending (fractional flow reserve 0.88), 50% to 60% proximal and mid vessel stenosis of the left circumflex (fractional flow reserve of 0.9) and up to 90% stenosis in the very distal left circumflex, where the vessel is of a small caliber and not amenable to intervention. The right coronary artery is dominant and had multiple severe stenoses to which successful intervention was carried out and following deployment of overlapping Resolute 2.25 x 26 mm and Resolute 2.0 x 18 mm stent, there was no significant residual stenosis. The distal right coronary artery has up to 50% stenosis. 2. Mildly elevated left ventricular end-diastolic pressure. 3. Normal global left ventricular systolic function with an ejection fraction approximately 60%. DISCUSSION AND RECOMMENDATIONS: She has been advised to quit smoking immediately and completely. Dual antiplatelet therapy is being continued. Beta joanne therapy is being continued. She is being hospitalized for overnight observation. Job ID: [id number] DocumentID: [id number] Dictated Date: 06/27/2020 10:58:20 Commercial Pest Control Representative Date: 06/27/2020 16:15:10 Dictated By: ANA M AGUIRRE MD, MA, FACP, FACC,
[2020-06-28] VITALS: BP 114/70
[2020-06-28] MEDS: NS IV 1000 ML 1,000 ML IV SCH ×2 (00:31)
[2020-06-28 03:42] VITALS: BP 110/70
[2020-06-28 04:11] LABS: HEMOGLOBIN 13.6 g/dL (11.5-16.0); MEAN PLATELET VOLUME 10.8 fL (9.0-12.2); WHITE BLOOD COUNT 8.6 10^3/uL (4.3-11.0)
[2020-06-28 04:55] LABS: CHLORIDE 104 MMOL/L (98-107); SODIUM 138 MMOL/L (135-145)
[2020-06-28 04:56] LABS: CALCIUM 8.1 MG/DL (8.5-10.1)
[2020-06-28 04:58] LABS: CARBON DIOXIDE 21 MMOL/L (21-32)
[2020-06-28 05:00] LABS: CREATININE SERUM 0.78 MG/DL (0.60-1.30); GFR ESTIMATED > 60
[2020-06-28 05:01] LABS: GLUCOSE 87 MG/DL (70-105)
[2020-06-28 05:06] LABS: BUN/CREATININE RATIO 14
[2020-06-28 07:25] VITALS: BP 143/70
--- NOTE | 2020-06-28 07:55 | Progress Note - Cardiology ---
Cardiology SOAP Progress Note Subjective: Sitting up in bed. Wants to go home today. No c/o CP or palpitations. Mild right groin tenderness with palpation. Per nursing staff O2 sat on RA after ambulation from the BR was 84%. She does report continued SOB with ambulation. Objective: I&O/Vital Signs 06/27/20 06/27/20 06/28/20 06/28/20 23:00 23:01 00:00 01:00 Temp 36.3 Pulse 57 57 56 Resp 12 B/P (MAP) 125/65 (85) 114/70 (85) Pulse Ox 94 92 O2 Delivery Nasal Cannula Nasal Cannula Nasal Cannula O2 Flow Rate 2.00 2.00 2.00 06/28/20 06/28/20 06/28/20 03:42 07:25 07:58 Temp 36.2 36.6 Pulse 61 73 Resp 14 8 B/P (MAP) 110/70 (83) 143/70 (94) Pulse Ox 94 94 O2 Delivery Nasal Cannula Nasal Cannula Nasal Cannula O2 Flow Rate 2.00 2.00 3.00 06/28/20 00:00 Intake Total 900 ml Balance 900 ml Weight (Pounds): 200 Weight (Ounces): 0.0 Weight (Calculated Kilograms): [id number] Side: right Groin site without hematoma: Yes Condition: DP/PT pulses palpable, extremity w/d/p Bruising: mild bruising Constitutional: AAO x 3, well-developed, well-nourished Respiratory: No accessory muscle use, No respiratory distress; chest expansion is symmetric, chest is bilaterally symmetric, other (prolonged exp phase) Cardiovascular: regular rate-rhythm; No JVD; S1 and S2 Gastrointestional: No tender; soft, round, audible bowel sounds Extremities: no lower extremity edema bilateral Neurologic/Psychiatric: grossly intact (moves all extremities) Skin: No rash on exposed areas, No ulcerations on exposed areas Results/Procedures: Labs Laboratory Tests 06/28/20 04:00: White Blood Count 8.6, Red Blood Count 4.64, Hemoglobin 13.6, Hematocrit 43, Mean Corpuscular Volume 93, Mean Corpuscular Hemoglobin 29, Mean Corpuscular Hemoglobin Concent 32, Red Cell Distribution Width 13.0, Platelet Count 165, Mean Platelet Volume 10.8, Sodium Level 138, Potassium Level 4.0, Chloride Level 104, Carbon Dioxide Level 21, Anion Gap 13, Blood Urea Nitrogen 11, Creatinine 0.78, Estimat Glomerular Filtration Rate > 60, BUN/Creatinine Ratio 14, Glucose Level 87, Calcium Level 8.1L Microbiology 06/27/20 MRSA Screen - Final, Complete MRSA not isolated Procedures S/P cardiac cath with successful intervention Please refer to cardiac cath report of Jun 27, 2020 for detail A/P: Assessment: CAD: Cardiac cath of Jun 28, 2020: Multivessel coronary artery disease that includes 50% proximal stenosis of the left anterior descending (fractional flow reserve 0.88), 50% to 60% proximal and mid vessel stenosis of the left circumflex (fractional flow reserve of 0.9) and up to 90% stenosis in the very distal left circumflex, where the vessel is of a small caliber and not amenable to intervention. The right coronary artery is dominant and had multiple severe stenoses to which successful intervention was carried out and following deployment of overlapping Resolute 2.25 x 26 mm and Resolute 2.0 x 18 mm stent, there was no significant residual stenosis. The distal right coronary artery has up to 50% stenosis. Mildly elevated left ventricular end-diastolic pressure. Normal global left ventricular systolic function with an ejection fraction approximately 60%. Quit smoking in November 2016 after 45 pack-years of smoking Probable COPD MPI of May 16, 2020 is suggestive of a small amt of basal inferior ischemia. Normal regional wall motion. LVEF 77% Echocardiogram of Apr 27, 2020 showed LVEF 60-65%. PASP 45-50mmHg Elevated BMI of 33 Mild carotid arterial disease on carotid u/s of 04/18/20 at [facility] [place], [place] Mild polycythemia, followed by Dr Carter Abnormal ECG: ECG of 04/19/20 shows NSR and RBBB Hypertension H/O Intolerance to ASA and Plavix (causes stomach problems, particularly nausea) Plan: S/P successful coronary intervention on Jun 27, 2020, please refer to cardiac cath report for details Hypoxia of undetermined etiology prob COPD - likely will need home oxygen Home oxygen eval ordered Dr. Carter, her PCP, consulted. We have called her and discussed plan of care OK to discharge home from cardiac stand point Continue current medication regimen NICOLE TABARES Jun 28, 2020 07:55
[2020-06-28] MEDS ORDERED: ASPI-999 PO (07:56)
--- NOTE | 2020-06-28 08:47 | Discharge Inst-Cardiology ---
Discharge Inst-Cardiac Discharge Medications New Medications: Aspirin (Aspirin) 81 Mg Tab.chew 81 MG PO DAILY, #30 TAB 5 Refills Continued Medications: Amlodipine Besylate (Amlodipine Besylate) 5 Mg Tablet 5 MG PO DAILY, TAB Atenolol (Atenolol) 50 Mg Tablet 50 MG PO DAILY, TAB Clopidogrel Bisulfate (Clopidogrel) 75 Mg Tablet 75 MG PO DAILY, TAB Levothyroxine Sodium (Levothyroxine Sodium) 112 Mcg Tablet 112 MCG PO DAILY, TAB Loratadine (Loratadine) 10 Mg Tablet 10 MG PO DAILY, TAB Losartan Potassium (Losartan Potassium) 100 Mg Tablet 100 MG PO DAILY, TAB Methadone HCl (Methadone HCl) 10 Mg Tablet 10-15 MG PO Q6H PRN for PAIN-MODERATE, TAB Ondansetron (Ondansetron Odt) 4 Mg Tab.rapdis 4 MG PO Q8H PRN for NAUSEA/VOMITING, TAB Pantoprazole Sodium (Pantoprazole Sodium) 40 Mg Tablet.dr 40 MG PO DAILY, TAB Promethazine HCl (Promethazine Tablet) 25 Mg Tablet 25 MG PO Q6H PRN for NAUSEA/VOMITING, TAB Vit A/C/E/Zinc/Selenium/Copper (Vision Formula Tablet) 1 Each Tablet 1 EACH PO DAILY, TAB Patient Instructions Patient Instructions: Please schedule follow up appointment with Dr. Fisher in one week NICOLE TABARES Jun 28, 2020 08:47
[2020-06-28] MEDS ORDERED: [UNRECOGNIZED DRUG - OTHER] PO SCH (09:00)
[2020-06-28] MEDS ORDERED: LOSARTAN 100 MG (COZAAR) TABLET PO SCH (09:00)
[2020-06-28] MEDS ORDERED: LEVOTHYROXINE 112 MCG (LEVOTHROID) TAB PO SCH (09:00)
[2020-06-28] MEDS ORDERED: amLODIPine 5 MG (NORVASC) TAB PO SCH (09:00)
[2020-06-28] MEDS ORDERED: ZINC PO SCH (09:00)
[2020-06-28] MEDS ORDERED: CLOPIDOGREL 75 MG (PLAVIX) TABLET PO SCH (09:00)
[2020-06-28] MEDS ORDERED: COPPER PO SCH (09:00)
[2020-06-28] MEDS ORDERED: VIT A PO SCH (09:00)
[2020-06-28] MEDS ORDERED: ASPIRIN 81 MG CHEW (CHILDREN'S ASA) PO SCH (09:00)
[2020-06-28] MEDS ORDERED: ATENOLOL 50 MG (TENORMIN) TAB PO SCH (09:00)
[2020-06-28] MEDS ORDERED: PANTOPRAZOLE 40 MG (PROTONIX) TAB PO SCH (09:00)
[2020-06-28] MEDS ORDERED: LORATADINE (CLARITIN) 10 MG TAB PO SCH (09:00)
[2020-06-28] MEDS ORDERED: SELENIUM PO SCH (09:00)
--- NOTE | 2020-06-28 09:20 | NUR ---
SPO2 DROPPED TO 87% ON ROOM AIR @ REST. REPLACED O2 3LPM. SPO2 INCREASED TO 92%. Addendum: 06/28/20 at 0959 by WHITNEY ALICEA RT Amended: Links added.
--- NOTE | 2020-06-28 09:26 | Consultation ---
History of Present Illness History of Present Illness Patient Consulted On(tiffany/time) 06/28/20 09:26 Allergies and Home Medications Allergies Coded Allergies: No Known Drug Allergies (Unverified , 08/05/18) Home Medications Amlodipine Besylate 5 Mg Tablet, 5 MG PO DAILY, (Reported) Aspirin 81 Mg Tab.chew, 81 MG PO DAILY Prescribed by: NICOLE TABARES on 06/28/20 0756 Atenolol 50 Mg Tablet, 50 MG PO DAILY, (Reported) Clopidogrel Bisulfate 75 Mg Tablet, 75 MG PO DAILY, (Reported) Levothyroxine Sodium 112 Mcg Tablet, 112 MCG PO DAILY, (Reported) Loratadine 10 Mg Tablet, 10 MG PO DAILY, (Reported) Losartan Potassium 100 Mg Tablet, 100 MG PO DAILY, (Reported) Methadone HCl 10 Mg Tablet, 10-15 MG PO Q6H PRN for PAIN-MODERATE, (Reported) Ondansetron 4 Mg Tab.rapdis, 4 MG PO Q8H PRN for NAUSEA/VOMITING, (Reported) Pantoprazole Sodium 40 Mg Tablet.dr, 40 MG PO DAILY, (Reported) Promethazine HCl 25 Mg Tablet, 25 MG PO Q6H PRN for NAUSEA/VOMITING, (Reported) Vit A/C/E/Zinc/Selenium/Copper 1 Each Tablet, 1 EACH PO DAILY, (Reported) Past Awnyvvf-Geobds-Upgaqh Hx Patient Social History Alcohol Use: Denies Use Recreational Drug Use: No Smoking Status: Former Smoker Type Used: Cigars Former Smoker, Quit: Apr 05, 2017 Recent Foreign Travel: No Contact w/Someone Who Travel: No Recent Hopitalizations: No Immunizations Up To Date Tetanus Booster (TDap): Unknown Date of Influenza Vaccine: Jun 14, 2020 Seasonal Allergies Seasonal Allergies: Yes Past Medical History Surgeries: Yes Appendectomy, Section, Hysterectomy, Tonsillectomy Respiratory: No Cardiac: Yes Hypertension Neurological: No Reproductive Disorders: No Sexually Transmitted Disease: No HIV/AIDS: No Genitourinary: No Gastrointestinal: Yes Gastroesophageal Reflux, Chronic Diarrhea Musculoskeletal: Yes (chronic pain, chronic right knee pain) Fibromyalgia, Chronic Back Pain Endocrine: Yes Hypothyroidsim HEENT: Yes (GLASSES) Loss of Vision: Denies Hearing Impairment: Denies Cancer: No Psychosocial: Yes Anxiety, Depression Integumentary: No Blood Disorders: No Adverse Reaction/Blood Tranf: No Family Medical History No Pertinent Family Hx Physical Exam Vital Signs Vital Signs - First Documented 06/27/20 06/27/20 07:39 10:41 Temp 36.0 Pulse 94 Resp 20 B/P (MAP) 158/72 (100) Pulse Ox 81 O2 Delivery Room Air O2 Flow Rate 5.00 Capillary Refill : Height, Weight, BMI Height: 5'5.00" Weight: 200lbs. 0.0oz. [id number]; 33.05 BMI Method:Stated SAHIL KHAN MD Jun 28, 2020 09:26
--- NOTE | 2020-06-28 09:44 | NUR ---
PT REFUSES ORDERED PO MEDICATIONS STATING SHE HAS ALREADY TAKEN HER HOME MEDICATIONS THAT SHE HAS WITH HER. THERE IS AN ORDER FOR PT TO TAKE HER HOME MEDICATIONS ON CHART. THIS RN EXPLAINS THE IMPORTANCE OF NURSING BEING PRESENT WHEN SHE TAKES HER OWN MEDICATIONS. PT VERBALIZES UNDERSTANDING.
--- NOTE | 2020-06-28 10:48 | Progress Note - Cardiology ---
Cardiology SOAP Progress Note Subjective: Chronic, exertional shortness of breath No cp or palp or syncope or leg or groin discomfort Wishes to go home Objective: I&O/Vital Signs 06/27/20 06/27/20 06/28/20 06/28/20 23:00 23:01 00:00 01:00 Temp 36.3 Pulse 57 57 56 Resp 12 B/P (MAP) 125/65 (85) 114/70 (85) Pulse Ox 94 92 O2 Delivery Nasal Cannula Nasal Cannula Nasal Cannula O2 Flow Rate 2.00 2.00 2.00 06/28/20 06/28/20 06/28/20 06/28/20 03:42 06:43 07:25 07:58 Temp 36.2 36.6 Pulse 61 63 73 Resp 14 8 B/P (MAP) 110/70 (83) 143/70 (94) Pulse Ox 94 94 O2 Delivery Nasal Cannula Nasal Cannula Nasal Cannula O2 Flow Rate 2.00 2.00 3.00 06/28/20 06/28/20 09:20 09:47 O2 Delivery Nasal Cannula O2 Flow Rate 3.00 3.00 06/28/20 00:00 Intake Total 900 ml Balance 900 ml Weight (Pounds): 200 Weight (Ounces): 0.0 Weight (Calculated Kilograms): [id number] Side: right Groin site without hematoma: Yes Condition: DP/PT pulses palpable, extremity w/d/p Bruising: mild bruising Constitutional: AAO x 3, well-developed, well-nourished Respiratory: No accessory muscle use, No respiratory distress; chest expansion is symmetric, chest is bilaterally symmetric, other (prolonged exp phase) Cardiovascular: regular rate-rhythm; No JVD; S1 and S2 Gastrointestional: No tender; soft, round, audible bowel sounds Extremities: no lower extremity edema bilateral Neurologic/Psychiatric: grossly intact (moves all extremities) Skin: No rash on exposed areas, No ulcerations on exposed areas Results/Procedures: Labs Laboratory Tests 06/28/20 04:00: White Blood Count 8.6, Red Blood Count 4.64, Hemoglobin 13.6, Hematocrit 43, Mean Corpuscular Volume 93, Mean Corpuscular Hemoglobin 29, Mean Corpuscular Hemoglobin Concent 32, Red Cell Distribution Width 13.0, Platelet Count 165, Mean Platelet Volume 10.8, Sodium Level 138, Potassium Level 4.0, Chloride Level 104, Carbon Dioxide Level 21, Anion Gap 13, Blood Urea Nitrogen 11, Creatinine 0.78, Estimat Glomerular Filtration Rate > 60, BUN/Creatinine Ratio 14, Glucose Level 87, Calcium Level 8.1L Microbiology 06/27/20 MRSA Screen - Final, Complete MRSA not isolated A/P: Assessment: CAD: Cardiac cath of Jun 28, 2020: Multivessel coronary artery disease that includes 50% proximal stenosis of the left anterior descending (fractional flow reserve 0.88), 50% to 60% proximal and mid vessel stenosis of the left circumflex (fractional flow reserve of 0.9), and up to 90% stenosis in the very distal left circumflex, where the vessel is of a small caliber and not amenable to intervention. The right coronary artery is dominant and had multiple severe stenoses treated with deployment of overlapping Resolute 2.25 x 26 mm and Resolute 2.0 x 18 mm stent with no significant residual stenoses. The distal right coronary artery has up to 50% stenosis. Mildly elevated left ventricular end-diastolic pressure. Normal global left ventricular systolic function with an ejection fraction approximately 60%. Quit smoking in November 2016 after 45 pack-years of smoking Probable COPD MPI of May 16, 2020 is suggestive of a small amt of basal inferior ischemia. Normal regional wall motion. LVEF 77% Echocardiogram of Apr 27, 2020 showed LVEF 60-65%. PASP 45-50mmHg Elevated BMI of 33 Mild carotid arterial disease on carotid u/s of 04/18/20 at [place], [place] Mild polycythemia, followed by Dr Carter Abnormal ECG: ECG of 04/19/20 shows NSR and RBBB Hypertension H/O Intolerance to ASA and Plavix (causes stomach problems, particularly nausea) Plan: We discussed the details of her CAD and interventions undertaken We discussed risk factor modification in detail. We advised her to continue to refrain from tobacco use We discussed the pros and cons of current CV regimen. She has been tolerating it well. We have advised compliance Home oxygen eval ordered Dr. Carter, her PCP, consulted. We have called her and discussed plan of care OK to discharge home from cardiac stand point F/U at our office in 1-2 weeks ANA M AGUIRRE MD FACP FAC CCDS Jun 28, 2020 10:48
--- NOTE | 2020-06-28 11:16 | NUR ---
CM FINALIZED DISCHARGE PLAN: Patient is dismissing to home today with new oxygen need. Visited with her et she has selected [facility] as her medical equipment provider. She reports that she has used them in the past. She is very anxious and asks many questions. Encouraged her that I was here to answer all of her questions. After all questions were answered and helped patient get her room organized for her to be able to better access she reports that she is comfortable et denies any further needs or requests. [facility] so that they would deliver o2 to the hospital.
[2020-06-28 11:47] VITALS: BP 144/69
== END 2020-06-28 13:30 | disposition home or self-care (01) ==
LOC: CATH 06:55 → CSD 12:38 → CATH 06-28 13:30
PROVIDERS: ATTEND Internal Medicine Cardiovascular Disease
DX: I25.10 Atherosclerotic heart disease of native coronary artery without angina pectoris (principal); I65.23 Occlusion and stenosis of bilateral carotid arteries; R94.39 Abnormal result of other cardiovascular function study; I27.21 Secondary pulmonary arterial hypertension; Z87.891 Personal history of nicotine dependence; Z90.49 Acquired absence of other specified parts of digestive tract; Z90.710 Acquired absence of both cervix and uterus; Z83.3 Family history of diabetes mellitus
CPT/HCPCS: 80048; 80053; 80061; 85027 ×2; 85610; 85730; 87081; 93005; 93458; 93571; 93572; 94761; C1725; C1760; C1769; C1874 ×2; C1887 ×2; C1894 ×2; C9600; 36415

== ENCOUNTER → 2020-07-06 | Outpatient (CLI) | payer OTHER ==
[~2020-07-06] MED LIST changes: +AMLO-250 PO; +ASPI-999 PO; +CLOP75TA28 PO; +PROM25TA14 PO; +VIT-10 PO
--- NOTE | 2020-07-06 17:14 | Diagnostic Imaging Report ---
INDICATION: Hemorrhage, right groin cardiac catheterization. A pseudoaneurysm ventrally off the right common femoral artery has the sac measuring 2.0 x 1.2 cm with a narrow 2 mm neck. The sac is partially thrombosed peripherally but there is flow through the neck into its central portion. Common femoral vein is patent. 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 Dictated by: Dictated on workstation # [id number]
== END ==
LOC: RAD 09:45
PROVIDERS: ATTEND Nurse Practitioner Family
DX: I97.620 Postprocedural hemorrhage of a circulatory system organ or structure following other procedure (principal); I72.4 Aneurysm of artery of lower extremity
CPT/HCPCS: 93926

== ENCOUNTER 2022-03-06 15:26 | Emergency (ER) | payer MEDICARE ==
[~2022-03-06] VITALS: Ht 165 cm; Wt 79.0 kg
[~2022-03-06 15:26] MED LIST changes: +METH-742 PO; -METH10TA2 PO
[2022-03-06 15:30] VITALS: BP 179/71
--- NOTE | 2022-03-06 15:40 | ED Lower Extremity ---
General Chief Complaint: Lower Extremity Stated Complaint: R FOOT PAIN Source: patient Exam Limitations: no limitations History of Present Illness Date Seen by Provider: Mar 06, 2022 Time Seen by Provider: 15:38 Initial Comments Patient is a 67-year-old female who presents ED with right dorsum foot pain. About 1 hour ago she states a heavy tape measure construction built fell on her right foot resulting in a large contusion. She had immediate swelling and br uising on the dorsum side of the foot. She states she was able to put some pressure on her foot. Denies any distal numbness and tingling or obvious bone deformity. She is currently on Plavix. Denies taking thing for pain but does take methadone daily for chronic pain of fibromyalgia. Allergies and Home Medications Allergies Coded Allergies: No Known Drug Allergies (Unverified , 08/05/18) Patient Home Medication List Home Medication List Reviewed: Yes Amlodipine Besylate (Amlodipine Besylate) 5 Mg Tablet, 5 MG PO DAILY, (Reported) Entered as Reported by: TAINA COOK on 06/27/20 0756 Aspirin (Aspirin) 81 Mg Tab.chew, 81 MG PO DAILY Prescribed by: NICOLE TABARES on 06/28/20 0756 Atenolol (Atenolol) 50 Mg Tablet, 50 MG PO DAILY, (Reported) Entered as Reported by: CAROLANN LANCE on 08/05/18 131 Clopidogrel Bisulfate (Clopidogrel) 75 Mg Tablet, 75 MG PO DAILY, (Reported) Entered as Reported by: TAINA COOK on 06/27/20 0756 Levothyroxine Sodium (Levothyroxine Sodium) 112 Mcg Tablet, 112 MCG PO DAILY, (Reported) Entered as Reported by: CAROLANN LANCE on 08/05/18 131 Loratadine (Loratadine) 10 Mg Tablet, 10 MG PO DAILY, (Reported) Entered as Reported by: CAROLANN LANCE on 08/05/18 131 Losartan Potassium (Losartan Potassium) 100 Mg Tablet, 100 MG PO DAILY, (Reported) Entered as Reported by: CAROLANN LANCE on 08/05/18 131 Methadone HCl (Methadone HCl) 10 Mg Tablet, 10-15 MG PO Q6H PRN for PAIN-MODERATE, (Reported) Entered as Reported by: CAROLANN LANCE on 08/05/18 1311 Ondansetron (Ondansetron Odt) 4 Mg Tab.rapdis, 4 MG PO Q8H PRN for NAUSEA/VOMITING, (Reported) Entered as Reported by: CAROLANN LANCE on 08/05/18 1311 Pantoprazole Sodium (Pantoprazole Sodium) 40 Mg Tablet.dr, 40 MG PO DAILY, (Reported) Entered as Reported by: CAROLANN LANCE on 08/05/18 1311 Promethazine HCl (Promethazine Tablet) 25 Mg Tablet, 25 MG PO Q6H PRN for NAUSEA/VOMITING, (Reported) Entered as Reported by: TAINA COOK on 06/27/20 0756 Vit A/C/E/Zinc/Selenium/Copper (Vision Formula Tablet) 1 Each Tablet, 1 EACH PO DAILY, (Reported) Entered as Reported by: TAINA COOK on 06/27/20 0756 Review of Systems Constitutional: No chills, No diaphoresis, No malaise, No weakness EENTM: No ear pain, No blurred vision, No double vision Respiratory: No cough, No dyspnea on exertion, No short of breath Cardiovascular: No chest pain Gastrointestinal: No abdominal pain, No diarrhea, No nausea, No vomiting Genitourinary: No decreased output, No discharge Musculoskeletal: joint pain, joint swelling, muscle pain Skin: change in color, other (Contusion right dorsum foot) All Other Systems Reviewed Negative Unless Noted: Yes Past Auwwhxt-Lzbrkh-Sylcde Hx Immunizations Up To Date Tetanus Booster (TDap): Unknown Seasonal Allergies Seasonal Allergies: Yes Past Medical History Surgeries: Yes Appendectomy, Section, Hysterectomy, Tonsillectomy Respiratory: No Cardiac: Yes Hypertension Neurological: No Reproductive Disorders: No Sexually Transmitted Disease: No HIV/AIDS: No Genitourinary: No Gastrointestinal: Yes Gastroesophageal Reflux, Chronic Diarrhea Musculoskeletal: Yes (chronic pain, chronic right knee pain) Fibromyalgia, Chronic Back Pain Endocrine: Yes Hypothyroidsim HEENT: Yes (GLASSES) Loss of Vision: Denies Hearing Impairment: Denies Cancer: No Psychosocial: Yes Anxiety, Depression Integumentary: No Blood Disorders: No Adverse Reaction/Blood Tranf: No Family Medical History Heart Disease, Hypertension Physical Exam Vital Signs Vital Signs - First Documented 03/06/22 15:30 Temp 36.9 Pulse 86 Resp 16 B/P (MAP) 179/71 (107) Pulse Ox 95 O2 Delivery Room Air Capillary Refill : Height, Weight, BMI Height: 5'5.00" Weight: 200lbs. 0.0oz. 90.064176qp; 33.05 BMI Method:Stated General Appearance: WD/WN, no apparent distress HEENT: PERRL/EOMI, normal ENT inspection, TMs normal, pharynx normal Neck: non-tender, full range of motion, supple, normal inspection Cardiovascular: regular rate, rhythm, no edema, no gallop Respiratory: chest non-tender, lungs clear, normal breath sounds, no respiratory distress, no accessory muscle use Gastrointestinal: normal bowel sounds, non tender, soft, no organomegaly Knees: bilateral knee non-tender, bilateral knee normal inspection, bilateral knee normal range of motion Ankles: bilateral ankle non-tender, bilateral ankle normal inspection, claudia ateral ankle normal range of motion Feet: right foot pain (Right dorsum foot), right foot soft tissue tenderness, right foot swelling Neurologic/Psychiatric: loan assistant II-XII nml as tested, no motor/sensory deficits Skin: other (Contusion noted to right dorsum foot) Progress/Results/Core Measures Results/Orders My Orders Orders - ALDO GRIMM Foot, Right, 3 View (03/06/22 15:37) Vital Signs/I&O 03/06/22 15:30 Temp 36.9 Pulse 86 Resp 16 B/P (MAP) 179/71 (107) Pulse Ox 95 O2 Delivery Room Air Departure Communication (PCP) X-ray was negative for fracture. Contusion noted to the right dorsum foot. Ice was applied. Refused anything for pain but is currently on methadone daily for chronic pain. Patient was placed in postop shoe. Patient will follow-up with orthopedic 7 to 10 days for reevaluation and x-ray as needed. Return precaution were discussed with patient. Continue with ice times a day for at least 2030 minutes for the next 3 to 4 days. Discussed with patient that the contusion will improve. Impression Primary Impression: Contusion of foot Disposition: HOME, SELF-CARE Condition: Stable Departure-Patient Inst. Decision time for Depature: 16:18 Referrals: SAHIL KHAN MD (PCP/Family) Primary Care Physician RICKIE RAMOS MD Patient Instructions: Contusion (DC) Add. Discharge Instructions: Recommend ice 4 times a day for 20 to 30 minutes to help with swelling. Elevate at night. Orthopedic outpatient follow-up in 7 to 10 days if pain progress. Bear weight as tolerated All discharge instructions reviewed with patient and/or family. Voiced understanding. ALDO GRIMM Mar 06, 2022 15:40
--- NOTE | 2022-03-06 16:06 | Diagnostic Imaging Report ---
INDICATION: Pain and swelling of the right foot status post injury. COMPARISON: None. FINDINGS: Three views of the right foot demonstrate no acute fracture or dislocation. There are no focal osseous lesions. There is moderate localized soft tissue swelling over the dorsum of the foot. Joint spaces are well maintained. No radiopaque foreign bodies are seen. IMPRESSION: Moderate localized soft tissue swelling of the dorsum of the foot, but no radiographic evidence of underlying acute fracture or dislocation. Dictated by: Dictated on workstation # [id number]
== END 2022-03-06 16:20 | disposition home or self-care (01) ==
LOC: EDUNIT# 15:26 → ER 15:28
DX: S90.31XA Contusion of right foot, initial encounter (principal); M79.7 Fibromyalgia; Z79.02 Long term (current) use of antithrombotics/antiplatelets; Z79.891 Long term (current) use of opiate analgesic; W20.8XXA Other cause of strike by thrown, projected or falling object, initial encounter
CPT/HCPCS: 73630

== ENCOUNTER → 2022-10-30 | Outpatient (CLI) | payer MEDICARE, OTHER | LOC: CARD 09:48 | PROVIDERS: ATTEND Nurse Practitioner Family | DX: I27.21 Secondary pulmonary arterial hypertension (principal) | CPT/HCPCS: 93306 ==